=== PATIENT | female | born 1955 | race Caucasian/White ===

== ENCOUNTER → 2016-12-01 | Outpatient (CLI) | payer OTHER ==
[~2016-12-01] MED LIST: ACET325T30 PO; ALBINS NEB; AMIO0.1T PO; AMOX500C3 PO; AMOX875T PO; ASPI81TA28 PO; AZIT500T26 PO; CALC600T PO; CARV6.252 PO; CEFA500C2 PO; CHOL1CAP57 PO; CMD/3 PO; CMD4 PO; DIPH-437 PO; FERR325T5 PO; FERR325T51 PO; FURO40TA3 PO; FURO80TA63 PO; HYDR-5688 PO; HYDR5SYP11 PO; IPRASOL4 INH; LSX40 PO; MELA1CAP PO; MELA1TAB48 PO; NEBMAC; OMEP40CA PO; OMEP40CA41 PO; ONDA4TAB10 SL; OPTIRAY 320 IV PRN; POTA20TA13 PO; PRED10TA PO; PRED20TA PO; SERT100T PO; SIMV20TA2 PO; SPIR25TA89 PO; SYMIN/8045 INH; TRIA0.1C20 TOP; TRMCR130WC TOP; VNTHFA/IN; XLD/500 PO
--- NOTE | 2016-12-01 12:02 | DIAGNOSTIC IMAGING REPORT ---
CT SCAN OF THE CHEST WITH IV CONTRAST CLINICAL HISTORY: Breast cancer. COMPARISON STUDY: Chest CT dated 08/23/2016 and 06/27/2013. PET/CT dated 06/13/2016. TECHNIQUE: Following the IV administration of 119 cc of Optiray 320, CT scan of the thorax was performed from the thoracic inlet to the upper abdomen. Images are reviewed in the axial, sagittal, and coronal planes. IV contrast was administered without complication. The examination is degraded by streak artifact from a left ventricular assist device. FINDINGS: Thyroid: Imaged portions of the thyroid gland are normal in size and attenuation. Thoracic aorta: There is mild atherosclerotic calcification of the thoracic aorta, which is normal in caliber and demonstrates standard 3-vessel arch anatomy. No dissection is seen. Pulmonary vasculature: The pulmonary trunk is normal in caliber. There are no filling defects identified in the central pulmonary vessels to indicate pulmonary embolus. Note that this examination was not protocoled for evaluation of the pulmonary arteries. Heart: Midline sternotomy wires are noted. A cardiac AICD is present in the left chest wall. The heart is mildly enlarged and without pericardial effusion. A left ventricular assist device is noted. Thrombus is again seen within the proximal portion of the outflow cannula. This causes significant luminal narrowing but is unchanged from previous. Lungs and pleural spaces: A trace right pleural effusion is identified. No airspace consolidation is seen typical for pneumonia. There is fibrotic change at the right apex, as well as within the anterior aspect of the right middle lobe. This is unchanged and likely related to previous radiation treatment. A 7 mm pleural-based nodule in the right lower lobe seen on image #90 and a 7 mm nodule in the left upper lobe on image #111 have not significantly changed from the 08/23/2016 examination. No new pulmonary nodules are identified. The trachea and central airways are clear. Mediastinum: There are calcified mediastinal lymph nodes. Numerous subcentimeter mediastinal nodes are identified and similar to previous. Nivia: There are calcification containing hilar lymph nodes. Axillae: Surgical clips are present in the right axilla. There is no axillary lymphadenopathy. Upper abdomen: The spleen is enlarged, measuring 14.7 cm in length. A small hiatal hernia is noted. The partially imaged kidneys demonstrate cortical atrophy. There is moderate glandular atrophy of the visualized pancreas. Skeletal structures: The skeletal structures are osteopenic. No lytic or blastic bony lesions are seen. Soft tissues: Postoperative change is identified in the right breast. The right breast appears edematous with dermal thickening. There is an ill-defined soft tissue lesion seen on image #148 which measures 4.4 cm. This likely corresponds to residual tumor. IMPRESSION: 1. Postoperative findings and a dominant mass lesion in the right breast have not significantly changed from 08/23/2016. 2. There is no evidence of progressive metastatic disease. 3. 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 4. There is a trace right pleural effusion. No airspace consolidation is seen typical for pneumonia. 5. Pulmonary and pleural-based nodules measuring up to 7 mm are not significantly changed from 08/23/2016. 6. Cardiomegaly, AICD, and left ventricular cyst device as above. 7. Calcification containing mediastinal and hilar lymph nodes are similar to previous. The appearance suggests granulomatous disease or a pneumoconiosis. Clinical correlation will be essential. 8. Additional changes as detailed above. Electronically signed by: Dre Vaca M.D. 12/01/2016 12:01 PM Dictated Date/Time: 12/01/2016 11:52 AM
--- NOTE | 2016-12-01 12:57 | DIAGNOSTIC IMAGING REPORT ---
CT ABD WITH IV CONTRAST ONLY (CT) CT DOSE: CLINICAL HISTORY: Breast carcinoma TECHNIQUE: The patient was scanned in a dynamic helical fashion during intravenous administration of 119 cc Optiray 320 COMPARISON STUDY: 08/23/2016 FINDINGS: The visualized portions of the lower chest reveal a left ventricular assist device. Thrombus is again visualized within the inflow cannula. This results in significant luminal narrowing. There are subpleural fibrotic changes within the right middle lobe, consistent with post radiation change. There is a trace right pleural effusion. There is no evidence of abdominal aortic aneurysm. No adrenal masses are visualized. There is mild splenomegaly (12.5 cm). No pancreatic masses are visualized. No gallbladder abnormalities are visualized. No renal masses are visualized. The liver is slightly difficult to evaluate due to artifact and the patient's left ventricular assist device. There is subtle inhomogeneous enhancement with a suggestion of several tiny nodules. There is at least one focus of capsular contraction. The small nodules are less apparent than on the prior study. IMPRESSION: 1. Decreased conspicuity of the subcentimeter hepatic nodules 2. No new or enlarging hepatic masses 3. Trace right pleural effusion 4. Mild splenomegaly Electronically signed by: Victor M Troy M.D. 12/01/2016 12:56 PM Dictated Date/Time: 12/01/2016 12:42 PM
== END | disposition home or self-care (01) ==
LOC: C.CTS 11:04
PROVIDERS: ATTEND Internal Medicine Hematology & Oncology
DX: C50.411 Malignant neoplasm of upper-outer quadrant of right female breast (principal); K76.89 Other specified diseases of liver; J84.10 Pulmonary fibrosis, unspecified; R91.8 Other nonspecific abnormal finding of lung field; I51.7 Cardiomegaly; Z95.810 Presence of automatic (implantable) cardiac defibrillator; Z95.811 Presence of heart assist device; I89.8 Other specified noninfective disorders of lymphatic vessels and lymph nodes

== ENCOUNTER → 2016-12-15 | Outpatient (CLI) | payer OTHER ==
[2016-06-15 13:44] VITALS: TEMP 36.5
[~2016-12-15] MED LIST changes: -OPTIRAY 320 IV PRN
--- NOTE | 2016-12-15 16:00 | Radiation Oncology Follow-Up ---
Radiation Oncology Follow-Up Date of Visit Dec 15, 2016. (Tina Simpson PA-C) Reason For Visit 6 month follow-up (Tina Simpson PA-C) Radiation Completion Date 05/24/16 (Tina Simpson PA-C) Diagnosis (1) Breast cancer Onset Date: 09/25/2015 Permanent Comment: DIAGNOSIS: 1. Right breast, invasive ductal carcinoma, ER negative, NE positive, [id number], stage III status post lumpectomy/axillary lymph node dissection, adjuvant radiation therapy (5940 cGy, 07/24/96), advjuvant A/C chemotherapy 2. Right breast, invasive ductal carcinoma, grade 2, ER/NE/Her2 negative, [id number], stage IV (possible recurrence) Status post completion of radiation therapy 05/24/2016 received 6840 cGy Patient has been placed on systemic chemotherapy with Xeloda. Last Edited By: Tina Simpson on Jun 06, 2016 15:22 (Tina Simpson PA-C) History of Present Illness Ms. Robertson is a 60-year-old female who presents with previous history of stage III right breast cancer treated with surgery, radiation therapy and adjuvant chemotherapy in 1995. She she has been doing relatively well for a very long time. Of note, she does have both a defibrillator and LVAD for her CHF which was implanted in 2013. She has she did start to palpate something in her right breast in the upper outer quadrant which started in 2013. She did have a mammogram on 01/07/2014 which did not reveal any mammographic abnormality. She also had a PET /CT scan completed on 11/17/2014 which revealed no mass or uptake in the right breast and no evidence of recurrent breast cancer. The PET scan did note pulmonary nodularity and adenopathy which appeared stable and could be attributed to her sarcoidosis. She had a repeat mammogram on 02/17/2015 which revealed increasing linear microcalcifications within the right lumpectomy bed which required additional evaluation. She had a dedicated unilateral right diagnostic mammogram on 02/24/2015 which revealed faint clustered linear microcalcifications is a lumpectomy bed in the right breast. Her mammogram and ultrasound of the right breast were repeated on 08/11/2015 which revealed no discrete mass chest group linear calcifications consistent with what was previously noted in December 2013 and her mammogram in January 2015. Due to her LVAD device, she cannot undergo a stereotactic biopsy and had to proceed with an excisional biopsy which was completed on 09/25/2015. Her pathology revealed invasive ductal carcinoma that was moderately differentiated. Ductal carcinoma in situ was also noted. The superior margin was positive for invasive carcinoma in the anterior and lateral margins were less than 1 mm from invasive carcinoma. The tumor cells were negative for estrogen receptor, progesterone receptor and HER-2 receptor. She did undergo a PET/CT scan on 10/14/2015 which revealed an intense FDG avid liver lesion that is concerning for metastasis with no CT correlate, intensely avid right internal mammary lymph node which is stable from CT in comparison to 02/04/2014, increased FDG uptake in left spinal musculature which is likely physiologic, stigmata of sarcoidosis in the thorax and mediastinum and a postoperative hematoma in the right breast measuring 10 cm in the greatest dimension. Additionally, there was increased FDG uptake in the median sternotomy line which is likely inflammatory and related to nonunion. The patient's case was discussed at the tumor board at [facility]. They discussed treatment options and eventually concluded that radiation therapy would be the best option as this patient is high risk for postoperative complications from either a lumpectomy or mastectomy. They explained to the patient that a mastectomy would be standard to care in the setting of previous radiation therapy. The tumor board also discussed potentially biopsing the lesion in the liver. The patient was seen by Dr. Tidwell who agreed with the recommendation for consideration of radiation therapy given the fact that the patient cannot undergo surgical resection. We are now seeing the patient in consultation to discuss the role of radiation therapy. Currently, the patient is doing okay. She is being seen by the wound clinic as she is having wound healing issues from her previous excisional biopsy in the right breast. She explained to us that they may need to place a wound VAC. Otherwise, she has no significance complaints at this time. She does follow with Dr. Deshpande for cardiology and [place]. She completed conventional radiation therapy 05/24/2016. She received 6840 cGy. Treatment given to the right breast, supraclavicular area and axilla. (Tina Simpson PA-C) Interim History She states that there is an area of firmness in the lateral aspect of the right breast. There is mild tenderness. She lays on this side to sleep at night and can feel a very slight discomfort. She has noted no redness or increased warmth to the breast. She stated that medical oncology has been concerned about the area of firmness and there has been discussion of possible mastectomy. She has had follow-up mammography. This showed changes from her lumpectomy and radiation. There were no new obvious masses. She has skin changes that are likely related to surgery and radiation. A chest CT was performed on 12/01/2016. The postoperative findings and a dominant mass lesion the right breast have not significantly changed from 08/23/2016. There is no evidence of progressive metastatic disease. She stated that she has seen her surgeon and because of her comorbidities surgery was not an option. She also had a cough following completion of treatment. It was concerned that this may be radiation pneumonia. 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 Dr. Contreras treated her with steroid therapy on 2 occasions. This did help the cough. She does continue to have some intermittent coughing. (Tina Simpson PA-C) Allergies Coded Allergies: No Known Allergies (Unverified , 12/11/14) Home Medications Scheduled Amiodarone Hcl (Amiodarone Hcl), 100 MG PO DAILY Aspirin (Aspirin Ec), 162 MG PO DAILY Calcium Carbonate (Calcium 600), 600 MG PO DAILY Carvedilol (Coreg), 6.25 MG PO BID Cefadroxil (Duricef), 500 MG PO BID Cholecalciferol (Vitamin D3), 1,000 INTER.UNIT PO DAILY Ferrous Sulfate (Iron Supplement), 325 MG PO DAILY Furosemide (Lasix), 40 MG PO DAILY Melatonin (Melatonin), 20 MG PO HS Omeprazole (Prilosec), 40 MG PO DAILY Ondasetron Odt (Zofran Odt), 4-8 MG SL Q6H Potassium Chloride Microencaps (Potassium Chloride Er), 20 MEQ PO Q2D Sertraline Hcl (Zoloft), 100 MG PO QD@1200 Simvastatin (Zocor), 20 MG PO DAILY Spironolactone (Aldactone), 25 MG PO DAILY Triamcinolone Acet 0.1% (Aristocort 0.1%), 1 APPLN TOP UD prn Warfarin Sod (Warfarin Sodium), 1 TAB PO DAILY Scheduled PRN Acetaminophen (Acetaminophen), 650 MG PO UD PRN for Pain or Fever Acetaminophen/Diphenhydramine (Tylenol Pm), 1 TAB PO HS PRN for Sleep Amoxicillin (Amoxil), 500 MG PO UD PRN for Prior to Dental Appointments Review of Systems Gastrointestinal: Symptoms: WNL Oral: Symptoms: No Problems Respiratory: Symptoms: SOB With Exertion, Productive Cough Sputum Character: Clear sputum Other Respiratory: Reports her SOB is typical and related to her sarcoidosis Urinary: Symptoms: WNL Skin: Symptoms: No Problems Other Skin Symptoms: Slight wang discoloration to skin of treatment site on right breast. Breast: Right Upper Arm Measurement: 35.8 Right Mid Arm Measurement: 26.5 Right Wrist Measurement: 16.0 Left Upper Arm Measurement: 38.0 Left Mid Arm Measurement: 28.0 Left Wrist Measurement: 17.0 (Tina Simpson PA-C) Physical Exam Fatigue: None General Appearance: no apparent distress Eyes: normal inspection, EOMI ENT: normal ENT inspection, hearing grossly normal Neck: no adenopathy, thyroid normal Respiratory/Chest: lungs clear, no respiratory distress, no accessory muscle use Breast: Breast examination reveals fibrous tissue in the upper outer and lower outer portion of the right breast. There is skin retraction along the incision line. There is no dominant palpable mass. There is extensive edema in the upper inner and lower inner portion of the breast. There is no tenderness. Using the [place] score cosmesis she has a fair outcome. The left breast showed no masses or tenderness and no axillary adenopathy. Cardiovascular: + pertinent finding (hum of the LVAD) Extremities: no pedal edema Neurologic/Psychiatric: no motor/sensory deficits, alert, normal mood/affect Skin: warm/dry (Tina Simpson PA-C) Laboratory Studies Test 10/15/16 00:54 11/28/16 12:17 White Blood Count 8.44 K/uL (4.8-10.8) 5.91 K/uL (4.8-10.8) Red Blood Count 4.09 M/uL (4.2-5.4) 4.39 M/uL (4.2-5.4) Hemoglobin 12.1 g/dL (12.0-16.0) 12.3 g/dL (12.0-16.0) Hematocrit 36.1 % (37-47) 38.1 % (37-47) Mean Corpuscular Volume 88.3 fL (80-100) 86.8 fL (80-100) Mean Corpuscular Hemoglobin 29.6 pg (25-34) 28.0 pg (25-34) Mean Corpuscular Hemoglobin Concent 33.5 g/dl (32-36) 32.3 g/dl (32-36) Platelet Count 140 K/uL (130-400) 170 K/uL (130-400) Mean Platelet Volume 11.7 fL (7.4-10.4) 11.7 fL (7.4-10.4) Neutrophils (%) (Auto) 90.9 % 78.9 % Lymphocytes (%) (Auto) 2.6 % 8.6 % Monocytes (%) (Auto) 4.9 % 8.5 % Eosinophils (%) (Auto) 1.3 % 3.6 % Basophils (%) (Auto) 0.1 % 0.2 % Neutrophils # (Auto) 7.67 K/uL (1.4-6.5) 4.67 K/uL (1.4-6.5) Lymphocytes # (Auto) 0.22 K/uL (1.2-3.4) 0.51 K/uL (1.2-3.4) Monocytes # (Auto) 0.41 K/uL (0.11-0.59) 0.50 K/uL (0.11-0.59) Eosinophils # (Auto) 0.11 K/uL (0-0.5) 0.21 K/uL (0-0.5) Basophils # (Auto) 0.01 K/uL (0-0.2) 0.01 K/uL (0-0.2) RDW Standard Deviation 44.5 fL (36.4-46.3) 47.8 fL (36.4-46.3) RDW Coefficient of Variation 13.8 % (11.5-14.5) 15.0 % (11.5-14.5) Immature Granulocyte % (Auto) 0.2 % 0.2 % Immature Granulocyte # (Auto) 0.02 K/uL (0.00-0.02) 0.01 K/uL (0.00-0.02) Prothrombin Time 25.5 SECONDS (9.0-12.0) Prothrombin Time INR 2.3 (0.9-1.1) PTT 43.3 SECONDS (21.0-31.0) Partial Thromboplastin Ratio 1.7 Sodium Level 141 mmol/L (136-145) 142 mmol/L (136-145) Potassium Level 4.1 mmol/L (3.5-5.1) 3.9 mmol/L (3.5-5.1) Chloride Level 108 mmol/L (98-107) 105 mmol/L (98-107) Carbon Dioxide Level 23 mmol/L (21-32) 28 mmol/L (21-32) Anion Gap 10.0 mmol/L (3-11) 9.0 mmol/L (3-11) Blood Urea Nitrogen 34 mg/dl (7-18) 28 mg/dl (7-18) Creatinine 1.20 mg/dl (0.60-1.20) 1.30 mg/dl (0.60-1.20) Est Creatinine Clear Calc Drug Dose 51.3 ml/min 46.2 ml/min Estimated GFR () 55.7 50.6 Estimated GFR (Non- 48.1 43.6 BUN/Creatinine Ratio 28.1 (10-20) 21.3 (10-20) Random Glucose 108 mg/dl (70-99) 91 mg/dl (70-99) Calcium Level 8.5 mg/dl (8.5-10.1) 9.0 mg/dl (8.5-10.1) Total Bilirubin 0.5 mg/dl (0.2-1) 0.6 mg/dl (0.2-1) Direct Bilirubin 0.1 mg/dl (0-0.2) Aspartate Amino Transferase (AST) 36 U/L (15-37) 27 U/L (15-37) Alanine Aminotransferase (ALT) 32 U/L (12-78) 26 U/L (12-78) Alkaline Phosphatase 77 U/L (45-117) 86 U/L (45-117) Total Protein 7.0 gm/dl (6.4-8.2) 7.5 gm/dl (6.4-8.2) Albumin 4.0 gm/dl (3.4-5.0) 4.0 gm/dl (3.4-5.0) Lipase 183 U/L (73-393) Lactate Dehydrogenase 322 U/L (84-246) Globulin 3.5 gm/dl (2.5-4.0) Albumin/Globulin Ratio 1.1 (0.9-2) (Tina Simpson PA-C) Additional Studies CT SCAN OF THE CHEST WITH IV CONTRAST CLINICAL HISTORY: Breast cancer. COMPARISON STUDY: Chest CT dated 08/23/2016 and 06/27/2013. PET/CT dated 06/13/2016. TECHNIQUE: Following the IV administration of 119 cc of Optiray 320, CT scan of the thorax was performed from the thoracic inlet to the upper abdomen. Images are reviewed in the axial, sagittal, and coronal planes. IV contrast was administered without complication. The examination is degraded by streak artifact from a left ventricular assist device. FINDINGS: Thyroid: Imaged portions of the thyroid gland are normal in size and attenuation. Thoracic aorta: There is mild atherosclerotic calcification of the thoracic aorta, which is normal in caliber and demonstrates standard 3-vessel arch anatomy. No dissection is seen. Pulmonary vasculature: The pulmonary trunk is normal in caliber. There are no filling defects identified in the central pulmonary vessels to indicate pulmonary embolus. Note that this examination was not protocoled for evaluation of the pulmonary arteries. Heart: Midline sternotomy wires are noted. A cardiac AICD is present in the left chest wall. The heart is mildly enlarged and without pericardial effusion. A left ventricular assist device is noted. Thrombus is again seen within the proximal portion of the outflow cannula. This causes significant luminal narrowing but is unchanged from previous. Lungs and pleural spaces: A trace right pleural effusion is identified. No airspace consolidation is seen typical for pneumonia. There is fibrotic change at the right apex, as well as within the anterior aspect of the right middle lobe. This is unchanged and likely related to previous radiation treatment. A 7 mm pleural-based nodule in the right lower lobe seen on image #90 and a 7 mm nodule in the left upper lobe on image #111 have not significantly changed from the 08/23/2016 examination. No new pulmonary nodules are identified. The trachea and central airways are clear. Mediastinum: There are calcified mediastinal lymph nodes. Numerous subcentimeter mediastinal nodes are identified and similar to previous. Nivia: There are calcification containing hilar lymph nodes. Axillae: Surgical clips are present in the right axilla. There is no axillary lymphadenopathy. Upper abdomen: The spleen is enlarged, measuring 14.7 cm in length. A small hiatal hernia is noted. The partially imaged kidneys demonstrate cortical atrophy. There is moderate glandular atrophy of the visualized pancreas. Skeletal structures: The skeletal structures are osteopenic. No lytic or blastic bony lesions are seen. Soft tissues: Postoperative change is identified in the right breast. The right breast appears edematous with dermal thickening. There is an ill-defined soft tissue lesion seen on image #148 which measures 4.4 cm. This likely corresponds to residual tumor. IMPRESSION: 1. Postoperative findings and a dominant mass lesion in the right breast have not significantly changed from 08/23/2016. 2. There is no evidence of progressive metastatic disease. 3. 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 4. There is a trace right pleural effusion. No airspace consolidation is seen typical for pneumonia. 5. Pulmonary and pleural-based nodules measuring up to 7 mm are not significantly changed from 08/23/2016. 6. Cardiomegaly, AICD, and left ventricular cyst device as above. 7. Calcification containing mediastinal and hilar lymph nodes are similar to previous. The appearance suggests granulomatous disease or a pneumoconiosis. Clinical correlation will be essential. 8. Additional changes as detailed above. Electronically signed by: Dre Vaca M.D. 12/01/2016 12:01 PM Dictated Date/Time: 12/01/2016 11:52 AM BILATERAL DIGITAL DIAGNOSTIC MAMMOGRAM 3D/2D WITH CAD: 08/03/2016 CLINICAL HISTORY: 60-year-old woman presents after right lumpectomy and radiation. Patient has a history of remote right breast cancer diagnosed approximately 20 years ago. Left-sided pacemaker. Comparison is made to exams dated: 08/11/2015 ultrasound, 08/11/2015 mammogram , 02/24/2015 mammogram, and 02/17/2015 mammogram - [facility]. FINDINGS: Bilateral CC and MLO 2-D digital and tomosynthesis images were obtained. There are scattered areas of fibroglandular density in both breasts. Current study was also evaluated with a Computer Aided Detection (CAD) system. A pacemaker projects over the left pectoralis muscle and superior breast on the MLO view, and in the far posterior left breast on the CC view. There is asymmetry of the size of the breasts, left greater than right. There is diffuse skin irregularity, skin thickening and architectural distortion with associated asymmetry in the upper outer quadrant of the right breast, denoting the site of prior surgeries. Mammographically, it is difficult to assess for pathologic skin thickening versus that related to previous surgery and radiation therapy. However, there are no new linear microcalcifications or obvious mass. Scattered benign calcifications and vascular calcifications are seen within the right breast. There are stable benign-appearing microcalcifications within the left breast. Would recommend follow-up right mammograms including repeat spot magnification views in 6 months, given that this represents the new baseline after repeat lumpectomy and radiation treatment. IMPRESSION: ACR-BI-RADS CATEGORY 3: PROBABLY BENIGN 1. A short interval follow-up right mammogram including tomosynthesis images and spot magnification views is recommended in 6 months to ensure stability after second lumpectomy and radiation therapy for right breast cancer. 2. Stable mammographic appearance of the left breast, without mammographic evidence of malignancy. Advise follow-up in 1 year. These results and recommendations were discussed with the patient at the time of the exam. Approximately 10% of breast cancers are not detected with mammography. A negative mammographic report should not delay biopsy if a clinically suggestive mass is present. Jacquie Jansen M.D. ay/:08/03/2016 12:23:02 Safety Person: Pattie CLAYTON)([place]), [facility] letter sent: Follow Up Recommended 3 BI-RADS Code: ACR-BI-RADS Category 3: Probably Benign Dictated by: Jacquie Jansen MD Signed by: Jacquie Jansen MD (Tina Simpson PA-C) Assessment & Plan Plan: Patient was seen and examined by Dr. Pettit. Continue with scheduled mammography. For the cough prescription was given for Tessalon Perles she can take to 3 times a day as needed for cough. For the edema of the breast she'll be referred to the lymphedema clinic. This may help with the edema as well of scar tissue. Continue regular follow-up with medical oncology and Dr. Contreras. She also will be having a follow-up visit with her manager search. We asked her to return to our office in 1 year. She may call if she has any questions or concerns in the interim. (Tina Simpson PA-C) I agree with note created by Tina Simpson PA-C. I reviewed the patient's chart and information with her. I have examined and evaluated the patient. I reviewed relevant clinical information and answered the patient's and/or family' s questions. (Veeral. Pettit MD) Total Time In Follow-Up I spent 25 minutes speaking to the patient and performing examination. I spent 15 minutes reviewing information in completing this note. (Tina Simpson PA-C) I spent 15 minutes examining and counseling the patient. (Veeral. Pettit MD) Copy To Calixto Johnston MD; Pro,Jamshid Joya M.D.
== END | disposition home or self-care (01) ==
LOC: C.ONC 13:14
PROVIDERS: ATTEND Radiology Radiation Oncology
DX: Z08 Encounter for follow-up examination after completed treatment for malignant neoplasm (principal); Z92.3 Personal history of irradiation; Z85.3 Personal history of malignant neoplasm of breast

== ENCOUNTER → 2017-01-04 | Outpatient (CLI) | payer OTHER ==
[~2017-01-04] MED LIST changes: -XLD/500 PO
== END | disposition home or self-care (01) ==
LOC: C.PAPS 13:57
PROVIDERS: ATTEND Obstetrics & Gynecology
DX: Z12.4 Encounter for screening for malignant neoplasm of cervix (principal)

== ENCOUNTER → 2017-02-01 | Outpatient (CLI) | payer OTHER ==
--- NOTE | 2017-02-01 14:43 | MAMMOGRAPHY REPORT ---
UNILATERAL RIGHT DIGITAL DIAGNOSTIC MAMMOGRAM TOMOSYNTHESIS WITH CAD AND TARGETED RIGHT ULTRASOUND: 02/01/2017 CLINICAL HISTORY: 61-year-old woman with a personal history of right breast cancer (triple negative at pathology) and also of recurrence in the right breast status post 2 lumpectomies and radiation th erapy 2. She also has a history of left ventricular failure with an LVAD device and AICD/pacemaker . TECHNIQUE: Right CC and MLO 2-D digital and tomosynthesis images, spot magnification right CC and M L views were obtained. Current study was also evaluated with a Computer Aided Detection (CAD) syste m. COMPARISON: Comparison is made to exams dated: 08/03/2016 mammogram, 08/11/2015 ultrasound, 08/11/20 15 mammogram, 02/24/2015 mammogram, 02/17/2015 mammogram, and 01/07/2014 ultrasound - [facility]. BREAST COMPOSITION: The tissue of the right breast is heterogeneously dense, which may obscure smal l masses. FINDINGS: There is diffuse skin thickening and trabecular edema of the entire right breast. There are a few benign rim calcifications and coarse calcifications in the right breast. No new suspiciou s linear, grouped or clustered microcalcifications are seen. No obvious new mass or unexpected arch itectural distortion. Real-time high-resolution ultrasound was performed throughout the right breast to assess for any obv ious mass. There is diffuse skin thickening of the right breast, but it is most prominent in the in ferior and medial aspect of the breast. There is fluid surrounding the fat lobules in the lower inn er quadrant of the right breast, compatible with edema. No obvious suspicious solid or cystic mass is seen. IMPRESSION: ACR-BI-RADS CATEGORY 3: PROBABLY BENIGN, TARGETED ULTRASOUND ACR-BI-RADS CATEGORY 3: ID OBABLY BENIGN There are expected post-therapeutic changes in the right breast, without definite mammographic or ta rgeted sonographic evidence of malignancy. Recommend another close follow-up diagnostic evaluation of the right breast in 6 months. Annual left mammography will also be due at that time. These results and recommendations were discussed with the patient at the time of the exam. Approximately 10% of breast cancers are not detected with mammography. A negative mammographic repor t should not delay biopsy if a clinically suggestive mass is present. Jacquie Jansen M.D. ay/:02/01/2017 12:09:34 [employer] Wafer Inspector: Marva Haney, [facility] letter sent: Follow Up Recommended 3 BI-RADS Code: ACR-BI-RADS Category 3: Probably Benign Ultrasound BI-RADS: ACR-BI-RADS Category 3: P robably Benign
== END | disposition home or self-care (01) ==
LOC: C.MAMM 10:58
PROVIDERS: ATTEND Internal Medicine Hematology & Oncology
DX: R92.8 Other abnormal and inconclusive findings on diagnostic imaging of breast (principal); Z85.3 Personal history of malignant neoplasm of breast; Z95.0 Presence of cardiac pacemaker

== ENCOUNTER → 2017-02-20 | Outpatient (CLI) | payer OTHER ==
--- NOTE | 2017-02-20 11:21 | DIAGNOSTIC IMAGING REPORT ---
CHEST 2 VIEWS ROUTINE CLINICAL HISTORY: R06.02 Shortness of [id number] COMPARISON STUDY: 05/26/2016 FINDINGS: The heart is mildly enlarged. There is a left subclavian pacer/defibrillator present. There is a left ventricular assist device present. Surgical clips project over the right axillary region. There is mild central vascular prominence without evidence of overt failure. There is stable right lung interstitial thickening. There are no pleural effusions. There is no focal pulmonary consolidation.[ IMPRESSION: Postsurgical changes as described above. Mild right lung interstitial thickening. No evidence of pneumonia.. Electronically signed by: Victor M Troy M.D. 02/20/2017 11:19 AM Dictated Date/Time: 02/20/2017 11:17 AM
== END | disposition home or self-care (01) ==
LOC: C.RAD1850 11:05
PROVIDERS: ATTEND Physician Assistant
DX: R06.02 Shortness of breath (principal)

== ENCOUNTER 2017-02-22 15:06 | Emergency (ER) | payer OTHER ==
[~2017-02-22] VITALS: Ht 157.5 cm; Wt 94.2 kg
[~2017-02-22 15:06] MED LIST changes: -ALBINS NEB; -AMIO0.1T PO; -AMOX500C3 PO; -AMOX875T PO; -ASPI81TA28 PO; -AZIT500T26 PO; -CALC600T PO; -CARV6.252 PO; -CEFA500C2 PO; -CMD4 PO; -DIPH-437 PO; -FERR325T5 PO; -FURO80TA63 PO; -HYDR-5688 PO; -HYDR5SYP11 PO; -IPRASOL4 INH; -LSX40 PO; -MELA1CAP PO; -NEBMAC; -OMEP40CA41 PO; -POTA20TA13 PO; -PRED10TA PO; -PRED20TA PO; -SERT100T PO; -SIMV20TA2 PO; -SPIR25TA89 PO; -SYMIN/8045 INH; -TRMCR130WC TOP; -VNTHFA/IN
[2017-02-22 15:10] VITALS: TEMP 36.8; Ht 157.5 cm; Wt 94.2 kg
[2017-02-22] MEDS ORDERED: ALBUTEROL 0.083% NEBU SOLN 3 ML VIAL INH STA (15:23)
--- NOTE | 2017-02-22 15:48 | EMERGENCY ROOM VISIT NOTE ---
History Report prepared by Diana: Campbell Boykin Under the Supervision of: Dr. Shakeel Marcano D.O. First contact with patient: 15:12 Chief Complaint: SHORTNESS OF BREATH Stated Complaint: SOB Nursing Triage Summary: Pt states, "I got sick with a bad cough about 9 days ago. I went to the drs on Mon and was placed on zpak and prednisone. I have a LVAD." SOB. Cough of brown/yellow sputum. History of Present Illness The patient is a 61 year old female who presents to the Emergency Room with complaints of worsening shortness of breath beginning five days prior to arrival. She currently rates her discomfort as an 8/10 in severity. The patient associates a cough and congestion with today's symptoms. She states she saw her provider for her cough two days ago, and she was placed on azithromycin and steroids. The patient notes her doctor did a chest x-ray, and pneumonia was not noted. She notes her cough is productive with brown/yellow sputum. The patient states she has an LVAD that was placed in 2012. She notes she has a history of breast cancer in 1994. The patient states she she has intermittent wheezing, and she uses inhalers that helps alleviate her symptoms. She notes she last had radiation six months ago, and she has had issues with radiation pneumonia. The patient states she is on Coumadin and denies missing a dose. Pt denies headache , change in vision, fevers, chest pain, nausea, vomiting, diarrhea, pain with urination, and melena. Source of History: patient Onset: five days FIELD CHECKER Position: other (global) Symptom Intensity: 8/10 Quality: other (shortness of breath) Timing: worsening Associated Symptoms: + SOB, + cough (with yellow/brown sputum) Note: Associated symptoms: congestion. Review of Systems See HPI for pertinent positives & negatives. A total of 10 systems reviewed and were otherwise negative. Past Medical & Surgical Medical Problems: (1) Acute on chronic systolic heart failure (2) Anemia (3) Anemia (4) Anemia (5) Anxiety (6) Atrial fibrillation (7) Bleeding from Peter-Escoto drain (8) Breast cancer (9) Carcinoma of breast (10) Cardiac defibrillator in situ (11) Cardiomyopathy (12) Chest pain (13) CHF (congestive heart failure) (14) Congestive rheumatic heart failure (15) Depression (16) Elevated troponin (17) History of - tubal ligation (18) [id number] (19) Implantation of internal cardiac defibrillator (20) Lumpectomy of breast (21) LVAD (left ventricular assist device) present (22) Osteopenia (23) Sarcoidosis (24) Wrist pain, right Surgical Problems: (1) History of cholecystectomy Family History Patient reports no known family medical history. Social History Smoking Status: Former Smoker Alcohol Use: none Drug Use: none Marital Status: Housing Status: lives with family Occupation Status: disabled Current/Historical Medications Scheduled Amiodarone Hcl (Amiodarone Hcl), 100 MG PO DAILY Aspirin (Aspirin Ec), 162 MG PO HS Azithromycin (Zithromax), 500 MG PO DAILY Budesonide/Formoterol Fumarate (Symbicort 80/4.5 Inhaler), 2 PUFFS INH BID Calcium Carbonate (Calcium 600), 600 MG PO DAILY Carvedilol (Coreg), 6.25 MG PO BIDM Cefadroxil (Duricef), 500 MG PO BID Ferrous Sulfate (Ferrous Sulfate), 325 MG PO DAILY Furosemide (Lasix), 40 MG PO DAILY Melatonin (Melatonin), 2 MG PO HS Omeprazole (Prilosec), 40 MG PO QAM Potassium Chloride Microencaps (Potassium Chloride Er), 20 MEQ PO Q2D Prednisone (Prednisone), 10 MG PO DAILY Sertraline Hcl (Zoloft), 100 MG PO QD@1200 Simvastatin (Zocor), 20 MG PO DAILY Spironolactone (Aldactone), 25 MG PO DAILY Warfarin Sod (Coumadin), 4 MG PO DAILY Scheduled PRN Acetaminophen (Acetaminophen), 650 MG PO UD PRN for Pain or Fever Acetaminophen/Diphenhydramine (Tylenol Pm), 2 TABS PO HS PRN for Sleep Amoxicillin (Amoxil), 500 MG PO UD PRN for Prior to Dental Appointments Hydrocodone W/ Homatropine (Hycodan 5/1.5MG 5 Ml), 5 ML PO HS PRN for Cough Triamcinolone Acet (Aristocort 0.1%), 1 APPLN TOP DIRECTED PRN for Affected Skin Folds Allergies Coded Allergies: No Known Allergies (Unverified , 02/22/17) Physical Exam Vital Signs Date Time Temp Pulse Resp B/P Pulse Ox O2 Delivery O2 Flow Rate FiO2 02/22/17 18:25 80 22 93 Room Air 02/22/17 17:22 73 02/22/17 17:19 79 20 88/64 96 Nasal Cannula 2.0 02/22/17 15:57 81 26 95 Nasal Cannula 2.0 02/22/17 15:10 36.8 46 24 93 Room Air 02/22/17 15:08 93 Room Air Physical Exam GENERAL: sitting up in bed, nonproductive cough. EYE EXAM: normal conjunctiva OROPHARYNX: no exudate, no erythema, lips, buccal mucosa, and tongue normal and mucous membranes are moist NECK: supple, no nuchal rigidity, no adenopathy, non-tender LUNGS: Diffuse wheezing bilaterally. Normal chest wall mechanics HEART: Chronic hum CHEST: Old midline sternal incision. Old mastectomy on the right. ABDOMEN: Line going into right side of abdomen, no erythema or discharge. Abdomen soft, non-tender, normo-active bowel sounds, no masses, no rebound or guarding. BACK: Back is symmetrical on inspection and there is no deformity, no midline tenderness, no CVA tenderness. SKIN: no rashes and no bruising UPPER EXTREMITIES: upper extremities are grossly normal. LOWER EXTREMITIES: No pitting edema. NEURO EXAM: Normal sensorium, cranial nerves II-XII grossly intact, normal speech, no gross weakness of arms, no gross weakness of legs. Medical Decision & Procedures ER Provider Diagnostic Interpretation: Radiology results as stated below per my review and the radiologist's interpretation: CHEST ONE VIEW PORTABLE CLINICAL HISTORY: Chest pain. Shortness of breath. COMPARISON STUDY: Chest radiograph February 20, 2017. FINDINGS: A left subclavian pacer/AICD is in place. A ventricular assist device is noted. Cardiomegaly is unchanged. There are median sternotomy wires. Right lower lung consolidation has developed since prior exam. There is pulmonary vascular congestion with possible mild pulmonary edema. IMPRESSION: 1. Interval development of right mid and lower lung airspace opacity. The appearance favors pneumonia although asymmetric edema could appear similar. 2. Pulmonary vascular congestion. Electronically signed by: Gustavo Arias M.D. 02/22/2017 4:17 PM LATERAL CHEST RADIOGRAPH CLINICAL HISTORY: Cough and shortness of breath. COMPARISON STUDY: Chest radiograph February 20, 2017. FINDINGS: This study is viewed in conjunction with the AP exam which was performed at 3:48 PM. Pacer/AICD and ventricular system device are noted. Cardiomegaly is noted. There is no definite pleural effusion. Right lower lung airspace opacity is better depicted on the frontal chest radiograph. IMPRESSION: Lateral radiograph demonstrating cardiomegaly. No pleural effusion. Right lower lung opacity is better depicted on the frontal chest radiograph and favors pneumonia. Electronically signed by: Gustavo Arias M.D. 02/22/2017 4:41 PM Laboratory Results 02/22/17 15:40 Red Blood Count 3.90, Mean Corpuscular Volume 86.7, Mean Corpuscular Hemoglobin 28.2, Mean Corpuscular Hemoglobin Concent 32.5, Mean Platelet Volume 11.1, Neutrophils (%) (Auto) 89.6, Lymphocytes (%) (Auto) 7.4, Monocytes (%) (Auto) 2.8, Eosinophils (%) (Auto) 0.0, Basophils (%) (Auto) 0.0, Neutrophils # (Auto) 5.70, Lymphocytes # (Auto) 0.47, Monocytes # (Auto) 0.18, Eosinophils # (Auto) 0.00, Basophils # (Auto) 0.00 02/22/17 15:40 Test 02/22/17 15:40 White Blood Count 6.36 K/uL (4.8-10.8) Red Blood Count 3.90 M/uL (4.2-5.4) Hemoglobin 11.0 g/dL (12.0-16.0) Hematocrit 33.8 % (37-47) Mean Corpuscular Volume 86.7 fL (80-100) Mean Corpuscular Hemoglobin 28.2 pg (25-34) Mean Corpuscular Hemoglobin Concent 32.5 g/dl (32-36) Platelet Count 122 K/uL (130-400) Mean Platelet Volume 11.1 fL (7.4-10.4) Neutrophils (%) (Auto) 89.6 % Lymphocytes (%) (Auto) 7.4 % Monocytes (%) (Auto) 2.8 % Eosinophils (%) (Auto) 0.0 % Basophils (%) (Auto) 0.0 % Neutrophils # (Auto) 5.70 K/uL (1.4-6.5) Lymphocytes # (Auto) 0.47 K/uL (1.2-3.4) Monocytes # (Auto) 0.18 K/uL (0.11-0.59) Eosinophils # (Auto) 0.00 K/uL (0-0.5) Basophils # (Auto) 0.00 K/uL (0-0.2) RDW Standard Deviation 49.2 fL (36.4-46.3) RDW Coefficient of Variation 15.5 % (11.5-14.5) Immature Granulocyte % (Auto) 0.2 % Immature Granulocyte # (Auto) 0.01 K/uL (0.00-0.02) Prothrombin Time 22.5 SECONDS (9.0-12.0) Prothromb Time International Ratio 2.0 (0.9-1.1) Anion Gap 6.0 mmol/L (3-11) Est Creatinine Clear Calc Drug Dose 51.3 ml/min Estimated GFR () 55.7 Estimated GFR (Non- 48.1 BUN/Creatinine Ratio 26.5 (10-20) Calcium Level 8.7 mg/dl (8.5-10.1) Total Creatine Kinase 60 U/L (26-192) Creatine Kinase MB 1.0 ng/ml (0.5-3.6) Creatine Kinase MB Ratio 1.7 (0-3.0) Troponin I < 0.015 ng/ml (0-0.045) Laboratory results per my review. Medications Administered Medications (Trade) Dose Ordered Sig/Piedad Route Start Time Stop Time Status Last Admin Dose Admin Albuterol Sulfate (Ventolin 0.083% 2.5MG/3ML Neb) 5 mg NOW STAT INH 02/22/17 15:23 02/22/17 15:25 DC 02/22/17 15:44 5 MG Prednisone (PredniSONE TAB) 60 mg NOW STAT PO 02/22/17 15:25 02/22/17 15:26 DC 02/22/17 15:44 20 MG Levofloxacin (Levaquin / D5W) 750 mg NOW STAT IV 02/22/17 15:49 02/22/17 15:50 DC 02/22/17 16:02 750 MG Piperacillin Sod/ Tazobactam Sod 4.5 gm 4.5 gm NOW STAT IV 02/22/17 17:24 02/22/17 17:25 DC 02/22/17 18:13 4.5 GM Vancomycin HCl/ Sodium Chloride (Vancomycin Inj/ Nss 500ml) 536 ml @ 200 mls/hr NOW ONCE IV 02/22/17 17:45 02/22/17 19:05 DC 02/22/17 18:13 200 MLS/HR ECG Indication: SOB/dyspnea Rate (beats per minute): 79 Rhythm: sinus rhythm Findings: 1st degree AV block, Q waves (Inferior and Septal), left axis deviation, other (T-wave flattening in lateral and inferior) Comparison ECG Date: 12/20/14 Change: Old EKG was paced. ED Course ED COURSE: Vital signs were reviewed and showed afebrile and pulse on 93. The patients medical record was reviewed The above diagnostic studies were performed and reviewed. ED treatments and interventions as stated above. 1514: The patient was evaluated in room C4. A complete history and physical examination was performed. 1523: Ordered Albuterol Sulfate 5 mg INH. 1525: Ordered Prednisone 60 mg PO. 1549: Ordered Levofloxacin 750 mg. 1655: Reevaluated and updated the patient at this time. 1708: I spoke [place]. Silverio [facility] ([place]ospital[place]) about the patients case, and she recommended transferring the patient. 1710: I spoke to Dr. Beckwith, [facility] about the patients case, and he will accept the patient for transfer. 1724: Ordered Zosyn Iv 4.5 gm IV. 1745: Ordered Vancomycin HCl 1,800 mg/Sodium Chloride 536 ml @ 200 mls/hr IV. 1755: Upon reevaluation, the patient is doing well.I discussed my findings with the patient and she understands and agrees with the treatment plan. Based on the patients age, coexisting illnesses, exam and lab findings the decision to treat as a transfer patient was made. The patient remained stable while under my care. The patient will be evaluated for further management. Medical Decision Differential diagnoses includes but is not limited to pneumonia, bronchitis, COPD/Asthma exacerbation, pneumothorax, pulmonary embolism, congestive heart failure, acute coronary syndrome Patient is a 61-year-old female who currently has an LVAD performed at [facility] 4 years ago secondary to Adriamycin. She presents today for increasing worsening shortness of breath. She has had a productive cough which is was yellow. She's been on antibiotics and steroids with no improvement. She carries a questionable history of asthma/COPD. No documentation per my review. She does follow with Dr. Santoro from cardiology at [facility]. Rpm's are 9800, flow is 4.8, PI is 4.7 and power was 6.6. IV was established and blood work was obtained along with a chest x-ray. She was given 2 nebs of albuterol along with 20 mg of steroids as she has are taken 40 mg today. She is dyspneic with conversation. She notes she has not missed any doses of her Coumadin. Last INR was 2.7. Chest x-ray supports a pneumonia. CBC along with BMP and troponin were unremarkable. INR today was 2.0. Patient was given IV antibiotics. She was updated at bedside. Discussed with internal medicine who recommended transfer. Patient was accepted to [facility] with pneumonia and an LVAD. She was transferred via ALS. Consults Time Called: 1706 Consulting Physician: ROOPA Alonso (Hospitalist) Returned Call: 1708 I spoke to ROOPA Alonso (Hospitalist) about the patients case, and she recommended transferring the patient. Additional Consults: Time Called: 1647 Consulted Physician: Dr. Beckwith [facility] Returned Call: 1710 Additional Comments: I spoke to Dr. Beckwith [facility] about the patients case, and he will accept the patient for transfer. Impression Primary Impression: Pneumonia Additional Impression: LVAD (left ventricular assist device) present Scribe Attestation The scribe's documentation has been prepared under my direction and personally reviewed by me in its entirety. I confirm that the note above accurately reflects all work, treatment, procedures, and medical decision making performed by me. Departure Information Dispostion Transfer Acute Care Facility (Dr. Beckwith [facility]) Referrals No Doctor, Assigned (PCP) Problem Qualifiers Primary Impression: Pneumonia Pneumonia type: due to unspecified organism Laterality: unspecified laterality Lung location: unspecified part of lung Qualified Codes: J18.9 - Pneumonia, unspecified organism
[2017-02-22] MEDS ORDERED: LEVAQUIN 750MG / 150ML D5W IV STA (15:49)
[2017-02-22 15:54] LABS: COMPLETE YES; HEMATOCRIT 33.8 % (37-47); IG% 0.2 %; LYMPH % 7.4 %; LYMPH ABS # 0.47 K/uL (1.2-3.4); MEAN CELL VOLUME 86.7 fL (80-100); MEAN CORPUSCULAR HEMOGLOBIN 28.2 pg (25-34); MEAN CORPUSCULAR HGB CONC 32.5 g/dl (32-36); MEAN PLATELET VOLUME 11.1 fL (7.4-10.4); MONO % 2.8 %; NEUT % 89.6 %; PLATELET COUNT 122 K/uL (130-400); WHITE BLOOD COUNT 6.36 K/uL (4.8-10.8)
[2017-02-22 16:09] LABS: PROTHROMBIN TIME (PATIENT) 22.5 SECONDS (9.0-12.0)
[2017-02-22 16:10] LABS: BLOOD UREA NITROGEN 32 mg/dl (7-18); BUN/CREATININE RATIO 26.5 (10-20); CALCIUM 8.7 mg/dl (8.5-10.1); CARBON DIOXIDE 25 mmol/L (21-32); CHLORIDE 108 mmol/L (98-107); GLUCOSE 127 mg/dl (70-99); POTASSIUM 3.9 mmol/L (3.5-5.1); SODIUM 139 mmol/L (136-145)
[2017-02-22] MEDS ORDERED: PRED10TA PO (16:11)
[2017-02-22] MEDS ORDERED: AZIT500T26 PO (16:11)
[2017-02-22 16:15] LABS: CKMB/CK RATIO 1.7 (0-3.0)
--- NOTE | 2017-02-22 16:19 | DIAGNOSTIC IMAGING REPORT ---
CHEST ONE VIEW PORTABLE CLINICAL HISTORY: Chest pain. Shortness of breath. COMPARISON STUDY: Chest radiograph February 20, 2017. FINDINGS: A left subclavian pacer/AICD is in place. A ventricular assist device is noted. Cardiomegaly is unchanged. There are median sternotomy wires. Right lower lung consolidation has developed since prior exam. There is pulmonary vascular congestion with possible mild pulmonary edema. IMPRESSION: 1. Interval development of right mid and lower lung airspace opacity. The appearance favors pneumonia although asymmetric edema could appear similar. 2. Pulmonary vascular congestion. Electronically signed by: Gustavo Arias M.D. 02/22/2017 4:17 PM Dictated Date/Time: 02/22/2017 4:14 PM
--- NOTE | 2017-02-22 16:43 | DIAGNOSTIC IMAGING REPORT ---
LATERAL CHEST RADIOGRAPH CLINICAL HISTORY: Cough and shortness of breath. COMPARISON STUDY: Chest radiograph February 20, 2017. FINDINGS: This study is viewed in conjunction with the AP exam which was performed at 3:48 PM. Pacer/AICD and ventricular system device are noted. Cardiomegaly is noted. There is no definite pleural effusion. Right lower lung airspace opacity is better depicted on the frontal chest radiograph. IMPRESSION: Lateral radiograph demonstrating cardiomegaly. No pleural effusion. Right lower lung opacity is better depicted on the frontal chest radiograph and favors pneumonia. Electronically signed by: Gustavo Arias M.D. 02/22/2017 4:41 PM Dictated Date/Time: 02/22/2017 4:39 PM
[2017-02-22 17:19] VITALS: BP 88/64
[2017-02-22] MEDS ORDERED: VANCOMYCIN IV STA (17:24)
[2017-02-22] MEDS ORDERED: SODIUM CHLORIDE 0.9% IV STA (17:24)
[2017-02-22] MEDS ORDERED: PIPERACILLIN/TAZOBACTAM 4.5 GM/100ML D5W IV STA (17:24)
[2017-02-22] MEDS ORDERED: VANCOMYCIN INJ 1,800 MG in SODIUM CHLORIDE 0.9% 500ML 500 ML IV ONE (17:45)
[2017-02-22 18:25] VITALS: PULSE 80; O2SAT 93
[2017-02-28] MEDS ORDERED: CEFA500C2 PO (16:11)
[2017-03-01] MEDS ORDERED: NEBMAC (14:33)
[2017-03-01] MEDS ORDERED: IPRASOL4 INH (14:33)
[2017-03-03] MEDS ORDERED: AMOX875T PO (10:03)
[2017-03-03] MEDS ORDERED: PRED10TA PO (10:03)
[2017-03-03] MEDS ORDERED: ALBINS NEB (15:37)
[2017-03-16] MEDS ORDERED: SPIR25TA89 PO (11:10)
[2017-03-16] MEDS ORDERED: SIMV20TA2 PO (11:58)
[2017-03-16] MEDS ORDERED: CARV6.252 PO (12:08)
[2017-03-16] MEDS ORDERED: TRMCR130WC TOP (16:11)
[2017-03-16] MEDS ORDERED: FERR325T5 PO (16:11)
[2017-03-16] MEDS ORDERED: HYDR5SYP11 PO (16:11)
[2017-03-16] MEDS ORDERED: OMEP40CA41 PO (16:11)
[2017-03-16] MEDS ORDERED: POTA20TA13 PO (16:11)
[2017-03-16] MEDS ORDERED: ASPI81TA28 PO (16:11)
[2017-03-16] MEDS ORDERED: SYMIN/8045 INH (16:11)
[2017-03-16] MEDS ORDERED: CMD4 PO (16:11)
[2017-03-16] MEDS ORDERED: AMIO0.1T PO (16:11)
[2017-03-16] MEDS ORDERED: MELA1CAP PO (16:14)
[2017-03-16] MEDS ORDERED: DIPH-437 PO (16:16)
[2017-03-16] MEDS ORDERED: AMOX500C3 PO (16:16)
[2017-03-16] MEDS ORDERED: CALC600T PO (16:16)
[2017-03-16] MEDS ORDERED: VNTHFA/IN (17:58)
== END 2017-02-22 18:30 | disposition short-term general hospital (02) ==
LOC: C.EDB 15:07 → C.EDC 18:30
DX: J18.9 Pneumonia, unspecified organism (principal); Z95.811 Presence of heart assist device; I44.0 Atrioventricular block, first degree; I50.9 Heart failure, unspecified; D64.9 Anemia, unspecified; I48.91 Unspecified atrial fibrillation; F32.9 Major depressive disorder, single episode, unspecified; Z95.0 Presence of cardiac pacemaker; M85.80 Other specified disorders of bone density and structure, unspecified site; D86.9 Sarcoidosis, unspecified; Z79.01 Long term (current) use of anticoagulants; Z79.82 Long term (current) use of aspirin; Z85.3 Personal history of malignant neoplasm of breast; Z87.891 Personal history of nicotine dependence

== ENCOUNTER → 2017-02-24 | Outpatient (CLI) | payer OTHER ==
[~2017-02-24] MED LIST changes: +ALBINS NEB; +AMIO0.1T PO; +AMOX500C3 PO; +AMOX875T PO; +ASPI81TA28 PO; +AZIT500T26 PO; +CALC600T PO; +CARV6.252 PO; +CEFA500C2 PO; -CHOL1CAP57 PO; -CMD/3 PO; +CMD4 PO; +DIPH-437 PO; +FERR325T5 PO; -FERR325T51 PO; +FURO80TA63 PO; +HYDR-5688 PO; +HYDR5SYP11 PO; +IPRASOL4 INH; +LSX40 PO; +MELA1CAP PO; -MELA1TAB48 PO; +NEBMAC; -OMEP40CA PO; +OMEP40CA41 PO; -ONDA4TAB10 SL; +OPTIRAY 320 IV PRN; +POTA20TA13 PO; +PRED10TA PO; +PRED20TA PO; +SERT100T PO; +SIMV20TA2 PO; +SPIR25TA89 PO; +SYMIN/8045 INH; -TRIA0.1C20 TOP; +TRMCR130WC TOP; +VNTHFA/IN
--- NOTE | 2017-02-24 09:31 | DIAGNOSTIC IMAGING REPORT ---
ABDOMEN AND PELVIS CT WITH IV AND ORAL CONTRAST CT DOSE: HISTORY: Breast cancer. Follow-up. Evaluate for metastatic disease. TECHNIQUE: Multiaxial CT images of the abdomen and pelvis were performed following the use of intravenous and oral contrast. COMPARISON STUDY: Abdomen and pelvis CT 12/01/2016. FINDINGS: A small right pleural effusion has increased in size. Patchy groundglass and tree-in-bud nodularity seen within the lung bases. There is again noted a left ventricular assist device. Skin thickening and subcutaneous edema within the partially visualized right breast. Evaluation of the liver is suboptimal due to the metallic artifact from the left ventricular assist device. There is heterogeneous enhancement to the liver. Multiple subtle small hepatic lesions are again noted. These appear similar to the prior study. A few these demonstrate slight capsular retraction, unchanged. The gallbladder, pancreas, and adrenal glands are unremarkable. The kidneys enhance normally. No hydronephrosis. No lymphadenopathy. No bowel wall thickening or obstruction. The bladder is decompressed. The uterus and ovaries are unremarkable. No pelvic free fluid. No suspicious lytic or blastic osseous lesions. Mild splenomegaly, unchanged. IMPRESSION: 1. Small right pleural effusion which is increased in size. 2. Patchy groundglass densities and tree-in-bud nodular opacities within the lung bases. This may represent an atypical pneumonia or developing pulmonary edema. 3. Suboptimal evaluation of the liver due to metallic artifact from the left ventricular assist device. However, the subtle hepatic metastatic lesions are not significantly changed. 4. No additional sites of metastatic disease identified. 5. Mild splenomegaly, unchanged. Electronically signed by: Corby Camilo M.D. 02/24/2017 9:30 AM Dictated Date/Time: 02/24/2017 9:23 AM
--- NOTE | 2017-02-24 09:34 | DIAGNOSTIC IMAGING REPORT ---
CT OF THE CHEST WITH IV CONTRAST CLINICAL HISTORY: BREAST CANCER COMPARISON STUDY: 217 TECHNIQUE: Following the IV administration of 117 mL of Optiray-320, CT of the thorax was performed from the thoracic inlet to the lung bases. Images are reviewed in the axial, sagittal, and coronal planes. IV contrast was administered without complication. CT DOSE: 1255.34 mGycm FINDINGS: Thyroid: Imaged portions of the thyroid gland are normal in appearance. Thoracic aorta: The thoracic aorta is normal in course and caliber, noting standard 3-vessel arch anatomy. No aneurysm or dissection is seen. Pulmonary vasculature: The pulmonary trunk is normal in caliber. There are no central filling defects identified to suggest pulmonary embolus. Note that this examination was not protocoled for the evaluation of pulmonary emboli. HEART: The heart is enlarged. There is a left ventricular assist device. Thrombus is again visualized within the proximal portion of the outflow cannula. Lungs and pleural spaces: There is increasing small right pleural effusion. There are right upper lobe airspace opacities, likely secondary to radiation pneumonitis. There is a stable 7 mm nodule within superior segment of the right lower lobe. There is a stable 6 mm left upper lobe pulmonary nodule. A few additional wispy airspace opacities are present within the right lower lobe and right middle lobe. A superimposed inflammatory process most be considered. There are also some wispy airspace opacities within the superior segment left lower lobe, likely inflammatory. Mediastinum: There are stable calcified be spinal lymph nodes. Nivia: There is no evidence of pathologic hilar adenopathy. Axilla: There is no evidence of pathologic adenopathy. Postsurgical changes are present within the right axilla Upper abdomen: Partially visualized upper abdominal viscera is within normal limits. Skeletal structures: There is a 34 mm right breast mass. IMPRESSION: 1. 34 mm right breast mass 2. Increasing right pleural effusion 3. Right upper lobe airspace opacities consistent with ration fibrosis 4. New additional subtle airspace opacities within the right upper lobe, right middle lobe, right lower lobe, left lower lobe. A superimposed inflammatory process is suspected 5. Left ventricular assist device with thrombus identified within the outflow tract. 6. Stable 7 mm right lower lobe pulmonary nodule, and stable 6 mm left upper lobe pulmonary nodule Electronically signed by: Victor M Troy M.D. 02/24/2017 9:33 AM Dictated Date/Time: 02/24/2017 9:25 AM
== END | disposition home or self-care (01) ==
LOC: C.CTS 08:39
PROVIDERS: ATTEND Internal Medicine Hematology & Oncology
DX: C50.411 Malignant neoplasm of upper-outer quadrant of right female breast (principal); J90 Pleural effusion, not elsewhere classified; R91.8 Other nonspecific abnormal finding of lung field

== ENCOUNTER 2017-02-28 17:05 | Inpatient (IN) | payer OTHER ==
[~2017-02-28] VITALS: Ht 157.5 cm; Wt 90.4 kg
[~2017-02-28 17:05] MED LIST changes: -ALBINS NEB; -AMIO0.1T PO; -AMOX500C3 PO; -AMOX875T PO; -ASPI81TA28 PO; -CALC600T PO; -CARV6.252 PO; -CMD4 PO; -DIPH-437 PO; -FERR325T5 PO; -FURO80TA63 PO; -HYDR-5688 PO; -HYDR5SYP11 PO; -IPRASOL4 INH; -LSX40 PO; -MELA1CAP PO; -NEBMAC; -OMEP40CA41 PO; -OPTIRAY 320 IV PRN; -POTA20TA13 PO; -PRED20TA PO; -SERT100T PO; -SIMV20TA2 PO; -SPIR25TA89 PO; -SYMIN/8045 INH; -TRMCR130WC TOP; -VNTHFA/IN
[2017-02-28] MEDS ORDERED: ALBUT/IPRATROP 3MG/0.5MG NEB 3 ML VIAL INH STA (17:20)
[2017-02-28] MEDS ORDERED: FURO80TA63 PO (17:42)
[2017-02-28] MEDS ORDERED: PRED20TA PO (17:43)
--- NOTE | 2017-02-28 17:56 | EMERGENCY ROOM VISIT NOTE ---
History Report prepared by Diana: Talib Jones Under the Supervision of: Dr. Amy Martin M.D. First contact with patient: 17:15 Chief Complaint: SHORTNESS OF BREATH Stated Complaint: SOB, PT HAS LVAD History of Present Illness The patient is a 61 year old female who presents to the Emergency Room with complaints of worsening shortness of breath for the past week. The patient states that she went to [facility], and she was diagnosed with pneumonia, and she stayed overnight there, and was sent home on antibiotics. The patient states that she went to her PCP this morning, and she was told to come to the ED for evaluation. The patient denies any chest pain, though it is sore just from a cough. The patient states that she gets her INR checked weekly. The patient states that she has a history of breast cancer, congestive heart failure, and she was given an LVAD. The patient additionally states that she has been on steroids since last week, and she is supposed to stop them soon. She states that her shortness of breath is worsened while lying down. Source of History: patient Onset: last week Position: other (shortness of breath) Quality: other (cough) Timing: worsening Modifying Factors (Worsening): other (lying down) Associated Symptoms: + cough, No chest pain Review of Systems See HPI for pertinent positives & negatives. A total of 10 systems reviewed and were otherwise negative. Past Medical & Surgical Medical Problems: (1) Acute on chronic systolic heart failure (2) Anemia (3) Anemia (4) Anemia (5) Anxiety (6) Atrial fibrillation (7) Bleeding from Peter-Escoto drain (8) Breast cancer (9) Carcinoma of breast (10) Cardiac defibrillator in situ (11) Cardiomyopathy (12) Chest pain (13) CHF (congestive heart failure) (14) Congestive rheumatic heart failure (15) Depression (16) Elevated troponin (17) History of - tubal ligation (18) [id number] (19) Implantation of internal cardiac defibrillator (20) Lumpectomy of breast (21) LVAD (left ventricular assist device) present (22) Osteopenia (23) Sarcoidosis (24) Wrist pain, right Surgical Problems: (1) History of cholecystectomy Family History Patient reports no known family medical history. Social History Smoking Status: Never Smoker Alcohol Use: none Drug Use: none Marital Status: Housing Status: lives with family Occupation Status: disabled Current/Historical Medications Scheduled Amiodarone Hcl (Amiodarone Hcl), 100 MG PO DAILY Aspirin (Aspirin Ec), 162 MG PO HS Budesonide/Formoterol Fumarate (Symbicort 80/4.5 Inhaler), 2 PUFFS INH BID Calcium Carbonate (Calcium 600), 600 MG PO DAILY Carvedilol (Coreg), 6.25 MG PO BIDM Cefadroxil (Duricef), 500 MG PO BID Ferrous Sulfate (Ferrous Sulfate), 325 MG PO DAILY Furosemide (Lasix), 80 MG PO DAILY Ipratropium-Albuterol (Duoneb), 1 TREATMENT INH QID Melatonin (Melatonin), 2 MG PO HS Omeprazole (Prilosec), 40 MG PO QAM Potassium Chloride Microencaps (Potassium Chloride Er), 20 MEQ PO Q2D Prednisone (Prednisone), 20 MG PO DAILY Sertraline Hcl (Zoloft), 100 MG PO QD@1200 Simvastatin (Zocor), 20 MG PO DAILY Spironolactone (Aldactone), 25 MG PO DAILY Warfarin Sod (Coumadin), 4 MG PO DAILY Scheduled PRN Acetaminophen/Diphenhydramine (Tylenol Pm), 2 TABS PO HS PRN for Sleep Amoxicillin (Amoxil), 2,000 MG PO UD PRN for Prior to Dental Appointments Hydrocodone W/ Homatropine (Hycodan 5/1.5MG 5 Ml), 5 ML PO HS PRN for Cough Triamcinolone Acet (Aristocort 0.1%), 1 APPLN TOP DIRECTED PRN for Affected Skin Folds Miscellaneous Medications Albuterol Hfa (Ventolin Hfa) Durable Medical Equipment Nebulizer Machine (Home Use) (Nebulizer Machine (Home Use) ), 1 EA N/A UD Allergies Coded Allergies: No Known Allergies (Unverified , 02/28/17) Physical Exam Vital Signs Date Time Temp Pulse Resp B/P Pulse Ox O2 Delivery O2 Flow Rate FiO2 02/28/17 21:41 99 02/28/17 20:39 96 20 96 Nasal Cannula 2.0 02/28/17 17:50 104 24 100 02/28/17 17:43 103 02/28/17 17:35 93 2.0 02/28/17 17:32 88 Room Air 02/28/17 17:08 36.4 66 24 Room Air Physical Exam Vital signs reviewed. General: Well-appearing female, in no significant distress. HEENT: No scleral icterus, PERRLA, neck supple. Atraumatic. Cardiovascular: Slightly tachycardic rate and rhythm, no extra sounds. Pulmonary: Coarse breath sounds in bilateral lung santo. Coughing up mucous. Normal work of breathing. Abdomen: Obese, soft, nontender, nondistended, positive bowel sounds. Musculoskeletal: Non-pitting peripheral edema. Atraumatic Neurologic: Patient awake alert and oriented x 3, full strength in all 4 extremities. Cranial nerves 2 through 12 grossly intact. Skin: Warm, dry, no rash Medical Decision & Procedures ER Provider Diagnostic Interpretation: Radiology results as stated below per my review and radiologist interpretation: CHEST 2 VIEWS ROUTINE CLINICAL HISTORY: Cough. Pneumonia. COMPARISON STUDY: Chest CT February 16, 2017. FINDINGS: Median sternotomy wires, right axillary surgical clips, left subclavian AICD and left ventricular assist device are noted. Moderate cardiomegaly is unchanged. A small right pleural effusion is similar to prior exam. There is pulmonary vascular congestion. Right mid and lower lung airspace opacity has slightly improved since exam of February 22, 2017 and is likely similar to prior chest CT. IMPRESSION: 1. Persistent right lung airspace opacity which favors pneumonia. 2. Mild left lower lung opacity which likely reflects an infectious process as well. 3. Stable cardiomegaly with pulmonary vascular congestion. 4. Small right pleural effusion. Electronically signed by: Gustavo Arias M.D. 02/28/2017 6:30 PM Dictated Date/Time: 02/28/2017 6:27 PM Laboratory Results 02/28/17 17:50 Red Blood Count 4.21, Mean Corpuscular Volume 86.0, Mean Corpuscular Hemoglobin 27.3, Mean Corpuscular Hemoglobin Concent 31.8, Mean Platelet Volume 10.6, Neutrophils (%) (Auto) 87.7, Lymphocytes (%) (Auto) 7.9, Monocytes (%) (Auto) 3.3, Eosinophils (%) (Auto) 0.4, Basophils (%) (Auto) 0.1, Neutrophils # (Auto) 7.25, Lymphocytes # (Auto) 0.65, Monocytes # (Auto) 0.27, Eosinophils # (Auto) 0.03, Basophils # (Auto) 0.01 02/28/17 17:50 Test 02/28/17 17:50 02/28/17 17:53 02/28/17 17:55 White Blood Count 8.26 K/uL (4.8-10.8) Red Blood Count 4.21 M/uL (4.2-5.4) Hemoglobin 11.5 g/dL (12.0-16.0) Hematocrit 36.2 % (37-47) Mean Corpuscular Volume 86.0 fL (80-100) Mean Corpuscular Hemoglobin 27.3 pg (25-34) Mean Corpuscular Hemoglobin Concent 31.8 g/dl (32-36) Platelet Count 229 K/uL (130-400) Mean Platelet Volume 10.6 fL (7.4-10.4) Neutrophils (%) (Auto) 87.7 % Lymphocytes (%) (Auto) 7.9 % Monocytes (%) (Auto) 3.3 % Eosinophils (%) (Auto) 0.4 % Basophils (%) (Auto) 0.1 % Neutrophils # (Auto) 7.25 K/uL (1.4-6.5) Lymphocytes # (Auto) 0.65 K/uL (1.2-3.4) Monocytes # (Auto) 0.27 K/uL (0.11-0.59) Eosinophils # (Auto) 0.03 K/uL (0-0.5) Basophils # (Auto) 0.01 K/uL (0-0.2) RDW Standard Deviation 48.3 fL (36.4-46.3) RDW Coefficient of Variation 15.5 % (11.5-14.5) Immature Granulocyte % (Auto) 0.6 % Immature Granulocyte # (Auto) 0.05 K/uL (0.00-0.02) Prothrombin Time 34.2 SECONDS (9.0-12.0) Prothromb Time International Ratio 3.1 (0.9-1.1) Activated Partial Thromboplast Time 40.4 SECONDS (21.0-31.0) Partial Thromboplastin Ratio 1.6 Anion Gap 8.0 mmol/L (3-11) Est Creatinine Clear Calc Drug Dose 52.1 ml/min Estimated GFR () 55.7 Estimated GFR (Non- 48.1 BUN/Creatinine Ratio 27.9 (10-20) Calcium Level 8.7 mg/dl (8.5-10.1) Magnesium Level 2.3 mg/dl (1.8-2.4) Total Bilirubin 0.7 mg/dl (0.2-1) Direct Bilirubin 0.3 mg/dl (0-0.2) Aspartate Amino Transf (AST/SGOT) 58 U/L (15-37) Alanine Aminotransferase (ALT/SGPT) 123 U/L (12-78) Alkaline Phosphatase 84 U/L (45-117) Total Protein 7.2 gm/dl (6.4-8.2) Albumin 3.8 gm/dl (3.4-5.0) Bedside Troponin I 0.000 ng/ml (0-0.045) Bedside Lactic Acid Venous 0.74 mmol/L (0.90-1.70) Laboratory results per my review. Medications Administered Medications (Trade) Dose Ordered Sig/Piedad Route Start Time Stop Time Status Last Admin Dose Admin Albuterol/ Ipratropium (Duoneb) 3 ml NOW STAT INH 02/28/17 17:20 02/28/17 17:26 DC 02/28/17 17:31 3 ML Levofloxacin (Levaquin / D5W) 750 mg NOW STAT IV 02/28/17 19:49 02/28/17 19:51 DC 02/28/17 20:43 750 MG ECG Indication: SOB/dyspnea Rate (beats per minute): 98 Rhythm: sinus rhythm Findings: PAC (frequent), no acute ischemic change, left axis deviation, other (Poor quality baseline for interpretation) ED Course 1714: Past medical records reviewed. The patient was evaluated in room B2. A complete history and physical examination was performed. 1719: DuoNeb 3ml INH 1946: I reevaluated the patient, and she was resting. 1948: Levofloxacin 750mg IV 2035: Upon reevaluation, the patient is resting comfortably. I discussed laboratory and radiographic results with her. He verbalized agreement of the treatment plan. [facility] The patient will be evaluated for further management and care. Medical Decision Differential diagnosis: Etiologies such as infections, reactive airway disease, pneumonia, pneumothorax , COPD, CHF, cardiac ischemia, pulmonary embolism, musculoskeletal, gastrointestinal, as well as others were entertained. This pt was evaluated and appeared to be in no distress. IV access was obtained and lab work was drawn. Pt was placed on the personnel monitor. Pt has an LVAD, but this does not seem to be cardiac related at this time. Pt was recently hospitalized for PNA, CXR is improved, but infiltrates persist. Blood cultures were drawn. Pt was given IV levaquin and a duoneb treatment. Lab work reveals a normal WBC. Pt was informed of the findings. She was feeling improved after the neb treatment. She prefers not to be tx to [facility] tonight. I feel she is stable to stay at [facility], Dr Yap of the hospitalist service was c/s for further management. Pt and family are aware of the plan and agree. Consults Time Called: 2005 Consulting Physician: Dr. Morris Returned Call: [address] Morris of the [facility] Hospitalist Service. The patient will be evaluated for further management and care. Impression Primary Impression: Pneumonia Additional Impression: Reactive airway disease Scribe Attestation The scribe's documentation has been prepared under my direction and personally reviewed by me in its entirety. I confirm that the note above accurately reflects all work, treatment, procedures, and medical decision making performed by me. Departure Information Dispostion Being Evaluated By Hospitalist Prescriptions Ipratropium-Albuterol (DUONEB) 3 Ml Nebu 1 TREATMENT INH QID, #120 INHA Prov: Mina Abebe M.D. 03/01/17 Nebulizer Machine (Home Use) (NEBULIZER MACHINE (HOME USE) ) Mis 1 EA N/A UD, #1 pt has pneumonia Prov: Mina Abebe M.D. 03/01/17 Referrals No Doctor, Assigned (PCP) Patient Instructions My [facility] Problem Qualifiers
[2017-02-28 18:01] LABS: BASO % 0.1 %; BASO ABS # 0.01 K/uL (0-0.2); COMPLETE YES; EOS % 0.4 %; HEMATOCRIT 36.2 % (37-47); IG% 0.6 %; LYMPH % 7.9 %; LYMPH ABS # 0.65 K/uL (1.2-3.4); MEAN CORPUSCULAR HEMOGLOBIN 27.3 pg (25-34); MEAN CORPUSCULAR HGB CONC 31.8 g/dl (32-36); MEAN PLATELET VOLUME 10.6 fL (7.4-10.4); MONO % 3.3 %; NEUT % 87.7 %; PLATELET COUNT 229 K/uL (130-400); RED BLOOD COUNT 4.21 M/uL (4.2-5.4); WHITE BLOOD COUNT 8.26 K/uL (4.8-10.8)
[2017-02-28 18:17] LABS: INR 3.1 (0.9-1.1); PARTIAL THROMBOPLASTIN RATIO 1.6; PROTHROMBIN TIME (PATIENT) 34.2 SECONDS (9.0-12.0)
[2017-02-28 18:21] LABS: BUN/CREATININE RATIO 27.9 (10-20); CALCIUM 8.7 mg/dl (8.5-10.1); CREATININE 1.2 mg/dl (0.60-1.20); MAGNESIUM 2.3 mg/dl (1.8-2.4)
--- NOTE | 2017-02-28 18:31 | DIAGNOSTIC IMAGING REPORT ---
CHEST 2 VIEWS ROUTINE CLINICAL HISTORY: Cough. Pneumonia. COMPARISON STUDY: Chest CT February 16, 2017. FINDINGS: Median sternotomy wires, right axillary surgical clips, left subclavian AICD and left ventricular assist device are noted. Moderate cardiomegaly is unchanged. A small right pleural effusion is similar to prior exam. There is pulmonary vascular congestion. Right mid and lower lung airspace opacity has slightly improved since exam of February 22, 2017 and is likely similar to prior chest CT. IMPRESSION: 1. Persistent right lung airspace opacity which favors pneumonia. 2. Mild left lower lung opacity which likely reflects an infectious process as well. 3. Stable cardiomegaly with pulmonary vascular congestion. 4. Small right pleural effusion. Electronically signed by: Gustavo Arias M.D. 02/28/2017 6:30 PM Dictated Date/Time: 02/28/2017 6:27 PM
[2017-02-28] MEDS ORDERED: LEVAQUIN 750MG / 150ML D5W IV STA (19:49)
[2017-02-28] MEDS ORDERED: NITROGLYCERIN 0.4 MG SL PER TAB CHARGE SL PRN (21:15)
[2017-02-28] MEDS ORDERED: HYDROCODONE/HOMATROPINE SYRUP 5MG/1.5MG 5ML UDP PO PRN (21:15)
[2017-02-28] MEDS ORDERED: ACETAMINOPHEN 325 MG TAB PO PRN (21:15)
[2017-02-28] MEDS ORDERED: MELATONIN 3 MG PO PRN (21:15)
[2017-02-28] MEDS ORDERED: ZOLPIDEM TARTRATE 5 MG TAB PO PRN (21:15)
[2017-02-28] MEDS ORDERED: ONDANSETRON INJ 2 MG/ML 2 ML VIAL IV PRN (21:15)
[2017-02-28] MEDS ORDERED: TRIAMCINOLONE ACET 0.1% CR 15 GM TUBE EXT PRN (21:15)
[2017-02-28] MEDS ORDERED: IPRATROPIUM BROMIDE NEB SOLN 0.02% 2.5 ML VIAL INH PRN (22:15)
[2017-02-28] MEDS ORDERED: LEVALBUTEROL 1.25MG/0.5ML NEB INH PRN (22:15)
[2017-02-28] MEDS ORDERED: VANCOMYCIN INJ 1,900 MG in SODIUM CHLORIDE 0.9% 500ML 500 ML IV STA (22:15)
[2017-02-28 22:30] VITALS: PULSE 96; TEMP 36.7; O2SAT 90; Ht 157.5 cm; Wt 90.4 kg
[2017-02-28] MEDS ORDERED: VANCOMYCIN CONSULT ACTIVE PRN (22:30)
--- NOTE | 2017-02-28 22:47 | Pharmacy Progress Note ---
Pharmacy Antibiotic Consult Date of Service: February 28, 2017. Pharmacy Dosing Scope Pharmacy is consulted to initiate vancomycin IV dosing therapy, order appropriate labs and adjust drug dose/frequency. Subjective The patient is a 61 year old female admitted on 02/28 for pneumonia. Objective Height (Feet): 5 Height (Inches): 2.00 Weight (Kilograms): 96.900 Lab Results (24hrs): Laboratory Tests Test 02/28/17 17:50 BUN/Creatinine Ratio 27.9 Blood Urea Nitrogen 33 mg/dl Creatinine 1.20 mg/dl White Blood Count 8.26 K/uL Red Blood Count 4.21 M/uL Hemoglobin 11.5 g/dL Hematocrit 36.2 % Mean Corpuscular Volume 86.0 fL Mean Corpuscular Hemoglobin 27.3 pg Mean Corpuscular Hemoglobin Concent 31.8 g/dl Platelet Count 229 K/uL Mean Platelet Volume 10.6 fL Neutrophils (%) (Auto) 87.7 % Lymphocytes (%) (Auto) 7.9 % Monocytes (%) (Auto) 3.3 % Eosinophils (%) (Auto) 0.4 % Basophils (%) (Auto) 0.1 % Neutrophils # (Auto) 7.25 K/uL Lymphocytes # (Auto) 0.65 K/uL Monocytes # (Auto) 0.27 K/uL Eosinophils # (Auto) 0.03 K/uL Basophils # (Auto) 0.01 K/uL Recent Pertinent Medications Item Value Date Time Levofloxacin 750 mg 02/28/179 (Levaquin / D5W) NOW STAT/IV 02/28/172042 Assessment & Plan ASSESSMENT: * 61 y/o female admitted w/ pneumonia - H&P not available at this time but ER note indicates patient recently in [place] overnight and had pneumonia * Est PK parameters: Vd 0.7 L/kg, Dean 0.047, t1/2 14.7 hrs * BMI is elevated so she may accumulate vancomycin PLAN: * Loading dose: Vancomycin 1900 mg (20 mg/kg) IV X 1 dose then: * Vancomycin 1500 mg (15.5 mg/kg) IV every 18 hours - will start this slightly early since loading dose not quite 25 mg/kg * Goal trough level estimate: between 15 - 20 mcg/mL. * Trough level has been ordered for: prior to the 3rd dose. NOTE: this will not be at steady state but want to assess level as patient may accumulate vancomycin Pharmacy will continue to follow and will adjust dose/frequency as necessary. Thank you
[2017-02-28] MEDS: METHYLPREDNISOLONE IV 30 MG in SYRINGE 0 ML IV SCH (23:08)
--- NOTE | 2017-02-28 23:23 | History and Physical ---
History & Physical Date & Time of Service: February 28, 2017 at 23:23 Chief Complaint: Lvad, Pneumonia Primary Care Physician: Jamshid Contreras M.D. History of Present Illness Source: patient, family The patient is a 61-year-old female presents emergency department with worsening shortness of breath over the past week. She had gone to [facility] and was diagnosed with pneumonia, status overnight then discharged on oral antibiotics. When she went her PCP this morning with persistence of symptoms she was told to come to emergency department for assessment. The only chest discomfort that she had is sore ribs from coughing. She has history of congestive heart failure, was given LVAD, and is on warfarin and gets her INR checked weekly. She is presently on the tapering steroid course begun at [facility]. Past Medical/Surgical History Medical Problems: (1) Acute on chronic systolic heart failure Status: Resolved (2) Anemia Status: Chronic (3) Anemia Status: Resolved (4) Anemia Status: Resolved (5) Anxiety Status: Chronic (6) Atrial fibrillation Status: Resolved (7) Bleeding from Peter-Escoto drain Status: Resolved (8) Carcinoma of breast Status: Resolved (9) Cardiac defibrillator in situ Status: Chronic (10) Cardiomyopathy Permanent Comment: Adriamycin induced, last EF in 2013, 15%. Status: Chronic (11) Chest pain Status: Resolved (12) CHF (congestive heart failure) Status: Chronic (13) Congestive rheumatic heart failure Status: Chronic (14) Depression Status: Chronic (15) Elevated troponin Status: Resolved (16) History of - tubal ligation Status: Resolved (17) [id number] Status: Resolved (18) Implantation of internal cardiac defibrillator Status: Resolved (19) Lumpectomy of breast Status: Resolved (20) LVAD (left ventricular assist device) present Status: Chronic (21) Osteopenia Status: Chronic (22) Sarcoidosis Status: Chronic (23) Wrist pain, right Status: Resolved Family History Patient reports no known family medical history. Social History Smoking Status: Never Smoker Smokeless Tobacco Use: No Alcohol Use: none Drug Use: none Marital Status: Housing status: lives with family Occupational Status: disabled Immunizations History of Influenza Vaccine: Yes History of Tetanus Vaccine?: UNK History of Pneumococcal: No History of Hepatitis B Vaccine: No Multi-Drug Resistant Organisms History of MDRO: No Allergies Coded Allergies: No Known Allergies (Unverified , 02/28/17) Home Medications Scheduled Amiodarone Hcl (Amiodarone Hcl), 100 MG PO DAILY Aspirin (Aspirin Ec), 162 MG PO HS Budesonide/Formoterol Fumarate (Symbicort 80/4.5 Inhaler), 2 PUFFS INH BID Calcium Carbonate (Calcium 600), 600 MG PO DAILY Carvedilol (Coreg), 6.25 MG PO BIDM Cefadroxil (Duricef), 500 MG PO BID Ferrous Sulfate (Ferrous Sulfate), 325 MG PO DAILY Furosemide (Lasix), 80 MG PO DAILY Melatonin (Melatonin), 2 MG PO HS Omeprazole (Prilosec), 40 MG PO QAM Potassium Chloride Microencaps (Potassium Chloride Er), 20 MEQ PO Q2D Prednisone (Prednisone), 20 MG PO DAILY Sertraline Hcl (Zoloft), 100 MG PO QD@1200 Simvastatin (Zocor), 20 MG PO DAILY Spironolactone (Aldactone), 25 MG PO DAILY Warfarin Sod (Coumadin), 4 MG PO DAILY Scheduled PRN Acetaminophen/Diphenhydramine (Tylenol Pm), 2 TABS PO HS PRN for Sleep Amoxicillin (Amoxil), 2,000 MG PO UD PRN for Prior to Dental Appointments Hydrocodone W/ Homatropine (Hycodan 5/1.5MG 5 Ml), 5 ML PO HS PRN for Cough Triamcinolone Acet (Aristocort 0.1%), 1 APPLN TOP DIRECTED PRN for Affected Skin Folds Miscellaneous Medications Albuterol Hfa (Ventolin Hfa) Review of Systems Constitutional: + fatigue, + weakness, No chills, No fever, No sweats, No weight loss Eyes: No diplopia, No discharge, No eye pain, No problem reported, No redness, No worsening of vision ENT: No dental problems, No hearing loss, No nasal symptoms, No problem reported, No sore throat, No tinnitus, No trouble swallowing, No unusual epistaxis Respiratory: + cough, + dyspnea on exertion, + shortness of breath, + wheezing , No dyspnea at rest, No hemoptysis, No sputum Cardiovascular: + orthopnea, No PND, No chest pain, No claudication, No edema, No palpitations Abdomen: No GI bleeding, No constipation, No diarrhea, No nausea, No pain, No problem reported, No vomiting Musculoskeletal: No calf pain, No joint pain, No muscle pain, No problem reported, No swelling Genitourinary - Female: No dysmenorrhea, No dysuria, No hematuria, No menorrhagia, No metrorrhagia, No , No problem reported, No rash, No urinary frequency, No urinary incontinence, No urinary retention, No urinary urgency, No vaginal bleeding, No vaginal discharge, No vaginal itching, No vulvodynia Neurologic: No balance problems, No memory loss, No numbness/tingling, No paralysis, No problem reported, No vertigo, No weakness Psychiatric: + insomnia, No anhedonism, No anxiety, No depression symptoms, No substance abuse Endocrine: No excessive thirst, No excessive urination, No fatigue, No problem reported Hematologic / Lymphatic: No abnormal bleeding/bruising, No clotting problems, No night sweats, No problem reported, No swollen lymph nodes Integumentary: No bleeding, No color change, No itch, No new/changing skin lesions, No problem reported, No rash Allergic / Immunologic: No environmental allergies, No food allergies, No frequent infections, No hives, No pet sensitivities, No poor healing, No problem reported, No prolonged convalescence, No seasonal allergies Physical Exam Vital Signs Date Time Temp Pulse Resp B/P Pulse Ox O2 Delivery O2 Flow Rate FiO2 02/28/17 22:30 36.7 96 26 90 Nasal Cannula 2.0 02/28/17 22:04 85 20 96 Nasal Cannula 2.0 02/28/17 21:41 99 02/28/17 20:39 96 20 96 Nasal Cannula 2.0 02/28/17 17:50 104 24 100 02/28/17 17:43 103 02/28/17 17:35 93 2.0 02/28/17 17:32 88 Room Air 02/28/17 17:08 36.4 66 24 Room Air General Appearance: WD/WN, no apparent distress Head: normocephalic, atraumatic Eyes: normal inspection, PERRL, EOMI ENT: normal ENT inspection, hearing grossly normal, pharynx normal Neck: supple, no adenopathy, thyroid normal, no JVD, no carotid bruits, trachea midline Respiratory/Chest: chest non-tender, no respiratory distress, no accessory muscle use, + rhonchi, + wheezing, + pertinent finding (coarse breath sounds throughout.) Cardiovascular: regular rate, rhythm, no edema, no gallop, no JVD, normal peripheral pulses, + pertinent finding (LVAD mechanical noise) Abdomen/GI: normal bowel sounds, non tender, soft, no organomegaly, no pulsatile mass Back: normal inspection, no CVA tenderness, no muscle spasm, normal range of motion Extremities/Musculoskelatal: normal inspection, no calf tenderness, normal capillary refill, no pedal edema, normal range of motion, non-tender Neurologic/Psych: consumer credit counselor II-XII nml as tested, no motor/sensory deficits, alert, normal mood/affect, normal reflexes, oriented x 3 Skin: normal color, warm/dry, no rash Lymphatic: no adenopathy Diagnostics Laboratory Results Results Past 24 Hours Test 02/28/17 17:50 02/28/17 17:53 02/28/17 17:55 02/28/17 23:14 Range/Units White Blood Count 8.26 4.8-10.8 K/uL Red Blood Count 4.21 4.2-5.4 M/uL Hemoglobin 11.5 12.0-16.0 g/dL Hematocrit 36.2 37-47 % Mean Corpuscular Volume 86.0 80-100 fL Mean Corpuscular Hemoglobin 27.3 25-34 pg Mean Corpuscular Hemoglobin Concent 31.8 32-36 g/dl Platelet Count 229 130-400 K/uL Mean Platelet Volume 10.6 7.4-10.4 fL Neutrophils (%) (Auto) 87.7 % Lymphocytes (%) (Auto) 7.9 % Monocytes (%) (Auto) 3.3 % Eosinophils (%) (Auto) 0.4 % Basophils (%) (Auto) 0.1 % Neutrophils # (Auto) 7.25 1.4-6.5 K/uL Lymphocytes # (Auto) 0.65 1.2-3.4 K/uL Monocytes # (Auto) 0.27 0.11-0.59 K/uL Eosinophils # (Auto) 0.03 0-0.5 K/uL Basophils # (Auto) 0.01 0-0.2 K/uL RDW Standard Deviation 48.3 36.4-46.3 fL RDW Coefficient of Variation 15.5 11.5-14.5 % Immature Granulocyte % (Auto) 0.6 % Immature Granulocyte # (Auto) 0.05 0.00-0.02 K/uL Prothrombin Time 34.2 9.0-12.0 SECONDS Prothromb Time International Ratio 3.1 0.9-1.1 Activated Partial Thromboplast Time 40.4 21.0-31.0 SECONDS Partial Thromboplastin Ratio 1.6 Sodium Level 142 136-145 mmol/L Potassium Level 4.0 3.5-5.1 mmol/L Chloride Level 109 98-107 mmol/L Carbon Dioxide Level 25 21-32 mmol/L Anion Gap 8.0 3-11 mmol/L Blood Urea Nitrogen 33 7-18 mg/dl Creatinine 1.20 0.60-1.20 mg/dl Est Creatinine Clear Calc Drug Dose 52.1 ml/min Estimated GFR () 55.7 Estimated GFR (Non- 48.1 BUN/Creatinine Ratio 27.9 10-20 Random Glucose 115 70-99 mg/dl Calcium Level 8.7 8.5-10.1 mg/dl Magnesium Level 2.3 1.8-2.4 mg/dl Total Bilirubin 0.7 0.2-1 mg/dl Direct Bilirubin 0.3 0-0.2 mg/dl Aspartate Amino Transf (AST/SGOT) 58 15-37 U/L Alanine Aminotransferase (ALT/SGPT) 123 12-78 U/L Alkaline Phosphatase 84 45-117 U/L Total Protein 7.2 6.4-8.2 gm/dl Albumin 3.8 3.4-5.0 gm/dl Bedside Troponin I 0.000 0-0.045 ng/ml Bedside Lactic Acid Venous 0.74 0.90-1.70 mmol/L Microbiology Results 02/28/17 Blood Culture, Received Pending 02/28/17 Blood Culture, Received Pending 02/28/17 MRSA DNA Surveillance Screen, Received Pending Diagnostic Radiology Patient Name: ADAM ACKERMAN Unit Number: [id number] Dictated: 02/28/171826 Transcribed: 02/28/171826 JA Printed Date/Time: [~ rep prt dt]/[~ rep prt tm] [~ rep ct labl] - [~ rep ct ivnm] [facility] [place] [address] Dictated: 02/28/171826 Transcribed: 02/28/171826 JA Printed Date/Time: [~ rep prt dt]/[~ rep prt tm] [~ rep ct labl] - [~ rep ct ivnm] [~ rep ct add3]] CHEST 2 VIEWS ROUTINE CLINICAL HISTORY: Cough. Pneumonia. COMPARISON STUDY: Chest CT February 16, 2017. FINDINGS: Median sternotomy wires, right axillary surgical clips, left subclavian AICD and left ventricular assist device are noted. Moderate cardiomegaly is unchanged. A small right pleural effusion is similar to prior exam. There is pulmonary vascular congestion. Right mid and lower lung airspace opacity has slightly improved since exam of February 22, 2017 and is likely similar to prior chest CT. IMPRESSION: 1. Persistent right lung airspace opacity which favors pneumonia. 2. Mild left lower lung opacity which likely reflects an infectious process as well. 3. Stable cardiomegaly with pulmonary vascular congestion. 4. Small right pleural effusion. Electronically signed by: Gustavo Arias M.D. 02/28/2017 6:30 PM Dictated Date/Time: 02/28/2017 6:27 PM The status of this report is Signed. Draft = Not yet reviewed or approved by Radiologist. Signed = Reviewed and approved by Radiologist. <AttendingPhy></AttendingPhy> <FamilyPhy>Jamshid Contreras M.D.</FamilyPhy> < PrimaryPhy>Jamshid Contreras M.D.</PrimaryPhy> <UnitNumber>[id number]</UnitNumber > <VisitNumber>[id number]</VisitNumber> <PatientName>ADAM ACKERMAN</ PatientName> <DateOfBirth>1955</DateOfBirth> <Location>[facility]</Location> < ServiceDate>02/28/17</ServiceDate> <MNE>ESINDI</MNE> <OrderingPhy>Amy Martin M.D.</OrderingPhy> <OrderingPhyMNE>f rep ord dr barillas</OrderingPhyMNE> < DictatingPhyMNE>f rep dict dr barillas</DictatingPhyMNE> <CCListMNE>f rep ct mne</ CCListMNE> <AdmittingPhyMNE>f pt admit dr barillas</AdmittingPhyMNE> <AttendingPhyMNE >f pt attend dr barillas</AttendingPhyMNE> <ConsultingPhyMNE>f pt consult dr barillas</ConsultingPhyMNE> <FamilyPhyMNE>f pt fam dr barillas</FamilyPhyMNE> <OtherPhyMNE>f pt other dr barillas</OtherPhyMNE> < PrimaryPhyMNE>f pt prim care dr barillas</PrimaryPhyMNE> <ReferringPhyMNE>f pt referring dr barillas</ReferringPhyMNE> EKG EKG is atrial fibrillation at 98 bpm, left axis deviation, too much baseline noise secondary to LVAD for any other interpretation. Impression Assessment and Plan Bilateral pneumonia/hypoxia--patient be admitted to the telemetry unit. Will place on vancomycin IV, ceftriaxone IV, levofloxacin IV, Solu-Medrol, guaifenesin and Xopenex with Atrovent nebulizers. Continue nasal cannula 2 L of oxygen, titrated to keep pulse ox greater than or equal to 92%. We will hold Duricef, Symbicort and prednisone. LVAD/atrial fibrillation/cardiomyopathy/cardiac defibrillator in situ--the patient be admitted to the telemetry unit. Will continue amiodarone 100 mg by mouth daily, enteric-coated aspirin 162 mg by mouth daily, carvedilol 6.25 mg by mouth twice a day with meals, furosemide 80 mg by mouth daily, potassium chloride ER 20 mEq by mouth every 2 days, spironolactone 25 mg by mouth daily and warfarin 4 mg by mouth daily when INR is less than 3. Hypercholesterolemia--continue simvastatin 20 mg by mouth daily. Depression--continue sertraline 100 mg by mouth daily. GERD--change omeprazole 40 mg by mouth every morning to pantoprazole 40 mg by mouth every morning. Insomnia continue melatonin 3 mg by mouth at bedtime. Abnormal liver enzymes--repeat in a.m., if persistently elevated, we'll order abdominal ultrasound of RUQ at that time. Level of Care Telemetry Advanced Directives Existing Advance Directive: No Existing Living Will: Yes Existing Power of Shingles Roofer Helper: Yes Resuscitation Status FULL RESUSCITATION VTE Prophylaxis VTE Risk Assessment Done? Y/N: Yes Risk Level: Moderate Given or contraindicated: Warfarin (Coumadin)
[2017-03-01] VITALS (12 sets, daily range): PULSE 86–104; TEMP 36–36.8; O2SAT 94–100
[2017-03-01] MEDS: CARVEDILOL 6.25 MG TAB PO SCH ×2 (00:50→16:39)
[2017-03-01] MEDS: SPIRONOLACTONE 25 MG TAB PO SCH ×2 (00:50→09:06)
[2017-03-01] MEDS: GUAIFENESIN 600 MG TABCR PO SCH ×3 (00:52→20:54)
[2017-03-01] MEDS: AMIODARONE 200 MG TAB PO SCH ×2 (00:52→09:05)
[2017-03-01] MEDS: FUROSEMIDE 80 MG TAB PO SCH ×2 (00:52→09:37)
[2017-03-01] MEDS ORDERED: LEVALBUTEROL/IPRATROPIUM NEB INH SCH (03:00)
[2017-03-01] MEDS: IPRATROPIUM BROMIDE NEB SOLN 0.02% 2.5 ML VIAL INH SCH ×4 (03:05→21:06)
[2017-03-01] MEDS: LEVALBUTEROL 1.25MG/0.5ML NEB INH SCH ×4 (03:05→21:06)
[2017-03-01] MEDS ORDERED: CEFTRIAXONE SOD INJ 1 GM in DEXTROSE 5% ADD-VANTAGE 50ML 50 ML IV SCH ×3 (04:00)
[2017-03-01 05:59] LABS: BASO % 0.1 %; BASO ABS # 0.01 K/uL (0-0.2); COMPLETE YES; HEMATOCRIT 39.5 % (37-47); IG% 0.6 %; LYMPH ABS # 0.65 K/uL (1.2-3.4); MEAN CELL VOLUME 85.3 fL (80-100); MEAN CORPUSCULAR HEMOGLOBIN 26.8 pg (25-34); MEAN CORPUSCULAR HGB CONC 31.4 g/dl (32-36); MEAN PLATELET VOLUME 10.5 fL (7.4-10.4); MONO % 2.1 %; NEUT % 90.2 %; PLATELET COUNT 245 K/uL (130-400); RED BLOOD COUNT 4.63 M/uL (4.2-5.4); WHITE BLOOD COUNT 9.24 K/uL (4.8-10.8)
[2017-03-01 06:13] LABS: INR 2.6 (0.9-1.1); PARTIAL THROMBOPLASTIN RATIO 1.5; PROTHROMBIN TIME (PATIENT) 28.4 SECONDS (9.0-12.0)
[2017-03-01 06:41] LABS: BUN/CREATININE RATIO 21.3 (10-20); CALCIUM 8.7 mg/dl (8.5-10.1); CREATININE 1.3 mg/dl (0.60-1.20); MAGNESIUM 2.3 mg/dl (1.8-2.4); POTASSIUM 4.1 mmol/L (3.5-5.1)
--- NOTE | 2017-03-01 08:04 | Clinical Documentation Query ---
JULIAN Lindsey : CLINICAL DOCUMENTATION QUERIES QUERY 1 OF 2 Patient is a 61 year old female admitted for evaluation and treatment of pneumonia. Treatment includes vancomycin IV, ceftriaxone IV, levofloxacin IV, Solu-Medrol, guaifenesin and Xopenex with Atrovent nebulizers and supplemental oxygen. Please explicitly state the possible type(s) of pneumonia in which you are treating as this impacts DRG assignment, severity of illness, and associated measures for risk of mortality. In your clinical opinion is this patient being managed for: ( ) Pneumonia due to other possible Gram-negative and/or MRSA bacteria ( ) Other explanation of clinical findings (Please Explain) ( xxx ) Unable to determine (Please Define) ( ) Need to Discuss ( ) Not Agree The medical record reflects the following clinical findings, treatment, and risk factors. Clinical Indicators: As above Treatment:vancomycin IV, ceftriaxone IV, levofloxacin IV Risk Factors: Chronic illness, recent hospital encounter QUERY 2 OF 2 Admission BUN, creatinine, and estimated GFR were 33 mg/dl, 1.20 mg/dl, and 48 ml/min. Estimated GFR 30-60 ml/min dating back to at least 02/23/15. As appropriate, consider documentation as suggested below to capture the severity of illness associated with this clinical diagnosis. In your clinical opinion is this patient being managed for: ( xxx ) Chronic kidney disease, stage 3 ( ) Other explanation of clinical findings (Please Explain) ( ) Unable to determine (Please Define) ( ) Need to Discuss ( ) Not Agree The medical record reflects the following clinical findings, treatment, and risk factors. Clinical Indicators: As above Treatment: Serial chemistries Risk Factors: Age, chronic systolic heart failure, atrial fibrillation Please clarify and document your clinical opinion in the progress notes and discharge summary. Terms such as "probable", "suspected", "likely", "questionable", "possible", or "still to be ruled out" are acceptable. IF IN AGREEMENT, YOU MUST DOCUMENT ABOVE DIAGNOSTIC STATEMENT IN DAILY PROGRESS NOTES AND DISCHARGE SUMMARY. This document is not part of the patient's record. Thank You, Óscar Jensen, RN [phone]
[2017-03-01] MEDS: CALCIUM 600MG + VIT D 400 IU TAB PO SCH (09:04)
[2017-03-01] MEDS: METHYLPREDNISOLONE IV 30 MG in SYRINGE 0 ML IV SCH ×3 (09:04→23:50)
[2017-03-01] MEDS: PANTOprazole SOD 40 MG TAB PO SCH (09:05)
[2017-03-01] MEDS: FERROUS SULFATE 325 MG TAB PO SCH (09:05)
[2017-03-01] MEDS: SIMVASTATIN 20 MG TAB PO SCH (09:06)
[2017-03-01] MEDS: POTASSIUM CHLORIDE 20 MEQ TABCR PO SCH (09:06)
[2017-03-01] MEDS ORDERED: NURSING VERBAL MED ORDER ONE (10:00)
[2017-03-01] MEDS ORDERED: PIPERACILL/TAZOBAC IV 4.5 GM in DEXTROSE 5% 100ML IV ONE (13:00)
[2017-03-01] MEDS ORDERED: PIPERACILL/TAZOBAC CONSULT ACTIVE PRN (13:00)
[2017-03-01] MEDS: SERTRALINE HCL 100 MG TAB PO SCH (13:20)
[2017-03-01] MEDS ORDERED: VANCOMYCIN INJ 1,500 MG in SODIUM CHLORIDE 0.9% 500ML 500 ML IV SCH (14:00)
--- NOTE | 2017-03-01 14:04 | Progress Note ---
Subjective Date of Service: March 01, 2017. Subjective pt is feeling improved still coughing up yellow sputum, less short of breath but is wheezing Problem List Medical Problems: (1) Epigastric abdominal pain Status: Acute (2) Nausea, vomiting, and diarrhea Status: Acute (3) Pneumonia Status: Acute (4) Pneumonia Status: Acute (5) Precordial chest pain Status: Acute (6) Presence of left ventricular assist device (LVAD) Status: Acute (7) Reactive airway disease Status: Acute Review of Systems Constitutional: + fatigue, + weakness Respiratory: + cough, + sputum, + wheezing, No dyspnea at rest, No dyspnea on exertion, No shortness of breath Cardiac: No PND, No chest pain, No edema Abdomen: No diarrhea, No nausea, No pain, No vomiting Musculoskeletal: No joint pain, No muscle pain Female : No dysuria, No urinary frequency Psychiatric: No anhedonism, No depression symptoms Objective Vital Signs Date Time Temp Pulse Resp B/P Pulse Ox O2 Delivery O2 Flow Rate FiO2 03/01/17 07:04 99 20 94 Nasal Cannula 2.0 03/01/17 04:00 36.6 95 27 98 Nasal Cannula 2.0 03/01/17 04:00 Nasal Cannula 2.0 03/01/17 03:05 86 24 96 Nasal Cannula 2.0 03/01/17 00:15 89 24 100 Nasal Cannula 2.0 03/01/17 00:01 Nasal Cannula 2.0 03/01/17 00:00 36.8 87 33 98 Nasal Cannula 2.0 02/28/17 22:30 36.7 96 26 90 Nasal Cannula 2.0 02/28/17 22:30 02/28/17 22:04 85 20 96 Nasal Cannula 2.0 02/28/17 21:41 99 02/28/17 20:39 96 20 96 Nasal Cannula 2.0 02/28/17 17:50 104 24 100 02/28/17 17:43 103 02/28/17 17:35 93 2.0 02/28/17 17:32 88 Room Air 02/28/17 17:08 36.4 66 24 Room Air Physical Exam General Appearance: WD/WN, + mild distress Neck: supple, no JVD Respiratory/Chest: chest non-tender, normal breath sounds, + accessory muscle use, + wheezing Cardiovascular: + pertinent finding (has a humming soung no audible heart tones ) Abdomen: normal bowel sounds, non tender, soft Extremities: no pedal edema, no calf tenderness Neurologic/Psychiatric: alert, oriented x 3 Laboratory Results Last 24 Hours Test 02/28/17 17:50 02/28/17 17:53 02/28/17 17:55 03/01/17 05:50 White Blood Count 8.26 K/uL 9.24 K/uL Red Blood Count 4.21 M/uL 4.63 M/uL Hemoglobin 11.5 g/dL 12.4 g/dL Hematocrit 36.2 % 39.5 % Mean Corpuscular Volume 86.0 fL 85.3 fL Mean Corpuscular Hemoglobin 27.3 pg 26.8 pg Mean Corpuscular Hemoglobin Concent 31.8 g/dl 31.4 g/dl Platelet Count 229 K/uL 245 K/uL Mean Platelet Volume 10.6 fL 10.5 fL Neutrophils (%) (Auto) 87.7 % 90.2 % Lymphocytes (%) (Auto) 7.9 % 7.0 % Monocytes (%) (Auto) 3.3 % 2.1 % Eosinophils (%) (Auto) 0.4 % 0.0 % Basophils (%) (Auto) 0.1 % 0.1 % Neutrophils # (Auto) 7.25 K/uL 8.33 K/uL Lymphocytes # (Auto) 0.65 K/uL 0.65 K/uL Monocytes # (Auto) 0.27 K/uL 0.19 K/uL Eosinophils # (Auto) 0.03 K/uL 0.00 K/uL Basophils # (Auto) 0.01 K/uL 0.01 K/uL RDW Standard Deviation 48.3 fL 48.0 fL RDW Coefficient of Variation 15.5 % 15.4 % Immature Granulocyte % (Auto) 0.6 % 0.6 % Immature Granulocyte # (Auto) 0.05 K/uL 0.06 K/uL Prothrombin Time 34.2 SECONDS 28.4 SECONDS Prothromb Time International Ratio 3.1 2.6 Activated Partial Thromboplast Time 40.4 SECONDS 38.5 SECONDS Partial Thromboplastin Ratio 1.6 1.5 Sodium Level 142 mmol/L 140 mmol/L Potassium Level 4.0 mmol/L 4.1 mmol/L Chloride Level 109 mmol/L 105 mmol/L Carbon Dioxide Level 25 mmol/L 28 mmol/L Anion Gap 8.0 mmol/L 7.0 mmol/L Blood Urea Nitrogen 33 mg/dl 28 mg/dl Creatinine 1.20 mg/dl 1.30 mg/dl Est Creatinine Clear Calc Drug Dose 52.1 ml/min 47.0 ml/min Estimated GFR () 55.7 50.6 Estimated GFR (Non- 48.1 43.6 BUN/Creatinine Ratio 27.9 21.3 Random Glucose 115 mg/dl 126 mg/dl Calcium Level 8.7 mg/dl 8.7 mg/dl Magnesium Level 2.3 mg/dl 2.3 mg/dl Total Bilirubin 0.7 mg/dl 0.8 mg/dl Direct Bilirubin 0.3 mg/dl 0.3 mg/dl Aspartate Amino Transf (AST/SGOT) 58 U/L 40 U/L Alanine Aminotransferase (ALT/SGPT) 123 U/L 106 U/L Alkaline Phosphatase 84 U/L 85 U/L Total Protein 7.2 gm/dl 7.8 gm/dl Albumin 3.8 gm/dl 3.8 gm/dl Bedside Troponin I 0.000 ng/ml Bedside Lactic Acid Venous 0.74 mmol/L Hepatitis C Antibody Screen NEG Assessment and Plan 61 F with acute hypoxic respiratory failure from pneumonia poa Bilateral pneumonia/hypoxia- vancomycin IV, ceftriaxone IV, levofloxacin IV, given prolongued Qtc, will steamline to Zosyn, Solu-Medrol, guaifenesin and Xopenex with Atrovent nebulizers, adding formoterol LVAD/atrial fibrillation/cardiomyopathy/cardiac defibrillator in situ amiodarone 100 mg by mouth daily, enteric-coated aspirin 162 mg by mouth daily, carvedilol 6.25 mg by mouth twice a day with meals, furosemide 80 mg by mouth daily, potassium chloride ER 20 mEq by mouth every 2 days, spironolactone 25 mg by mouth daily and warfarin 4 mg by mouth daily Hypercholesterolemia-- simvastatin 20 mg by mouth daily. Depression--sertraline 100 mg by mouth daily Abnormal liver enzymes--follow for trends if not improved will eval liver
[2017-03-01] MEDS: FORMOTEROL FUMA NEBULIZER SOLN 20 MCG/2 ML VIAL INH SCH ×2 (14:31→21:06)
[2017-03-01] MEDS ORDERED: NEBMAC (14:33)
[2017-03-01] MEDS ORDERED: IPRASOL4 INH (14:33)
[2017-03-01] MEDS: WARFARIN SOD 4 MG TAB PO SCH (16:40)
[2017-03-01] MEDS: PIPERACILL/TAZOBAC IV 4.5 GM in DEXTROSE 5% 100ML IV SCH (18:01)
[2017-03-01] MEDS: ASPIRIN 81 MG ECTAB PO SCH (20:54)
[2017-03-01] MEDS ORDERED: LEVOFLOXACIN / D5W 500 MG in PREMIXED IN D5W 100 ML IV SCH (21:00)
[2017-03-02] VITALS (14 sets, daily range): PULSE 90–102; TEMP 36.5–36.8; O2SAT 92–100
[2017-03-02] MEDS: IPRATROPIUM BROMIDE NEB SOLN 0.02% 2.5 ML VIAL INH SCH ×4 (01:51→19:50)
[2017-03-02] MEDS: LEVALBUTEROL 1.25MG/0.5ML NEB INH SCH ×4 (01:52→19:50)
[2017-03-02] MEDS: PIPERACILL/TAZOBAC IV 4.5 GM in DEXTROSE 5% 100ML IV SCH ×3 (02:03→18:13)
[2017-03-02 05:27] LABS: COMPLETE YES; IG% 0.4 %; LYMPH % 7.1 %; LYMPH ABS # 0.68 K/uL (1.2-3.4); MEAN CELL VOLUME 85.4 fL (80-100); MEAN CORPUSCULAR HGB CONC 31.6 g/dl (32-36); MEAN PLATELET VOLUME 10.7 fL (7.4-10.4); MONO % 3.1 %; NEUT % 89.4 %; PLATELET COUNT 229 K/uL (130-400); RED BLOOD COUNT 4.45 M/uL (4.2-5.4); WHITE BLOOD COUNT 9.55 K/uL (4.8-10.8)
[2017-03-02 05:35] LABS: INR 2.9 (0.9-1.1); PARTIAL THROMBOPLASTIN RATIO 1.4; PROTHROMBIN TIME (PATIENT) 32.8 SECONDS (9.0-12.0)
[2017-03-02 06:16] LABS: BUN/CREATININE RATIO 23.5 (10-20); CALCIUM 8.8 mg/dl (8.5-10.1); CREATININE 1.4 mg/dl (0.60-1.20); MAGNESIUM 2.5 mg/dl (1.8-2.4); POTASSIUM 4.4 mmol/L (3.5-5.1)
[2017-03-02] MEDS: FORMOTEROL FUMA NEBULIZER SOLN 20 MCG/2 ML VIAL INH SCH ×2 (07:00→19:55)
[2017-03-02] MEDS ORDERED: VANCOMYCIN TROUGH ONE (07:30)
[2017-03-02] MEDS: SPIRONOLACTONE 25 MG TAB PO SCH (07:44)
[2017-03-02] MEDS: FUROSEMIDE 80 MG TAB PO SCH (07:44)
[2017-03-02] MEDS: CARVEDILOL 6.25 MG TAB PO SCH ×2 (07:44→16:35)
[2017-03-02] MEDS: GUAIFENESIN 600 MG TABCR PO SCH ×2 (07:46→20:45)
[2017-03-02] MEDS: PANTOprazole SOD 40 MG TAB PO SCH (07:46)
[2017-03-02] MEDS: SIMVASTATIN 20 MG TAB PO SCH (07:47)
[2017-03-02] MEDS: AMIODARONE 200 MG TAB PO SCH (07:47)
[2017-03-02] MEDS: FERROUS SULFATE 325 MG TAB PO SCH (07:47)
[2017-03-02] MEDS: CALCIUM 600MG + VIT D 400 IU TAB PO SCH (07:47)
[2017-03-02] MEDS: METHYLPREDNISOLONE IV 30 MG in SYRINGE 0 ML IV SCH ×3 (07:49→23:38)
--- NOTE | 2017-03-02 08:12 | Progress Note ---
Subjective Date of Service: March 02, 2017. Subjective pt states she feels she had a rough night with coughing and sputum issues, slight improvement Problem List Medical Problems: (1) Epigastric abdominal pain Status: Acute (2) Nausea, vomiting, and diarrhea Status: Acute (3) Pneumonia Status: Acute (4) Pneumonia Status: Acute (5) Precordial chest pain Status: Acute (6) Presence of left ventricular assist device (LVAD) Status: Acute (7) Reactive airway disease Status: Acute Review of Systems Constitutional: + fatigue, + weakness, No chills, No fever Respiratory: + cough, + dyspnea on exertion, + shortness of breath Cardiac: No chest pain, No edema Abdomen: No diarrhea, No nausea, No pain, No vomiting Female : No dysuria, No urinary frequency Objective Vital Signs Date Time Temp Pulse Resp B/P Pulse Ox O2 Delivery O2 Flow Rate FiO2 03/02/17 04:00 36.6 98 22 96 Nasal Cannula 2.0 03/02/17 04:00 96 Nasal Cannula 2.0 03/02/17 01:52 95 18 92 Room Air 03/01/17 23:59 36.5 95 16 96 Room Air 03/01/17 23:59 96 Room Air 03/01/17 20:00 95 Room Air 03/01/17 20:00 36.6 104 20 95 Room Air 03/01/17 19:05 89 20 94 Room Air 03/01/17 16:00 Room Air 03/01/17 16:00 36.5 94 16 Nasal Cannula 03/01/17 14:08 101 20 95 Nasal Cannula 2.0 03/01/17 12:00 36.0 102 14 96 Room Air 03/01/17 12:00 Room Air 03/01/17 08:00 Nasal Cannula 2.0 03/01/17 08:00 36.6 98 17 100 Nasal Cannula 2.0 Physical Exam General Appearance: WD/WN, + mild distress Neck: supple, no JVD Respiratory/Chest: chest non-tender, + accessory muscle use, + wheezing Cardiovascular: + pertinent finding (has a humming soung no audible heart tones ) Abdomen: normal bowel sounds, non tender, soft Extremities: no pedal edema, no calf tenderness 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, alert Laboratory Results Last 24 Hours Test 03/02/17 05:16 White Blood Count 9.55 K/uL Red Blood Count 4.45 M/uL Hemoglobin 12.0 g/dL Hematocrit 38.0 % Mean Corpuscular Volume 85.4 fL Mean Corpuscular Hemoglobin 27.0 pg Mean Corpuscular Hemoglobin Concent 31.6 g/dl Platelet Count 229 K/uL Mean Platelet Volume 10.7 fL Neutrophils (%) (Auto) 89.4 % Lymphocytes (%) (Auto) 7.1 % Monocytes (%) (Auto) 3.1 % Eosinophils (%) (Auto) 0.0 % Basophils (%) (Auto) 0.0 % Neutrophils # (Auto) 8.53 K/uL Lymphocytes # (Auto) 0.68 K/uL Monocytes # (Auto) 0.30 K/uL Eosinophils # (Auto) 0.00 K/uL Basophils # (Auto) 0.00 K/uL RDW Standard Deviation 48.1 fL RDW Coefficient of Variation 15.4 % Immature Granulocyte % (Auto) 0.4 % Immature Granulocyte # (Auto) 0.04 K/uL Prothrombin Time 32.8 SECONDS Prothromb Time International Ratio 2.9 Activated Partial Thromboplast Time 37.4 SECONDS Partial Thromboplastin Ratio 1.4 Sodium Level 138 mmol/L Potassium Level 4.4 mmol/L Chloride Level 104 mmol/L Carbon Dioxide Level 27 mmol/L Anion Gap 7.0 mmol/L Blood Urea Nitrogen 33 mg/dl Creatinine 1.40 mg/dl Est Creatinine Clear Calc Drug Dose 43.7 ml/min Estimated GFR () 46.2 Estimated GFR (Non- 39.9 BUN/Creatinine Ratio 23.5 Random Glucose 142 mg/dl Calcium Level 8.8 mg/dl Magnesium Level 2.5 mg/dl Total Bilirubin 0.7 mg/dl Direct Bilirubin 0.3 mg/dl Aspartate Amino Transf (AST/SGOT) 22 U/L Alanine Aminotransferase (ALT/SGPT) 81 U/L Alkaline Phosphatase 77 U/L Total Protein 7.0 gm/dl Albumin 3.6 gm/dl Assessment and Plan 61 F with acute hypoxic respiratory failure from pneumonia poa Bilateral pneumonia/hypoxia- vancomycin IV, ceftriaxone IV, levofloxacin IV, given prolongued Qtc, now on Zosyn, Solu-Medrol, guaifenesin and Xopenex with Atrovent nebulizers, added formoterol, repeat cxr interpreted by me to slight improvement no worsening, I spoke to Dr Louis and gave him update and request for consult LVAD/atrial fibrillation/cardiomyopathy/cardiac defibrillator in situ amiodarone 100 mg by mouth daily, enteric-coated aspirin 162 mg by mouth daily, carvedilol 6.25 mg by mouth twice a day with meals, furosemide 80 mg by mouth daily, potassium chloride ER 20 mEq by mouth every 2 days, spironolactone 25 mg by mouth daily and warfarin 4 mg by mouth daily ckd 3 conintues to be stable Hypercholesterolemia-- simvastatin 20 mg by mouth daily. Depression--sertraline 100 mg by mouth daily Abnormal liver enzymes--improving
--- NOTE | 2017-03-02 09:19 | DIAGNOSTIC IMAGING REPORT ---
CHEST ONE VIEW PORTABLE CLINICAL HISTORY: Cough. Pneumonia. COMPARISON STUDY: February 28, 2017 FINDINGS: A left ventricular assist device is visualized. The heart is mildly enlarged. There is splaying of the sandra suggesting left atrial enlargement. There is a left subclavian pacer/defibrillator present. Surgical clips are present within the right axillary region. There is stable right hilar enlargement. There are improving right mid and lower lung zone airspace opacities.[ IMPRESSION: Persistent but improving right mid and lower lung zone airspace opacities Electronically signed by: Victor M Tryo M.D. 03/02/2017 9:17 AM Dictated Date/Time: 03/02/2017 9:16 AM
[2017-03-02] MEDS: SERTRALINE HCL 100 MG TAB PO SCH (11:07)
[2017-03-02] MEDS: WARFARIN SOD 4 MG TAB PO SCH (16:35)
[2017-03-02] MEDS: ASPIRIN 81 MG ECTAB PO SCH (20:45)
[2017-03-03] MEDS: PIPERACILL/TAZOBAC IV 4.5 GM in DEXTROSE 5% 100ML IV SCH ×2 (02:01→10:44)
[2017-03-03 02:35] VITALS: PULSE 92; O2SAT 95
[2017-03-03] MEDS: IPRATROPIUM BROMIDE NEB SOLN 0.02% 2.5 ML VIAL INH SCH ×3 (02:35→12:58)
[2017-03-03] MEDS: LEVALBUTEROL 1.25MG/0.5ML NEB INH SCH ×3 (02:35→12:58)
[2017-03-03 04:00] VITALS: PULSE 94; TEMP 36.4; O2SAT 96
[2017-03-03 06:02] LABS: COMPLETE YES; HEMATOCRIT 38.4 % (37-47); IG% 0.3 %; LYMPH % 5.5 %; LYMPH ABS # 0.66 K/uL (1.2-3.4); MEAN CELL VOLUME 86.3 fL (80-100); MEAN CORPUSCULAR HEMOGLOBIN 27.9 pg (25-34); MEAN CORPUSCULAR HGB CONC 32.3 g/dl (32-36); MEAN PLATELET VOLUME 11.2 fL (7.4-10.4); MONO % 3.3 %; NEUT % 90.9 %; PLATELET COUNT 279 K/uL (130-400); RED BLOOD COUNT 4.45 M/uL (4.2-5.4); WHITE BLOOD COUNT 11.95 K/uL (4.8-10.8)
[2017-03-03 06:17] LABS: INR 3.9 (0.9-1.1); PARTIAL THROMBOPLASTIN RATIO 1.5; PROTHROMBIN TIME (PATIENT) 44.2 SECONDS (9.0-12.0)
[2017-03-03 06:36] LABS: BUN/CREATININE RATIO 30.2 (10-20); CALCIUM 8.6 mg/dl (8.5-10.1); CREATININE 1.3 mg/dl (0.60-1.20); MAGNESIUM 2.6 mg/dl (1.8-2.4); POTASSIUM 4.1 mmol/L (3.5-5.1)
[2017-03-03 07:35] VITALS: PULSE 98; O2SAT 93
[2017-03-03] MEDS: FORMOTEROL FUMA NEBULIZER SOLN 20 MCG/2 ML VIAL INH SCH (07:35)
[2017-03-03 08:00] VITALS: PULSE 94; TEMP 36.8; O2SAT 95; O2SAT 96
[2017-03-03] MEDS: GUAIFENESIN 600 MG TABCR PO SCH (08:16)
[2017-03-03] MEDS: CARVEDILOL 6.25 MG TAB PO SCH (08:17)
[2017-03-03] MEDS: FERROUS SULFATE 325 MG TAB PO SCH (08:17)
[2017-03-03] MEDS: FUROSEMIDE 80 MG TAB PO SCH (08:17)
[2017-03-03] MEDS: METHYLPREDNISOLONE IV 30 MG in SYRINGE 0 ML IV SCH (08:18)
[2017-03-03] MEDS: POTASSIUM CHLORIDE 20 MEQ TABCR PO SCH (08:18)
[2017-03-03] MEDS: CALCIUM 600MG + VIT D 400 IU TAB PO SCH (08:19)
[2017-03-03] MEDS: SPIRONOLACTONE 25 MG TAB PO SCH (08:19)
[2017-03-03] MEDS: AMIODARONE 200 MG TAB PO SCH (08:19)
[2017-03-03] MEDS: PANTOprazole SOD 40 MG TAB PO SCH (08:20)
[2017-03-03] MEDS: SIMVASTATIN 20 MG TAB PO SCH (08:20)
[2017-03-03] MEDS ORDERED: PRED10TA PO (10:03)
[2017-03-03] MEDS ORDERED: AMOX875T PO (10:03)
--- NOTE | 2017-03-03 10:03 | Discharge Instructions ---
Discharge Instructions Date of Service March 03, 2017. Admission Reason for Admission: Lvad, Pneumonia Discharge Discharge Diagnosis / Problem: pneumonia Discharge Goals Goal(s): Diagnostic testing, Therapeutic intervention Activity Recommendations Activity Limitations: resume your previous activity . Current Hospital Diet Patient's current hospital diet: AHA Diet (Heart Healthy) Discharge Diet Recommended Diet: Low Sodium Diet (2gm Na) Pending Studies Studies pending at discharge: no Medical Emergencies . Who to Call and When: Medical Emergencies: If at any time you feel your situation is an emergency, please call 911 immediately. . Non-Emergent Contact Non-Emergency issues call your: Primary Care Provider Call Non-Emergent contact if: temperature is above 101, your pain is unusual for you . . "Provider Documentation" section prepared by Mina Abebe. . VTE Core Measure Inpt VTE Proph given/why not?: Warfarin (Coumadin)
[2017-03-03] MEDS: SERTRALINE HCL 100 MG TAB PO SCH (10:44)
--- NOTE | 2017-03-03 11:17 | PULMONARY CONSULTATION ---
DATE OF CONSULTATION: 03/03/2017 HISTORY OF PRESENT ILLNESS: The patient is a very pleasant 61-year-old female who was admitted to the hospital on February 28 with shortness of breath over about a week's period of time. She developed those same symptoms and was seen by her primary care physician and then was sent to [facility] since she has a left ventricular assist device and gets most of her care there as coordinated by Dr. Victor M Deshpande. She was diagnosed with pneumonia, was discharged on oral antibiotics the name of which she cannot remember. She then saw Dr. Contreras with persisted symptoms and was admitted to the hospital through the Emergency Room. Dr. Abebe has asked me to evaluate the patient from a pulmonary standpoint since she still has some wheezing. According to the ER notes, she was seen by Dr. Martin with shortness of breath. The patient states she had some shortness breath mostly with exertion, associated with a nonproductive cough. 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 She denied fevers and night sweats and had a mild sore throat just related to the coughing. She denied any significant peripheral edema or hemoptysis, but did have some mild shortness of breath when lying down. Her oxygen saturation was 88% on room air in the Emergency Room with a respiratory rate of 24 and her pulse was 104 and regular. She had coarse breath sounds bilaterally. Chest x-ray suggested small right pleural effusion and infiltrative process in the right lower lobe and right mid lung field, improved since 02/22/[address] she had a CT scan of the chest done. She was admitted to the hospital and placed on Zosyn and has been placed on formoterol as well for the wheezing. She states she is feeling considerably improved and ready to go home today. She denies any other significant symptoms. She does have several dogs at home that have not been ill. Her travel history and environmental history is unremarkable with no recent industrial exposures and again no aspiration. Apparently, she has had some intermittent wheezing over the years, perhaps related to history of sarcoid from 20 years ago at which time she had a bronchoscopy, which was treated with prednisone. She uses Symbicort 80/4.5 two puffs b.i.d. just on a p.r.n. basis and rarely used albuterol. REVIEW OF SYSTEMS: Otherwise, unremarkable. PAST MEDICAL AND SURGICAL HISTORY: Positive for the usual childhood diseases, measles, mumps and chickenpox. She carries a history of carcinoma of the right breast. It was [place] [address] Mauricio. She received 59/40 cGy to the right breast area along with a year's worth of chemotherapy and then had recurrent breast cancer last year. She received an additional 68/40 cGy to the right breast ending on 05/14/2016 and develops a radiation-induced pneumonitis thereafter, which was treated with prednisone. It was characterized by a cough and mild shortness of breath. She carries a history of severe left ventricular dysfunction with a cardiomyopathy, probably related to Adriamycin with an LVEF in 2013 of 15% with left ventricular assist device placed. She carries a history of chronic systolic congestive heart failure, anemia, anxiety, atrial fibrillation, and depression. She has had a tubal ligation, implantation of the internal cardiac defibrillator, left ventricular assist device, and lumpectomy of the right breast. She also carries a history of sarcoid, but that has been quite over the last 20 years. SOCIAL HISTORY: She has never been a tobacco or alcohol user. 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 She is , has several children. No one in their family has any lung problems. FAMILY HISTORY: Otherwise is unremarkable. She does have several dogs at home with no pets otherwise. ALLERGIES: She has no allergies. MEDICATIONS: Noted. She is on amiodarone. She does have albuterol inhaler, but very rarely uses at home and she states she just recently was treated with Symbicort as an outpatient last year for occasional wheezing and rarely uses that as well. She was not aware that it needed to be used as a maintenance medication. PHYSICAL EXAMINATION: VITAL SIGNS: Her vital signs are stable and her blood pressures are unobtainable. Oxygen saturation is 96% on 2 liters. Her pulse is 94 and regular and again she is afebrile. Her weight is 90.4 kilograms down from 94.3 kilograms on the 2nd. HEENT: Unremarkable. No neck vein distention or HJR. No adenopathy is noted. Expansion of the thorax is good with deep inspiration. HEART: Sounds are not obtainable. There is just a hum from the LV assist device. LUNGS: Her lungs reveal very mild wheezing actually in the left lung field, left upper lobe and left lower lobe posterior. I thought the right lung was clear even anterior was clear. No fremitus is noted. There is no dullness to percussion. No fasciculations are noted. ABDOMEN: Soft, nontender. EXTREMITIES: She has no cyanosis, clubbing or edema. IMAGING DATA: Chest x-ray reveals improved right mid to lower lung zone opacities. LABORATORY DATA: White count was 8.26, hemoglobin 11.5, hematocrit 36%, and platelet count 229,000 with 88% neutrophils at the time of admission. BUN is 39, creatinine 1.3 with a slight elevation of the ALT at 81. Liver function studies otherwise looked good. Hepatitis C antibody was negative. INR is 3.9 today. Gram stain of the sputum from the revealed some epithelial cells, many inflammatory cells with mixed gram positive and gram negative bacilli and gram positive cocci with probably contaminated specimen. Blood cultures are negative. MRSA DNA surveillance screen by DNA probe is negative. She had a bronchoscopy done in 2012 that showed mild acute and chronic inflammation with no tumor noted. IMPRESSION: 1. Pneumonia, right middle lung field and right lower lobe. This is improved compared to the chest x-ray from several weeks ago. However, CT scan of the thorax on the 24 of February of this year was reviewed. It reveals a small right pleural effusion. Changes consistent with probable radiation-induced pneumonitis in the right lower lobe and right upper lobe area, left ventricular assist device 34 mm right breast mass, minimal infiltrative processes in the left lower lobe superior segment, a 7 mm nodule in the right lower lobe and 6 mm nodule in the left upper lobe. This may have been an area of acute pneumonitis associated with right upper lobe chronic radiation-induced pneumonitis. It may always be persistent on the CT scan now. 2. Pulmonary nodules, a 7 mm right upper lobe and a 6 mm left upper lobe. 3. Wheezing. The wheezing may be related to this acute infectious process. It is unlikely that wheezing would be caused by sarcoid unless the sarcoid is very extensive involving the microscopic airways which is uncommon. RECOMMENDATIONS: 1. At this point, I would restart the patient on Symbicort 160/4.5 two puffs b.i.d. and stop the formoterol. 2. She could use the albuterol 2 puffs 4 times a day. 3. Follow up with Dr. Franco who has been following her for a number of years in 2 weeks with full set of pulmonary function studies. 4. I would recheck a CT scan in about 2 months to assess the right pleural effusion and a 7 mm right lower lobe and 6 mm left upper lobe nodules. They probably should be followed for 2 years. Thanks for asking me to evaluate Mr. Robertson. I will be glad to see her again during the hospitalization if you desire.
[2017-03-03 12:45] VITALS: TEMP 36.8; O2SAT 95
[2017-03-03 12:58] VITALS: PULSE 76; O2SAT 94
--- NOTE | 2017-03-03 13:47 | Discharge Summary ---
Discharge Summary Date of Service March 03, 2017. Discharge Summary Admission Date: February 28, 2017 at 21:04 Discharge Date: March 03, 2017 Discharge Disposition: Home Principal Diagnosis: Pneumonia Immunizations: Have You Had Influenza Vaccine: Yes History of Tetanus Vaccine?: UNK History of Pneumococcal: No History of Hepatitis B Vaccine: No Consultations: Dr Demarco for pulmonary medicine Medication Reconciliation New Medications: Amoxicillin & Pot Clavulanate (Augmentin 875-125 mg) 1 Tab Tab 875 MG PO BID, #14 TAB Ipratropium-Albuterol (Duoneb) 3 Ml Nebu 1 TREATMENT INH QID, #120 INHA Nebulizer Machine (Home Use) (Nebulizer Machine (Home Use) ) Mis 1 EA N/A UD, #1 pt has pneumonia Prednisone Tab (Prednisone) 10 Mg Tab 10 MG PO UD, #20 TAB 4 a day for 2 days 3 a day for 2 days 2 a day for 2 days one a day Continued Medications: Acetaminophen/Diphenhydramine (Tylenol Pm) 500 Mg/25 Mg Tab 2 TABS PO HS PRN for Sleep, TAB Albuterol Hfa (Ventolin Hfa) 200 Puffs/89912 Mcg Aers for 30 Days Amiodarone Hcl (Amiodarone Hcl) 100 Mg Tab 100 MG PO DAILY Amoxicillin (Amoxil) 500 Mg Cap 2000 MG PO UD PRN for Prior to Dental Appointments, CAP Aspirin (Aspirin Ec) 81 Mg Tab 162 MG PO HS Budesonide/Formoterol Fumarate (Symbicort 80/4.5 Inhaler) Aero 2 PUFFS INH BID, INHALER Calcium Carbonate (Calcium 600) 600 Mg Tab 600 MG PO DAILY Carvedilol (Coreg) 6.25 Mg Tab 6.25 MG PO BIDM, TAB Ferrous Sulfate (Ferrous Sulfate) 325 Mg Tab 325 MG PO DAILY Furosemide (Lasix) 80 Mg Tab 80 MG PO DAILY, TAB Hydrocodone W/ Homatropine (Hycodan 5/1.5MG 5 Ml) 1 Syp Syp 5 ML PO HS PRN for Cough for 24 Days, #120 ML Melatonin (Melatonin) 1 Mg Cap 2 MG PO HS Omeprazole (Prilosec) 40 Mg Cap 40 MG PO QAM, CAP Potassium Chloride Microencaps (Potassium Chloride Er) 20 Meq Tab 20 MEQ PO Q2D, TAB Sertraline Hcl (Zoloft) 100 Mg Tab 100 MG PO QD@1200, TAB Simvastatin (Zocor) 20 Mg Tab 20 MG PO DAILY, TAB Spironolactone (Aldactone) 25 Mg Tab 25 MG PO DAILY, TAB Triamcinolone Acet (Aristocort 0.1%) 90 Appln/30 Gm Cr 1 APPLN TOP DIRECTED PRN for Affected Skin Folds Warfarin Sod (Coumadin) 4 Mg Tab 4 MG PO DAILY ACCORDING TO ANTICOAG CLINIC Discontinued Medications: Cefadroxil (Duricef) 500 Mg Cap 500 MG PO BID, CAP Prednisone (Prednisone) 20 Mg Tab 20 MG PO DAILY, TAB ON A TAPER, CURRENTLY TAKING 20 MG, TOMORROW IS HER LAST DOSE Discharge Exam Review of Systems: Constitutional: No chills, No fever, No sweats Respiratory: No cough, No sputum, No wheezing Cardiovascular: No PND, No chest pain, No orthopnea Abdomen: No nausea, No pain, No vomiting Musculoskeletal: No joint pain, No muscle pain Physical Exam: General Appearance: WD/WN, no apparent distress ENT: pharynx normal Neck: supple, no JVD Respiratory/Chest: chest non-tender, lungs clear, normal breath sounds Cardiovascular: no edema, no JVD Abdomen / GI: normal bowel sounds, non tender, soft Extremities: no pedal edema, normal range of motion Neurologic/Psychiatric: alert, oriented x 3 Hospital Course 61 F with acute hypoxic respiratory failure from pneumonia poa Bilateral pneumonia/hypoxia- vancomycin IV, ceftriaxone IV, levofloxacin IV, given prolongued Qtc, will go home on augmentin, guaifenesin and Xopenex with Atrovent nebulizers, added formoterol, repeat cxr interpreted by me to slight improvement Dr Demarco offers supportive advice, will have home on short steroid taper LVAD/atrial fibrillation/cardiomyopathy/cardiac defibrillator in situ no issues during hospital stay, did teach staff about LVAD amiodarone 100 mg by mouth daily, enteric-coated aspirin 162 mg by mouth daily, carvedilol 6.25 mg by mouth twice a day with meals, furosemide 80 mg by mouth daily, potassium chloride ER 20 mEq by mouth every 2 days, spironolactone 25 mg by mouth daily and warfarin 4 mg by mouth daily ckd 3 stable on discharge Hypercholesterolemia-- simvastatin 20 mg by mouth daily. Depression--sertraline 100 mg by mouth daily Abnormal liver enzymes--improving Total Time Spent: Greater than 30 minutes This includes examination of the patient, discharge planning, medication reconciliation, and communication with other providers. Discharge Instructions Please refer to the electronic Patient Visit Report (Discharge Instructions) for additional information.
[2017-03-03] MEDS ORDERED: ALBINS NEB (15:37)
[2017-03-16] MEDS ORDERED: SPIR25TA89 PO (11:10)
[2017-03-16] MEDS ORDERED: SIMV20TA2 PO (11:58)
[2017-03-16] MEDS ORDERED: CARV6.252 PO (12:08)
[2017-03-16] MEDS ORDERED: FERR325T5 PO (16:11)
[2017-03-16] MEDS ORDERED: TRMCR130WC TOP (16:11)
[2017-03-16] MEDS ORDERED: SYMIN/8045 INH (16:11)
[2017-03-16] MEDS ORDERED: AMIO0.1T PO (16:11)
[2017-03-16] MEDS ORDERED: HYDR5SYP11 PO (16:11)
[2017-03-16] MEDS ORDERED: OMEP40CA41 PO (16:11)
[2017-03-16] MEDS ORDERED: CMD4 PO (16:11)
[2017-03-16] MEDS ORDERED: ASPI81TA28 PO (16:11)
[2017-03-16] MEDS ORDERED: POTA20TA13 PO (16:11)
[2017-03-16] MEDS ORDERED: MELA1CAP PO (16:14)
[2017-03-16] MEDS ORDERED: CALC600T PO (16:16)
[2017-03-16] MEDS ORDERED: AMOX500C3 PO (16:16)
[2017-03-16] MEDS ORDERED: DIPH-437 PO (16:16)
[2017-03-16] MEDS ORDERED: VNTHFA/IN (17:58)
== END 2017-03-03 13:34 | disposition home or self-care (01) | DRG 193 ==
LOC: ENRESERVDT → ENRESERVTM → C.EDB 17:06 → UNDOADMIN 21:04 → C.MSICU 21:04
PROVIDERS: ADMIT Hospitalist; ATTEND Internal Medicine
DX: J18.9 Pneumonia, unspecified organism (principal); I50.23 Acute on chronic systolic (congestive) heart failure; J96.01 Acute respiratory failure with hypoxia; I42.9 Cardiomyopathy, unspecified; I48.91 Unspecified atrial fibrillation; F41.9 Anxiety disorder, unspecified; N18.3 Chronic kidney disease, stage 3 (moderate); K21.9 Gastro-esophageal reflux disease without esophagitis; D64.9 Anemia, unspecified; E78.00 Pure hypercholesterolemia, unspecified; G47.00 Insomnia, unspecified; F32.9 Major depressive disorder, single episode, unspecified; R91.1 Solitary pulmonary nodule; D86.9 Sarcoidosis, unspecified; Z79.82 Long term (current) use of aspirin; Z79.899 Other long term (current) drug therapy; Z79.01 Long term (current) use of anticoagulants; Z85.3 Personal history of malignant neoplasm of breast; Z95.810 Presence of automatic (implantable) cardiac defibrillator; Z98.51 Tubal ligation status

== ENCOUNTER → 2017-03-10 | Outpatient (CLI) | payer OTHER ==
[~2017-03-10] MED LIST changes: -ACET325T30 PO; +ALBINS NEB; +AMIO0.1T PO; +AMOX500C3 PO; +AMOX875T PO; +ASPI81TA28 PO; -AZIT500T26 PO; +CALC600T PO; +CARV6.252 PO; +CMD4 PO; +DIPH-437 PO; +FERR325T5 PO; -FURO40TA3 PO; +FURO80TA63 PO; +HYDR-5688 PO; +HYDR5SYP11 PO; +IPRASOL4 INH; +LSX40 PO; +MELA1CAP PO; +NEBMAC; +OMEP40CA41 PO; +POTA20TA13 PO; +SERT100T PO; +SIMV20TA2 PO; +SPIR25TA89 PO; +SYMIN/8045 INH; +TRMCR130WC TOP; +VNTHFA/IN
--- NOTE | 2017-03-10 13:53 | DIAGNOSTIC IMAGING REPORT ---
CHEST 2 VIEWS ROUTINE CLINICAL HISTORY: R06.02 SOB dyspnea COMPARISON STUDY: 03/02/2017 FINDINGS: Mild stable cardia megaly. Implantable cardiac pacemaker/defibrillator. Lungs are considered generally clear. There are postoperative changes overlying the right axilla. IMPRESSION: Mild cardiomegaly. No acute process. Electronically signed by: Regis Pedersen M.D. 03/10/2017 1:52 PM Dictated Date/Time: 03/10/2017 1:51 PM
== END | disposition home or self-care (01) ==
LOC: C.RAD1850 13:35
PROVIDERS: ATTEND Physician Assistant
DX: R06.02 Shortness of breath (principal); I51.7 Cardiomegaly

== ENCOUNTER 2017-03-16 20:22 | Emergency (ER) | payer OTHER ==
[~2017-03-16] VITALS: Ht 157.5 cm; Wt 88.0 kg
[~2017-03-16 20:22] MED LIST changes: -AMOX875T PO; -CEFA500C2 PO; -HYDR-5688 PO; -LSX40 PO; -NEBMAC; -SERT100T PO
[2017-03-16 20:30] VITALS: Ht 157.5 cm; Wt 88.0 kg
[2017-03-16] MEDS ORDERED: SERT100T PO (21:41)
--- NOTE | 2017-03-16 22:16 | DIAGNOSTIC IMAGING REPORT ---
LEFT FOOT MIN 3 VIEWS ROUTINE CLINICAL HISTORY: left foot pain, swelling pain. Edema. COMPARISON: None. DISCUSSION: Moderate degenerative change of the interphalangeal joints. Moderate hallux valgus configuration and bunion deformity of the great toe. No evidence for well-defined fracture or dislocation. There is no evidence for soft tissue swelling. IMPRESSION: Moderate generalized degenerative change. Bunion Deformity distal first metatarsal. Heel spur. No acute bony abnormality Electronically signed by: Regis Pedersen M.D. 03/16/2017 10:15 PM Dictated Date/Time: 03/16/2017 10:13 PM
[2017-03-16] MEDS ORDERED: CEFA500C2 PO (23:06)
[2017-03-16] MEDS ORDERED: LSX40 PO (23:06)
[2017-03-16 23:09] VITALS: PULSE 95; O2SAT 97
[2017-03-16 23:40] LABS: INR 2.2 (0.9-1.1); PARTIAL THROMBOPLASTIN RATIO 1.7; PROTHROMBIN TIME (PATIENT) 24.8 SECONDS (9.0-12.0)
[2017-03-16 23:41] LABS: BUN/CREATININE RATIO 19.3 (10-20); CALCIUM 8.1 mg/dl (8.5-10.1); CREATININE 1.6 mg/dl (0.60-1.20); POTASSIUM 3.7 mmol/L (3.5-5.1)
[2017-03-16 23:58] LABS: HEMATOCRIT 35.9 % (37-47); MEAN CELL VOLUME 85.1 fL (80-100); MEAN CORPUSCULAR HEMOGLOBIN 27.5 pg (25-34); MEAN CORPUSCULAR HGB CONC 32.3 g/dl (32-36); MEAN PLATELET VOLUME 11.8 fL (7.4-10.4); PLATELET COUNT 121 K/uL (130-400); RED BLOOD COUNT 4.22 M/uL (4.2-5.4); WHITE BLOOD COUNT 8.65 K/uL (4.8-10.8)
[2017-03-16 23:59] LABS: BASO % 0.1 %; BASO ABS # 0.01 K/uL (0-0.2); COMPLETE YES; EOS % 1.3 %; IG% 0.2 %; LYMPH % 9.1 %; LYMPH ABS # 0.79 K/uL (1.2-3.4); MONO % 6.7 %; NEUT % 82.6 %; OVALOCYTES 1+; PLT ESTIMATE DECREASED
[2017-03-17 00:20] VITALS: TEMP 37.3
[2017-03-17] MEDS ORDERED: HYDROCODONE/ACETAMOPHEN 5/325MG TAB PO STA (00:41)
--- NOTE | 2017-03-17 00:43 | EMERGENCY ROOM VISIT NOTE ---
ED Visit Note First contact with patient: 21:40 Patient seen with the physician it assistant. I agree with her assessment. Patient has some swelling to the lateral malleolus of the left ankle. I suspect this may be bursitis all labs AND X-RAY WERE REVIEWED BY ME TREATMENT PLAN WILL BE TO [facility] WRAP IN PLACE ON PAIN MEDICINE Problem List Medical Problems: (1) Acute on chronic systolic heart failure Status: Resolved (2) Anemia Status: Chronic (3) Anemia Status: Resolved (4) Anemia Status: Resolved (5) Anxiety Status: Chronic (6) Atrial fibrillation Status: Resolved (7) Bleeding from Peter-Escoto drain Status: Resolved (8) Carcinoma of breast Status: Resolved (9) Cardiac defibrillator in situ Status: Chronic (10) Cardiomyopathy Permanent Comment: Adriamycin induced, last EF in 2012, 15%. Status: Chronic (11) Chest pain Status: Resolved (12) CHF (congestive heart failure) Status: Chronic (13) Congestive rheumatic heart failure Status: Chronic (14) Depression Status: Chronic (15) Elevated troponin Status: Resolved (16) History of - tubal ligation Status: Resolved (17) [id number] Status: Resolved (18) Implantation of internal cardiac defibrillator Status: Resolved (19) Lumpectomy of breast Status: Resolved (20) LVAD (left ventricular assist device) present Status: Chronic (21) Osteopenia Status: Chronic (22) Sarcoidosis Status: Chronic (23) Wrist pain, right Status: Resolved Current/Historical Medications Scheduled Albuterol Sulf (Albuterol Sulfate), 3 ML NEB QID Amiodarone Hcl (Amiodarone Hcl), 100 MG PO DAILY Aspirin (Aspirin Ec), 162 MG PO HS Budesonide/Formoterol Fumarate (Symbicort 80/4.5 Inhaler), 2 PUFFS INH BID Calcium Carbonate (Calcium 600), 600 MG PO DAILY Carvedilol (Coreg), 6.25 MG PO BIDM Cefadroxil (Duricef), 500 MG PO BID Ferrous Sulfate (Ferrous Sulfate), 325 MG PO DAILY Furosemide (Furosemide), 40 MG PO DAILY Ipratropium-Albuterol (Duoneb), 1 TREATMENT INH QID Melatonin (Melatonin), 2 MG PO HS Omeprazole (Prilosec), 40 MG PO QAM Potassium Chloride Microencaps (Potassium Chloride Er), 20 MEQ PO Q2D Prednisone Tab (Prednisone), 10 MG PO UD Sertraline Hcl (Zoloft), 100 MG PO QD@1200 Simvastatin (Zocor), 20 MG PO DAILY Spironolactone (Aldactone), 25 MG PO DAILY Warfarin Sod (Coumadin), 4 MG PO DAILY Scheduled PRN Acetaminophen/Diphenhydramine (Tylenol Pm), 2 TABS PO HS PRN for Sleep Amoxicillin (Amoxil), 2,000 MG PO UD PRN for Prior to Dental Appointments Hydrocodone W/ Homatropine (Hycodan 5/1.5MG 5 Ml), 5 ML PO HS PRN for Cough Triamcinolone Acet (Aristocort 0.1%), 1 APPLN TOP DIRECTED PRN for Affected Skin Folds Miscellaneous Medications Albuterol Hfa (Ventolin Hfa) Allergies Coded Allergies: No Known Allergies (Unverified , 02/28/17) Vital Signs Date Time Temp Pulse Resp B/P Pulse Ox O2 Delivery O2 Flow Rate FiO2 03/17/17 00:20 37.3 03/16/17 23:09 95 19 97 Room Air 03/16/17 20:30 38.3 18 Laboratory Results 03/16/17 23:02 Red Blood Count 4.22, Mean Corpuscular Volume 85.1, Mean Corpuscular Hemoglobin 27.5, Mean Corpuscular Hemoglobin Concent 32.3, Mean Platelet Volume 11.8, Neutrophils (%) (Auto) 82.6, Lymphocytes (%) (Auto) 9.1, Monocytes (%) (Auto) 6.7, Eosinophils (%) (Auto) 1.3, Basophils (%) (Auto) 0.1, Neutrophils # (Auto) 7.14, Lymphocytes # (Auto) 0.79, Monocytes # (Auto) 0.58, Eosinophils # (Auto) 0.11, Basophils # (Auto) 0.01 03/16/17 23:02 Test 03/16/17 23:02 03/16/17 23:05 White Blood Count 8.65 K/uL (4.8-10.8) Red Blood Count 4.22 M/uL (4.2-5.4) Hemoglobin 11.6 g/dL (12.0-16.0) Hematocrit 35.9 % (37-47) Mean Corpuscular Volume 85.1 fL (80-100) Mean Corpuscular Hemoglobin 27.5 pg (25-34) Mean Corpuscular Hemoglobin Concent 32.3 g/dl (32-36) Platelet Count 121 K/uL (130-400) Mean Platelet Volume 11.8 fL (7.4-10.4) Neutrophils (%) (Auto) 82.6 % Lymphocytes (%) (Auto) 9.1 % Monocytes (%) (Auto) 6.7 % Eosinophils (%) (Auto) 1.3 % Basophils (%) (Auto) 0.1 % Neutrophils # (Auto) 7.14 K/uL (1.4-6.5) Lymphocytes # (Auto) 0.79 K/uL (1.2-3.4) Monocytes # (Auto) 0.58 K/uL (0.11-0.59) Eosinophils # (Auto) 0.11 K/uL (0-0.5) Basophils # (Auto) 0.01 K/uL (0-0.2) RDW Standard Deviation 48.7 fL (36.4-46.3) RDW Coefficient of Variation 15.7 % (11.5-14.5) Immature Granulocyte % (Auto) 0.2 % Immature Granulocyte # (Auto) 0.02 K/uL (0.00-0.02) Platelet Estimate DECREASED Ovalocytes 1+ Prothrombin Time 24.8 SECONDS (9.0-12.0) Prothromb Time International Ratio 2.2 (0.9-1.1) Activated Partial Thromboplast Time 43.7 SECONDS (21.0-31.0) Partial Thromboplastin Ratio 1.7 Anion Gap 8.0 mmol/L (3-11) Est Creatinine Clear Calc Drug Dose 37.1 ml/min Estimated GFR () 39.3 Estimated GFR (Non- 33.9 BUN/Creatinine Ratio 19.3 (10-20) Lactic Acid Level 1.3 mmol/L (0.4-2.0) Calcium Level 8.1 mg/dl (8.5-10.1) Total Bilirubin 0.6 mg/dl (0.2-1) Aspartate Amino Transf (AST/SGOT) 27 U/L (15-37) Alanine Aminotransferase (ALT/SGPT) 28 U/L (12-78) Alkaline Phosphatase 81 U/L (45-117) Total Protein 6.9 gm/dl (6.4-8.2) Albumin 3.5 gm/dl (3.4-5.0) Globulin 3.4 gm/dl (2.5-4.0) Albumin/Globulin Ratio 1.0 (0.9-2) Bedside Lactic Acid Venous 0.99 mmol/L (0.90-1.70) Departure Information Referrals Pro,Jamshid Joya M.D. (PCP) Patient Instructions [facility]
[2017-03-17] MEDS ORDERED: NORCO 5/325MG HOME PACK PO ONE (00:45)
--- NOTE | 2017-03-17 00:56 | EMERGENCY ROOM VISIT NOTE ---
History First contact with patient: 21:40 Chief Complaint: SWELLING TO EXTREMITY Stated Complaint: CANT WALK ON FOOT-SWELLED, LEFT History of Present Illness The patient is a 61 year old female who presents to the Emergency Room with complaints of pain and swelling of the left foot. The patient states that her left foot has been hurting since she woke up this morning. She states that it has progressively worsened throughout the day and she is having difficulty walking due to the pain. She rates her current discomfort a 10/10. She denies any redness, swelling or bruising. She denies any injuries to the leg. The patient was recently hospitalized for pneumonia and finished her antibiotics 2 weeks ago. She has a history of breast cancer in 1994 which has been recurrent recently. She received radiation 6 months ago. She has an LVAD which was placed in 2012 due to cardiomyopathy secondary to radiation treatment. She denies any chest pain or shortness of breath at this time. Review of Systems A complete 10 point review of systems was reviewed with the patient with pertinent positives and negatives as per history of present illness. All else were negative. Past Medical/Surgical History Medical Problems: (1) Acute on chronic systolic heart failure (2) Anemia (3) Anemia (4) Anemia (5) Anxiety (6) Atrial fibrillation (7) Bleeding from Peter-Escoto drain (8) Breast cancer (9) Carcinoma of breast (10) Cardiac defibrillator in situ (11) Cardiomyopathy (12) Chest pain (13) CHF (congestive heart failure) (14) Congestive rheumatic heart failure (15) Depression (16) Elevated troponin (17) History of - tubal ligation (18) [id number] (19) Implantation of internal cardiac defibrillator (20) Lumpectomy of breast (21) LVAD (left ventricular assist device) present (22) Osteopenia (23) Sarcoidosis (24) Wrist pain, right Surgical Problems: (1) History of cholecystectomy Family History Patient reports no known family medical history. Social History Smoking Status: Never Smoker Alcohol Use: none Drug Use: none Marital Status: Housing Status: lives with family Occupation Status: disabled Current/Historical Medications Scheduled Albuterol Sulf (Albuterol Sulfate), 3 ML NEB QID Amiodarone Hcl (Amiodarone Hcl), 100 MG PO DAILY Aspirin (Aspirin Ec), 162 MG PO HS Budesonide/Formoterol Fumarate (Symbicort 80/4.5 Inhaler), 2 PUFFS INH BID Calcium Carbonate (Calcium 600), 600 MG PO DAILY Carvedilol (Coreg), 6.25 MG PO BIDM Cefadroxil (Duricef), 500 MG PO BID Ferrous Sulfate (Ferrous Sulfate), 325 MG PO DAILY Furosemide (Furosemide), 40 MG PO DAILY Ipratropium-Albuterol (Duoneb), 1 TREATMENT INH QID Melatonin (Melatonin), 2 MG PO HS Omeprazole (Prilosec), 40 MG PO QAM Potassium Chloride Microencaps (Potassium Chloride Er), 20 MEQ PO Q2D Prednisone Tab (Prednisone), 10 MG PO UD Sertraline Hcl (Zoloft), 100 MG PO QD@1200 Simvastatin (Zocor), 20 MG PO DAILY Spironolactone (Aldactone), 25 MG PO DAILY Warfarin Sod (Coumadin), 4 MG PO DAILY Scheduled PRN Acetaminophen/Diphenhydramine (Tylenol Pm), 2 TABS PO HS PRN for Sleep Amoxicillin (Amoxil), 2,000 MG PO UD PRN for Prior to Dental Appointments Hydrocodone W/ Homatropine (Hycodan 5/1.5MG 5 Ml), 5 ML PO HS PRN for Cough Hydrocodone/Acetaminophen 5MG/325MG (Clemons 5MG/325MG), 1-2 TABLET PO Q4H PRN for Pain Triamcinolone Acet (Aristocort 0.1%), 1 APPLN TOP DIRECTED PRN for Affected Skin Folds Miscellaneous Medications Albuterol Hfa (Ventolin Hfa) Allergies Coded Allergies: No Known Allergies (Unverified , 02/28/17) Physical Exam Vital Signs Date Time Temp Pulse Resp B/P Pulse Ox O2 Delivery O2 Flow Rate FiO2 03/17/17 00:20 37.3 03/16/17 23:09 95 19 97 Room Air 03/16/17 20:30 38.3 18 Physical Exam VITALS: Vitals are noted on the nurse's note and reviewed by myself. Vital signs stable. GENERAL: This is a 61-year-old female, in no acute distress, nondiaphoretic, well-developed well-nourished. SKIN: Capillary reflex less than 2 seconds. HEART: Continuous hum (LVAD) LUNGS: Clear to auscultation bilaterally without wheezes, rales or rhonchi. MUSCULOSKELETAL: Mild edema over the lateral malleolus and dorsal aspect of the foot. Tender to palpation and mildly increased temperature. No erythema or bruising. NEURO: Patient was alert and oriented to person place and time. Medical Decision & Procedures ER Provider Diagnostic Interpretation: LEFT FOOT MIN 3 VIEWS ROUTINE IMPRESSION: Moderate generalized degenerative change. Bunion Deformity distal first metatarsal. Heel spur. No acute bony abnormality US VENOUS LEFT LOWER EXTREMITY: No DVT Radiologist: Brayden Cameron MD Laboratory Results 03/16/17 23:02 Red Blood Count 4.22, Mean Corpuscular Volume 85.1, Mean Corpuscular Hemoglobin 27.5, Mean Corpuscular Hemoglobin Concent 32.3, Mean Platelet Volume 11.8, Neutrophils (%) (Auto) 82.6, Lymphocytes (%) (Auto) 9.1, Monocytes (%) (Auto) 6.7, Eosinophils (%) (Auto) 1.3, Basophils (%) (Auto) 0.1, Neutrophils # (Auto) 7.14, Lymphocytes # (Auto) 0.79, Monocytes # (Auto) 0.58, Eosinophils # (Auto) 0.11, Basophils # (Auto) 0.01 03/16/17 23:02 Test 03/16/17 23:02 03/16/17 23:05 White Blood Count 8.65 K/uL (4.8-10.8) Red Blood Count 4.22 M/uL (4.2-5.4) Hemoglobin 11.6 g/dL (12.0-16.0) Hematocrit 35.9 % (37-47) Mean Corpuscular Volume 85.1 fL (80-100) Mean Corpuscular Hemoglobin 27.5 pg (25-34) Mean Corpuscular Hemoglobin Concent 32.3 g/dl (32-36) Platelet Count 121 K/uL (130-400) Mean Platelet Volume 11.8 fL (7.4-10.4) Neutrophils (%) (Auto) 82.6 % Lymphocytes (%) (Auto) 9.1 % Monocytes (%) (Auto) 6.7 % Eosinophils (%) (Auto) 1.3 % Basophils (%) (Auto) 0.1 % Neutrophils # (Auto) 7.14 K/uL (1.4-6.5) Lymphocytes # (Auto) 0.79 K/uL (1.2-3.4) Monocytes # (Auto) 0.58 K/uL (0.11-0.59) Eosinophils # (Auto) 0.11 K/uL (0-0.5) Basophils # (Auto) 0.01 K/uL (0-0.2) RDW Standard Deviation 48.7 fL (36.4-46.3) RDW Coefficient of Variation 15.7 % (11.5-14.5) Immature Granulocyte % (Auto) 0.2 % Immature Granulocyte # (Auto) 0.02 K/uL (0.00-0.02) Platelet Estimate DECREASED Ovalocytes 1+ Prothrombin Time 24.8 SECONDS (9.0-12.0) Prothromb Time International Ratio 2.2 (0.9-1.1) Activated Partial Thromboplast Time 43.7 SECONDS (21.0-31.0) Partial Thromboplastin Ratio 1.7 Anion Gap 8.0 mmol/L (3-11) Est Creatinine Clear Calc Drug Dose 37.1 ml/min Estimated GFR () 39.3 Estimated GFR (Non- 33.9 BUN/Creatinine Ratio 19.3 (10-20) Lactic Acid Level 1.3 mmol/L (0.4-2.0) Calcium Level 8.1 mg/dl (8.5-10.1) Total Bilirubin 0.6 mg/dl (0.2-1) Aspartate Amino Transf (AST/SGOT) 27 U/L (15-37) Alanine Aminotransferase (ALT/SGPT) 28 U/L (12-78) Alkaline Phosphatase 81 U/L (45-117) Total Protein 6.9 gm/dl (6.4-8.2) Albumin 3.5 gm/dl (3.4-5.0) Globulin 3.4 gm/dl (2.5-4.0) Albumin/Globulin Ratio 1.0 (0.9-2) Bedside Lactic Acid Venous 0.99 mmol/L (0.90-1.70) Medications Administered Medications (Trade) Dose Ordered Sig/Piedad Route Start Time Stop Time Status Last Admin Dose Admin Acetaminophen/ Hydrocodone Bitart (Clemons 5/325mg Home Pack) 1 homepack UD ONCE PO 03/17/17 00:45 03/17/17 00:46 DC 03/17/17 00:58 1 HOMEPACK Acetaminophen/ Hydrocodone Bitart (Clemons 5/325 Tab) 1 tab NOW STAT PO 03/17/17 00:41 03/17/17 00:42 DC 03/17/17 00:57 1 TAB Medical Decision Differential diagnosis includes cellulitis, DVT, superficial thrombosis, among others. The patient is a 61-year-old female who presents today complaining of left foot pain. Labs revealed no leukocytosis. Creatinine is mildly elevated at 1.60. Lactic acid was not elevated. X-ray was unremarkable. Ultrasound showed no DVT. The patient's initial vital signs showed a fever. However, I rechecked the temperature in the room and the nurse also rechecked and she was afebrile. Dr. Leyva also examined the patient and we felt she likely is suffering from a bursitis. She will be given an Romulo wrap and pain control. She was instructed to follow-up with her primary care provider and return here for worsening symptoms. The patient was independently evaluated by Dr. Leyva, ED attending physician, who agreed with my assessment and treatment plan. Based on the patient's presentation and work up, I feel the patient is stable for outpatient treatment. The patient was educated to return to the emergency department for any worsening of their current condition or new/concerning symptoms. She will follow up with her primary care provider. Impression Primary Impression: Left leg pain Departure Information Dispostion Home / Self-Care Condition GOOD Prescriptions Hydrocodone/Acetaminophen 5MG/325MG (Clemons 5MG/325MG) Tab 1-2 TABLET PO Q4H Y for Pain, #15 TAB For Initial Treatment Prov: Muriel Valiente PA-C 03/17/17 Referrals Pro,Jamshid Joya M.D. (PCP) Patient Instructions My [facility] Additional Instructions You have been prescribed Clemons to be used for pain control. Take 1-2 tablets every 4-6 hours as needed for pain. This is a narcotic medication. You cannot drive or consume alcohol while on this medicine. This medicine should only be used for pain that cannot be controlled with [id number] pain medicines. Wear the Romulo wrap when up and walking for the next several days. Follow-up with your primary care provider today or Monday. Return to the emergency department with worsening redness, worsening swelling, fevers or any other new/concerning symptoms.
[2017-03-17] MEDS ORDERED: HYDR-5688 PO (00:57)
--- NOTE | 2017-03-17 06:38 | DIAGNOSTIC IMAGING REPORT ---
ULTRASOUND LEFT VENOUS DOPP LOWER EXT UNILAT CLINICAL HISTORY: Left foot pain and swelling COMPARISON STUDY: No previous studies for comparison. FINDINGS: Real-time and color flow Doppler imaging were performed. Flow was seen within the femoral, popliteal and calf veins with no intraluminal thrombus demonstrated. The saphenous vein is patent. IMPRESSION: No evidence of left lower extremity DVT. Electronically signed by: Victor M Troy M.D. 03/17/2017 6:36 AM Dictated Date/Time: 03/17/2017 6:36 AM
== END 2017-03-17 01:20 | disposition home or self-care (01) ==
LOC: C.EDB 20:24 → C.EDC 03-17 01:20
DX: M79.672 Pain in left foot (principal); Z87.01 Personal history of pneumonia (recurrent); Z85.3 Personal history of malignant neoplasm of breast; I50.23 Acute on chronic systolic (congestive) heart failure; D64.9 Anemia, unspecified; F41.9 Anxiety disorder, unspecified; I48.91 Unspecified atrial fibrillation; F32.9 Major depressive disorder, single episode, unspecified; Z79.899 Other long term (current) drug therapy; Z95.810 Presence of automatic (implantable) cardiac defibrillator; Z98.51 Tubal ligation status; Z90.49 Acquired absence of other specified parts of digestive tract; Z79.82 Long term (current) use of aspirin; Z79.01 Long term (current) use of anticoagulants

== ENCOUNTER 2017-04-02 12:08 | Emergency (ER) | payer OTHER ==
[~2017-04-02] VITALS: Ht 157.5 cm; Wt 90.0 kg
[~2017-04-02 12:08] MED LIST changes: +CEFA500C2 PO; -FURO80TA63 PO; +HYDR-5688 PO; +LSX40 PO; +SERT100T PO
[2017-04-02 12:13] VITALS: TEMP 36.2; Ht 157.5 cm; Wt 90.0 kg
[2017-04-02] MEDS ORDERED: SODIUM CHLORIDE 0.9% 1000ML 1,000 ML IV ONE (12:45)
[2017-04-02 13:02] LABS: HEMATOCRIT 34.2 % (37-47); MEAN CELL VOLUME 84.7 fL (80-100); MEAN CORPUSCULAR HEMOGLOBIN 26.7 pg (25-34); MEAN CORPUSCULAR HGB CONC 31.6 g/dl (32-36); MEAN PLATELET VOLUME 11.5 fL (7.4-10.4); PLATELET COUNT 279 K/uL (130-400); RED BLOOD COUNT 4.04 M/uL (4.2-5.4); WHITE BLOOD COUNT 11.06 K/uL (4.8-10.8)
[2017-04-02 13:12] LABS: PARTIAL THROMBOPLASTIN RATIO 1.5; PROTHROMBIN TIME (PATIENT) 33.4 SECONDS (9.0-12.0)
[2017-04-02 13:19] LABS: BUN/CREATININE RATIO 24.3 (10-20); CALCIUM 8.3 mg/dl (8.5-10.1); CREATININE 1.4 mg/dl (0.60-1.20); POTASSIUM 3.7 mmol/L (3.5-5.1)
--- NOTE | 2017-04-02 13:49 | EMERGENCY ROOM VISIT NOTE ---
History Report prepared by Diana: Eliz Ordonez Under the Supervision of: Dr. Finn Ribera M.D. First contact with patient: 12:27 Chief Complaint: SHORTNESS OF BREATH Stated Complaint: DIZZINESS, SOB, LVAD Nursing Triage Summary: pt to [facility] ED with c/o SOb and "low flow" on her LVAD History of Present Illness The patient is a 61 year old female who presents to the Emergency Room with complaints of persistent LVAD problems starting this morning. She has had the LVAD for 4 years after her heart was damaged by the radiation she received for breast cancer. The patient was at [facility] when her LVAD alarm started ringing. She checked the controller and saw that it said "low flow". She rushed home to change the controller. She changed the controller, but it still says low flow. She notes feeling SOB and lightheaded. She denies any fever, chills, nausea, or vomiting. She has been drinking water normally. She denies any changes in activity. She notes that she fell yesterday when she was trying to stand up on her bed to hang a picture. She had pneumonia 3 weeks ago and was on antibiotics. She is currently on prednisone for gout in her leg. She is on Coumadin. Source of History: patient Onset: this morning Position: other (LVAD) Quality: other (low flow) Timing: other (persistent) Associated Symptoms: + SOB, No fevers, No chills, No nausea, No vomiting Note: Pt feels lightheaded. Review of Systems All systems have been listed, reviewed, and are negative other than those previously mentioned. Please see Additional Medical History Sheet. Past Medical & Surgical Medical Problems: (1) Acute on chronic systolic heart failure (2) Anemia (3) Anemia (4) Anemia (5) Anxiety (6) Atrial fibrillation (7) Bleeding from Peter-Escoto drain (8) Breast cancer (9) Carcinoma of breast (10) Cardiac defibrillator in situ (11) Cardiomyopathy (12) Chest pain (13) CHF (congestive heart failure) (14) Congestive rheumatic heart failure (15) Depression (16) Elevated troponin (17) History of - tubal ligation (18) [id number] (19) Implantation of internal cardiac defibrillator (20) Lumpectomy of breast (21) LVAD (left ventricular assist device) present (22) Osteopenia (23) Sarcoidosis (24) Wrist pain, right Surgical Problems: (1) History of cholecystectomy Family History Cancer Hypertension Lung disease Social History Smoking Status: Former Smoker Alcohol Use: none Drug Use: none Marital Status: Housing Status: lives with family Occupation Status: disabled Current/Historical Medications Scheduled Albuterol Sulf (Albuterol Sulfate), 3 ML NEB QID Amiodarone Hcl (Amiodarone Hcl), 100 MG PO DAILY Aspirin (Aspirin Ec), 162 MG PO HS Budesonide/Formoterol Fumarate (Symbicort 80/4.5 Inhaler), 2 PUFFS INH BID Calcium Carbonate (Calcium 600), 600 MG PO DAILY Carvedilol (Coreg), 6.25 MG PO BIDM Cefadroxil (Duricef), 500 MG PO BID Ferrous Sulfate (Ferrous Sulfate), 325 MG PO DAILY Furosemide (Furosemide), 40 MG PO DAILY Ipratropium-Albuterol (Duoneb), 1 TREATMENT INH QID Melatonin (Melatonin), 2 MG PO HS Omeprazole (Prilosec), 40 MG PO QAM Potassium Chloride Microencaps (Potassium Chloride Er), 20 MEQ PO Q2D Prednisone Tab (Prednisone), 10 MG PO UD Sertraline Hcl (Zoloft), 100 MG PO QD@1200 Simvastatin (Zocor), 20 MG PO DAILY Spironolactone (Aldactone), 25 MG PO DAILY Warfarin Sod (Coumadin), 4 MG PO DAILY Scheduled PRN Acetaminophen/Diphenhydramine (Tylenol Pm), 2 TABS PO HS PRN for Sleep Amoxicillin (Amoxil), 2,000 MG PO UD PRN for Prior to Dental Appointments Hydrocodone W/ Homatropine (Hycodan 5/1.5MG 5 Ml), 5 ML PO HS PRN for Cough Hydrocodone/Acetaminophen 5MG/325MG (Brewster 5MG/325MG), 1-2 TABLET PO Q4H PRN for Pain Triamcinolone Acet (Aristocort 0.1%), 1 APPLN TOP DIRECTED PRN for Affected Skin Folds Miscellaneous Medications Albuterol Hfa (Ventolin Hfa) Allergies Coded Allergies: No Known Allergies (Unverified , 04/02/17) Physical Exam Vital Signs Date Time Temp Pulse Resp B/P (MAP) Pulse Ox O2 Delivery O2 Flow Rate FiO2 04/02/17 16:41 81 20 94 Room Air 108/ 04/02/17 15:50 78 20 114/85 95 Room Air 04/02/17 14:16 90 16 114/85 04/02/17 13:10 82 16 126/68 96 Room Air 04/02/17 12:41 84 04/02/17 12:13 36.2 91 22 100 Room Air Physical Exam GENERAL: Patient awake, alert, appropriate, oriented x 3. Patient follows commands. Patient does not appear toxic. Patient is adequately hydrated and well-nourished. SKIN: No erythema, pallor, cyanosis or rash HEENT: Normal head, pupils equal, reactive to light and accommodation. Increased wax left ear. Oral cavity and posterior pharynx appear normal. Neck : Without adenopathy, no neck vein distention. LUNGS: Clear to auscultation. No wheezes, no rales, no rhonchi. HEART: Constant humming sound. ABDOMEN: Input site from LVAD in RLQ. No masses, no rebound, no hepatomegaly or splenomegaly. EXTREMITIES: No signs of trauma. No pedal or pretibial edema. No calf or thigh tenderness. NEUROLOGIC: Cranial nerves II-XII within normal limits. No gross motor sensory function deficits. Medical Decision & Procedures ER Provider Diagnostic Interpretation: X ray results are stated below per my interpretation and the radiologist's interpretation. TWO VIEW CHEST CLINICAL HISTORY: Dyspnea. FINDINGS: PA and lateral chest radiographs are compared to study dated 03/10/2017 and correlated with chest CT dated 02/24/2017. The patient is status post midline sternotomy. A cardiac AICD is unchanged in position and partially obscures the left lower chest. A left ventricular assist device (LVAD) is unchanged in position. The heart is enlarged and there is atherosclerotic calcification of the thoracic aorta. The pulmonary vasculature is noncongested. There is chronic elevation of the right hemidiaphragm and mild bibasilar atelectasis. Patchy airspace opacities are seen in the right lower lobe. No pleural effusion or pneumothorax is seen. The skeletal structures are osteopenic. The bony thorax appears intact. Surgical clips are noted in the right axilla. IMPRESSION: 1. Cardiomegaly, LVAD, and AICD as above. There is no radiographic evidence of congestive failure. 2. There are developing airspace opacities in the right lower lobe. Cortical clinically for evidence of an infectious/inflammatory pneumonitis. Radiographic follow-up to resolution is recommended. Electronically signed by: Dre Vaca M.D. 04/02/2017 2:35 PM Dictated Date/Time: 04/02/2017 2:32 PM Laboratory Results 04/02/17 12:50 04/02/17 12:50 Test 04/02/17 12:50 Red Blood Count 4.04 M/uL (4.2-5.4) Mean Corpuscular Volume 84.7 fL (80-100) Mean Corpuscular Hemoglobin 26.7 pg (25-34) Mean Corpuscular Hemoglobin Concent 31.6 g/dl (32-36) RDW Standard Deviation 48.7 fL (36.4-46.3) RDW Coefficient of Variation 15.6 % (11.5-14.5) Mean Platelet Volume 11.5 fL (7.4-10.4) Prothrombin Time 33.4 SECONDS (9.0-12.0) Prothromb Time International Ratio 3.0 (0.9-1.1) Activated Partial Thromboplast Time 38.5 SECONDS (21.0-31.0) Partial Thromboplastin Ratio 1.5 Anion Gap 10.0 mmol/L (3-11) Est Creatinine Clear Calc Drug Dose 42.9 ml/min Estimated GFR () 46.2 Estimated GFR (Non- 39.9 BUN/Creatinine Ratio 24.3 (10-20) Calcium Level 8.3 mg/dl (8.5-10.1) Total Bilirubin 0.7 mg/dl (0.2-1) Aspartate Amino Transf (AST/SGOT) 31 U/L (15-37) Alanine Aminotransferase (ALT/SGPT) 29 U/L (12-78) Alkaline Phosphatase 78 U/L (45-117) Troponin I 0.021 ng/ml (0-0.045) Total Protein 6.8 gm/dl (6.4-8.2) Albumin 3.4 gm/dl (3.4-5.0) Globulin 3.4 gm/dl (2.5-4.0) Albumin/Globulin Ratio 1.0 (0.9-2) Laboratory results as stated above per my review. Medications Administered Medications (Trade) Dose Ordered Sig/Piedad Route Start Time Stop Time Status Last Admin Dose Admin Sodium Chloride 1,000 ml @ 1,000 mls/hr Q1H ONCE IV 04/02/17 12:45 04/02/17 13:44 DC 04/02/17 12:50 1,000 MLS/HR Sodium Chloride 1,000 ml @ 500 mls/hr Q2H STAT IV 04/02/17 15:19 04/02/17 17:18 DC 04/02/17 15:40 500 MLS/HR ECG Indication: SOB/dyspnea Rate (beats per minute): 78 Rhythm: sinus with SA Findings: 1st degree AV block, nonspecific-ST abn Comparison ECG Date: 02-Mar-2017 Change: no significant change ED Course 1229: Past medical records reviewed. The patient was evaluated in room B2. A complete history and physical examination was performed. 1245: NSS 1000 ml @ 1000 mls/hr IV. 1504: I reevaluated the patient. She feels about the same as before. She has already received 1 L of fluid. 1513: I discussed the patient's case with Itzel, [facility] - LVAD coordinator. We have agreed to give the patient some more fluids. She will call back with more information. 1519: NSS 1000 ml @ 500 mls/hr IV. 1548: Itzel has called back and recommends the patient be transferred to their facilities. The patient will be transferred to [facility] for further evaluation and management. 1553: I reevaluated the patient. I discussed the results and treatment plan with her. She verbalized understanding and agreement. She will be transferred to [facility]. Medical Decision Nurses notes reviewed. Medical history sheet reviewed. Differential diagnosis includes but is not limited to: metabolic disorder, dehydration, LVAD malfunction. Medication Reconciliation: I attest that I have personally reviewed the patient' s current medication list. Blood pressure Screening: Patient was found to have normal blood pressure on screening and does not require follow up. The patient is here with her LVAD malfunction. The machine continues "low alarm ".. The patient was given IV fluids here as per suggestion of [facility]'s LVAD team. Multiple labs were obtained. Please see above. The patient also had a chest x-ray with questionable right lower lobe opacity but this is most likely breast tissue. The patient had a left mastectomy and a large right reconstructed right breast. After [id number] discussions Nicole has requested the patient be transported to their facility today. Consults Time Called: [phone] Consulting Physician: Itzel [facility] - LVAD coordinator Returned Call: [phone] I discussed the patient's case with her. We have agreed to give the patient some more fluids. She will call back with more information. Impression Primary Impression: LVAD malfunction Scribe Attestation The scribe's documentation has been prepared under my direction and personally reviewed by me in its entirety. I confirm that the note above accurately reflects all work, treatment, procedures, and medical decision making performed by me. Departure Information Dispostion Transfer Acute Care Facility Referrals Pro,Jamshid Joya M.D. (PCP) Patient Instructions My [facility]
--- NOTE | 2017-04-02 14:36 | DIAGNOSTIC IMAGING REPORT ---
TWO VIEW CHEST CLINICAL HISTORY: Dyspnea. FINDINGS: PA and lateral chest radiographs are compared to study dated 03/10/2017 and correlated with chest CT dated 02/24/2017. The patient is status post midline sternotomy. A cardiac AICD is unchanged in position and partially obscures the left lower chest. A left ventricular assist device (LVAD) is unchanged in position. The heart is enlarged and there is atherosclerotic calcification of the thoracic aorta. The pulmonary vasculature is noncongested. There is chronic elevation of the right hemidiaphragm and mild bibasilar atelectasis. Patchy airspace opacities are seen in the right lower lobe. No pleural effusion or pneumothorax is seen. The skeletal structures are osteopenic. The bony thorax appears intact. Surgical clips are noted in the right axilla. IMPRESSION: 1. Cardiomegaly, LVAD, and AICD as above. There is no radiographic evidence of congestive failure. 2. There are developing airspace opacities in the right lower lobe. Cortical clinically for evidence of an infectious/inflammatory pneumonitis. Radiographic follow-up to resolution is recommended. Electronically signed by: Dre Vaca M.D. 04/02/2017 2:35 PM Dictated Date/Time: 04/02/2017 2:32 PM
[2017-04-02] MEDS ORDERED: SODIUM CHLORIDE 0.9% 1000ML 1,000 ML IV STA (15:19)
[2017-04-02 15:50] VITALS: BP_DIAS 85
[2017-04-02 19:05] VITALS: BP_SYST 108; PULSE 92; O2SAT 94
== END 2017-04-02 19:04 | disposition short-term general hospital (02) ==
LOC: C.EDB 12:09
DX: T85.698A Other mechanical complication of other specified internal prosthetic devices, implants and grafts, initial encounter (principal); X58.XXXA Exposure to other specified factors, initial encounter; R91.8 Other nonspecific abnormal finding of lung field; R06.02 Shortness of breath; R42 Dizziness and giddiness; M10.9 Gout, unspecified; D64.9 Anemia, unspecified; F41.9 Anxiety disorder, unspecified; I48.91 Unspecified atrial fibrillation; I42.9 Cardiomyopathy, unspecified; I09.81 Rheumatic heart failure; F32.9 Major depressive disorder, single episode, unspecified; M85.80 Other specified disorders of bone density and structure, unspecified site; D86.9 Sarcoidosis, unspecified; Z79.01 Long term (current) use of anticoagulants; Z95.810 Presence of automatic (implantable) cardiac defibrillator; Z85.3 Personal history of malignant neoplasm of breast; Z87.891 Personal history of nicotine dependence; Z90.12 Acquired absence of left breast and nipple; Z79.82 Long term (current) use of aspirin; Z82.49 Family history of ischemic heart disease and other diseases of the circulatory system

== ENCOUNTER → 2017-05-22 | Outpatient (CLI) | payer OTHER ==
--- NOTE | 2017-05-22 09:55 | DIAGNOSTIC IMAGING REPORT ---
CHEST 2 VIEWS ROUTINE CLINICAL HISTORY: ERUCTATION dyspepsia COMPARISON STUDY: 04/02/2017 FINDINGS: Permanent unipolar cardiac pacemaker/defibrillator. Prior median sternotomy. Infiltrative changes right base slightly improved in the prior exam. Implanted cardiac assist devices are again noted. Left lung is considered clear. IMPRESSION: Unchanging to slightly improved parenchymal infiltrate right base. Postoperative changes as noted. The above report was generated using voice recognition software. It may contain grammatical, syntax or spelling errors. Electronically signed by: Regis Pedersen M.D. 05/22/2017 9:54 AM Dictated Date/Time: 05/22/2017 9:53 AM
--- NOTE | 2017-05-22 10:25 | DIAGNOSTIC IMAGING REPORT ---
GI SERIES W/AIR ROUTINE CLINICAL HISTORY: ERUCTATIONdyspepsia COMPARISON STUDY: None FLUOROSCOPY TIME: 2.3 minutes. FINDINGS: Study is somewhat compromised by the presence of radiopaque devices within the upper abdomen. Esophagus is normal in course and caliber. There are findings of mild gastroesophageal reflux. Configuration of the stomach is unremarkable. The duodenal bulb fills well. Duodenal sweep is unremarkable. Proximal small bowel is unremarkable. IMPRESSION: 1. Mild gastroesophageal reflux. Otherwise negative study The above report was generated using voice recognition software. It may contain grammatical, syntax or spelling errors. Electronically signed by: Regis Pedersen M.D. 05/22/2017 10:24 AM Dictated Date/Time: 05/22/2017 10:23 AM
== END | disposition home or self-care (01) ==
LOC: C.RAD 09:12
PROVIDERS: ATTEND Internal Medicine Gastroenterology
DX: R14.2 Eructation (principal)

== ENCOUNTER → 2017-08-07 | Outpatient (CLI) | payer OTHER ==
--- NOTE | 2017-08-07 14:16 | MAMMOGRAPHY REPORT ---
THIS REPORT HAS BEEN AMENDED. BILATERAL DIGITAL DIAGNOSTIC MAMMOGRAM TOMOSYNTHESIS WITH CAD AND TARGETED BILATERAL ULTRASOUND: 08/07 CLINICAL HISTORY: 61-year-old woman presents at time of annual bilateral screening examination. Pers onal history of right breast cancer status post breast conservation treatment and also status post mackenzie rgery for recurrence. Also close follow-up in the right breast status post surgery. TECHNIQUE: Bilateral breast tomosynthesis in addition to standard 2D mammography was performed. Spot magnification right CC and ML views were also obtained. Current study was also evaluated with a Exploredge Aided Detection (CAD) system. COMPARISON: Comparison is made to exams dated: 02/01/2017 ultrasound, 02/01/2017 mammogram, 08/03/2016 ma mmogram, 08/11/2015 mammogram, 02/24/2015 mammogram, and 02/17/2015 mammogram - [facility] Verified Person C enter. BREAST COMPOSITION: There are scattered areas of fibroglandular density in both breasts. FINDINGS: There is diffuse right breast skin thickening, trabecular edema and skin irregularity, rela aubrey to prior surgeries. There is diffuse skin thickening of the right breast, which is increasingly prominent compared to prior exams and may be related to prior treatment, although further evaluation with ultrasound was performed. No unexpected area of architectural distortion, obvious to mass or ne w suspicious calcifications are identified. There is a newly visualized ovoid 10 x 7 mm focal asymmetry in the 11:30 to 12:00 left breast. A ski n bruise/ecchymosis was noted in the superior left breast during diagnostic mammography and an additi onal left CC view was performed with a triangle marker placed over the area of bruising. This triang le marker aligns with the new focal asymmetry in question. On the tomosynthesis images, there is a l ucent halo, suggesting hematoma and/or fat necrosis. Further evaluation with ultrasound was performe d. No other focal area of architectural distortion, new mass, asymmetry or suspicious calcifications are identified in the left breast. Targeted ultrasound was performed over the area of bruising in the 11:00 left breast, 10 cm from the nipple, and also throughout the right breast given the diffuse increased skin thickening. In the lef t 11:00 breast, 10 cm from the nipple, there is a lobulated hypoechoic cystic-appearing mass with ech ogenic halo likely representing evolving hematoma or fat necrosis. It measures 8.7 x 5.5 x 7.3 mm an d corresponds to the visual ecchymosis and mammographic finding. A follow-up is recommended in 3-4 m onths to ensure resolution and exclude the possibility of an underlying mass that bled. Ultrasound performed throughout the right breast demonstrates mild diffuse skin thickening, measuring up to 5 mm. The ultrasound is suboptimal given scarring and skin puckering throughout the lateral r ight breast and in the retroareolar region causing shadowing. No focal or discrete mass is identifie d. IMPRESSION: ACR-BI-RADS CATEGORY 3: PROBABLY BENIGN, TARGETED ULTRASOUND ACR-BI-RADS CATEGORY 3: PRO BABLY BENIGN 1. There is a new 10 mm focal asymmetry in the 11:00 left breast that likely represents a hematoma a nd/or fat necrosis, given that it is located deep to and ecchymosis visible on the skin, and the jaya ent is on anticoagulation therapy. However, a short follow-up in 3-4 months is recommended to ensure resolution. 2. There is decreased size and increased skin thickening of the right breast, which could simply be related to prior surgeries and radiation therapy. No obvious new mass or calcifications are identifi ed. However, a short interval follow-up right mammogram and repeat targeted ultrasound would also be useful to ensure stability in 3-4 months at the time of follow-up in the left breast. These results and recommendations were discussed with the patient at the time of the exam. She tenta tively scheduled a follow-up appointment prior to leaving our department. Approximately 10% of breast cancers are not detected with mammography. A negative mammographic report should not delay biopsy if a clinically suggestive mass is present. Jacquie Jansen M.D. ay/:08/07/2017 12:21:38 [place] Compliance Coordinator: Kevyn HOWELL(R)(M), [facility] letter sent: Follow Up Recommended 3 BI-RADS Code: ACR-BI-RADS Category 3: Probably Benign Ultrasound BI-RADS: ACR-BI-RADS Category 3: Pr obably Benign AMENDMENT: 08/08/2017 Jacquie Jansen M.D. Further review of prior non-mammographic studies in PACS prompted reassessment of the decreased size and increased skin thickening of the right breast. Given the known biopsy-proven carcinoma with posi tive margin in the right breast in September 2015, and the irregular mass measured in the right breast on prior chest CTs including the 12/01/2016 and 02/24/2017, I am concerned the shrinking size of the breast reveals disease progression. Also given the firm irregular shape of the breast it is difficu lt to adequately position for mammographic views and the irregular mass may simply be located posteri or and lateral and not within the [id number]. Given the ultrasound was also technically limited d ue to irregularity of the tissue and shadowing, I am also concerned there could be more disease than revealed on imaging. Therefore, would recommend repeat evaluation with a chest CT to more optimally compare size measurements of the mass, which can more optimally guide options of mastectomy versus ad ditional chemotherapy. Per the patient's physician, Dr. Contreras, this is scheduled for August 2017. A ll of the above was discussed with Dr. Contreras at 12:30 PM on 08/08/2017. Amended BI-RADS: ACR BI-RADS Category 6: Known Biopsy Proven Malignancy letter sent: Tegan Palmer
== END | disposition home or self-care (01) ==
LOC: C.MAMM 11:20
PROVIDERS: ATTEND Internal Medicine
DX: Z09 Encounter for follow-up examination after completed treatment for conditions other than malignant neoplasm (principal); Z85.3 Personal history of malignant neoplasm of breast; N64.89 Other specified disorders of breast

== ENCOUNTER → 2017-08-22 | Outpatient (CLI) | payer OTHER ==
[~2017-08-22] MED LIST changes: +OPTIRAY 320 IV PRN
--- NOTE | 2017-08-22 12:14 | DIAGNOSTIC IMAGING REPORT ---
CT ABD/PELVIS IV AND ORAL CONT CLINICAL HISTORY: BREAST CANCER COMPARISON STUDY: 02/24/2017 TECHNIQUE: Following the IV administration of 95 mL of Optiray-320, CT scan of the abdomen and pelvis was performed from the lung bases to the proximal femurs. Images are reviewed in the axial, sagittal, and coronal planes. IV contrast was administered without complication. A dose lowering technique was utilized adhering to the principles of ALARA. CT DOSE: 1317.42 mGy.cm FINDINGS: Lower chest: A left ventricular assist device is again visualized. There are calcified mediastinal and hilar lymph nodes. There is interstitial thickening. There are performed airspace opacities with bronchiectasis within the anterior aspect the right lower lobe. There is a trace right pleural effusion Liver: The liver has a slightly cirrhotic appearance. There are multiple subcentimeter hepatic nodules, similar in appearance to prior studies dating back to June 2016. Gallbladder: Unremarkable. Spleen: Mildly enlarged. No focal masses identified Pancreas: Unremarkable. Adrenal glands: Unremarkable. Kidneys: There is an 8 mm right renal hypodensity likely representing a cyst. There is no hydronephrosis Bowel: There are no transition zones indicate bowel obstruction. The appendix appears normal. There is no acute diverticulitis. Peritoneum: There is no intraperitoneal free air or abdominal ascites. Vasculature: The abdominal aorta is normal in course and caliber. There is a 4 cm cystic structure within the right inguinal region abutting the right femoral artery and vein. This likely represents a seroma or hematoma. Adenopathy: None. Pelvic viscera: The bladder, and pelvic viscera are unremarkable. Skeletal structures: No destructive osseous lesions are seen. IMPRESSION: 1. Cirrhotic morphology of the liver. Multiple subcentimeter hepatic lesions remain stable 2. Mild splenomegaly 3. No evidence of bowel obstruction. No evidence of free air 4. Normal appendix. No evidence of acute diverticulitis 5. 4 cm cystic structure within the right inguinal region likely representing a seroma or old hematoma Electronically signed by: Victor M Troy M.D. 08/22/2017 12:13 PM Dictated Date/Time: 08/22/2017 12:03 PM
--- NOTE | 2017-08-22 12:23 | DIAGNOSTIC IMAGING REPORT ---
(CHEST) THORAX WITH CT DOSE: HISTORY: Pressures no BREAST CANCER TECHNIQUE: Multiaxial CT images of the chest were performed following the intravenous administration of contrast. A dose lowering technique was utilized adhering to the principles of ALARA. COMPARISON: 02/24/2017 FINDINGS: Stable appearance to the patient's ventricular assist device. Masslike changes anterior right chest wall as well as masslike changes within the lateral aspect right breast appear stable. Left breast is unchanged in appearance. The ventricular system device is unchanged in position. Partial thrombus within the outflow tract is present minimally progressive. Right pleural effusion produces described appears resolved. Scattered nodularity previously described is stable. Fibrotic changes right upper lung are improved. Left base remains clear. Pulmonary nodularity previously described is nonprogressive and stable. IMPRESSION: 1. Moderately improved exam compared to the prior study. 2. Right pleural effusion as well as fibrotic changes of the right upper lung are diminished in prominence. 3. Stable pulmonary nodularity. 4. Stable right breast masslike change. 5. No significant new or interval process. The above report was generated using voice recognition software. It may contain grammatical, syntax or spelling errors. Electronically signed by: Regis Pedersen M.D. 08/22/2017 12:22 PM Dictated Date/Time: 08/22/2017 12:05 PM
== END | disposition home or self-care (01) ==
LOC: C.CTS 11:20
PROVIDERS: ATTEND Internal Medicine Hematology & Oncology
DX: C50.411 Malignant neoplasm of upper-outer quadrant of right female breast (principal); K76.9 Liver disease, unspecified; R16.1 Splenomegaly, not elsewhere classified; R93.5 Abnormal findings on diagnostic imaging of other abdominal regions, including retroperitoneum; J90 Pleural effusion, not elsewhere classified; R91.1 Solitary pulmonary nodule; R92.8 Other abnormal and inconclusive findings on diagnostic imaging of breast

== ENCOUNTER 2017-11-10 09:53 | Emergency (ER) | payer OTHER ==
[~2017-11-10] VITALS: Ht 157.5 cm; Wt 83.0 kg
[~2017-11-10 09:53] MED LIST changes: -HYDR-5688 PO; -IPRASOL4 INH; -OPTIRAY 320 IV PRN; -PRED10TA PO
[2017-11-10 09:56] VITALS: TEMP 36.6; Ht 157.5 cm; Wt 83.0 kg
[2017-11-10] MEDS ORDERED: HYDROmorphone INJ 1 MG/ML SYR IV STA (10:05)
[2017-11-10] MEDS ORDERED: ONDANSETRON INJ 2 MG/ML 2 ML VIAL IV STA (10:05)
[2017-11-10] MEDS ORDERED: LIDODERM (LIDOCAINE) PATCH 5% TD STA (10:05)
--- NOTE | 2017-11-10 10:09 | EMERGENCY ROOM VISIT NOTE ---
History Report prepared by Diana: Ezra Cross Under the Supervision of: Dr. Richard Lang M.D. First contact with patient: 10:00 Chief Complaint: BACK PAIN Stated Complaint: SEVERE BACK PAIN-REFERRED History of Present Illness The patient is a 62 year old female who presents to the Emergency Room with complaints of severe and worsening upper back pain that began roughly a week ago. The patient notes that her pain has worsened significantly over the past two days. She states that the pain is now taking her breath away. The patient has a LVAD and was sent here today after visiting with her PCP. The patient has a history of myocardial infarction. Source of History: patient Onset: Week ago (worsening two days) Position: back (upper) Symptom Intensity: severe Timing: worsening Associated Symptoms: + SOB Review of Systems See HPI for pertinent positives & negatives. A total of 10 systems reviewed and were otherwise negative. Past Medical & Surgical Medical Problems: (1) Acute on chronic systolic heart failure (2) Anemia (3) Anemia (4) Anemia (5) Anxiety (6) Atrial fibrillation (7) Bleeding from Peter-Escoto drain (8) Breast cancer (9) Carcinoma of breast (10) Cardiac defibrillator in situ (11) Cardiomyopathy (12) Chest pain (13) CHF (congestive heart failure) (14) Congestive rheumatic heart failure (15) Depression (16) Elevated troponin (17) History of - tubal ligation (18) [id number] (19) Implantation of internal cardiac defibrillator (20) Lumpectomy of breast (21) LVAD (left ventricular assist device) present (22) Osteopenia (23) Sarcoidosis (24) Wrist pain, right Surgical Problems: (1) History of cholecystectomy Family History Cancer Hypertension Lung disease Social History Smoking Status: Former Smoker Alcohol Use: none Drug Use: none Marital Status: Housing Status: lives with family Occupation Status: disabled Current/Historical Medications Scheduled Amiodarone Hcl (Amiodarone Hcl), 100 MG PO DAILY Aspirin (Aspirin Ec), 81 MG PO QD Budesonide/Formoterol Fumarate (Symbicort 80/4.5 Inhaler), 2 PUFFS INH BID Bumetanide (Bumex), 2 MG PO BID Calcium Carbonate (Calcium 600), 600 MG PO DAILY Carvedilol (Coreg), 6.25 MG PO BIDM Cefadroxil (Duricef), 500 MG PO BID Cholecalciferol (Vitamin D), 1,000 UNITS PO DAILY Docusate Sodium (Colace), 1 CAP PO BID Ferrous Sulfate (Ferrous Sulfate), 325 MG PO DAILY Melatonin (Melatonin), 30 MG PO HS Potassium Chloride Microencaps (Potassium Chloride Er), 20 MEQ PO Q2D Sennosides (Senokot), 8.6 MG PO HS Sertraline Hcl (Zoloft), 50 MG PO QD Simvastatin (Zocor), 20 MG PO DAILY Spironolactone (Aldactone), 25 MG PO DAILY Warfarin Sod (Jantoven), 4 MG PO 4XWK Warfarin Sod (Jantoven), 4.5 MG PO MWF Scheduled PRN Acetaminophen/Diphenhydramine (Tylenol Pm), 2 TABS PO HS PRN for Sleep Albuterol Sulfate (Proair Respiclick), 2 PUFFS INH QID PRN for Wheezing Amoxicillin (Amoxil), 2,000 MG PO UD PRN for Prior to Dental Appointments Ipratropium-Albuterol (Duoneb), 1 TREATMENT INH QID PRN for SOB/Wheezing Oxycodone HCl (Oxycodone HCl), 5 MG PO QD PRN for Pain Oxycodone/Acetaminophen 5MG/325MG (Percocet 5MG/325MG), 1-2 TAB PO Q4H PRN for Pain Promethazine (Phenergan ), 12.5 MG PO Q6H PRN for Nausea or Vomiting Triamcinolone Acet (Aristocort 0.1%), 1 APPLN TOP DIRECTED PRN for Affected Skin Folds Allergies Coded Allergies: No Known Allergies (Unverified , 11/10/17) Physical Exam Vital Signs Date Time Temp Pulse Resp B/P (MAP) Pulse Ox O2 Delivery O2 Flow Rate FiO2 11/10/17 12:35 87 20 93 11/10/17 11:45 82 20 95 Room Air 11/10/17 11:07 95 Room Air 11/10/17 11:07 95 Room Air 11/10/17 10:34 86 11/10/17 09:56 36.6 22 Physical Exam GENERAL: Patient is a healthy-appearing well-nourished female HEAD: Normocephalic atraumatic EYES: Ocular movements intact pupils equal and react to light OROPHARYNX mucous membranes are moist no exudates present no erythema or edema present NECK: Supple no nuchal rigidity CHEST: Good equal expansion LUNGS: Clear and equal to auscultation CARDIAC: Normal S1 and S2 ABDOMEN: Soft nontender no guarding BACK: No CVA tenderness. Patient is tender to the upper T4/T5 area. EXTREMITIES: No pain upon palpation normal muscle strength in all groups no clubbing cyanosis or edema NEURO: Patient is following commands and answering questions appropriately. Alert and oriented x3 Cranial Nerves 2-12 grossly intact Medical Decision & Procedures ER Provider Diagnostic Interpretation: Radiology results as stated below per my review and radiologist interpretation: CHEST ONE VIEW PORTABLE CLINICAL HISTORY: Chest pain. Back pain. COMPARISON STUDY: Chest CT August 22, 2017. FINDINGS: Note is made of median sternotomy wires, a left subclavian pacer/the SUV and left ventricular assist device. The right accessory surgical clips. Mild elevation of the right hemidiaphragm is unchanged. Asymmetric right lung interstitial thickening is unchanged and likely chronic. Note is made of moderate cardiomegaly without evidence of pulmonary edema. There is no lobar consolidation. IMPRESSION: 1. Stable cardiomegaly without evidence of pulmonary edema. 2. No change in mild asymmetric right lung interstitial thickening which is likely chronic. Unchanged appearance of the chest. Electronically signed by: Gustavo Arias M.D. 11/10/2017 10:30 AM Dictated Date/Time: 11/10/2017 10:[address] SCAN OF THE THORACIC SPINE WITHOUT IV CONTRAST CLINICAL HISTORY: Thoracic back pain. Reported history of breast cancer. COMPARISON STUDY: Chest CT dated 08/22/2017. TECHNIQUE: CT scan of the thoracic spine is performed from the lower cervical spine to the upper lumbar spine. Images are reviewed in the axial, sagittal, and coronal planes. IV contrast was not administered for this examination. A dose lowering technique was utilized adhering to the principles of ALARA. CT DOSE: 1134.13 mGy.cm FINDINGS: The skeletal structures are osteopenic. Findings of multifocal osteolytic metastatic disease has significantly progressed from the 08/22/2017 examination. There is a moderate compression fracture of T7, new from previous. No retropulsed fragments are identified. Vertebral body height is otherwise maintained throughout the thoracic spine. Alignment is preserved. Hyperkyphosis is identified. Anterior osteophytes are seen throughout. There is also fractures involving the spinous processes of T5 and T6, best seen on sagittal images #41 and #42. These are also new from 08/22/2017 and likely acute to subacute. The transverse processes appear intact. Mild multilevel degenerative disc space narrowing is noted. A posterior disc bulge at T8-T9 likely contributes to central canal stenosis. There is no evidence of soft tissue lesion encroaching on the central canal. There is a healed left posterior rib fracture. The heart is enlarged. Pacemaker leads are identified. Facet atelectasis versus scarring are present in both lungs. Right apical fibrotic change is similar to previous. A presumed metastatic lesion the superior segment of the right lower lobe on image #123 is unchanged in size from previous measuring 7 mm. Indeterminant pleural-based nodule in the right lower lobe on image 177 is again seen and measures 5 mm. There are numerous calcified mediastinal and hilar lymph nodes. Atherosclerotic calcification is observed in the thoracic and. The paraspinous soft tissues are normal as visualized. IMPRESSION: 1. Overall significant progression of multifocal osteolytic metastatic disease as compared to the 08/22/2017 examination. 2. There are spinous process fractures of T5 and T6 as well as a moderate compression fracture of T7 (with no retropulsed fragments). These are likely acute to subacute, and new from 08/22/2017. 3. No additional fracture is identified. 4. There is no evidence of metastatic disease encroaching upon the central spinal canal. 5. A presumed right lower lobe pulmonary metastasis is unchanged from 08/22/2017. 6. Additional findings as above. Electronically signed by: Dre Vaca M.D. 11/10/2017 11:44 AM Dictated Date/Time: 11/10/2017 11:32 AM Laboratory Results 11/10/17 10:40 Red Blood Count 4.08, Mean Corpuscular Volume 82.1, Mean Corpuscular Hemoglobin 26.5, Mean Corpuscular Hemoglobin Concent 32.2, Mean Platelet Volume 10.8, Neutrophils (%) (Auto) 78.4, Lymphocytes (%) (Auto) 10.2, Monocytes (%) (Auto) 8.2, Eosinophils (%) (Auto) 2.4, Basophils (%) (Auto) 0.3, Neutrophils # (Auto) 4.99, Lymphocytes # (Auto) 0.65, Monocytes # (Auto) 0.52, Eosinophils # (Auto) 0.15, Basophils # (Auto) 0.02 11/10/17 10:40 Test 11/10/17 10:40 11/10/17 10:51 White Blood Count 6.36 K/uL (4.8-10.8) Red Blood Count 4.08 M/uL (4.2-5.4) Hemoglobin 10.8 g/dL (12.0-16.0) Hematocrit 33.5 % (37-47) Mean Corpuscular Volume 82.1 fL (80-100) Mean Corpuscular Hemoglobin 26.5 pg (25-34) Mean Corpuscular Hemoglobin Concent 32.2 g/dl (32-36) Platelet Count 237 K/uL (130-400) Mean Platelet Volume 10.8 fL (7.4-10.4) Neutrophils (%) (Auto) 78.4 % Lymphocytes (%) (Auto) 10.2 % Monocytes (%) (Auto) 8.2 % Eosinophils (%) (Auto) 2.4 % Basophils (%) (Auto) 0.3 % Neutrophils # (Auto) 4.99 K/uL (1.4-6.5) Lymphocytes # (Auto) 0.65 K/uL (1.2-3.4) Monocytes # (Auto) 0.52 K/uL (0.11-0.59) Eosinophils # (Auto) 0.15 K/uL (0-0.5) Basophils # (Auto) 0.02 K/uL (0-0.2) RDW Standard Deviation 49.1 fL (36.4-46.3) RDW Coefficient of Variation 16.2 % (11.5-14.5) Immature Granulocyte % (Auto) 0.5 % Immature Granulocyte # (Auto) 0.03 K/uL (0.00-0.02) Est Creatinine Clear Calc Drug Dose 37.6 ml/min Estimated GFR () 41.9 Estimated GFR (Non- 36.1 BUN/Creatinine Ratio 19.9 (10-20) Calcium Level 9.9 mg/dl (8.5-10.1) Total Bilirubin 0.5 mg/dl (0.2-1) Direct Bilirubin 0.1 mg/dl (0-0.2) Aspartate Amino Transf (AST/SGOT) 34 U/L (15-37) Alanine Aminotransferase (ALT/SGPT) 25 U/L (12-78) Alkaline Phosphatase 148 U/L (45-117) Total Creatine Kinase 36 U/L (26-192) Creatine Kinase MB < 0.5 ng/ml (0.5-3.6) Creatine Kinase MB Ratio (0-3.0) Troponin I < 0.015 ng/ml (0-0.045) Total Protein 7.9 gm/dl (6.4-8.2) Albumin 3.7 gm/dl (3.4-5.0) Lipase 130 U/L (73-393) Bedside Hemoglobin 10.9 g/dl (12.0-16.0) Bedside Hematocrit 32 % (37-47) Bedside Sodium 139 mEq/L (135-144) Bedside Potassium 4.3 mEq/L (3.3-5.0) Bedside Chloride 99 mEq/L (101-112) Bedside Total CO2 29 mEq/l (24-31) Anion Gap 16.0 mmol/L (16-25) Bedside Blood Urea Nitrogen 36 mg/dl (7-18) Bedside Creatinine 1.6 mg/dl (0.6-1.3) Bedside Glucose (other) 87 mg/dl (70-99) Bedside Ionized Calcium (Andres) 1.16 mmol/l (1.12-1.32) Labs reviewed by ED physician. Medications Administered Medications (Trade) Dose Ordered Sig/Piedad Route Start Time Stop Time Status Last Admin Dose Admin Hydromorphone HCl (Dilaudid Inj) 1 mg NOW STAT IV 11/10/17 10:05 11/10/17 10:08 DC 11/10/17 11:01 1 MG Ondansetron HCl (Zofran Inj) 4 mg NOW STAT IV 11/10/17 10:05 11/10/17 10:08 DC 11/10/17 11:00 4 MG Lidocaine (Lidoderm Patch 5%) 1 patch NOW STAT TD 11/10/17 10:05 11/10/17 10:08 DC 11/10/17 11:01 1 PATCH ED Course 1002: Past medical records reviewed. The patient was evaluated in room B11. A complete history and physical examination was performed. 1005: Ordered Lidocaine 1 patch TD, Zofran 4 mg IV, Dilaudid 1 mg IV. 1142: I discussed the findings of the radiology studies with the patient at this time. She verbalized understanding. 1156: I discussed the case with Dr. Johntson - [facility]. He will follow up with the patient in the clinic this week. The patient can be discharged home. Medical Decision Differential diagnosis: Etiologies such as musculoskeletal, disc herniation, fracture, aortic disease, metastatic disease, cord compression, discitis, infection, renal colic, gastrointestinal, acute exacerbation of chronic back pain, sciatica, cauda equina, as well as others were entertained. This is a 62-year-old female who presents emergency department complaining of high back pain that has been ongoing for the past week. The patient has a history of breast cancer however was felt to be in remission. She was sent for CT of the thoracic spine which was concerning for fractures at T5-T6 and T7 along with possible metastatic disease. The patient was given Dilaudid in the emergency department. I did discuss the case with the patient's oncologist Dr. Johnston who asked to see the patient in clinic. I did offer admission for this patient as well as rehabilitation however the patient at this point wishes to go home with pain medication. I feel that this is reasonable. Patient will return if she develops sudden onset of weakness or her pain is out of control. Patient and were in agreement with treatment plan. Consults Time Called: 1150 Consulting Physician: Dr. Johnston - [facility] Returned Call: 1156 I discussed the case with Dr. Johnston - [facility]. He will follow up with the patient in the clinic this week. Impression Primary Impression: Wedge compression fracture of T7 vertebra Additional Impressions: T6 vertebral fracture T5 vertebral fracture Scribe Attestation The scribe's documentation has been prepared under my direction and personally reviewed by me in its entirety. I confirm that the note above accurately reflects all work, treatment, procedures, and medical decision making performed by me. Departure Information Dispostion Home / Self-Care Prescriptions Oxycodone/Acetaminophen 5MG/325MG (PERCOCET 5MG/325MG) Tab 1-2 TAB PO Q4H Y for Pain, #30 TAB Prov: Richard Lang MD 11/10/17 Docusate Sodium (COLACE) 100 Mg Cap 1 CAP PO BID for 30 Days, #60 CAP Prov: Richard Lang MD 11/10/17 Sennosides (SENOKOT) 8.6 Mg Tab 8.6 MG PO HS for 30 Days, #30 TAB Prov: Richard Lang MD 11/10/17 Referrals Pro,Jamshid Joya M.D. (PCP) Forms HOME CARE DOCUMENTATION FORM, IMPORTANT VISIT INFORMATION Patient Instructions [facility] Problem Qualifiers Primary Impression: Wedge compression fracture of T7 vertebra Encounter type: initial encounter Fracture type: closed Qualified Codes: S22.060A - Wedge compression fracture of T7-t8 vertebra, initial encounter for closed fracture Additional Impressions: T6 vertebral fracture Encounter type: initial encounter Fracture type: closed Fracture morphology : other fracture Qualified Codes: S22.058A - Other fracture of t5-T6 vertebra , initial encounter for closed fracture T5 vertebral fracture Encounter type: initial encounter Fracture type: closed Fracture morphology : unspecified fracture morphology Qualified Codes: S22.059A - Unspecified fracture of t5-T6 vertebra, initial encounter for closed fracture
--- NOTE | 2017-11-10 10:32 | DIAGNOSTIC IMAGING REPORT ---
CHEST ONE VIEW PORTABLE CLINICAL HISTORY: Chest pain. Back pain. COMPARISON STUDY: Chest CT August 22, 2017. FINDINGS: Note is made of median sternotomy wires, a left subclavian pacer/the SUV and left ventricular assist device. The right accessory surgical clips. Mild elevation of the right hemidiaphragm is unchanged. Asymmetric right lung interstitial thickening is unchanged and likely chronic. Note is made of moderate cardiomegaly without evidence of pulmonary edema. There is no lobar consolidation. IMPRESSION: 1. Stable cardiomegaly without evidence of pulmonary edema. 2. No change in mild asymmetric right lung interstitial thickening which is likely chronic. Unchanged appearance of the chest. Electronically signed by: Gustavo Arias M.D. 11/10/2017 10:30 AM Dictated Date/Time: 11/10/2017 10:28 AM
[2017-11-10 10:53] LABS: BASO % 0.3 %; BASO ABS # 0.02 K/uL (0-0.2); EOS % 2.4 %; EOS ABS # 0.15 K/uL (0-0.5); HEMATOCRIT 33.5 % (37-47); HEMOGLOBIN 10.8 g/dL (12.0-16.0); IG# 0.03 K/uL (0.00-0.02); LYMPH % 10.2 %; LYMPH ABS # 0.65 K/uL (1.2-3.4); MEAN CELL VOLUME 82.1 fL (80-100); MEAN CORPUSCULAR HEMOGLOBIN 26.5 pg (25-34); MEAN CORPUSCULAR HGB CONC 32.2 g/dl (32-36); MEAN PLATELET VOLUME 10.8 fL (7.4-10.4); MONO % 8.2 %; MONO ABS # 0.52 K/uL (0.11-0.59); NEUT % 78.4 %; NEUT ABS # 4.99 K/uL (1.4-6.5); PLATELET COUNT 237 K/uL (130-400); RED CELL DISTRIBUTION WIDTH CV 16.2 % (11.5-14.5); RED CELL DISTRIBUTION WIDTH SD 49.1 fL (36.4-46.3); WHITE BLOOD COUNT 6.36 K/uL (4.8-10.8)
[2017-11-10 11:03] LABS: ISTAT CREATININE 1.6 mg/dl (0.6-1.3); ISTAT IONIZED CALCIUM 1.16 mmol/l (1.12-1.32); ISTAT POTASSIUM 4.3 mEq/L (3.3-5.0)
[2017-11-10 11:07] VITALS: O2SAT 95
[2017-11-10] MEDS ORDERED: BUME1TAB45 PO (11:15)
[2017-11-10] MEDS ORDERED: IPRASOL4 INH (11:15)
[2017-11-10] MEDS ORDERED: WARF4TAB8 PO (11:15)
[2017-11-10] MEDS ORDERED: PROM12.57 PO (11:15)
[2017-11-10] MEDS ORDERED: WARF1TAB6 PO (11:15)
[2017-11-10] MEDS ORDERED: CHOL100010 PO (11:15)
[2017-11-10] MEDS ORDERED: RXC/5 PO (11:15)
[2017-11-10] MEDS ORDERED: ALBU18002 INH (11:15)
[2017-11-10] MEDS ORDERED: MELA1TAB48 PO (11:15)
[2017-11-10 11:16] LABS: BLOOD UREA NITROGEN 30 mg/dl (7-18); CREATININE 1.51 mg/dl (0.60-1.20); GLUCOSE 81 mg/dl (70-99)
[2017-11-10 11:17] LABS: ALBUMIN 3.7 gm/dl (3.4-5.0); ALT/SGPT 25 U/L (12-78); CALCIUM 9.9 mg/dl (8.5-10.1); CARBON DIOXIDE 27 mmol/L (21-32); LIPASE 130 U/L (73-393); POTASSIUM 3.8 mmol/L (3.5-5.1); SODIUM 137 mmol/L (136-145)
[2017-11-10 11:22] LABS: ALKALINE PHOSPHATASE 148 U/L (45-117); AST/SGOT 34 U/L (15-37); CKMB < 0.5 ng/ml (0.5-3.6); TOTAL PROTEIN 7.9 gm/dl (6.4-8.2)
--- NOTE | 2017-11-10 11:46 | DIAGNOSTIC IMAGING REPORT ---
CT SCAN OF THE THORACIC SPINE WITHOUT IV CONTRAST CLINICAL HISTORY: Thoracic back pain. Reported history of breast cancer. COMPARISON STUDY: Chest CT dated 08/22/2017. TECHNIQUE: CT scan of the thoracic spine is performed from the lower cervical spine to the upper lumbar spine. Images are reviewed in the axial, sagittal, and coronal planes. IV contrast was not administered for this examination. A dose lowering technique was utilized adhering to the principles of ALARA. CT DOSE: 1134.13 mGy.cm FINDINGS: The skeletal structures are osteopenic. Findings of multifocal osteolytic metastatic disease has significantly progressed from the 08/22/2017 examination. There is a moderate compression fracture of T7, new from previous. No retropulsed fragments are identified. Vertebral body height is otherwise maintained throughout the thoracic spine. Alignment is preserved. Hyperkyphosis is identified. Anterior osteophytes are seen throughout. There is also fractures involving the spinous processes of T5 and T6, best seen on sagittal images #41 and #42. These are also new from 08/22/2017 and likely acute to subacute. The transverse processes appear intact. Mild multilevel degenerative disc space narrowing is noted. A posterior disc bulge at T8-T9 likely contributes to central canal stenosis. There is no evidence of soft tissue lesion encroaching on the central canal. There is a healed left posterior rib fracture. The heart is enlarged. Pacemaker leads are identified. Facet atelectasis versus scarring are present in both lungs. Right apical fibrotic change is similar to previous. A presumed metastatic lesion the superior segment of the right lower lobe on image #123 is unchanged in size from previous measuring 7 mm. Indeterminant pleural-based nodule in the right lower lobe on image 177 is again seen and measures 5 mm. There are numerous calcified mediastinal and hilar lymph nodes. Atherosclerotic calcification is observed in the thoracic and. The paraspinous soft tissues are normal as visualized. IMPRESSION: 1. Overall significant progression of multifocal osteolytic metastatic disease as compared to the 08/22/2017 examination. 2. There are spinous process fractures of T5 and T6 as well as a moderate compression fracture of T7 (with no retropulsed fragments). These are likely acute to subacute, and new from 08/22/2017. 3. No additional fracture is identified. 4. There is no evidence of metastatic disease encroaching upon the central spinal canal. 5. A presumed right lower lobe pulmonary metastasis is unchanged from 08/22/2017. 6. Additional findings as above. Electronically signed by: Dre Vaca M.D. 11/10/2017 11:44 AM Dictated Date/Time: 11/10/2017 11:32 AM
[2017-11-10] MEDS ORDERED: OXYC-57 PO ×2 (12:03→12:08)
[2017-11-10] MEDS ORDERED: DOCU-94 PO (12:07)
[2017-11-10] MEDS ORDERED: SENN1TAB77 PO (12:07)
[2017-11-10 12:35] VITALS: PULSE 87; O2SAT 93
== END 2017-11-10 12:36 | disposition home or self-care (01) ==
LOC: C.EDB 09:54
DX: S22.060A Wedge compression fracture of T7-T8 vertebra, initial encounter for closed fracture (principal); S22.058A Other fracture of T5-T6 vertebra, initial encounter for closed fracture; S22.059A Unspecified fracture of T5-T6 vertebra, initial encounter for closed fracture; X58.XXXA Exposure to other specified factors, initial encounter; D64.9 Anemia, unspecified; F41.9 Anxiety disorder, unspecified; I48.91 Unspecified atrial fibrillation; I50.9 Heart failure, unspecified; F32.9 Major depressive disorder, single episode, unspecified; M81.0 Age-related osteoporosis without current pathological fracture; Z87.891 Personal history of nicotine dependence; Z79.82 Long term (current) use of aspirin; Z79.01 Long term (current) use of anticoagulants; Z51.81 Encounter for therapeutic drug level monitoring

== ENCOUNTER → 2017-11-20 | Outpatient (CLI) | payer OTHER ==
[~2017-11-20] MED LIST changes: -ALBINS NEB; +ALBU18002 INH; +BUME1TAB45 PO; +CHOL100010 PO; -CMD4 PO; +DOCU-94 PO; -HYDR5SYP11 PO; +IPRASOL4 INH; -LSX40 PO; -MELA1CAP PO; +MELA1TAB48 PO; -OMEP40CA41 PO; +OXYC-57 PO; +PROM12.57 PO; +RXC/5 PO; +SENN1TAB77 PO; -VNTHFA/IN; +WARF1TAB6 PO; +WARF4TAB8 PO
--- NOTE | 2017-11-20 10:19 | DIAGNOSTIC IMAGING REPORT ---
PET/CT CLINICAL HISTORY: Breast cancer. COMPARISON STUDY: PET/CT dated 06/13/2016. CT scan of the thoracic spine dated 11/10/2017. CT scan of the chest, abdomen, and pelvis dated 11/22/2016. TECHNIQUE: One hour following the IV administration of 13.55 mCi of F-18 FDG, PET/CT examination was performed from the orbital meatal line through the bony pelvis. Noncontrast CT is performed for the purposes of anatomic correlation and attenuation correction. Note that this does not reflect a diagnostic CT examination. Images were reviewed on a separate [employer] independent workstation. Fused images were obtained. Standard uptake values reported are maximum values within the region of interest expressed in gm/mL. FINDINGS: PET FINDINGS: Head and neck: There is questionable loss of cross-white matter differentiation in the right cerebellar hemisphere. There is expected physiologic activity within the visualized brain parenchyma at the skull base and the salivary glands. Low level pharyngeal activity is likely within physiologic limits. Thorax: Evaluation of the thorax demonstrates expected physiologic myocardial activity. Nonspecific activity seen within the right hilum on image #77. This demonstrates a maximum SUV of 3.9. There is a 7 mm pleural-based nodule in the right lower lobe seen on image #70. This appears to demonstrate faint FDG activity. A left upper lobe nodule on image #77 measures 5 mm and was not demonstrably FDG avid, likely too small for PET characterization. There are numerous mildly enlarged mediastinal and hilar lymph nodes, many of which contain coarse calcifications. These are overall similar in appearance to multiple prior studies and measure up to 10 mm short axis. Several of these nodes demonstrate low level FDG activity. A reference node seen in the prevascular region on image #70 shows a maximum SUV of 3.1. There is a 3.4 cm mass lesion in the right breast seen on image #87. This is demonstrates only minimal FDG activity with a maximum SUV of 1.6. Activity is associated with the ventricular assist device. Abdomen and pelvis: There is expected heterogeneous activity within the liver, spleen, kidneys, renal collecting system, and bladder. Low-level bowel activity is likely within physical limits. There are numerous tiny foci of activity seen throughout the liver. These demonstrate a maximum SUV of 4.1. Although no definitive hepatic lesions are seen, this likely represents hepatic metastatic disease when correlated with the 08/22/2017 CT scan. There are FDG avid upper abdominal lymph nodes. A portacaval node on image #124 measures 2.0 cm in short axis and demonstrates a maximum SUV of 5.2. Skeletal structures: There is evidence of diffuse/multifocal osteolytic metastatic disease. Numerous calvarial lesions our identified. The largest is seen in the occipital bone on image #7 and measures 2.7 cm. This is FDG avid with a maximum SUV of 4.2. Numerous small osteolytic lesions are seen throughout the axillary and appendicular skeleton including the proximal humeri and femora. A large lesion is present within the left clavicular head and demonstrates a maximum SUV of 7.7. A large lesion in the anterior left iliac wing demonstrates a maximum SUV of 5.9. Nonspecific activity is again seen throughout the sternotomy site with a maximum SUV of 10.0. Unenhanced CT images: Imaged brain parenchyma the skull base is normal in appearance. The bony orbits are intact and the orbital contents are normal as visualized. The visualized paranasal sinuses and mastoid air cells are clear. The salivary and thyroid glands are within normal limits noting a diminutive right thyroid lobe. There is no cervical lymphadenopathy. A 2-lead cardiac pacemaker is present in the left chest wall. The patient is status post midline sternotomy. The heart is enlarged and without pericardial effusion. A left ventricular assist device is noted. The coronary arteries are calcified. There are numerous calcified mediastinal and hilar lymph nodes. These are mildly enlarged, and the largest mediastinal node measures up to 10 mm in short axis. There is mild atherosclerotic calcification of the thoracic aorta which is normal in caliber. The pulmonary trunk is dilated suggesting pulmonary artery hypertension. There is a trace right pleural effusion. Fibrotic change is again seen at the right apex and in the anterior right lung. See above under PET findings for detailed pulmonary analysis. No pleural effusion is seen, likely related previous radiation treatment. The trachea appears clear. There are surgical clips in the right axilla. No axillary lymphadenopathy is seen. There is a small hiatal hernia. The spleen is mildly enlarged. There is nodularity of the hepatic surface contour. The unenhanced gallbladder and adrenal glands are grossly unremarkable. The kidneys demonstrate cortical atrophy and are without hydronephrosis. The pancreas is atrophic. The abdominal aorta is normal in course and caliber noting mild atherosclerotic calcification. No bowel obstruction is seen. There is mild colonic diverticulosis without CT evidence of acute diverticulitis. A normal appendix is identified. No intraperitoneal free air or abdominal ascites is seen. There is a fat-containing umbilical hernia. The bladder is decompressed and grossly unremarkable. The uterus and adnexa are normal as visualized. Surgical clips are present in the adnexa. A 3 cm simple appearing fluid collection is identified in the right groin, similar to previous. This may represent a seroma. There is no retroperitoneal, pelvic, or inguinal lymphadenopathy. The skeletal structures are osteopenic. IMPRESSION: 1. There is evidence of diffuse osteolytic metastatic disease as above. This has significantly progressed from prior studies. 2. FDG avid foci in the liver as well as FDG avid portacaval adenopathy are consistent with metastatic disease. 3. There are 2 pulmonary nodules identified measuring up to 7 mm. These are indeterminant and metastatic disease is not excluded. 4. There are numerous mildly enlarged mediastinal and hilar lymph nodes. The majority of these contain calcifications, and several these demonstrate low level FDG activity. The appearance is nonspecific, but remains atypical for breast cancer. This likely represents a chronic infectious/inflammatory/granulomatous process. Continued attention at follow-up is recommended. 5. A right breast lesion has decreased in size from previous and demonstrates diminished FDG activity. This likely represents treated disease. 6. Cardiomegaly and left ventricular assist device. 7. Mild colonic diverticulosis without CT evidence of acute diverticulitis. 8. Mild splenomegaly. 9. Intense nonspecific FDG activity is again noted in the midline sternotomy. No definite destructive bony lesion is seen. 10. Additional findings as above. Electronically signed by: Dre Vaca M.D. 11/20/2017 10:18 AM Dictated Date/Time: 11/20/2017 9:58 AM
== END | disposition home or self-care (01) ==
LOC: C.PET 07:40
PROVIDERS: ATTEND Internal Medicine Hematology & Oncology
DX: C50.411 Malignant neoplasm of upper-outer quadrant of right female breast (principal); R91.8 Other nonspecific abnormal finding of lung field; R59.0 Localized enlarged lymph nodes; I51.7 Cardiomegaly; K57.90 Diverticulosis of intestine, part unspecified, without perforation or abscess without bleeding; R16.1 Splenomegaly, not elsewhere classified

== ENCOUNTER → 2017-11-28 | Outpatient (CLI) | payer OTHER ==
--- NOTE | 2017-11-28 14:39 | MAMMOGRAPHY REPORT ---
BILATERAL DIGITAL DIAGNOSTIC MAMMOGRAM TOMOSYNTHESIS WITH CAD: 11/28/2017 CLINICAL HISTORY: Short interval follow-up of left breast asymmetry which was felt to represent fat n ecrosis. The patient also presents for follow-up in the right breast for decreased breast size and i ncreased skin thickening. 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 TECHNIQUE: Breast tomosynthesis in addition to standard 2D mammography was performed. Current study was also evaluated with a Computer Aided Detection (CAD) system. Bilateral CC and MLO 2-D and tomosy nthesis images were obtained. COMPARISON: Comparison is made to exams dated: 08/07/2017 ultrasound, 08/07/2017 mammogram, 02/01/2017 u ltrasound, 02/01/2017 mammogram, and 08/03/2016 mammogram - [facility]. BREAST COMPOSITION: There are scattered areas of fibroglandular density in both breasts. FINDINGS: The previously described asymmetry within the left breast has resolved, and is therefore b enign and compatible with fat necrosis. The remainder of the left breast is stable compared to prior exams, without suspicious masses, calcifications, or areas of architectural distortion noted. A par tially visualized metallic cardiac device overlies the left 12:00 posterior breast. The right breast is difficult to evaluate mammographically. There are is stable diffuse skin thicken ing of the right breast. The mass seen within the right posterior breast on the PET/CT is not includ ed mammographically due to the posterior location. The right breast is better evaluated on CT. IMPRESSION: ACR BI-RADS CATEGORY 6: KNOWN BIOPSY PROVEN MALIGNANCY 1. The left breast asymmetry has resolved and is benign and compatible with fat necrosis. No mammog raphic evidence of malignancy in the left breast. 2. Very limited exam of the right breast. The known mass within the right posterior breast seen on CT is not included mammographically, however, there is stable diffuse right breast skin thickening. Note that the right breast is better evaluated with CT or PET/CT. 3. Given the known metastatic disease to the spine, I told the patient to discuss with her oncologis t if she should continue with mammograms, which could be performed in one year. The patient has been verbally notified of the results. Approximately 10% of breast cancers are not detected with mammography. A negative mammographic report should not delay biopsy if a clinically suggestive mass is present. Laura August M.D. ah/:11/28/2017 11:52:09 Heat Reader: Marva HOWELL(R)(M), [facility] letter sent: Birad 6 BI-RADS Code: ACR BI-RADS Category 6: Known Biopsy Proven Malignancy
== END | disposition home or self-care (01) ==
LOC: C.MAMM 10:33
PROVIDERS: ATTEND Internal Medicine
DX: R92.2 Inconclusive mammogram (principal); C50.411 Malignant neoplasm of upper-outer quadrant of right female breast; C79.51 Secondary malignant neoplasm of bone

== ENCOUNTER → 2017-12-07 | Outpatient (CLI) | payer OTHER ==
[~2017-12-07] MED LIST changes: +DRGTP50 TD; +ENOX1INJ11 INJ; +FNTTP25 TOP; +ONDA4TAB46 PO; +OXYC-609 PO; +POLY335019 PO; +SYMIN8045 INH; +WARF-285 PO
[2017-12-07 08:10] VITALS: PULSE 73; TEMP 36.7; O2SAT 97
--- NOTE | 2017-12-07 09:38 | Radiation Oncology Follow-Up ---
Radiation Oncology Follow-Up Date of Visit Dec 07, 2017. 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 Right breast, invasive ductal carcinoma, ER negative, IN positive, [id number], stage III status post lumpectomy/axillary lymph node dissection, adjuvant radiation therapy (5940 cGy, 07/24/96), advjuvant A/C chemotherapy 2. Right breast, invasive ductal carcinoma, grade 2, ER/IN/Her2 negative, [id number], stage IV (possible recurrence) Status post completion of radiation therapy 05/24/2016 received 6840 cGy Status post systemic chemotherapy with Xeloda. 3. Development of back pain finding of metastatic disease to the thoracic spine Last Edited By: Tina Simpson on Dec 07, 2017 09:37 History of Present Illness Ms. Ackerman has a previous history of stage III right breast cancer treated with surgery, radiation therapy and adjuvant chemotherapy in 1995. She she has been doing relatively well for a very long time. Of note, she does have both a defibrillator and LVAD for her CHF which was implanted in 2013. She has she did start to palpate something in her right breast in the upper outer quadrant which started in 2013. She did have a mammogram on 01/07/2014 which did not reveal any mammographic abnormality. She also had a PET /CT scan completed on 11/17/2014 which revealed no mass or uptake in the right breast and no evidence of recurrent breast cancer. The PET scan did note pulmonary nodularity and adenopathy which appeared stable and could be attributed to her sarcoidosis. She had a repeat mammogram on 02/17/2015 which revealed increasing linear microcalcifications within the right lumpectomy bed which required additional evaluation. She had a dedicated unilateral right diagnostic mammogram on 02/24/2015 which revealed faint clustered linear microcalcifications is a lumpectomy bed in the right breast. Her mammogram and ultrasound of the right breast were repeated on 08/11/2015 which revealed no discrete mass chest group linear calcifications consistent with what was previously noted in December 2013 and her mammogram in January 2015. Due to her LVAD device, she cannot undergo a stereotactic biopsy and had to proceed with an excisional biopsy which was completed on 09/25/2015. Her pathology revealed invasive ductal carcinoma that was moderately differentiated. Ductal carcinoma in situ was also noted. The superior margin was positive for invasive carcinoma in the anterior and lateral margins were less than 1 mm from invasive carcinoma. The tumor cells were negative for estrogen receptor, progesterone receptor and HER-2 receptor. She did undergo a PET/CT scan on 10/14/2015 which revealed an intense FDG avid liver lesion that is concerning for metastasis with no CT correlate, intensely avid right internal mammary lymph node which is stable from CT in comparison to 02/04/2014, increased FDG uptake in left spinal musculature which is likely physiologic, stigmata of sarcoidosis in the thorax and mediastinum and a postoperative hematoma in the right breast measuring 10 cm in the greatest dimension. Additionally, there was increased FDG uptake in the median sternotomy line which is likely inflammatory and related to nonunion. The patient's case was discussed at the tumor board at [facility]. They discussed treatment options and eventually concluded that radiation therapy would be the best option as this patient is high risk for postoperative complications from either a lumpectomy or mastectomy. They explained to the patient that a mastectomy would be standard to care in the setting of previous radiation therapy. The tumor board also discussed potentially biopsing the lesion in the liver. The patient was seen by Dr. Tidwell who agreed with the recommendation for consideration of radiation therapy given the fact that the patient cannot undergo surgical resection. We are now seeing the patient in consultation to discuss the role of radiation therapy. Currently, the patient is doing okay. She is being seen by the wound clinic as she is having wound healing issues from her previous excisional biopsy in the right breast. She explained to us that they may need to place a wound VAC. Otherwise, she has no significance complaints at this time. She does follow with Dr. Deshpande for cardiology and [place]. She completed conventional radiation therapy 05/24/2016. She received 6840 cGy. Treatment given to the right breast, supraclavicular area and axilla. Interim History She developed mid back pain approximately one month ago. Pain level is given at 6. At times it seems to radiate towards the hips. She reviewed this with her primary care physician who obtained a CT of the thoracic spine 11/10/2017. This showed overall significant progression of multiple osteolytic metastatic disease compared to 08/22/2017. There are spinous process fractures of T5 and T6 as well as a moderate compression fracture of T7 (with no retropulsed fragments). These are likely acute to subacute, and new from 08/22/2017. There is no evidence of metastatic disease encroaching upon the central spinal canal. A presumed right lower lobe pulmonary metastasis is unchanged from 08/22. She was then seen in medical oncology and a PET scan was obtained. This showed evidence of diffuse osteolytic metastatic disease. FDG avid foci in the liver as well as FDG avid thiago caval adenopathy consistent with metastatic disease. There are 2 pulmonary nodules identified measuring up to 7 mm. She is numerous mildly enlarged mediastinal and hilar lymph nodes. There is low level FDG avidity. A right breast lesion has decreased in size from previous and demonstrates diffuse FDG avidity. There is FDG avidity in the midline sternotomy area. She has been given pain medications. She is taking oxycodone 5 mg approximately twice daily. She was referred from medical oncology to neurosurgery. She was seen and there was discussion of vertebral opacity. There is concerns for this procedure because of the difficulty with her lying in the prone position. She is going to have a port placed. She is also going to be scheduled for a liver biopsy. Medical oncology has recommended chemotherapy once her port is in place and the biopsy is performed. Allergies Coded Allergies: No Known Allergies (Unverified , 11/10/17) Home Medications Scheduled Amiodarone Hcl (Amiodarone Hcl), 100 MG PO DAILY Aspirin (Aspirin Ec), 81 MG PO QD Budesonide/Formoterol Fumarate (Symbicort 80/4.5 Inhaler), 2 PUFFS INH BID Bumetanide (Bumex), 2 MG PO BID Calcium Carbonate (Calcium 600), 600 MG PO DAILY Carvedilol (Coreg), 6.25 MG PO BIDM Cefadroxil (Duricef), 500 MG PO BID Cholecalciferol (Vitamin D), 1,000 UNITS PO DAILY Docusate Sodium (Colace), 1 CAP PO BID Ferrous Sulfate (Ferrous Sulfate), 325 MG PO DAILY Melatonin (Melatonin), 30 MG PO HS Polyethylene Glycol 3350 (Miralax), 17 GM PO DAILY Potassium Chloride Microencaps (Potassium Chloride Er), 20 MEQ PO Q2D Sertraline Hcl (Zoloft), 50 MG PO QD Simvastatin (Zocor), 20 MG PO DAILY Spironolactone (Aldactone), 25 MG PO DAILY Warfarin Sod (Jantoven), 4 MG PO 4XWK Scheduled PRN Acetaminophen/Diphenhydramine (Tylenol Pm), 2 TABS PO HS PRN for Sleep Albuterol Sulfate (Proair Respiclick), 2 PUFFS INH QID PRN for Wheezing Amoxicillin (Amoxil), 2,000 MG PO UD PRN for Prior to Dental Appointments Ipratropium-Albuterol (Duoneb), 1 TREATMENT INH QID PRN for SOB/Wheezing Oxycodone HCl (Oxycodone HCl), 5 MG PO QD PRN for Pain Oxycodone/Acetaminophen 5MG/325MG (Percocet 5MG/325MG), 1-2 TAB PO Q4H PRN for Pain Promethazine (Phenergan ), 12.5 MG PO Q6H PRN for Nausea or Vomiting Triamcinolone Acet (Aristocort 0.1%), 1 APPLN TOP DIRECTED PRN for Affected Skin Folds Review of Systems Gastrointestinal: Symptoms: Constipation GI Comments: with pain pills using miralx Oral: Symptoms: No Problems Respiratory: Symptoms: WNL Urinary: Symptoms: WNL Skin: Symptoms: No Problems Breast: Right Upper Arm Measurement: 33.0 Right Mid Arm Measurement: 25.0 Right Wrist Measurement: 16.0 Left Upper Arm Measurement: 35.5 Left Mid Arm Measurement: 25.0 Left Wrist Measurement: 17.0 Arm Dominence: Right Physical Exam Vital Signs Date Time Temp Pulse Resp B/P (MAP) Pulse Ox O2 Delivery O2 Flow Rate FiO2 12/07/17 08:10 36.7 73 20 97 Fatigue: None General Appearance: no apparent distress Eyes: normal inspection, EOMI ENT: normal ENT inspection, hearing grossly normal Respiratory/Chest: lungs clear, no respiratory distress, no accessory muscle use Cardiovascular: + pertinent finding (LVAD with mechanical sounds noted.) Extremities: no pedal edema Neurologic/Psychiatric: no motor/sensory deficits, alert, normal mood/affect Skin: warm/dry Pain Management Patient Reports Pain: Yes Side: Mid Pain Location: Back Patient Preferred Pain Scale: 0 - 10 Initial Pain Intensity: 6.0 Pain Management Plan She has oxycodone 5 mg available. She is going to start taking this on a regular basis every 4-6 hours. Laboratory Laboratory Results: not applicable Pathology Pathology Results: not applicable Imaging Imaging Studies: were reviewed, and pertinent findings noted below Imaging Comments Patient: ADAM ACKERMAN Address1: [address] [place] [address] Rec: [id number] Address2: [facility] [address] Acct ID: [id number] [facility] Zip: [place] [address] Date: 1955 Sex: F Room/Bed: Ref Phy: Jamshid Contreras M.D. SC: GEEB Att Phy: Report #: [id number] [place] Phy: Jamshid Contreras M.D. Test: TSWO Admit Phy: Studio Artist: KAILEE Interpreting Phy: Dre Vaca M.D. Diagnosis: SEVERE BACK PAIN-REFERRED Ordering Phy: Richard Lang MD Service Date: 11/10/17 Admit Date: 11/10/17 MNE: [id number] CONF: DICTATED BY: Dre Vaca M.D.]] CC: Richard Lang MD Pro, Jeffrey W., M.D. Endcc: [~ rep ct add3]] CT SCAN OF THE THORACIC SPINE WITHOUT IV CONTRAST CLINICAL HISTORY: Thoracic back pain. Reported history of breast cancer. COMPARISON STUDY: Chest CT dated 08/22/2017. TECHNIQUE: CT scan of the thoracic spine is performed from the lower cervical spine to the upper lumbar spine. Images are reviewed in the axial, sagittal, and coronal planes. IV contrast was not administered for this examination. A dose lowering technique was utilized adhering to the principles of ALARA. CT DOSE: 1134.13 mGy.cm FINDINGS: The skeletal structures are osteopenic. Findings of multifocal osteolytic metastatic disease has significantly progressed from the 08/22/2017 examination. There is a moderate compression fracture of T7, new from previous. No retropulsed fragments are identified. Vertebral body height is otherwise maintained throughout the thoracic spine. Alignment is preserved. Hyperkyphosis is identified. Anterior osteophytes are seen throughout. There is also fractures involving the spinous processes of T5 and T6, best seen on sagittal images #41 and #42. These are also new from 08/22/2017 and likely acute to subacute. The transverse processes appear intact. Mild multilevel degenerative disc space narrowing is noted. A posterior disc bulge at T8-T9 likely contributes to central canal stenosis. There is no evidence of soft tissue lesion encroaching on the central canal. There is a healed left posterior rib fracture. The heart is enlarged. Pacemaker leads are identified. Facet atelectasis versus scarring are present in both lungs. Right apical fibrotic change is similar to previous. A presumed metastatic lesion the superior segment of the right lower lobe on image #123 is unchanged in size from previous measuring 7 mm. Indeterminant pleural-based nodule in the right lower lobe on image 177 is again seen and measures 5 mm. There are numerous calcified mediastinal and hilar lymph nodes. Atherosclerotic calcification is observed in the thoracic and. The paraspinous soft tissues are normal as visualized. IMPRESSION: 1. Overall significant progression of multifocal osteolytic metastatic disease as compared to the 08/22/2017 examination. 2. There are spinous process fractures of T5 and T6 as well as a moderate compression fracture of T7 (with no retropulsed fragments). These are likely acute to subacute, and new from 08/22/2017. 3. No additional fracture is identified. 4. There is no evidence of metastatic disease encroaching upon the central spinal canal. 5. A presumed right lower lobe pulmonary metastasis is unchanged from 08/22/2017. 6. Additional findings as above. Electronically signed by: Dre Vaca M.D. 11/10/2017 11:44 AM Dictated Date/Time: 11/10/2017 11:32 AM Patient Name: ADAM ACKERMAN Unit Number: [id number] Dictated: 11/20/17957 Transcribed: 11/20/17957 EV Printed Date/Time: [~ rep prt dt]/[~ rep prt tm] [~ rep ct labl] - [~ rep ct ivnm] [facility] [place] [address] Dictated: 11/20/17957 Transcribed: 11/20/17957 EV Printed Date/Time: [~ rep prt dt]/[~ rep prt tm] [~ rep ct labl] - [~ rep ct ivnm] Patient: ADAM ACKERMAN Address1: [address] [place] [address] Rec: [id number] Address2: [place] [address] Acct ID: [id number] [facility] Zip: [place] [address] Date: 1955 Sex: F Room/Bed: Ref Phy: Jamshid Contreras M.D. SC: C.PET Att Phy: Calixto Johnston MD Report #: [id number] [place] Phy: Jamshid Contreras M.D. Test: PETCTST Admit Phy: Studio Artist: NEMESIO Interpreting Phy: Dre Vaca M.D. Diagnosis: BREAST CA Ordering Phy: Calixto Johnston MD Service Date: 11/20/17 Admit Date: 11/20/17 MNE: [id number] CONF: DICTATED BY: Dre Vaca M.D.]] CC: Calixto Johnston MD Pro, Jeffrey W., M.D. Endcc: [~ rep ct add3]] PET/CT CLINICAL HISTORY: Breast cancer. COMPARISON STUDY: PET/CT dated 06/13/2016. CT scan of the thoracic spine dated 11/10/2017. CT scan of the chest, abdomen, and pelvis dated 11/22/2016. TECHNIQUE: One hour following the IV administration of 13.55 mCi of F-18 FDG, PET/CT examination was performed from the orbital meatal line through the bony pelvis. Noncontrast CT is performed for the purposes of anatomic correlation and attenuation correction. Note that this does not reflect a diagnostic CT examination. Images were reviewed on a separate [employer] independent workstation. Fused images were obtained. Standard uptake values reported are maximum values within the region of interest expressed in gm/mL. FINDINGS: PET FINDINGS: Head and neck: There is questionable loss of cross-white matter differentiation in the right cerebellar hemisphere. There is expected physiologic activity within the visualized brain parenchyma at the skull base and the salivary glands. Low level pharyngeal activity is likely within physiologic limits. Thorax: Evaluation of the thorax demonstrates expected physiologic myocardial activity. Nonspecific activity seen within the right hilum on image #77. This demonstrates a maximum SUV of 3.9. There is a 7 mm pleural-based nodule in the right lower lobe seen on image #70. This appears to demonstrate faint FDG activity. A left upper lobe nodule on image #77 measures 5 mm and was not demonstrably FDG avid, likely too small for PET characterization. There are numerous mildly enlarged mediastinal and hilar lymph nodes, many of which contain coarse calcifications. These are overall similar in appearance to multiple prior studies and measure up to 10 mm short axis. Several of these nodes demonstrate low level FDG activity. A reference node seen in the prevascular region on image #70 shows a maximum SUV of 3.1. There is a 3.4 cm mass lesion in the right breast seen on image #87. This is demonstrates only minimal FDG activity with a maximum SUV of 1.6. Activity is associated with the ventricular assist device. Abdomen and pelvis: There is expected heterogeneous activity within the liver, spleen, kidneys, renal collecting system, and bladder. Low-level bowel activity is likely within physical limits. There are numerous tiny foci of activity seen throughout the liver. These demonstrate a maximum SUV of 4.1. Although no definitive hepatic lesions are seen, this likely represents hepatic metastatic disease when correlated with the 08/22/2017 CT scan. There are FDG avid upper abdominal lymph nodes. A portacaval node on image #124 measures 2.0 cm in short axis and demonstrates a maximum SUV of 5.2. Skeletal structures: There is evidence of diffuse/multifocal osteolytic metastatic disease. Numerous calvarial lesions our identified. The largest is seen in the occipital bone on image #7 and measures 2.7 cm. This is FDG avid with a maximum SUV of 4.2. Numerous small osteolytic lesions are seen throughout the axillary and appendicular skeleton including the proximal humeri and femora. A large lesion is present within the left clavicular head and demonstrates a maximum SUV of 7.7. A large lesion in the anterior left iliac wing demonstrates a maximum SUV of 5.9. Nonspecific activity is again seen throughout the sternotomy site with a maximum SUV of 10.0. Unenhanced CT images: Imaged brain parenchyma the skull base is normal in appearance. The bony orbits are intact and the orbital contents are normal as visualized. The visualized paranasal sinuses and mastoid air cells are clear. The salivary and thyroid glands are within normal limits noting a diminutive right thyroid lobe. There is no cervical lymphadenopathy. A 2-lead cardiac pacemaker is present in the left chest wall. The patient is status post midline sternotomy. The heart is enlarged and without pericardial effusion. A left ventricular assist device is noted. The coronary arteries are calcified. There are numerous calcified mediastinal and hilar lymph nodes. These are mildly enlarged, and the largest mediastinal node measures up to 10 mm in short axis. There is mild atherosclerotic calcification of the thoracic aorta which is normal in caliber. The pulmonary trunk is dilated suggesting pulmonary artery hypertension. There is a trace right pleural effusion. Fibrotic change is again seen at the right apex and in the anterior right lung. See above under PET findings for detailed pulmonary analysis. No pleural effusion is seen, likely related previous radiation treatment. The trachea appears clear. There are surgical clips in the right axilla. No axillary lymphadenopathy is seen. There is a small hiatal hernia. The spleen is mildly enlarged. There is nodularity of the hepatic surface contour. The unenhanced gallbladder and adrenal glands are grossly unremarkable. The kidneys demonstrate cortical atrophy and are without hydronephrosis. The pancreas is atrophic. The abdominal aorta is normal in course and caliber noting mild atherosclerotic calcification. No bowel obstruction is seen. There is mild colonic diverticulosis without CT evidence of acute diverticulitis. A normal appendix is identified. No intraperitoneal free air or abdominal ascites is seen. There is a fat-containing umbilical hernia. The bladder is decompressed and grossly unremarkable. The uterus and adnexa are normal as visualized. Surgical clips are present in the adnexa. A 3 cm simple appearing fluid collection is identified in the right groin, similar to previous. This may represent a seroma. There is no retroperitoneal, pelvic, or inguinal lymphadenopathy. The skeletal structures are osteopenic. IMPRESSION: 1. There is evidence of diffuse osteolytic metastatic disease as above. This has significantly progressed from prior studies. 2. FDG avid foci in the liver as well as FDG avid portacaval adenopathy are consistent with metastatic disease. 3. There are 2 pulmonary nodules identified measuring up to 7 mm. These are indeterminant and metastatic disease is not excluded. 4. There are numerous mildly enlarged mediastinal and hilar lymph nodes. The majority of these contain calcifications, and several these demonstrate low level FDG activity. The appearance is nonspecific, but remains atypical for breast cancer. This likely represents a chronic infectious/inflammatory/granulomatous process. Continued attention at follow-up is recommended. 5. A right breast lesion has decreased in size from previous and demonstrates diminished FDG activity. This likely represents treated disease. 6. Cardiomegaly and left ventricular assist device. 7. Mild colonic diverticulosis without CT evidence of acute diverticulitis. 8. Mild splenomegaly. 9. Intense nonspecific FDG activity is again noted in the midline sternotomy. No definite destructive bony lesion is seen. 10. Additional findings as above. Electronically signed by: Dre Vaca M.D. 11/20/2017 10:18 AM Dictated Date/Time: 11/20/2017 9:58 AM The status of this report is Signed. Draft = Not yet reviewed or approved by Radiologist. Signed = Reviewed and approved by Radiologist. <AttendingPhy>Calixto Johnston MD</AttendingPhy> <FamilyPhy>Jamshid Contreras M.D.</FamilyPhy> <PrimaryPhy>Jamshid Contreras M.D.</PrimaryPhy> <UnitNumber> [id number]</UnitNumber> <VisitNumber>[id number]</VisitNumber> <PatientName> ADAM ACKERMAN</PatientName> <DateOfBirth>1955</DateOfBirth> <Location> C.PET</Location> <ServiceDate>11/20/17</ServiceDate> <MNE>ESINDI</MNE> < OrderingPhy>Calixto Johnston MD</OrderingPhy> <OrderingPhyMNE>f rep ord dr barillas< /OrderingPhyMNE> <DictatingPhyMNE>f rep dict dr barillas</DictatingPhyMNE> <CCListMNE >f rep ct nargis</CCListMNE> <AdmittingPhyMNE>f pt admit dr barillas</AdmittingPhyMNE> < AttendingPhyMNE>f pt attend dr barillas</AttendingPhyMNE> <ConsultingPhyMNE>f pt consult dr barillas</ConsultingPhyMNE> <FamilyPhyMNE>f pt fam dr barillas</FamilyPhyMNE> <OtherPhyMNE>f pt other dr barillas</OtherPhyMNE> < PrimaryPhyMNE>f pt prim care dr barillas</PrimaryPhyMNE> <ReferringPhyMNE>f pt referring dr barillas</ReferringPhyMNE> Assessment & Plan I plan to treat with a 3-D conformal treatment technique to include the thoracic vertebral bodies as identified with metastatic disease from the recent CT scan and PET scan. We will treat at 300 cGy per fraction for a total of 10 fractions and a total dose of 30 Gy. Assessment & Plan (Attending) Ms. Ackerman is well-known to us. She was diagnosed with a right breast cancer many years ago with a clinical stage pTII N2 stage III and underwent a lumpectomy and axillary node dissection. This was followed by adjuvant radiation receiving a dose of 5940 cGy and adjuvant Adriamycin and Cytoxan chemotherapy in 1995. Patient did well for the long time until she was noted to have evidence of a right breast recurrence/second primary biopsy confirming invasive ductal carcinoma grade 2 that was triple negative with clinical stage TIc NX M1. We went on to retreat the right rest with a dose of 6840 cGy completing on 05/24/2016. Since that time the patient has been on Xeloda. She is also required both a defibrillator an LVAD for her CHF implanted in 2013. Chest CT scan on 12/01/2016 showed postoperative and posttreatment changes with stable metastatic disease. The patient subsequently developed progressive back pain. A CT of the chest on 08/22/[address] of the abdomen and pelvis revealed cirrhotic morphology of the liver with multiple subcentimeter hepatic lesions, mild splenomegaly but no definite evidence of metastatic disease. A repeat CT scan taken on November 10 because of increasing back pain was taken of the thoracic spine. This showed multifocal osteolytic metastatic disease which had significantly progressed from the prior study of . There was a moderate compression fracture of T7 which was new. There was fractures involving the spinous processes of T5 and T6 also new and likely acute to subacute. There was mild multilevel degenerative disc space narrowing with a posterior disc bulges at T8-T9 likely contributing to central canal stenosis. There was no evidence of soft tissue lesion encroaching on the central canal. There was a healed left posterior rib fracture. The heart was enlarged. A presumed metastatic lesion was noted in the superior segment of the right lower lobe unchanged and an indeterminant pleural-based nodule in the right lower lobe unchanged. There were numerous calcified mediastinal and hilar lymph nodes of uncertain significance. Patient went on to have a staging PET/CT scan on 11/20/2017. This again demonstrated the pleural-based nodule in the right lower lobe measuring 7 mm in the left upper lobe nodule measuring 5 mm likely too small for PET characterization. There were numerous mildly enlarged mediastinal and hilar lymph nodes stable in size. Several of these demonstrated low level FDG activity. There were heterogeneous activity within the liver and spleen kidneys renal collecting systems and bladder. There were numerous tiny foci of activity seen throughout the liver that likely represents hepatic metastatic disease. There FDG avid upper abdominal lymph nodes. There were numerous diffuse multifocal osteolytic metastatic disease with numerous calvarial lesions identified numerous small osteolytic lesions are seen throughout the axillary and appendicular skeleton including the proximal humeri and the more. A large lesion is present within the left clavicular head with an SUV max of 7.7 and a large lesion in the anterior left iliac wing and an SUV max of 5.9. Patient was seen at Home with a discussed the possibility of vertebral plasty for pain control. However because of the LVAD was decided to forego this procedure. The recommendation for consideration of palliative radiation was made and it is for this reason that we saw the patient today. She has been started on pain medication by Dr. Johnston but continues to have moderate to at times severe episodes of pain in the back. This is exacerbated by standing or sitting especially getting into or out of bed or car. Sitting is comfortable with minimal discomfort or pain. The pain is generally at a level of 6 though slightly improved with medication that we can spike up to 19 with motion. I discussed with the patient the use of palliative radiation. We had treated her previously to the right breast and chest wall in 1995 and again in 2016. I will review the T-spine CT scan and the PET CT scan to help determine the precise areas of metastatic disease. I discussed with the patient the use of palliative radiation to the T-spine. I reviewed with her the potential risks and side effects of a course of palliative radiation. These include the possibility of esophageal irritation or damage as well as the potential changes from the previous radiation. We will make an attempt to minimize the treatment of previously radiated volumes and will utilize a 3-D conformal plan for this purpose. The consent form was presented to the patient. The risks were reviewed and initialed by the patient and the consent form was reviewed and signed and witnessed. With the patient's consent we will proceed with a CT simulation. We will fuse the previous CT of the thoracic spine and PET scan to help in treatment planning. Once planning has been completed reviewed and approved we will contact the patient and start her course of palliative radiation. The plan at this point is to proceed with 10 fractions of 300 cGy per fraction for a total palliative dose of 30 Gy. Thank you for allowing us to participate in the care of this patient. This chart was completed in part utilizing [employer] Speech Voice Recognition software. Attempts were made to minimize the grammatical errors, random word insertions, pronoun errors and incomplete sentences. Any formal questions or concerns about the content, text or information contained within the body of this dictation should be directly addressed to the provider for clarification. Ap Lange MD Department of Radiation Oncology [facility] and [facility] Total Time In Follow-Up I spent 20 minutes speaking to the patient performing examination. I spent 20 minutes reviewing information in completing this note. AK Total Time (Attending) In Follow-Up I spent 15 minutes in discussion of the CT and MRI findings and reviewing the use of palliative radiation with the patient and her , 10 minutes reviewing scans with radiology and 10 minutes reviewing her chart and in preparation of this document. АНДРЕЙ Copy To Lizandro Eagle M.D.; Calixto Johnston MD; Pro,Jamshid Joya M.D.
== END | disposition home or self-care (01) ==
LOC: C.ONC 07:50 → EDSTATUS 08:00
PROVIDERS: ATTEND Physician Assistant Medical
DX: C79.51 Secondary malignant neoplasm of bone (principal); G89.3 Neoplasm related pain (acute) (chronic); Z85.3 Personal history of malignant neoplasm of breast

== ENCOUNTER → 2017-12-12 | Outpatient (CLI) | payer OTHER ==
[~2017-12-12] MED LIST changes: -ONDA4TAB46 PO; -SENN1TAB77 PO; -SYMIN8045 INH; -WARF-285 PO; -WARF1TAB6 PO
--- NOTE | 2017-12-12 17:28 | DIAGNOSTIC IMAGING REPORT ---
HEAD WITHOUT CONTRAST (CT) CLINICAL HISTORY: 62 years-old Female with C50.919 Ductal carcinoma of [id number] Metastatic breast canc. Diffuse osteolytic metastatic disease TECHNIQUE: Multiple axial CT images of the head were obtained without contrast. A dose lowering technique was utilized adhering to the principles of ALARA. CT DOSE: 537.48 mGy.cm COMPARISON: CT of the head 06/22/2016, PET CT 11/20/2017. FINDINGS: No acute intracranial hemorrhage, midline shift, intracranial mass, hydrocephalus, territorial ischemia or abnormal extra-axial collection. Innumerable lytic metastatic lesions are noted throughout the skull, largest of which is a 2.1 cm left frontal lesion with mild expansion the diastolic space and marked thinning of the inner table of the skull, nicely seen on image 15 series 3. Lytic lesions are seen about the left mastoid region with moderate to large left mastoid effusion. Trace right mastoid effusion. Soft tissues are unremarkable. IMPRESSION: 1. No acute intracranial abnormality identified. 2. Innumerable destructive lytic metastatic lesions throughout the skull including lesion of the left mastoid with associated moderate to large left mastoid effusion. The above report was generated using voice recognition software. It may contain grammatical, syntax or spelling errors. Electronically signed by: Adi Machado M.D. 12/12/2017 5:26 PM Dictated Date/Time: 12/12/2017 5:21 PM
== END | disposition home or self-care (01) ==
LOC: C.CTS 17:12
PROVIDERS: ATTEND Internal Medicine
DX: C50.919 Malignant neoplasm of unspecified site of unspecified female breast (principal); R20.0 Anesthesia of skin

== ENCOUNTER 2017-12-14 01:06 | Emergency (ER) | payer OTHER ==
[~2017-12-14] VITALS: Ht 160 cm; Wt 82.7 kg
[2017-12-14 01:06] VITALS: BP_SYST 128; TEMP 36.5; Ht 160 cm; Wt 82.7 kg
[~2017-12-14 01:06] MED LIST changes: -DRGTP50 TD; -FNTTP25 TOP; -OXYC-609 PO
[2017-12-14] MEDS ORDERED: HYDROmorphone INJ 1 MG/ML SYR IV STA ×2 (01:18→04:59)
[2017-12-14] MEDS ORDERED: SODIUM CHLORIDE 0.9% 1000ML 1,000 ML IV STA (01:18)
[2017-12-14 01:29] LABS: BASO % 0.2 %; BASO ABS # 0.02 K/uL (0-0.2); EOS % 1.7 %; EOS ABS # 0.14 K/uL (0-0.5); HEMATOCRIT 33.3 % (37-47); HEMOGLOBIN 10.8 g/dL (12.0-16.0); IG# 0.06 K/uL (0.00-0.02); LYMPH ABS # 0.91 K/uL (1.2-3.4); MEAN CELL VOLUME 80.8 fL (80-100); MEAN CORPUSCULAR HEMOGLOBIN 26.2 pg (25-34); MEAN CORPUSCULAR HGB CONC 32.4 g/dl (32-36); MEAN PLATELET VOLUME 11.1 fL (7.4-10.4); MONO % 6.6 %; MONO ABS # 0.55 K/uL (0.11-0.59); NEUT % 79.8 %; NEUT ABS # 6.61 K/uL (1.4-6.5); PLATELET COUNT 247 K/uL (130-400); RED CELL DISTRIBUTION WIDTH CV 16.2 % (11.5-14.5); RED CELL DISTRIBUTION WIDTH SD 48.1 fL (36.4-46.3); WHITE BLOOD COUNT 8.29 K/uL (4.8-10.8)
[2017-12-14] MEDS ORDERED: HYDROmorphone INJ 1 MG/ML SYR IV PRN (01:30)
--- NOTE | 2017-12-14 01:34 | EMERGENCY ROOM VISIT NOTE ---
History Report prepared by Diana: Mildred Maya Under the Supervision of: Dr. Amy Martin M.D. First contact with patient: 01:12 Chief Complaint: BACK PAIN Stated Complaint: BACK PAIN History of Present Illness The patient is a 62 year old female who presents to the Emergency Room with complaints of persistent severe centralized lower back pain that began earlier tonight. The patient has a history of breast cancer, lesions in her brain and spine. The patient has a LVAD. She received a Fentanyl patch 25 mcg yesterday for persistent pain in her right eye. The patient stopped taking her OxyIR after placing the patch earlier yesterday afternoon. The patient reports that her current back pain radiates down her right arm. She reports that she is due to be admitted to [facility] later today for INR management and port placement. She intends to receive additional chemotherapy. The patient received Morphine and Zofran prior to arrival per EMS staff, noting the Morphine did help relieve her pain, but it has returned. She reports that she took an Oxycodone and baby Aspirin earlier today. Source of History: patient Onset: earlier tonight Position: back (lower) Symptom Intensity: severe Quality: other (back pain) Timing: other (persistent) Associated Symptoms: + nausea (relieved by nausea) Review of Systems See HPI for pertinent positives & negatives. A total of 10 systems reviewed and were otherwise negative. Past Medical & Surgical Medical Problems: (1) Acute on chronic systolic heart failure (2) Anemia (3) Anemia (4) Anemia (5) Anxiety (6) Atrial fibrillation (7) Bleeding from Peter-Escoto drain (8) Breast cancer (9) Carcinoma of breast (10) Cardiac defibrillator in situ (11) Cardiomyopathy (12) Chest pain (13) CHF (congestive heart failure) (14) Congestive rheumatic heart failure (15) Depression (16) Elevated troponin (17) History of - tubal ligation (18) [id number] (19) Implantation of internal cardiac defibrillator (20) Lumpectomy of breast (21) LVAD (left ventricular assist device) present (22) Osteopenia (23) Sarcoidosis (24) Wrist pain, right Surgical Problems: (1) History of cholecystectomy Family History Cancer Hypertension Lung disease Social History Smoking Status: Never Smoker Alcohol Use: none Drug Use: none Marital Status: Housing Status: lives with family Occupation Status: disabled Current/Historical Medications Scheduled Amiodarone Hcl (Amiodarone Hcl), 100 MG PO DAILY Aspirin (Aspirin Ec), 81 MG PO QD Budesonide/Formoterol Fumarate (Symbicort 80/4.5 Inhaler), 2 PUFFS INH BID Bumetanide (Bumex), 2 MG PO BID Calcium Carbonate (Calcium 600), 600 MG PO DAILY Carvedilol (Coreg), 6.25 MG PO BIDM Cefadroxil (Duricef), 500 MG PO BID Cholecalciferol (Vitamin D), 1,000 UNITS PO DAILY Docusate Sodium (Colace), 1 CAP PO BID Enoxaparin Sodium (Lovenox), 80 MG INJ DAILY Fentanyl (Fentanyl), 25 MCG TOP [id number] Ferrous Sulfate (Ferrous Sulfate), 325 MG PO DAILY Melatonin (Melatonin), 30 MG PO HS Polyethylene Glycol 3350 (Miralax), 17 GM PO DAILY Potassium Chloride Microencaps (Potassium Chloride Er), 20 MEQ PO Q2D Sertraline Hcl (Zoloft), 50 MG PO QD Simvastatin (Zocor), 20 MG PO DAILY Spironolactone (Aldactone), 25 MG PO DAILY Warfarin Sod (Jantoven), 4 MG PO [id number] Scheduled PRN Acetaminophen/Diphenhydramine (Tylenol Pm), 2 TABS PO HS PRN for Sleep Albuterol Sulfate (Proair Respiclick), 2 PUFFS INH QID PRN for Wheezing Amoxicillin (Amoxil), 2,000 MG PO UD PRN for Prior to Dental Appointments Fentanyl (Fentanyl), 1 PATCH TD q3 days PRN for Pain Ipratropium-Albuterol (Duoneb), 1 TREATMENT INH QID PRN for SOB/Wheezing Oxycodone HCl (Oxycodone HCl), 5 MG PO QD PRN for Pain Oxycodone HCl (Oxycodone HCl), 5 MG PO Q6 PRN for Pain Oxycodone/Acetaminophen 5MG/325MG (Percocet 5MG/325MG), 1-2 TAB PO Q4H PRN for Pain Promethazine (Phenergan ), 12.5 MG PO Q6H PRN for Nausea or Vomiting Triamcinolone Acet (Aristocort 0.1%), 1 APPLN TOP DIRECTED PRN for Affected Skin Folds Allergies Coded Allergies: No Known Allergies (Unverified , 12/14/17) Physical Exam Vital Signs Date Time Temp Pulse Resp B/P (MAP) Pulse Ox O2 Delivery O2 Flow Rate FiO2 12/14/17 05:33 83 99 12/14/17 05:16 75 12/14/17 04:45 78 99 12/14/17 02:45 85 22 100 Nasal Cannula 2.0 12/14/17 01:30 82 12/14/17 01:06 36.5 89 23 128/ 100 Room Air Physical Exam Vital signs reviewed. General: Obese, chronically- ill appearing female, in significant discomfort. HEENT: No scleral icterus, PERRLA, neck supple. Atraumatic. Cardiovascular: LVAD. Consistent hum. Pulmonary: Clear to auscultation bilaterally, normal work of breathing. Abdomen: Soft, nontender, nondistended, positive bowel sounds. Musculoskeletal: Unable to move without severe pain in mid upper back. There is tenderness to the low cervical spine and mid thoracic spine to palpation. There is no step-off or deformity appreciated. Neurologic: Patient awake alert and oriented x 3, full strength in all 4 extremities. Cranial nerves 2 through 12 grossly intact. Skin: Warm, diaphoretic. Medical Decision & Procedures ER Provider Diagnostic Interpretation: Radiology results as stated below per my review and radiologist interpretation: CT C SPINE: No acute fracture. Multilevel lucent lesions suggesting metastatic disease within the visualized osseous structures. Scarring right lung apex. Radiologist: Shakeel Morelos MD CT T SPINE: Comparison: 11/10/2017 No acute fracture. Remote compression deformity of T7. Question remote spinous process fractures at T5 and T6. Extensive lucent lesions seen throughout the osseous structures consistent with known metastatic disease. Increasing opacities seen throughout both lungs which may represent pulmonary vascular congesion versus an inflammatory or infectious process. Mass in the right hilum and anterior right middle love which may present neoplasm. Calcified mediastinal and hilar lymph nodes are again noted. Radiologist: Shakeel Palmer MD. Laboratory Results 12/14/17 00:55 Red Blood Count 4.12, Mean Corpuscular Volume 80.8, Mean Corpuscular Hemoglobin 26.2, Mean Corpuscular Hemoglobin Concent 32.4, Mean Platelet Volume 11.1, Neutrophils (%) (Auto) 79.8, Lymphocytes (%) (Auto) 11.0, Monocytes (%) (Auto) 6.6, Eosinophils (%) (Auto) 1.7, Basophils (%) (Auto) 0.2, Neutrophils # (Auto) 6.61, Lymphocytes # (Auto) 0.91, Monocytes # (Auto) 0.55, Eosinophils # (Auto) 0.14, Basophils # (Auto) 0.02 12/14/17 00:55 Test 12/14/17 00:55 12/14/17 01:28 White Blood Count 8.29 K/uL (4.8-10.8) Red Blood Count 4.12 M/uL (4.2-5.4) Hemoglobin 10.8 g/dL (12.0-16.0) Hematocrit 33.3 % (37-47) Mean Corpuscular Volume 80.8 fL (80-100) Mean Corpuscular Hemoglobin 26.2 pg (25-34) Mean Corpuscular Hemoglobin Concent 32.4 g/dl (32-36) Platelet Count 247 K/uL (130-400) Mean Platelet Volume 11.1 fL (7.4-10.4) Neutrophils (%) (Auto) 79.8 % Lymphocytes (%) (Auto) 11.0 % Monocytes (%) (Auto) 6.6 % Eosinophils (%) (Auto) 1.7 % Basophils (%) (Auto) 0.2 % Neutrophils # (Auto) 6.61 K/uL (1.4-6.5) Lymphocytes # (Auto) 0.91 K/uL (1.2-3.4) Monocytes # (Auto) 0.55 K/uL (0.11-0.59) Eosinophils # (Auto) 0.14 K/uL (0-0.5) Basophils # (Auto) 0.02 K/uL (0-0.2) RDW Standard Deviation 48.1 fL (36.4-46.3) RDW Coefficient of Variation 16.2 % (11.5-14.5) Immature Granulocyte % (Auto) 0.7 % Immature Granulocyte # (Auto) 0.06 K/uL (0.00-0.02) Prothrombin Time 22.6 SECONDS (9.0-12.0) Prothromb Time International Ratio 2.2 (0.9-1.1) Activated Partial Thromboplast Time 51.8 SECONDS (21.0-31.0) Partial Thromboplastin Ratio 2.0 Anion Gap 11.0 mmol/L (3-11) Est Creatinine Clear Calc Drug Dose 24.9 ml/min Estimated GFR () 24.9 Estimated GFR (Non- 21.5 BUN/Creatinine Ratio 15.4 (10-20) Calcium Level 11.5 mg/dl (8.5-10.1) Total Bilirubin 0.8 mg/dl (0.2-1) Direct Bilirubin 0.2 mg/dl (0-0.2) Aspartate Amino Transf (AST/SGOT) 40 U/L (15-37) Alanine Aminotransferase (ALT/SGPT) 18 U/L (12-78) Alkaline Phosphatase 189 U/L (45-117) Total Protein 8.4 gm/dl (6.4-8.2) Albumin 4.0 gm/dl (3.4-5.0) Bedside Troponin I < 0.030 ng/ml (0-0.045) Laboratory results per my review. Medications Administered Medications (Trade) Dose Ordered Sig/Piedad Route Start Time Stop Time Status Last Admin Dose Admin Hydromorphone HCl (Dilaudid Inj) 1 mg NOW STAT IV 12/14/17 01:18 12/14/17 01:19 DC 12/14/17 01:22 1 MG Hydromorphone HCl (Dilaudid Inj) 1 mg Q1HWA PRN IV 12/14/17 01:30 12/14/17 05:45 DC 12/14/17 03:04 0.5 MG Sodium Chloride 1,000 ml @ 125 mls/hr Q8H STAT IV 12/14/17 01:18 12/14/17 05:45 DC 12/14/17 01:53 125 MLS/HR Lorazepam (Ativan Inj) 2 mg STK-MED ONCE .ROUTE 12/14/17 01:46 12/14/17 01:47 DC 12/14/17 01:48 0.5 MG Fentanyl (Duragesic Patch) 50 mcg NOW STAT TD 12/14/17 04:57 12/14/17 04:59 DC 12/14/17 05:12 50 MCG Oxycodone HCl (Roxicodone Immediate Rel Tab) 5 mg NOW STAT PO 2/15/18 04:57 12/14/17 04:59 DC 12/14/17 05:13 5 MG Hydromorphone HCl (Dilaudid Inj) 1 mg NOW STAT IV 12/14/17 04:59 12/14/17 05:00 DC 12/14/17 05:14 1 MG Lorazepam (Ativan Inj) 0.5 mg NOW STAT IV 12/14/17 04:59 12/14/17 05:00 DC 12/14/17 05:13 0.5 MG ECG Per My Interpretation Indication: back/shoulder pain Rate (beats per minute): 81 Rhythm: atrial fibrillation Findings: nonspecific-ST abn (diffusely ), left axis deviation, other ( incomplete left bundle branch) Change: The patients electrocardiogram was interpreted by me. ED Course 0017: Past medical records reviewed. The patient was evaluated in room C9. A complete history and physical examination was performed. 0118: Ordered Sodium Chloride 1000ml @ 125mls/hr IV and Dilaudid Inj 1mg IV. 0130: Ordered Dilaudid Inj 1mg IV. 0146: Ordered Ativan Inj 2mg. 0148: Ordered Ativan Inj 0.5 mg IV. 0254: I reevaluated the patient, who was still in significant pain. 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 0457: Ordered Oxycodone HCL 5mg PO and Fentanyl 50mcg. 0459: Ordered Ativan Inj 0.5mg IV and Dilaudid Inj 1mg IV. 0512: Upon reevaluation, the patient appeared to have improvement of her symptoms. I discussed findings with her and her . They verbalized agreement of the treatment plan. The patient was discharged home. Medical Decision The patient is a 62 year old female who presents to the ED with complaints of persistent back pain . Differentials include compression fracture, metastatic cancer, muscular spasm, radiculopathy, pneumothorax, PE, aortic dissection, and ACS. This patient was evaluated and appeared to be in significant discomfort. IV access was obtained and laboratory work was drawn. The patient was placed on the campus monitor and medicated with IV Dilaudid times several doses. Patient also received IV Ativan for muscle relaxation and anxiety. She was hydrated with normal saline solution. Laboratory work was performed and reveals a normal white blood cell count. She is mildly anemic. Creatinine is 2.32 which is slightly worse than her baseline. After a CT scan of the cervical and thoracic spine was performed without acute findings, we did discuss the multiple metastatic lesions appreciated. The patient's admits that she stopped taking her OxyIR after placing the fentanyl patch. I suspect the 25 g patch is not enough to control her pain. A 50 g patch was applied in the emergency department. The patient was given a dose of Dilaudid. She was observed in the emergency department. She did require Ativan 0.5 mg IV. She wished to be discharged to the care of her for "some sleep" prior to driving to [place] later today. We did discuss signs and symptoms of narcotic overdose. They will use the oxycodone only as needed for breakthrough pain when the patient is awake. If she is sleeping or groggy, the oxycodone will not be administered. The patient has had no signs and symptoms of to much narcotic in the emergency department tonight. I feel she will tolerate this patch well. They will return to the ER immediately for worsening of symptoms or any medical concerns. Medication Reconcilliation Current Medication List: was personally reviewed by me Blood Pressure Screening Blood pressure disposition: Did not require urgent referral (LVAD, BP is 1278 over doppler) Impression Primary Impression: Metastatic cancer to spine Additional Impression: Intractable pain Scribe Attestation The scribe's documentation has been prepared under my direction and personally reviewed by me in its entirety. I confirm that the note above accurately reflects all work, treatment, procedures, and medical decision making performed by me. Departure Information Dispostion Home / Self-Care Prescriptions Fentanyl (Fentanyl) 50 Mcg Tdsy 1 PATCH TD q3 days Y for Pain, #3 PATCH Prov: Amy Martin M.D. 12/14/17 Referrals Jamshid Contreras M.D. (PCP) Forms HOME CARE DOCUMENTATION FORM, IMPORTANT VISIT INFORMATION Patient Instructions My [facility] Additional Instructions Diagnosis: Metastatic disease to the spine, intractable pain Your fentanyl patch has been increased to 50 g. Use your OxyIR 5 mg every 6 hours as needed for severe pain. This should become less frequent as you are on the fentanyl patch. Do not take this medication if you are sleepy or sedate. Colace 100 mg twice daily for stool softening. Follow-up with [facility] later today for treatments as previously scheduled. Return to the emergency department for worsening of symptoms or any medical concerns. Problem Qualifiers
[2017-12-14 01:44] LABS: INR 2.2 (0.9-1.1)
[2017-12-14 01:46] LABS: CALCIUM 11.5 mg/dl (8.5-10.1); CREATININE 2.32 mg/dl (0.60-1.20); POTASSIUM 3.5 mmol/L (3.5-5.1); PTT PATIENT 51.8 SECONDS (21.0-31.0)
[2017-12-14] MEDS ORDERED: LORAZEPAM 2 MG/ML 1 ML VIAL ONE (01:46)
[2017-12-14] MEDS ORDERED: LORAZEPAM 2 MG/ML 1 ML VIAL IV STA ×2 (01:48→04:59)
[2017-12-14 01:49] LABS: TOTAL PROTEIN 8.4 gm/dl (6.4-8.2)
[2017-12-14] MEDS ORDERED: OXYC-609 PO (03:06)
[2017-12-14] MEDS ORDERED: FNTTP25 TOP (03:06)
[2017-12-14] MEDS ORDERED: FENTANYL 50 MCG/HR TDSY TD STA (04:57)
[2017-12-14] MEDS ORDERED: OXYCODONE HCL IR 5 MG TAB (IMMEDIATE RELEASE) PO STA (04:57)
[2017-12-14] MEDS ORDERED: DRGTP50 TD (05:11)
[2017-12-14 05:33] VITALS: PULSE 83; O2SAT 99
--- NOTE | 2017-12-14 06:45 | DIAGNOSTIC IMAGING REPORT ---
THORACIC SPINE CT WITHOUT CONTRAST CLINICAL HISTORY: Metastatic breast cancer. Lower cervical and mid thoracic pain. COMPARISON STUDY: Thoracic spine CT November 10, 2017 and PET/CT November 20, 2017. FINDINGS: There has been mild increase in size and number of numerous mixed lytic and sclerotic metastases within the thoracic spine since CT of November 10, 2017. A pathologic T7 compression fracture is similar to exam of November 10, 2017. Pathologic fracture involving the spinous process of T5 as well as the posterior elements of T6 is again noted. These fractures demonstrate partial interval healing since prior exam. No acute pathologic thoracic spine fracture is identified. Slight loss of height of the anterior aspect of T1 is again noted. There is no retropulsion at T7 level. Central canal is suboptimally assessed by CT but there is no evidence for significant epidural extension of tumor. Multiple rib lesions are again noted. A 7 mm right lower lobe pulmonary nodule is unchanged since prior PET/CT. This remains indeterminate. Partially calcified mediastinal and bilateral hilar lymph nodes remain moderately enlarged. Mild upper abdominal lymphadenopathy is unchanged and prior PET/CT. Post radiation change within the right upper lobe is noted. Diffuse ground glass opacity within the lungs is noted. IMPRESSION: 1. Mild progression of extensive thoracic spine metastatic disease since CT of November 10, 2017. Redemonstration of multiple pathologic fractures, including a T7 fracture without retropulsion. No evidence for significant epidural spread of tumor. 2. No significant change in partially calcified mediastinal and bilateral hilar lymph nodes as well as mild upper abdominal lymphadenopathy which remains indeterminate. 3. Stable but indeterminate 7 mm right lower lobe pulmonary nodule. Electronically signed by: Gustavo Arias M.D. 12/14/2017 6:44 AM Dictated Date/Time: 12/14/2017 6:32 AM
--- NOTE | 2017-12-14 07:23 | DIAGNOSTIC IMAGING REPORT ---
CERVICAL SPINE W/O CLINICAL HISTORY: 62 years-old Female presenting with breast CA with mets to spine, low cervical and mid thoracic pain. TECHNIQUE: Multidetector CT of the cervical spine was performed without the use of intravenous contrast. IV contrast: None. A dose lowering technique was used consistent with the principles of ALARA (as low as reasonably achievable). COMPARISON: PET/CT from 11/20/2017. CT DOSE (mGy.cm): The estimated cumulative dose is 1435.96 inclusive of the thoracic spine. FINDINGS: [employer] Was[employer] topogram: Left subclavian implanted cardiac defibrillator, median sternotomy wires, left ventricular assist device. Normal cervical lordosis. Vertebral bodies maintain normal height and alignment. Multiple lytic lesions noted in every vertebral body to varying degrees. No convincing evidence of a pathologic compression fracture. No subluxation. Posterior elements are also involved. Intervertebral disc height loss at C5-6. No osseous neural foraminal or spinal canal narrowing. The skull base is also involved with lucent lesions. Trace fluid noted in the left mastoid air cells. Paraspinal soft tissues within normal limits. Lung apices demonstrate scarring at the right apex possibly from prior radiation. IMPRESSION: 1. Diffuse lytic lesions throughout the cervical spine consistent with metastatic disease. No CT evidence of a pathologic fracture. No osseous spinal canal or neural foraminal narrowing. Electronically signed by: Lizandro Boyd M.D. 12/14/2017 7:21 AM Dictated Date/Time: 12/14/2017 6:45 AM
--- NOTE | 2017-12-15 14:04 | Pharmacy Progress Note ---
ED Pharmacist Progress Note Date of Service: Dec 15, 2017. Received call from pharmacy clarifying strength of fentanyl patch as 50mcg, for which I confirmed. Received another call from pharmacy today stating that they did not want to dispense just three patches as the boxes come in packs of five. I stated that since the prescribing provider, Dr. Martin was not here, I could not authorize a higher quantity. The pharmacist said that was okay, she would contact the patient's PCP instead.
== END 2017-12-14 05:34 | disposition home or self-care (01) ==
LOC: EDBD 01:06 → C.EDC 01:07 → C.EDA 05:34
DX: C79.51 Secondary malignant neoplasm of bone (principal); M54.5 Low back pain; R11.0 Nausea; I48.91 Unspecified atrial fibrillation; E66.9 Obesity, unspecified; F32.9 Major depressive disorder, single episode, unspecified; C50.919 Malignant neoplasm of unspecified site of unspecified female breast; M85.80 Other specified disorders of bone density and structure, unspecified site; Z79.01 Long term (current) use of anticoagulants; Z79.82 Long term (current) use of aspirin; Z79.899 Other long term (current) drug therapy; Z86.79 Personal history of other diseases of the circulatory system; Z82.49 Family history of ischemic heart disease and other diseases of the circulatory system; Z83.6 Family history of other diseases of the respiratory system

== ENCOUNTER 2017-12-29 12:08 | Emergency (ER) | payer OTHER ==
[~2017-12-29] VITALS: Ht 157.5 cm; Wt 77.0 kg
[~2017-12-29 12:08] MED LIST changes: -ALBU18002 INH; -OPTIRAY 320 IV PRN; -PROM12.57 PO; -SYMIN8045 INH; -WARF-285 PO
[2017-12-29 12:10] VITALS: TEMP 36.7; Ht 157.5 cm; Wt 77.0 kg
[2017-12-29 12:26] VITALS: O2SAT 93
[2017-12-29] MEDS ORDERED: ONDANSETRON 4MG OD TAB PO STA (12:48)
--- NOTE | 2017-12-29 12:53 | EMERGENCY ROOM VISIT NOTE ---
History Report prepared by Diana: Talib Jones Under the Supervision of: Dr. Keyshawn Loja M.D. First contact with patient: 12:23 Chief Complaint: OTHER COMPLAINT Stated Complaint: SUB HEMATURIA History of Present Illness The patient is a 62 year old female who presents to the Emergency Room with complaints of a constant headache for the past couple of days that is behind her right eye. She reports that this morning she had a CT done of her head to look for cancer, and she was found to have a small subdural hematoma. The patient has a history of breast cancer for the past two years, and it metastasized to her back two months ago. Last week she had a kyphoplasty, and the tumor ruptured. She recalls "pounding" with the procedure but otherwise has not fallen recently. The patient reports that she also has an LVAD for the past four years, and she is currently taking 4mg of Coumadin. She denies any fever, chills, nausea, vomiting, and congestion. The patient notes that she has also been feeling a little weak. The patient started Coumadin a week and a half ago, and she states that she was taken off of her Coumadin for two days prior to the surgery but not sure if she was put on something else like heparin. Source of History: patient Onset: past couple of days Position: head Quality: ache Timing: constant Associated Symptoms: + weakness, No fevers, No chills, No nausea, No vomiting Review of Systems See HPI for pertinent positives and negatives. A total of ten systems were reviewed and were otherwise negative. Past Medical & Surgical Medical Problems: (1) Acute on chronic systolic heart failure (2) Anemia (3) Anemia (4) Anemia (5) Anxiety (6) Atrial fibrillation (7) Bleeding from Peter-Escoto drain (8) Breast cancer (9) Carcinoma of breast (10) Cardiac defibrillator in situ (11) Cardiomyopathy (12) Chest pain (13) CHF (congestive heart failure) (14) Congestive rheumatic heart failure (15) Depression (16) Elevated troponin (17) History of - tubal ligation (18) [id number] (19) Implantation of internal cardiac defibrillator (20) Lumpectomy of breast (21) LVAD (left ventricular assist device) present (22) Osteopenia (23) Sarcoidosis (24) Wrist pain, right Surgical Problems: (1) History of cholecystectomy Family History Cancer Hypertension Lung disease Social History Smoking Status: Never Smoker Alcohol Use: none Drug Use: none Marital Status: Housing Status: lives with family Occupation Status: disabled Current/Historical Medications Scheduled Amiodarone Hcl (Amiodarone Hcl), 100 MG PO DAILY Aspirin (Aspirin Ec), 81 MG PO QD Budesonide/Formoterol Fumarate (Symbicort 80-4.5 Mcg/Act), 2 PUFFS INH BID Bumetanide (Bumex), 2 MG PO BID Calcium Carbonate (Calcium 600), 600 MG PO DAILY Carvedilol (Coreg), 6.25 MG PO BIDM Cefadroxil (Duricef), 500 MG PO BID Cholecalciferol (Vitamin D), 1,000 UNITS PO DAILY Fentanyl (Fentanyl), 25 MCG TOP [id number] Ferrous Sulfate (Ferrous Sulfate), 325 MG PO DAILY Melatonin (Melatonin), 30 MG PO HS Potassium Chloride Microencaps (Potassium Chloride Er), 20 MEQ PO BID Sertraline Hcl (Zoloft), 50 MG PO QD Simvastatin (Zocor), 20 MG PO DAILY Spironolactone (Aldactone), 25 MG PO HS Warfarin Sodium (Warfarin Sodium), 3 MG PO UD Scheduled PRN Albuterol Sulfate (Proair Respiclick), 2 PUFFS INH QID PRN for Wheezing Amoxicillin (Amoxil), 2,000 MG PO UD PRN for Prior to Dental Appointments Ondansetron Hcl (Zofran), 4 MG PO Q8 PRN for Nausea Oxycodone HCl (Oxycodone HCl), 5 MG PO Q6 PRN for Pain Promethazine (Phenergan ), 12.5 MG PO Q6H PRN for Nausea Triamcinolone Acet (Aristocort 0.1%), 1 APPLN TOP DIRECTED PRN for Affected Skin Folds Allergies Coded Allergies: No Known Allergies (Unverified , 12/29/17) Physical Exam Vital Signs Date Time Temp Pulse Resp B/P (MAP) Pulse Ox O2 Delivery O2 Flow Rate FiO2 12/29/17 16:50 80 107/82 96 12/29/17 15:52 94 20 107/81 95 Room Air 12/29/17 14:55 98 22 110/84 98 12/29/17 12:27 76 20 133/87 93 Room Air 12/29/17 12:26 93 Room Air 12/29/17 12:10 36.7 101 18 119/89 97 Room Air Physical Exam GENERAL: Awake, alert, well-appearing, in no distress HENT: Normocephalic, atraumatic. Oropharynx unremarkable. Dry mucous membranes. EYES: Normal conjunctiva. Sclera non-icteric. NECK: Supple. No nuchal rigidity. FROM. No JVD. RESPIRATORY: Clear to auscultation. CHEST: Right port-a-cath with small amount of ecchymosis. No erythema or warmth. CARDIAC: Regular rate, normal rhythm. Extremities warm and well perfused. Pulses equal. ABDOMEN: Soft, non-distended. No tenderness to palpation. No rebound or guarding. No masses. RECTAL: Deferred. MUSCULOSKELETAL: Upper T spine has a post-op dressing that is clean dry and intact. No surrounding erythema or warmth. Chest examination reveals no tenderness. The back is symmetrical on inspection without obvious abnormality. There is no CVA tenderness to palpation. No joint edema. LOWER EXTREMITIES: Calves are equal size bilaterally and non-tender. No edema. No discoloration. NEURO: Normal sensorium. No sensory or motor deficits noted. Normal cerebellar function with htpsmr-[id number]-ghni, alternating palms. SKIN: No rash or jaundice noted. Medical Decision & Procedures ER Provider Diagnostic Interpretation: Radiology results as stated below per my review and radiologist interpretation: CHEST ONE VIEW PORTABLE CLINICAL HISTORY: Chest pain. Metastatic breast cancer. COMPARISON STUDY: Chest radiograph November 10, 2017. FINDINGS: A left subclavian pacer/AICD, left ventricular assist device and right subclavian Hwlfdv-w-Agoi is in place as well as median sternotomy wires. Asymmetric right lung opacities unchanged and likely related to postradiation change. There is no pneumothorax or pleural effusion. There is right hemithorax volume loss. Moderate cardiomegaly is unchanged without evidence for pulmonary edema. A lytic proximal right humeral lesion is noted. IMPRESSION: 1. No acute cardiopulmonary findings. No change in appearance of the chest. 2. Multiple skeletal lesions consistent with metastatic disease. Electronically signed by: Gustavo Arias M.D. 12/29/2017 1:20 PM Dictated Date/Time: 12/29/2017 1:05 PM Laboratory Results 12/29/17 13:30 Red Blood Count 3.29, Mean Corpuscular Volume 83.9, Mean Corpuscular Hemoglobin 26.4, Mean Corpuscular Hemoglobin Concent 31.5, Mean Platelet Volume 11.1, Neutrophils (%) (Auto) 91.5, Lymphocytes (%) (Auto) 4.0, Monocytes (%) (Auto) 1.4, Eosinophils (%) (Auto) 2.4, Basophils (%) (Auto) 0.1, Neutrophils # (Auto) 7.13, Lymphocytes # (Auto) 0.31, Monocytes # (Auto) 0.11, Eosinophils # (Auto) 0.19, Basophils # (Auto) 0.01 12/29/17 13:30 Test 12/29/17 13:30 White Blood Count 7.80 K/uL (4.8-10.8) Red Blood Count 3.29 M/uL (4.2-5.4) Hemoglobin 8.7 g/dL (12.0-16.0) Hematocrit 27.6 % (37-47) Mean Corpuscular Volume 83.9 fL (80-100) Mean Corpuscular Hemoglobin 26.4 pg (25-34) Mean Corpuscular Hemoglobin Concent 31.5 g/dl (32-36) Platelet Count 229 K/uL (130-400) Mean Platelet Volume 11.1 fL (7.4-10.4) Neutrophils (%) (Auto) 91.5 % Lymphocytes (%) (Auto) 4.0 % Monocytes (%) (Auto) 1.4 % Eosinophils (%) (Auto) 2.4 % Basophils (%) (Auto) 0.1 % Neutrophils # (Auto) 7.13 K/uL (1.4-6.5) Lymphocytes # (Auto) 0.31 K/uL (1.2-3.4) Monocytes # (Auto) 0.11 K/uL (0.11-0.59) Eosinophils # (Auto) 0.19 K/uL (0-0.5) Basophils # (Auto) 0.01 K/uL (0-0.2) RDW Standard Deviation 55.6 fL (36.4-46.3) RDW Coefficient of Variation 18.1 % (11.5-14.5) Immature Granulocyte % (Auto) 0.6 % Immature Granulocyte # (Auto) 0.05 K/uL (0.00-0.02) Poikilocytosis PRESENT Anisocytosis PRESENT Prothrombin Time 38.1 SECONDS (9.0-12.0) Prothromb Time International Ratio 3.7 (0.9-1.1) Anion Gap 5.0 mmol/L (3-11) Est Creatinine Clear Calc Drug Dose 52.0 ml/min Estimated GFR () 65.0 Estimated GFR (Non- 56.1 BUN/Creatinine Ratio 23.6 (10-20) Calcium Level 8.8 mg/dl (8.5-10.1) Magnesium Level 1.9 mg/dl (1.8-2.4) Total Bilirubin 1.0 mg/dl (0.2-1) Direct Bilirubin 0.3 mg/dl (0-0.2) Aspartate Amino Transf (AST/SGOT) 62 U/L (15-37) Alanine Aminotransferase (ALT/SGPT) 45 U/L (12-78) Alkaline Phosphatase 184 U/L (45-117) Troponin I < 0.015 ng/ml (0-0.045) Total Protein 6.6 gm/dl (6.4-8.2) Albumin 3.2 gm/dl (3.4-5.0) Lipase 307 U/L (73-393) Laboratory results reviewed by me Medications Administered Medications (Trade) Dose Ordered Sig/Piedad Route Start Time Stop Time Status Last Admin Dose Admin Ondansetron HCl (Zofran Odt) 4 mg NOW STAT PO 12/29/17 12:48 12/29/17 12:50 DC 12/29/17 13:05 4 MG Oxycodone HCl (Roxicodone Immediate Rel Tab) 5 mg NOW STAT PO 12/29/17 16:31 12/29/17 16:33 DC 12/29/17 16:36 5 MG ECG Per My Interpretation Indication: other (headache) Rate (beats per minute): 98 Rhythm: sinus rhythm Findings: 1st degree AV block, LBBB (incomplete), PAC, no acute ischemic change ED Course 1223: The patient was evaluated in room A2. A complete history and physical exam was performed. 1251: I discussed the patient's case with Dr. Elder - Cardiology, and he agrees with the plan. If the patient looks good then we can let her INR drift down, and skip the next dose. He recommends transferring out to neurosurgery and just watch her for now. 1314: I discussed the patient's case with Dr. Candy Rivera Cardiology, and he agrees with the plan to left her drift down. Her goal range is 2-3 so keep her closer to 2, and if she falls below that, then she will need to be put on Heparin. He agrees to transfer her, and he will make her a priority transfer. 1324: I discussed the patient's case with Dr. Meghan Rivera Neurosurgery, and he agrees with the plan. Medical Decision I reviewed the patient's past medical history, medications, and the nursing notes as described above. The patient's presentation and history were concerning for Subdural hematoma, trauma, worsening metastasis, serotherapeutic INR. The patient is a 62-year-old woman with a past medical history of CHF status post LVAD 4 years ago on chronic Coumadin, metastatic breast cancer status post vertebral plasty 2 weeks ago presents emergency department with incidental finding of a small subdural hematoma in the left tentorium after having outpatient CT scan to evaluate for metastases. On arrival the patient well- appearing is in no acute distress, afebrile with stable vital signs. She is neurologically intact including normal cerebellar function with rveoha-hw-bnwd, alternating palms, bdzj-rp-dmox. Given the patient is well-appearing with only a small subdural without any evidence of midline shift will defer any reversal at this time given her need for anticoagulation with her LVAD. Edinu-vz-gmuf INR was 4.4 although subsequent serum INR of 3.6. Case was discussed with Dr. Elder who agrees that given the patient is well-appearing with only small subdural to allow her INR to drift down. Agrees that we should transfer to [facility]/tertiary care center where neurosurgery is available and her LVAD team is as well. This was additionally discussed with Dr. Gupta, heart failure rehab director occupational therapist who is familiar with the patient and agrees with plan. Additionally I discussed with Dr. Stephen, neurosurgery, who additionally agrees there is no role for intervention at this time and agrees with plan to allow for INR to drift down. Patient continues to appear well in the emergency department. Given stable clinical appearance will transfer via ALS ground. Medication Reconcilliation Current Medication List: was personally reviewed by me Blood Pressure Screening Patient's blood pressure: Normal blood pressure Consults Time Called: 1250 Consulting Physician: Dr. Jael Boateng Cardiology Returned Call: 1251 I discussed the patient's case with Dr. Jael Boateng Cardiology, and he agrees with the plan. If the patient looks good then we can let her INR drift down, and skip the next dose. He recommends tranferring out to neurosurgery and just watch her for now. Additional Consults: Time Called: 1257 Consulted Physician: Dr. Candy Gifford Cardiology Returned Call: 1314 Additional Comments: I discussed the patient's case with Dr. Candy Rivera Cardiology, and he agrees with the plan to left her drift down. Her goal range is 2-3 so keep her closer to 2, and if she falls below that, then she will need to be put on Heparin. He agrees to transfer her, and he will make her a priority transfer. Time Called: 1257 Consulted Physician: Dr Meghan Boateng Neurosurgery Returned Call: 1324 Additional Comments: I discussed the patient's case with Dr. Meghan Rivera Neurosurgery, and he agrees with the plan. Impression Primary Impression: Subdural hematoma Scribe Attestation The scribe's documentation has been prepared under my direction and personally reviewed by me in its entirety. I confirm that the note above accurately reflects all work, treatment, procedures, and medical decision making performed by me. Departure Information Dispostion Transfer Acute Care Facility Referrals Jamshid Contreras M.D. (PCP) Patient Instructions My [facility]
--- NOTE | 2017-12-29 13:21 | DIAGNOSTIC IMAGING REPORT ---
CHEST ONE VIEW PORTABLE CLINICAL HISTORY: Chest pain. Metastatic breast cancer. COMPARISON STUDY: Chest radiograph November 10, 2017. FINDINGS: A left subclavian pacer/AICD, left ventricular assist device and right subclavian Gcdcxx-p-Gnng is in place as well as median sternotomy wires. Asymmetric right lung opacities unchanged and likely related to postradiation change. There is no pneumothorax or pleural effusion. There is right hemithorax volume loss. Moderate cardiomegaly is unchanged without evidence for pulmonary edema. A lytic proximal right humeral lesion is noted. IMPRESSION: 1. No acute cardiopulmonary findings. No change in appearance of the chest. 2. Multiple skeletal lesions consistent with metastatic disease. Electronically signed by: Gustavo Arias M.D. 12/29/2017 1:20 PM Dictated Date/Time: 12/29/2017 1:05 PM
[2017-12-29] MEDS ORDERED: SYMIN8045 INH (13:47)
[2017-12-29] MEDS ORDERED: ALBU18002 INH (13:47)
[2017-12-29] MEDS ORDERED: PROM12.57 PO (13:47)
[2017-12-29] MEDS ORDERED: WARF-285 PO (13:47)
[2017-12-29 13:59] LABS: BASO % 0.1 %; BASO ABS # 0.01 K/uL (0-0.2); EOS % 2.4 %; EOS ABS # 0.19 K/uL (0-0.5); HEMATOCRIT 27.6 % (37-47); HEMOGLOBIN 8.7 g/dL (12.0-16.0); IG# 0.05 K/uL (0.00-0.02); LYMPH ABS # 0.31 K/uL (1.2-3.4); MEAN CELL VOLUME 83.9 fL (80-100); MEAN CORPUSCULAR HEMOGLOBIN 26.4 pg (25-34); MEAN CORPUSCULAR HGB CONC 31.5 g/dl (32-36); MEAN PLATELET VOLUME 11.1 fL (7.4-10.4); MONO % 1.4 %; MONO ABS # 0.11 K/uL (0.11-0.59); NEUT % 91.5 %; NEUT ABS # 7.13 K/uL (1.4-6.5); PLATELET COUNT 229 K/uL (130-400); RED CELL DISTRIBUTION WIDTH CV 18.1 % (11.5-14.5); RED CELL DISTRIBUTION WIDTH SD 55.6 fL (36.4-46.3)
[2017-12-29 14:15] LABS: INR 3.7 (0.9-1.1)
[2017-12-29 14:18] LABS: ALBUMIN 3.2 gm/dl (3.4-5.0); ALT/SGPT 45 U/L (12-78); AST/SGOT 62 U/L (15-37); BLOOD UREA NITROGEN 25 mg/dl (7-18); CALCIUM 8.8 mg/dl (8.5-10.1); CARBON DIOXIDE 26 mmol/L (21-32); CREATININE 1.05 mg/dl (0.60-1.20); GLUCOSE 96 mg/dl (70-99); LIPASE 307 U/L (73-393); POTASSIUM 4.2 mmol/L (3.5-5.1); SODIUM 134 mmol/L (136-145)
[2017-12-29 14:23] LABS: ALKALINE PHOSPHATASE 184 U/L (45-117); TOTAL PROTEIN 6.6 gm/dl (6.4-8.2)
[2017-12-29] MEDS ORDERED: OXYCODONE HCL IR 5 MG TAB (IMMEDIATE RELEASE) PO STA (16:31)
[2017-12-29 16:50] VITALS: BP 107/82; PULSE 80; O2SAT 96
== END 2017-12-29 16:50 | disposition short-term general hospital (02) ==
LOC: C.EDB 12:09 → C.EDA 16:50
DX: I62.00 Nontraumatic subdural hemorrhage, unspecified (principal); Z85.3 Personal history of malignant neoplasm of breast; I48.91 Unspecified atrial fibrillation; Z95.811 Presence of heart assist device; I50.23 Acute on chronic systolic (congestive) heart failure; D64.9 Anemia, unspecified; F41.9 Anxiety disorder, unspecified; I42.9 Cardiomyopathy, unspecified; M85.80 Other specified disorders of bone density and structure, unspecified site; D86.9 Sarcoidosis, unspecified; Z80.9 Family history of malignant neoplasm, unspecified; Z82.49 Family history of ischemic heart disease and other diseases of the circulatory system; Z83.6 Family history of other diseases of the respiratory system; Z79.82 Long term (current) use of aspirin; Z79.01 Long term (current) use of anticoagulants; Z79.899 Other long term (current) drug therapy

== ENCOUNTER → 2017-12-29 | Outpatient (CLI) | payer OTHER ==
[~2017-12-29] MED LIST changes: -ENOX1INJ11 INJ; +FNTTP25 TOP; -IPRASOL4 INH; +ONDA4TAB46 PO; +OPTIRAY 320 IV PRN; -OXYC-57 PO; +OXYC-609 PO; -RXC/5 PO; -SYMIN/8045 INH; +SYMIN8045 INH; +WARF-285 PO
--- NOTE | 2017-12-29 11:55 | DIAGNOSTIC IMAGING REPORT ---
CT HEAD COMBO CT DOSE: 1139.46 mGy.cm TECHNIQUE: Noncontrast images were obtained through the brain in the axial plane. The sequence was repeated following administration of 93 Optiray 320. A dose lowering technique was utilized adhering to the principles of ALARA. HISTORY: METASTATIC BREAST CA COMPARISON: December 12, 2017 FINDINGS: No intra or extra-axial mass lesions are visualized. There is no CT evidence of acute cortical infarction. There is a small acute subdural hematoma layering on the undersurface of the left tentorium. There are patchy white matter hypodensities likely on a small vessel basis. There is no evidence of pathologic ventricular dilatation. There is no evidence of acute sinusitis Postcontrast images reveal no pathologically enhancing masses. There are diffuse calvarial metastasis. IMPRESSION: 1. Small acute subdural hematoma layering on the undersurface of the left tentorium. This was not present in December 12, 2017 2. Diffuse calvarial metastases 3. No CT evidence of intraparenchymal metastasis. Electronically signed by: Victor M Troy M.D. 12/29/2017 11:54 AM Dictated Date/Time: 12/29/2017 11:45 AM
== END | disposition home or self-care (01) ==
LOC: C.CTS 11:03
PROVIDERS: ATTEND Physician Assistant Medical
DX: C79.51 Secondary malignant neoplasm of bone (principal); C50.411 Malignant neoplasm of upper-outer quadrant of right female breast

== ENCOUNTER → 2018-02-02 | Outpatient (CLI) | payer OTHER ==
[~2018-02-02] MED LIST changes: +ALBU18002 INH; -DIPH-437 PO; -DOCU-94 PO; +DRGTP12 TOP; +DXM/4 PO; -POLY335019 PO; +PROM12.57 PO; +SYMIN8045 INH; +WARF-285 PO; -WARF4TAB8 PO
--- NOTE | 2018-02-02 09:52 | DIAGNOSTIC IMAGING REPORT ---
CT SCAN OF THE BRAIN WITHOUT IV CONTRAST CLINICAL HISTORY: Follow-up subdural hemorrhage. COMPARISON STUDY: CT of the brain dated 12/29/2017. TECHNIQUE: Unenhanced axial CT scan of the brain is performed from the vertex to the skull base. A dose lowering technique was utilized adhering to the principles of ALARA. CT DOSE: 690.05 mGycm FINDINGS: Brain parenchyma: The brain parenchyma is normal in appearance. There is no hemorrhage, mass effect, or evidence of acute territorial ischemia by CT criteria. Jenkins-white matter is preserved. No extra-axial fluid collection is seen. Ventricles, sulci, cisterns: Normal in configuration. Intracranial vasculature: The visualized intracranial vasculature at the skull base is normal in appearance. Calvarium: The skeletal structures are osteopenic. Multifocal osteolytic metastatic disease is identified. Sinuses and mastoids: The visualized paranasal sinuses are clear. There is a left mastoid effusion. The right mastoid air cells are well pneumatized. Orbits: The bony orbits are grossly intact. IMPRESSION: 1. There is no hemorrhage, mass effect, or evidence of acute territorial ischemia by CT criteria. 2. Trace subdural hematoma along the left tentorium has resolved as compared to 12/29/2017. 3. Multifocal osteolytic metastatic disease is similar to previous. Electronically signed by: Dre Vaca M.D. 02/02/2018 9:51 AM Dictated Date/Time: 02/02/2018 9:48 AM
== END | disposition home or self-care (01) ==
LOC: C.CTS 09:04
PROVIDERS: ATTEND Internal Medicine Hematology & Oncology
DX: C79.51 Secondary malignant neoplasm of bone (principal); C50.411 Malignant neoplasm of upper-outer quadrant of right female breast

== ENCOUNTER → 2018-02-13 | Outpatient (CLI) | payer OTHER ==
[~2018-02-13] MED LIST changes: -ALBU18002 INH; +DIPH-437 PO; -FNTTP25 TOP; -PROM12.57 PO; -SYMIN8045 INH
[2018-02-13 13:45] VITALS: BP 134/102; PULSE 53; TEMP 37; O2SAT 88
--- NOTE | 2018-02-13 15:41 | Radiation Oncology Follow-Up ---
Radiation Oncology Follow-Up Date of Visit Feb 13, 2018. Reason For Visit One-month follow-up Radiation Completion Date finished 05-24-2016 and 01-14-2018 Diagnosis (1) Breast cancer Status: Chronic Onset Date: 09/25/2015 Location: Base of skull metastasis Stage: IV Permanent Comment: DIAGNOSIS: 1. Right breast, invasive ductal carcinoma, ER negative, NE positive, [id number], stage III status post lumpectomy/axillary lymph node dissection, adjuvant radiation therapy (5940 cGy, 07/24/96), advjuvant A/C chemotherapy 2. Right breast, invasive ductal carcinoma, grade 2, ER/NE/Her2 negative, [id number], stage IV (possible recurrence) Status post completion of radiation therapy 05/24/2016 received 6840 cGy Status post systemic chemotherapy with Xeloda. 3. Development of back pain finding of metastatic disease to the thoracic spine 4. Status post kyphoplasty 12/19/2017 5. Headaches with base of skull metastasis 6. Status post completion of radiation therapy to the base of the skull January 14, 2018. She received 3000 cGy. Last Edited By: Tina Simpson on Jan 23, 2018 10:56 History of Present Illness Ms. Robertson has a previous history of stage III right breast cancer treated with surgery, radiation therapy and adjuvant chemotherapy in 1995. She she has been doing relatively well for a very long time. Of note, she does have both a defibrillator and LVAD for her CHF which was implanted in 2013. She has she did start to palpate something in her right breast in the upper outer quadrant which started in 2013. She did have a mammogram on 01/07/2014 which did not reveal any mammographic abnormality. She also had a PET /CT scan completed on 11/17/2014 which revealed no mass or uptake in the right breast and no evidence of recurrent breast cancer. The PET scan did note pulmonary nodularity and adenopathy which appeared stable and could be attributed to her sarcoidosis. She had a repeat mammogram on 02/17/2015 which revealed increasing linear microcalcifications within the right lumpectomy bed which required additional evaluation. She had a dedicated unilateral right diagnostic mammogram on 02/24/2015 which revealed faint clustered linear microcalcifications is a lumpectomy bed in the right breast. Her mammogram and ultrasound of the right breast were repeated on 08/11/2015 which revealed no discrete mass chest group linear calcifications consistent with what was previously noted in December 2013 and her mammogram in January 2015. Due to her LVAD device, she cannot undergo a stereotactic biopsy and had to proceed with an excisional biopsy which was completed on 09/25/2015. Her pathology revealed invasive ductal carcinoma that was moderately differentiated. Ductal carcinoma in situ was also noted. The superior margin was positive for invasive carcinoma in the anterior and lateral margins were less than 1 mm from invasive carcinoma. The tumor cells were negative for estrogen receptor, progesterone receptor and HER-2 receptor. She did undergo a PET/CT scan on 10/14/2015 which revealed an intense FDG avid liver lesion that is concerning for metastasis with no CT correlate, intensely avid right internal mammary lymph node which is stable from CT in comparison to 02/04/2014, increased FDG uptake in left spinal musculature which is likely physiologic, stigmata of sarcoidosis in the thorax and mediastinum and a postoperative hematoma in the right breast measuring 10 cm in the greatest dimension. Additionally, there was increased FDG uptake in the median sternotomy line which is likely inflammatory and related to nonunion. The patient's case was discussed at the tumor board at [facility]. They discussed treatment options and eventually concluded that radiation therapy would be the best option as this patient is high risk for postoperative complications from either a lumpectomy or mastectomy. They explained to the patient that a mastectomy would be standard to care in the setting of previous radiation therapy. The tumor board also discussed potentially biopsing the lesion in the liver. The patient was seen by Dr. Tidwell who agreed with the recommendation for consideration of radiation therapy given the fact that the patient cannot undergo surgical resection. We are now seeing the patient in consultation to discuss the role of radiation therapy. Currently, the patient is doing okay. She is being seen by the wound clinic as she is having wound healing issues from her previous excisional biopsy in the right breast. She explained to us that they may need to place a wound VAC. Otherwise, she has no significance complaints at this time. She does follow with Dr. Deshpande for cardiology and [place]. She completed conventional radiation therapy 05/24/2016. She received 6840 cGy. Treatment given to the right breast, supraclavicular area and axilla. She developed mid back pain approximately one month ago. Pain level is given at 6. At times it seems to radiate towards the hips. She reviewed this with her primary care physician who obtained a CT of the thoracic spine 11/10/2017. This showed overall significant progression of multiple osteolytic metastatic disease compared to 08/22/2017. There are spinous process fractures of T5 and T6 as well as a moderate compression fracture of T7 (with no retropulsed fragments). These are likely acute to subacute, and new from 08/22/2017. There is no evidence of metastatic disease encroaching upon the central spinal canal. A presumed right lower lobe pulmonary metastasis is unchanged from 08/22. She was then seen in medical oncology and a PET scan was obtained. This showed evidence of diffuse osteolytic metastatic disease. FDG avid foci in the liver as well as FDG avid thiago caval adenopathy consistent with metastatic disease. There are 2 pulmonary nodules identified measuring up to 7 mm. She is numerous mildly enlarged mediastinal and hilar lymph nodes. There is low level FDG avidity. A right breast lesion has decreased in size from previous and demonstrates diffuse FDG avidity. There is FDG avidity in the midline sternotomy area. She has been given pain medications. She is taking oxycodone 5 mg approximately twice daily. She was referred from medical oncology to neurosurgery. She was seen and there was discussion of vertebral opacity. There is concerns for this procedure because of the difficulty with her lying in the prone position. She is going to have a port placed. She is also going to be scheduled for a liver biopsy. Medical oncology has recommended chemotherapy once her port is in place and the biopsy is performed. She was admitted to [facility] for placement of the port. While hospitalized she continued to have severe thoracic spine pain. She underwent vertebroplasty. With this procedure she has had improvement of the pain in her back. For the most part it is minimal. Today she is having increased pain. She stated that she was active yesterday with getting the chemotherapy. So today she did have increased pain up to level 7. For her pain she uses Tylenol and occasional oxycodone. She feels that the kyphoplasty was very beneficial in relieving the pain of her back. She unfortunately has developed a numbness around her right periorbital area. She also has ongoing and frequent headaches. Prior to her hospitalization she had had a CT of the head December 12, 2017. There were no acute intracranial abnormalities identified. There were innumerable destructive lytic metastatic lesions throughout the skull including lesion of the left mastoid with associated moderate to large left mastoid effusion. This was a CT without contrast. She is unable to have MRIs due to her left ventricular assist device. She underwent radiation therapy to the skull base to help relieve headaches and facial pain. Radiation was completed January 16, 2018. She received 3000 cGy. Interim History Over this past month she has had improvements in the headaches that she was experiencing. These were previously much more severe. Headaches now occur only in the morning. These are usually level 6. She takes Tylenol and the pain is relieved for the rest of the day. She has no associated nausea. She has had no change in vision. She has an area of numbness below her eye. This is unchanged from previous. She does note that she will have a small amount of nasal bleeding. This is scant in amount. She continues regular follow-up in medical oncology. She is due for treatment tomorrow. She was anemic and required 2 units of packed red blood cells February 08, 2018. She did have a recheck CT of the brain follow-up on the subdural hematoma. That was performed on February 02, 2018 that showed that the subdural hematoma had resolved. Allergies Coded Allergies: No Known Allergies (Unverified , 02/08/18) Home Medications Scheduled Acetaminophen/Diphenhydramine (Tylenol Pm), 2 TAB PO HS Amiodarone Hcl (Amiodarone Hcl), 100 MG PO DAILY Aspirin (Aspirin Ec), 81 MG PO QD Bumetanide (Bumex), 2 MG PO BID Calcium Carbonate (Calcium 600), 600 MG PO DAILY Carvedilol (Coreg), 6.25 MG PO BIDM Cefadroxil (Duricef), 500 MG PO BID Cholecalciferol (Vitamin D), 1,000 UNITS PO DAILY Dexamethasone (Decadron), 4 MG PO BID Fentanyl (Fentanyl), 12 MCG TOP Q72H Ferrous Sulfate (Ferrous Sulfate), 325 MG PO DAILY Potassium Chloride Microencaps (Potassium Chloride Er), 20 MEQ PO BID Sertraline Hcl (Zoloft), 50 MG PO QD Simvastatin (Zocor), 20 MG PO DAILY Spironolactone (Aldactone), 25 MG PO HS Warfarin Sodium (Warfarin Sodium), 4 MG PO UD Scheduled PRN Amoxicillin (Amoxil), 2,000 MG PO UD PRN for Prior to Dental Appointments Ondansetron Hcl (Zofran), 4 MG PO Q8 PRN for Nausea Oxycodone HCl (Oxycodone HCl), 5 MG PO Q6 PRN for Pain Triamcinolone Acet (Aristocort 0.1%), 1 APPLN TOP DIRECTED PRN for Affected Skin Folds Review of Systems Gastrointestinal: GI Comments: takes zofran , stomach hurts at times , denies N/ V Oral: Other Oral Symptoms: "has trouble swallowing larger pills " Respiratory: Symptoms: WNL Urinary: Symptoms: WNL Skin: Symptoms: No Problems Physical Exam Vital Signs Date Time Temp Pulse Resp B/P (MAP) Pulse Ox O2 Delivery O2 Flow Rate FiO2 02/13/18 13:45 37.0 53 16 134/102 88 ECOG Performance Status: 2 Fatigue: Mild General Appearance: no apparent distress Eyes: normal inspection, PERRL, EOMI Neck: no adenopathy, thyroid normal Respiratory/Chest: lungs clear, no respiratory distress, no accessory muscle use Cardiovascular: + pertinent finding (Transthoracic come from the left ventricular assist device.) Neurologic/Psychiatric: no motor/sensory deficits Pain Management Patient Reports Pain: Yes Side: Bilateral Pain Location: Head Patient Preferred Pain Scale: 0 - 10 Initial Pain Intensity: 6.0 Pain Management Plan She has a headache in the morning that is relieved with taking Tylenol. This then stays away for the rest of the day. Laboratory Laboratory Results: were reviewed Laboratory Comments: Recent CBC D and CMP reviewed with the patient. Pathology Pathology Results: were reviewed, and pertinent findings noted in HPI Imaging Imaging Studies: were reviewed, and pertinent findings noted below Imaging Comments CT SCAN OF THE BRAIN WITHOUT IV CONTRAST CLINICAL HISTORY: Follow-up subdural hemorrhage. COMPARISON STUDY: CT of the brain dated 12/29/2017. TECHNIQUE: Unenhanced axial CT scan of the brain is performed from the vertex to the skull base. A dose lowering technique was utilized adhering to the principles of ALARA. CT DOSE: 690.05 mGycm FINDINGS: Brain parenchyma: The brain parenchyma is normal in appearance. There is no hemorrhage, mass effect, or evidence of acute territorial ischemia by CT criteria. Jenkins-white matter is preserved. No extra-axial fluid collection is seen. Ventricles, sulci, cisterns: Normal in configuration. Intracranial vasculature: The visualized intracranial vasculature at the skull base is normal in appearance. Calvarium: The skeletal structures are osteopenic. Multifocal osteolytic metastatic disease is identified. Sinuses and mastoids: The visualized paranasal sinuses are clear. There is a left mastoid effusion. The right mastoid air cells are well pneumatized. Orbits: The bony orbits are grossly intact. IMPRESSION: 1. There is no hemorrhage, mass effect, or evidence of acute territorial ischemia by CT criteria. 2. Trace subdural hematoma along the left tentorium has resolved as compared to 12/29/2017. 3. Multifocal osteolytic metastatic disease is similar to previous. Electronically signed by: Dre Vaca M.D. 02/02/2018 9:51 AM Dictated Date/Time: 02/02/2018 9:48 AM Assessment & Plan Plan: Continue follow-up with medical oncology and her primary care physician. The recheck CT of the scan showed that the subdural hematoma had resolved. She was aware of these results. Her headaches have improved denoting a response to treatment. A follow-up appointment was not given. She may call if she has any questions or concerns or if directed by medical oncology. Total Time In Follow-Up I spent 15 minutes speaking to the patient in performing examination. I spent 15 minutes reviewing information and completing this note. Copy To Calixto Johnston MD; Pro,Jamshid Joya M.D.
== END | disposition home or self-care (01) ==
LOC: C.ONC 13:37
PROVIDERS: ATTEND Physician Assistant Medical
DX: Z08 Encounter for follow-up examination after completed treatment for malignant neoplasm (principal); Z92.3 Personal history of irradiation; Z85.3 Personal history of malignant neoplasm of breast

== ENCOUNTER → 2018-03-13 | Outpatient (CLI) | payer OTHER ==
[~2018-03-13] MED LIST changes: -MELA1TAB48 PO
[2018-03-13 13:09] LABS: BASO % 0.5 %; BASO ABS # 0.03 K/uL (0-0.2); EOS ABS # 0.06 K/uL (0-0.5); HEMATOCRIT 34.2 % (37-47); HEMOGLOBIN 11.3 g/dL (12.0-16.0); IG# 0.07 K/uL (0.00-0.02); LYMPH % 15.3 %; LYMPH ABS # 0.92 K/uL (1.2-3.4); MEAN CELL VOLUME 90.7 fL (80-100); MEAN PLATELET VOLUME 11.3 fL (7.4-10.4); MONO % 9.2 %; MONO ABS # 0.55 K/uL (0.11-0.59); NEUT % 72.8 %; NEUT ABS # 4.37 K/uL (1.4-6.5); PLATELET COUNT 244 K/uL (130-400); RED CELL DISTRIBUTION WIDTH CV 19.4 % (11.5-14.5); RED CELL DISTRIBUTION WIDTH SD 63.7 fL (36.4-46.3)
[2018-03-13 13:28] LABS: ALBUMIN 3.7 gm/dl (3.4-5.0); ALT/SGPT 21 U/L (12-78); AST/SGOT 32 U/L (15-37); BLOOD UREA NITROGEN 12 mg/dl (7-18); CALCIUM 8.7 mg/dl (8.5-10.1); CARBON DIOXIDE 22 mmol/L (21-32); CREATININE 1.16 mg/dl (0.60-1.20); GLUCOSE 92 mg/dl (70-99); POTASSIUM 4.5 mmol/L (3.5-5.1); SODIUM 138 mmol/L (136-145)
[2018-03-13 13:35] LABS: ALKALINE PHOSPHATASE 444 U/L (45-117); TOTAL PROTEIN 6.8 gm/dl (6.4-8.2)
== END | disposition home or self-care (01) ==
LOC: C.LABCCP 12:03
PROVIDERS: ATTEND Internal Medicine Hematology & Oncology
DX: C50.411 Malignant neoplasm of upper-outer quadrant of right female breast (principal)

== ENCOUNTER 2018-03-20 12:10 | Emergency (ER) | payer OTHER ==
[~2018-03-20] VITALS: Ht 157.5 cm; Wt 68.5 kg
[2018-03-20] MEDS ORDERED: ONDANSETRON INJ 2 MG/ML 2 ML VIAL IV STA (12:36)
[2018-03-20] MEDS ORDERED: SODIUM CHLORIDE 0.9% 1000ML 1,000 ML IV STA (12:36)
--- NOTE | 2018-03-20 12:43 | EMERGENCY ROOM VISIT NOTE ---
History Report prepared by Diana: Talib Jones Under the Supervision of: Dr. Jamshid Alcazar D.O. First contact with patient: 12:27 Chief Complaint: ILLNESS Stated Complaint: ILL - CANCER PT History of Present Illness The patient is a 62 year old female who presents to the Emergency Room with complaints of persistent weakness and illness for the past week. The patient states that she has a history of breast cancer that metastasized to her back and skull, and she states that she has an LVAD. The patient states that she had to stop doing chemotherapy a few weeks ago since she was unable to handle it. The patient reports that she has been unable to eat or drink recently other then an Ensure per day. She states that she has been nauseous and dry heaving, and she has been having some abdominal pain. The patient denies any diarrhea, fever, leg swelling, chest pain, shortness of breath, and headache. She reports that she was recently put on a new type of sleeping pill, and she states that she took two last night, and she only was able to get three hours of sleep. She notes that she has been taking Zofran for her nausea which has helped, and she last took it around 0930 this morning. She has a history of a tubal ligation though no other abdominal surgeries. Source of History: patient Onset: the past week Position: other (generalized) Quality: other (weakness) Timing: other (persistent) Associated Symptoms: + nausea, + abdominal pain, No fevers, No headache, No chest pain, No SOB, No diarrhea Note: Associated symptoms: dry heaving Review of Systems See HPI for pertinent positives & negatives. A total of 10 systems reviewed and were otherwise negative. Past Medical & Surgical Medical Problems: (1) Acute on chronic systolic heart failure (2) Anemia (3) Anxiety (4) Atrial fibrillation (5) Breast cancer (6) Cardiac defibrillator in situ (7) Cardiomyopathy (8) CHF (congestive heart failure) (9) Congestive rheumatic heart failure (10) Depression (11) Elevated troponin (12) History of - tubal ligation (13) [id number] (14) Implantation of internal cardiac defibrillator (15) Lumpectomy of breast (16) LVAD (left ventricular assist device) present (17) Osteopenia (18) Sarcoidosis Surgical Problems: (1) History of cholecystectomy Family History Cancer Hypertension Lung disease Social History Smoking Status: Never Smoker Alcohol Use: none Drug Use: none Marital Status: Housing Status: lives with family Occupation Status: disabled Current/Historical Medications Scheduled Amiodarone Hcl (Amiodarone Hcl), 100 MG PO DAILY Aspirin (Aspirin Ec), 81 MG PO QD Calcium Carbonate (Calcium 600), 600 MG PO DAILY Carvedilol (Coreg), 6.25 MG PO BIDM Cefadroxil (Duricef), 500 MG PO BID Cholecalciferol (Vitamin D), 1,000 UNITS PO DAILY Fentanyl (Fentanyl), 12 MCG TOP Q72H Ferrous Sulfate (Ferrous Sulfate), 325 MG PO DAILY Magnesium Oxide (Mag-Ox), 400 MG PO DAILY Melatonin-Pyridoxine (Melatonin), 3 TAB PO HS Polyethylene Glycol 3350 (Miralax), 17 GM PO DAILY Potassium Chloride Microencaps (Potassium Chloride Er), 20 MEQ PO BID Prochlorperazine Maleate (Compazine), 1 TAB PO Q6 Quetiapine Fumarate (Seroquel), 1 TAB PO HS Sertraline Hcl (Zoloft), 50 MG PO DAILY Simvastatin (Zocor), 20 MG PO DAILY Spironolactone (Aldactone), 25 MG PO HS Temazepam (Temazepam), 15 MG PO HS Warfarin Sod (Jantoven), 4 MG PO Q2D Warfarin Sodium (Warfarin Sodium), 3 MG PO Q2D Scheduled PRN Amoxicillin (Amoxil), 2,000 MG PO UD PRN for Prior to Dental Appointments Ondansetron Hcl (Zofran), 4 MG PO Q8 PRN for Nausea Oxycodone HCl (Oxycodone HCl), 5 MG PO Q6 PRN for Pain Prochlorperazine Maleate (Prochlorperazine Maleate), 1 TAB PO for Nausea Promethazine (Phenergan ), 12.5 MG PO Q6H PRN for Nausea or Vomiting Triamcinolone Acet (Aristocort 0.1%), 1 APPLN TOP DIRECTED PRN for Affected Skin Folds Allergies Coded Allergies: No Known Allergies (Unverified , 03/20/18) Physical Exam Vital Signs Date Time Temp Pulse Resp B/P (MAP) Pulse Ox O2 Delivery O2 Flow Rate FiO2 03/20/18 17:33 36.6 85 20 124/99 94 03/20/18 17:20 85 20 124/99 03/20/18 16:30 Room Air 03/20/18 15:50 90 17 94 03/20/18 15:45 90 15 97 03/20/18 15:40 90 17 99 03/20/18 15:35 90 23 99 03/20/18 15:30 91 18 97 03/20/18 15:25 89 20 99 03/20/18 15:20 88 17 98 03/20/18 15:15 89 16 96 03/20/18 15:10 89 17 99 03/20/18 15:05 88 13 98 03/20/18 15:00 89 20 98 03/20/18 14:55 90 20 97 03/20/18 14:50 81 24 92 03/20/18 14:45 90 23 03/20/18 14:40 90 24 03/20/18 14:35 91 18 03/20/18 14:00 93 17 91 03/20/18 13:55 91 98 03/20/18 13:50 91 21 99 03/20/18 13:45 89 12 99 03/20/18 13:40 89 16 98 03/20/18 13:35 90 7 97 03/20/18 13:30 89 15 99 03/20/18 13:25 88 7 97 03/20/18 13:20 84 7 95 03/20/18 13:15 85 7 98 03/20/18 13:10 83 39 98 03/20/18 13:06 72 03/20/18 13:05 76 21 97 03/20/18 13:00 75 13 03/20/18 12:58 98 Room Air 03/20/18 12:55 81 17 03/20/18 12:53 76 03/20/18 12:20 36.6 96 20 100/77 98 Room Air Physical Exam GENERAL: Patient is awake, alert, and in no acute distress. Patient is resting comfortably and showing no signs of anxiety EYES: The conjunctivae are clear. The pupils are round and reactive. EARS, NOSE, MOUTH AND THROAT: The nose is without any evidence of any deformity. Mucous membranes are dry tongue is midline NECK: The neck is nontender and supple. RESPIRATORY: Normal respiratory effort is noted there is no evidence of wheezing rhonchi or rales CARDIOVASCULAR: LVAD hum noted. There were no heart tones detectable. GASTROINTESTINAL: The abdomen is mildly distended but soft. No guarding or rigidity. MUSCULOSKELETAL/EXTREMITIES: There is no evidence of gross deformity full range of motion is noted in the hips and shoulders SKIN: There is no obvious evidence of any rash. There are no petechiae, pallor or cyanosis noted. NEUROLOGIC: Patient is awake alert and oriented x3 Medical Decision & Procedures ER Provider Diagnostic Interpretation: Radiology results as stated below per my review and radiologist interpretation: HEAD CT NONCONTRAST CT DOSE: HISTORY: EVALUATE ALTERED MENTAL STATUS/WEAKNESS TECHNIQUE: Multiaxial CT images of the head were performed without the use of intravenous contrast. Automated exposure control was utilized for this study. A dose lowering technique was utilized adhering to the principles of ALARA. Comparison: Head CT 02/02/2018. Findings: The paranasal sinuses and right mastoid air cells are clear. There are few partially opacified left inferior mastoid air cells. Multiple calvarial metastatic lesions are again noted. These demonstrate progressive sclerosis suggestive of partially treated metastases. There is no mass, hematoma, midline shift, acute infarct. The ventricles and sulci are within normal limits. Old punctate lacunar infarcts seen within the left caudate head. This remains unchanged. Impression: No acute intracranial abnormality. Multiple metastatic calvarial lesions are again noted. Electronically signed by: Corby Camilo M.D. 03/20/2018 2:31 PM Dictated Date/Time: 03/20/2018 2:27 PM SINGLE VIEW CHEST CLINICAL HISTORY: Change in mental status. Weakness. FINDINGS: An AP, portable, upright chest radiograph is compared to study dated 12/29/2017 and correlated with chest CT dated 08/22/2017. The examination is degraded by portable technique and patient rotation. A single lead cardiac AICD is unchanged in position, as is a right subclavian central venous infusion port. The patient is status post midline sternotomy. The heart is enlarged. There is mild pulmonary vascular congestion. There is chronic elevation of right hemidiaphragm. Trace pleural effusions are suspected. Airspace opacities in the right lower lobe. No pneumothorax is seen. The skeletal structures are osteopenic. The bony thorax is grossly intact. Components of the ventricular assist device are again seen in the upper abdomen. The majority of the device appears to have been removed. IMPRESSION: 1. Cardiomegaly and AICD. There is evidence of congestive failure. 2. Trace pleural effusions are suspected. 3. Airspace opacities are noted, greatest in the right lower lung. This likely represents a component of interstitial edema. Correlate clinically for evidence of a superimposed infectious/inflammatory pneumonitis. Electronically signed by: Dre Vaca M.D. 03/20/2018 2:07 PM Dictated Date/Time: 03/20/2018 2:04 PM A[address]OMEN AND PELVIS CT WITHOUT CONTRAST CT DOSE: 1447.76 mGy.cm HISTORY: Acute nausea and weakness with generalized abdominal pain nausea and pain. History of metastatic breast cancer with diffuse osteolytic bony metastasis. Metastatic disease of the liver with lymphatic metastasis also noted. TECHNIQUE: Multiaxial CT images of the abdomen and pelvis were performed without contrast. A dose lowering technique was utilized adhering to the principles of ALARA. COMPARISON STUDY: Chest radiograph 03/20/2018, PET CT 11/20/2017. FINDINGS: Left ventricular assist device is noted along with prior median sternotomy. Heart is enlarged with coronary arterial calcifications. Pacer/AICD leads are partially imaged. Linear subsegmental bibasilar opacities suggest atelectasis/scarring. There is a trace amount of right-sided pleural fluid noted containing scattered foci of air within the pleural space with level the lung base, image 16 series 5. There is no pneumatosis or pneumoperitoneum identified. Evaluation of the solid abdominal organs is limited without the use of IV contrast. Mildly contracted gallbladder. The previously noted metastatic lesions about the liver are better seen on comparison PET CT. No intrahepatic or ductal dilation. Spleen, pancreas and adrenal glands are within normal limits. Kidneys and ureters are unremarkable. Mild wall thickening of the bladder with perivesicular stranding. Metallic devices about the bilateral adnexa. Uterus appears unremarkable. No aortic aneurysm. No bulky adenopathy of the abdomen or pelvis identified. Unchanged cystic structure of the right inguinal distribution, 3.2 x 3.1 cm abutting the femoral vasculature. There is no bowel obstruction or focal bowel wall thickening identified. Moderate stool volume of the distal sigmoid and rectum. The appendix is not seen. No large volume ascites or mesenteric inflammatory stranding. 2.5 cm fatty attenuating structure of the left anterior abdominal wall suggest lipoma. 3.3 x 2.9 cm mass of the lateral right breast noted along with asymmetric skin thickening of the right breast. Diffuse mixed osteolytic and osteoblastic skeletal metastasis redemonstrated throughout all the visualized skeletal structures. No evidence of acute pathologic fracture. IMPRESSION: 1. Right-sided breast mass redemonstrated with asymmetric right breast skin thickening suggesting spread of disease and/or posttreatment related changes. 2. Diffuse skeletal metastasis redemonstrated. The previously noted hepatic metastatic lesions are better seen on comparison PET/CT. 3. Suggested constipation without bowel obstruction or focal bowel wall thickening. 4. Trace pleural effusion with scattered foci of air within the pleural space as detailed above be secondary to recent intervention with infectious etiology also within the differential. 5. Additional findings as above. Electronically signed by: Adi Machado M.D. 03/20/2018 2:44 PM Dictated Date/Time: 03/20/2018 2:32 PM Laboratory Results 03/20/18 13:52 Red Blood Count 3.64, Mean Corpuscular Volume 89.8, Mean Corpuscular Hemoglobin 29.4, Mean Corpuscular Hemoglobin Concent 32.7, Mean Platelet Volume 10.7, Neutrophils (%) (Auto) 76.6, Lymphocytes (%) (Auto) 12.9, Monocytes (%) (Auto) 8.5, Eosinophils (%) (Auto) 0.9, Basophils (%) (Auto) 0.4, Neutrophils # (Auto) 3.50, Lymphocytes # (Auto) 0.59, Monocytes # (Auto) 0.39, Eosinophils # (Auto) 0.04, Basophils # (Auto) 0.02 03/20/18 13:52 Test 03/20/18 13:52 White Blood Count 4.57 K/uL (4.8-10.8) Red Blood Count 3.64 M/uL (4.2-5.4) Hemoglobin 10.7 g/dL (12.0-16.0) Hematocrit 32.7 % (37-47) Mean Corpuscular Volume 89.8 fL (80-100) Mean Corpuscular Hemoglobin 29.4 pg (25-34) Mean Corpuscular Hemoglobin Concent 32.7 g/dl (32-36) Platelet Count 149 K/uL (130-400) Mean Platelet Volume 10.7 fL (7.4-10.4) Neutrophils (%) (Auto) 76.6 % Lymphocytes (%) (Auto) 12.9 % Monocytes (%) (Auto) 8.5 % Eosinophils (%) (Auto) 0.9 % Basophils (%) (Auto) 0.4 % Neutrophils # (Auto) 3.50 K/uL (1.4-6.5) Lymphocytes # (Auto) 0.59 K/uL (1.2-3.4) Monocytes # (Auto) 0.39 K/uL (0.11-0.59) Eosinophils # (Auto) 0.04 K/uL (0-0.5) Basophils # (Auto) 0.02 K/uL (0-0.2) RDW Standard Deviation 60.7 fL (36.4-46.3) RDW Coefficient of Variation 18.2 % (11.5-14.5) Immature Granulocyte % (Auto) 0.7 % Immature Granulocyte # (Auto) 0.03 K/uL (0.00-0.02) Prothrombin Time 31.4 SECONDS (9.0-12.0) Prothromb Time International Ratio 3.1 (0.9-1.1) Activated Partial Thromboplast Time 66.4 SECONDS (21.0-31.0) Partial Thromboplastin Ratio 2.6 Anion Gap 6.0 mmol/L (3-11) Est Creatinine Clear Calc Drug Dose 48.2 ml/min Estimated GFR () 63.5 Estimated GFR (Non- 54.8 BUN/Creatinine Ratio 13.1 (10-20) Calcium Level 8.5 mg/dl (8.5-10.1) Phosphorus Level 3.4 mg/dl (2.5-4.9) Magnesium Level 2.1 mg/dl (1.8-2.4) Total Bilirubin 0.9 mg/dl (0.2-1) Direct Bilirubin 0.3 mg/dl (0-0.2) Aspartate Amino Transf (AST/SGOT) 28 U/L (15-37) Alanine Aminotransferase (ALT/SGPT) 21 U/L (12-78) Alkaline Phosphatase 343 U/L (45-117) Troponin I < 0.015 ng/ml (0-0.045) Total Protein 6.1 gm/dl (6.4-8.2) Albumin 3.6 gm/dl (3.4-5.0) Lipase 289 U/L (73-393) Thyroid Stimulating Hormone (TSH) 1.310 uIu/ml (0.300-4.500) Laboratory results per my review. Medications Administered Medications (Trade) Dose Ordered Sig/Piedad Route Start Time Stop Time Status Last Admin Dose Admin Ondansetron HCl (Zofran Inj) 4 mg NOW STAT IV 03/20/18 12:36 03/20/18 12:38 DC 03/20/18 14:29 4 MG Sodium Chloride 1,000 ml @ 999 mls/hr Q1H1M STAT IV 03/20/18 12:36 03/20/18 13:36 DC 03/20/18 14:29 999 MLS/HR Prochlorperazine Maleate (Compazine Tab) 10 mg ONE STAT PO 03/20/18 16:53 03/20/18 16:54 DC 03/20/18 17:23 10 MG Quetiapine Fumarate (seroQUEL TAB) 25 mg 1653 STAT PO 03/20/18 16:53 03/20/18 17:03 DC 03/20/18 17:24 25 MG ECG Per My Interpretation Indication: weakness Rate (beats per minute): 76 Rhythm: normal sinus Findings: ST depression (Lateral), T-wave inversion, no ectopy Comparison ECG Date: 12/29/17 Change: no significant change ED Course 1227: The patient was evaluated in room B6. A complete history and physical examination were performed. 1236: NSS 1,000 ml @ 999 mls/hr IV, Zofran 4mg IV 1457: I reevaluated the patient, and she does not want to go since she has not been able to eat in weeks. 1507: I discussed the patient's case with Dr. Johnston - Hematology/Oncology, and he says that if the patient is feeling that bad then she could be evaluated by the hospitalist. 1524: I reevaluated the patient, and she was doing okay. 1550: I discussed the patient with Dr. Camden Boateng [facility] [place] Hospitalist. She will evaluate the patient for further treatment. 1653: Compazine 10mg PO, Seroquel tab 25mg PO Medical Decision Differential diagnosis: Etiologies such as gastroenteritis, food borne illness, infections, appendicitis , diverticulitis, inflammatory bowel disease, obstruction, GI bleed, biliary pathology, as well as others were entertained. Nursing notes reviewed. The patient is a 62-year-old female who presented to the emergency department for an evaluation of generalized weakness and inability to eat. The patient also has been noticing nausea. She has metastatic breast cancer. The patient was evaluated in the emergency department and treated with IV fluids. She was also given IV anti-medics. The patient's condition was pretty significant and she had very severe nausea at times. I discussed her case with her primary oncologist. Because of her ongoing symptoms I also discussed this case with the on-call cindy Lancaster hospitalist. They have agreed to evaluate the patient in the emergency department for further management and disposition. Medication Reconcilliation Current Medication List: was personally reviewed by me Blood Pressure Screening Patient's blood pressure: Normal blood pressure Consults Time Called: 1457 Consulting Physician: Dr. Johnston - Hematology/Oncology Returned Call: 1507 I discussed the patient's case with Dr. Johnston - Hematology/Oncology, and he says that if the patient is feeling that bad then she could be evaluated by the hospitalist. Additional Consults: Time Called: 1524 Consulted Physician: Dr. Camden BLAS Hospitalist Returned Call: 1550 Additional Comments: I discussed the patient with Dr. Camden BLAS Hospitalist. She will evaluate the patient for further treatment. Impression Primary Impression: Weakness Additional Impressions: Constipation Nausea Metastatic breast cancer Scribe Attestation The scribe's documentation has been prepared under my direction and personally reviewed by me in its entirety. I confirm that the note above accurately reflects all work, treatment, procedures, and medical decision making performed by me. Departure Information Dispostion Being Evaluated By Hospitalist Prescriptions Quetiapine Fumarate (SEROQUEL) 25 Mg Tab 1 TAB PO HS for 30 Days, #30 TAB 0 Refills Prov: Ofe Walsh PA-C 03/20/18 Prochlorperazine Maleate (COMPAZINE) 10 Mg Tab 1 TAB PO Q6 for 30 Days, #3012 TAB 0 Refills Prov: Ofe Walsh PA-C 03/20/18 Polyethylene Glycol 3350 (MIRALAX) 1 Pow Pow 17 GM PO DAILY for 30 Days, #510 GM Prov: Ofe Walsh PA-C 03/20/18 Referrals Pro,Jamshid W., M.D. (PCP) Patient Instructions My [facility] Problem Qualifiers Additional Impressions: Constipation Constipation type: unspecified constipation type Qualified Codes: K59.00 - Constipation, unspecified
[2018-03-20 12:58] VITALS: O2SAT 98
[2018-03-20 13:58] LABS: BASO % 0.4 %; BASO ABS # 0.02 K/uL (0-0.2); EOS % 0.9 %; EOS ABS # 0.04 K/uL (0-0.5); HEMATOCRIT 32.7 % (37-47); HEMOGLOBIN 10.7 g/dL (12.0-16.0); IG# 0.03 K/uL (0.00-0.02); LYMPH % 12.9 %; LYMPH ABS # 0.59 K/uL (1.2-3.4); MEAN CELL VOLUME 89.8 fL (80-100); MEAN CORPUSCULAR HEMOGLOBIN 29.4 pg (25-34); MEAN CORPUSCULAR HGB CONC 32.7 g/dl (32-36); MEAN PLATELET VOLUME 10.7 fL (7.4-10.4); MONO % 8.5 %; MONO ABS # 0.39 K/uL (0.11-0.59); NEUT % 76.6 %; PLATELET COUNT 149 K/uL (130-400); RED CELL DISTRIBUTION WIDTH CV 18.2 % (11.5-14.5); RED CELL DISTRIBUTION WIDTH SD 60.7 fL (36.4-46.3); WHITE BLOOD COUNT 4.57 K/uL (4.8-10.8)
--- NOTE | 2018-03-20 14:08 | DIAGNOSTIC IMAGING REPORT ---
SINGLE VIEW CHEST CLINICAL HISTORY: Change in mental status. Weakness. FINDINGS: An AP, portable, upright chest radiograph is compared to study dated 12/29/2017 and correlated with chest CT dated 08/22/2017. The examination is degraded by portable technique and patient rotation. A single lead cardiac AICD is unchanged in position, as is a right subclavian central venous infusion port. The patient is status post midline sternotomy. The heart is enlarged. There is mild pulmonary vascular congestion. There is chronic elevation of right hemidiaphragm. Trace pleural effusions are suspected. Airspace opacities in the right lower lobe. No pneumothorax is seen. The skeletal structures are osteopenic. The bony thorax is grossly intact. Components of the ventricular assist device are again seen in the upper abdomen. The majority of the device appears to have been removed. IMPRESSION: 1. Cardiomegaly and AICD. There is evidence of congestive failure. 2. Trace pleural effusions are suspected. 3. Airspace opacities are noted, greatest in the right lower lung. This likely represents a component of interstitial edema. Correlate clinically for evidence of a superimposed infectious/inflammatory pneumonitis. Electronically signed by: Dre Vaca M.D. 03/20/2018 2:07 PM Dictated Date/Time: 03/20/2018 2:04 PM
[2018-03-20 14:23] LABS: INR 3.1 (0.9-1.1)
[2018-03-20 14:26] LABS: ALBUMIN 3.6 gm/dl (3.4-5.0); ALKALINE PHOSPHATASE 343 U/L (45-117); ALT/SGPT 21 U/L (12-78); AST/SGOT 28 U/L (15-37); BLOOD UREA NITROGEN 14 mg/dl (7-18); CALCIUM 8.5 mg/dl (8.5-10.1); CARBON DIOXIDE 24 mmol/L (21-32); CREATININE 1.07 mg/dl (0.60-1.20); GLUCOSE 91 mg/dl (70-99); LIPASE 289 U/L (73-393); PHOSPHORUS 3.4 mg/dl (2.5-4.9); POTASSIUM 4.4 mmol/L (3.5-5.1); SODIUM 137 mmol/L (136-145); TOTAL PROTEIN 6.1 gm/dl (6.4-8.2)
[2018-03-20 14:30] LABS: PTT PATIENT 66.4 SECONDS (21.0-31.0)
--- NOTE | 2018-03-20 14:33 | DIAGNOSTIC IMAGING REPORT ---
HEAD CT NONCONTRAST CT DOSE: HISTORY: EVALUATE ALTERED MENTAL STATUS/WEAKNESS TECHNIQUE: Multiaxial CT images of the head were performed without the use of intravenous contrast. Automated exposure control was utilized for this study. A dose lowering technique was utilized adhering to the principles of ALARA. Comparison: Head CT 02/02/2018. Findings: The paranasal sinuses and right mastoid air cells are clear. There are few partially opacified left inferior mastoid air cells. Multiple calvarial metastatic lesions are again noted. These demonstrate progressive sclerosis suggestive of partially treated metastases. There is no mass, hematoma, midline shift, acute infarct. The ventricles and sulci are within normal limits. Old punctate lacunar infarcts seen within the left caudate head. This remains unchanged. Impression: No acute intracranial abnormality. Multiple metastatic calvarial lesions are again noted. Electronically signed by: Corby Camilo M.D. 03/20/2018 2:31 PM Dictated Date/Time: 03/20/2018 2:27 PM
--- NOTE | 2018-03-20 14:46 | DIAGNOSTIC IMAGING REPORT ---
ABDOMEN AND PELVIS CT WITHOUT CONTRAST CT DOSE: 1447.76 mGy.cm HISTORY: Acute nausea and weakness with generalized abdominal pain nausea and pain. History of metastatic breast cancer with diffuse osteolytic bony metastasis. Metastatic disease of the liver with lymphatic metastasis also noted. TECHNIQUE: Multiaxial CT images of the abdomen and pelvis were performed without contrast. A dose lowering technique was utilized adhering to the principles of ALARA. COMPARISON STUDY: Chest radiograph 03/20/2018, PET CT 11/20/2017. FINDINGS: Left ventricular assist device is noted along with prior median sternotomy. Heart is enlarged with coronary arterial calcifications. Pacer/AICD leads are partially imaged. Linear subsegmental bibasilar opacities suggest atelectasis/scarring. There is a trace amount of right-sided pleural fluid noted containing scattered foci of air within the pleural space with level the lung base, image 16 series 5. There is no pneumatosis or pneumoperitoneum identified. Evaluation of the solid abdominal organs is limited without the use of IV contrast. Mildly contracted gallbladder. The previously noted metastatic lesions about the liver are better seen on comparison PET CT. No intrahepatic or ductal dilation. Spleen, pancreas and adrenal glands are within normal limits. Kidneys and ureters are unremarkable. Mild wall thickening of the bladder with perivesicular stranding. Metallic devices about the bilateral adnexa. Uterus appears unremarkable. No aortic aneurysm. No bulky adenopathy of the abdomen or pelvis identified. Unchanged cystic structure of the right inguinal distribution, 3.2 x 3.1 cm abutting the femoral vasculature. There is no bowel obstruction or focal bowel wall thickening identified. Moderate stool volume of the distal sigmoid and rectum. The appendix is not seen. No large volume ascites or mesenteric inflammatory stranding. 2.5 cm fatty attenuating structure of the left anterior abdominal wall suggest lipoma. 3.3 x 2.9 cm mass of the lateral right breast noted along with asymmetric skin thickening of the right breast. Diffuse mixed osteolytic and osteoblastic skeletal metastasis redemonstrated throughout all the visualized skeletal structures. No evidence of acute pathologic fracture. IMPRESSION: 1. Right-sided breast mass redemonstrated with asymmetric right breast skin thickening suggesting spread of disease and/or posttreatment related changes. 2. Diffuse skeletal metastasis redemonstrated. The previously noted hepatic metastatic lesions are better seen on comparison PET/CT. 3. Suggested constipation without bowel obstruction or focal bowel wall thickening. 4. Trace pleural effusion with scattered foci of air within the pleural space as detailed above be secondary to recent intervention with infectious etiology also within the differential. 5. Additional findings as above. Electronically signed by: Adi Machado M.D. 03/20/2018 2:44 PM Dictated Date/Time: 03/20/2018 2:32 PM
[2018-03-20] MEDS ORDERED: TEMA7.5C13 PO (14:50)
[2018-03-20] MEDS ORDERED: WARF4TAB8 PO (14:50)
[2018-03-20] MEDS ORDERED: PROC10TA5 PO (14:50)
[2018-03-20] MEDS ORDERED: MELA3TAB7 PO (14:50)
[2018-03-20] MEDS ORDERED: MAGN400T6 PO (14:50)
[2018-03-20] MEDS ORDERED: PROM12.57 PO (14:50)
[2018-03-20 16:30] VITALS: Ht 157.5 cm; Wt 68.5 kg
[2018-03-20] MEDS ORDERED: QUETIAPINE FUMARATE 200 MG TAB PO STA (16:53)
[2018-03-20] MEDS ORDERED: PROCHLORPERAZINE MALEATE 10 MG TAB PO STA (16:53)
[2018-03-20] MEDS ORDERED: QUETIAPINE FUMARATE 25 MG TAB PO STA (16:53)
[2018-03-20] MEDS ORDERED: PROC10TA PO (17:18)
[2018-03-20] MEDS ORDERED: QUET1TAB91 PO (17:18)
[2018-03-20] MEDS ORDERED: POLY335019 PO (17:18)
--- NOTE | 2018-03-20 17:20 | Medical Consult ---
Consultation Date of Consultation: March 20, 2018. Attending Physician: History of Present Illness This is a 62 yo F with PMHx of LVAD most recently replaced March 2018, breast cancer with metastasis to liver, multiple areas of skeletal involvement who recently stopped chemotherapy as she was unable to tolerate, anemia, chronically elevated alk phos who presented to the ER with decreased appetite x 1 week, and ongoing nausea with dry heaves. Zofran has been controlling this but not optimally. She has not tried any other agent for nausea. She has been tolerating 1 can of Ensure daily but other than this minimal intake. She has previously trailed marinol however this caused significant nightmares and stopped taking it after a trial of 3 days. She has been using temazepam for sleep and took a total of 15 mg last evening which seemed to only help slightly. She has also tried melatonin in the past. Pts main complaint is the inability to get a full nights sleep and feels exhausted. Her is present at bedside and confirms this. Discussion was held regarding initiating seroquel 25 mg for sleep and also for appetite stimulation. She may continue to take temazepam 7.5 mg HS as well, and if wakes up in the middle of the night can take another 7.5 mg tablet. She is agreeable to this as a trial. The patient has also started to follow with Dr. Schulz, palliative medicine and saw her 3 days ago to establish as a new patient. We discussed seeing her within the next week for medication adjustments. As for nausea, we discussed adding compazine 10 mg PO tabs to her regimen. The patient may alternate between taking this with zofran. Past Medical/Surgical History Medical Problems: (1) Acute on chronic systolic heart failure (2) Anemia (3) Anxiety (4) Atrial fibrillation (5) Breast cancer (6) Cardiac defibrillator in situ (7) Cardiomyopathy (8) CHF (congestive heart failure) (9) Congestive rheumatic heart failure (10) Depression (11) Elevated troponin (12) History of - tubal ligation (13) [id number] (14) Implantation of internal cardiac defibrillator (15) Lumpectomy of breast (16) LVAD (left ventricular assist device) present (17) Osteopenia (18) Sarcoidosis Surgical Problems: (1) History of cholecystectomy Family History Cancer Hypertension Lung disease Social History Smoking Status: Never Smoker Drug Use: none Marital Status: Housing Status: lives with family Occupation Status: disabled Allergies Coded Allergies: No Known Allergies (Unverified , 03/20/18) Review of Systems Constitutional: No fever, sweats or chills Eyes: No diplopia, no worsening or blurred vision ENT: normal hearing, no trouble swallowing Respiratory: No cough, sputum, dyspnea at rest or on exertion Cardiovascular: No chest pain, tightness or palpitations Abdomen: See HPI. last bm was several days ago. Musculoskeletal: No joint pain, calf pain, swelling Physical Exam Date Time Temp Pulse Resp B/P (MAP) Pulse Ox O2 Delivery O2 Flow Rate FiO2 03/20/18 16:30 Room Air 03/20/18 15:50 90 17 94 03/20/18 15:45 90 15 97 03/20/18 15:40 90 17 99 03/20/18 15:35 90 23 99 03/20/18 15:30 91 18 97 03/20/18 15:25 89 20 99 03/20/18 15:20 88 17 98 03/20/18 15:15 89 16 96 03/20/18 15:10 89 17 99 03/20/18 15:05 88 13 98 03/20/18 15:00 89 20 98 03/20/18 14:55 90 20 97 03/20/18 14:50 81 24 92 03/20/18 14:45 90 23 03/20/18 14:40 90 24 03/20/18 14:35 91 18 03/20/18 14:00 93 17 91 03/20/18 13:55 91 98 03/20/18 13:50 91 21 99 03/20/18 13:45 89 12 99 03/20/18 13:40 89 16 98 03/20/18 13:35 90 7 97 03/20/18 13:30 89 15 99 03/20/18 13:25 88 7 97 03/20/18 13:20 84 7 95 03/20/18 13:15 85 7 98 03/20/18 13:10 83 39 98 03/20/18 13:06 72 03/20/18 13:05 76 21 97 03/20/18 13:00 75 13 03/20/18 12:58 98 Room Air 03/20/18 12:55 81 17 03/20/18 12:53 76 03/20/18 12:20 36.6 96 20 100/77 98 Room Air General: awake, alert, no acute distress Head: Normocephalic, atraumatic, + alopecia ENT: PERRL, EOMI, no pharyngeal exudate, no oral candidiasis, no mucositis, mucous membranes moist, + lesion over upper left lip Chest: Clear to auscultation, on room air, no adventitious breath sounds Cardiac: LVAD in place, continuous mechanical hum, no peripheral pulses Abdominal: NABS x 4 quadrants, + drive wire inserted in the RLQ, surrounding area free from erythema, soft, nontender to palpation, no rebound, guarding or tenderness Extremities: Normal inspection, no peripheral edema or erythema, calfs nontender to palpation Psych: Normal mood and affect, slightly anxious Neuro: AAO x 3, speech is clear Laboratory Results Last 24 Hours Test 03/20/18 13:52 White Blood Count 4.57 K/uL Red Blood Count 3.64 M/uL Hemoglobin 10.7 g/dL Hematocrit 32.7 % Mean Corpuscular Volume 89.8 fL Mean Corpuscular Hemoglobin 29.4 pg Mean Corpuscular Hemoglobin Concent 32.7 g/dl Platelet Count 149 K/uL Mean Platelet Volume 10.7 fL Neutrophils (%) (Auto) 76.6 % Lymphocytes (%) (Auto) 12.9 % Monocytes (%) (Auto) 8.5 % Eosinophils (%) (Auto) 0.9 % Basophils (%) (Auto) 0.4 % Neutrophils # (Auto) 3.50 K/uL Lymphocytes # (Auto) 0.59 K/uL Monocytes # (Auto) 0.39 K/uL Eosinophils # (Auto) 0.04 K/uL Basophils # (Auto) 0.02 K/uL RDW Standard Deviation 60.7 fL RDW Coefficient of Variation 18.2 % Immature Granulocyte % (Auto) 0.7 % Immature Granulocyte # (Auto) 0.03 K/uL Prothrombin Time 31.4 SECONDS Prothromb Time International Ratio 3.1 Activated Partial Thromboplast Time 66.4 SECONDS Partial Thromboplastin Ratio 2.6 Sodium Level 137 mmol/L Potassium Level 4.4 mmol/L Chloride Level 106 mmol/L Carbon Dioxide Level 24 mmol/L Anion Gap 6.0 mmol/L Blood Urea Nitrogen 14 mg/dl Creatinine 1.07 mg/dl Est Creatinine Clear Calc Drug Dose 48.2 ml/min Estimated GFR () 63.5 Estimated GFR (Non- 54.8 BUN/Creatinine Ratio 13.1 Random Glucose 91 mg/dl Calcium Level 8.5 mg/dl Phosphorus Level 3.4 mg/dl Magnesium Level 2.1 mg/dl Total Bilirubin 0.9 mg/dl Direct Bilirubin 0.3 mg/dl Aspartate Amino Transf (AST/SGOT) 28 U/L Alanine Aminotransferase (ALT/SGPT) 21 U/L Alkaline Phosphatase 343 U/L Troponin I < 0.015 ng/ml Total Protein 6.1 gm/dl Albumin 3.6 gm/dl Lipase 289 U/L Thyroid Stimulating Hormone (TSH) 1.310 uIu/ml Assessment & Plan This is a 62 yo F with PMHx of LVAD most recently replaced March 2018, breast cancer with metastasis to liver, multiple areas of skeletal involvement who recently stopped chemotherapy as she was unable to tolerate, anemia, chronically elevated alk phos who presented to the ER with decreased appetite x 1 week, and ongoing nausea with dry heaves. Zofran has been controlling this but not optimally. She has not tried any other agent for nausea. She has been tolerating 1 can of Ensure daily but other than this minimal intake. She has previously trailed marinol however this caused significant nightmares and stopped taking it after a trial of 3 days. She has been using temazepam for sleep and took a total of 15 mg last evening which seemed to only help slightly. She has also tried melatonin in the past. Pts main complaint is the inability to get a full nights sleep and feels exhausted. Her is present at bedside and confirms this. Thank you for administering fluids and antiemetics while in the ER. Would recommend the following: Start seroquel 25 mg HS and titrate up as tolerated for sleep. Should also serve as appetite stimulator. Continue temazepam 7.5 mg HS and may take another tablet in middle of the night initially if still waking up. Follow up with Dr. Newton within 3 days preferably - continue outpatient discussion regarding hospice Start compazine 10 mg Q6H for nausea, can alternate between taking zofran 8 mg Q6H for better nausea control Start miralax 17 gm daily for constipation. Continue using stool softener daily. You may also use dulcolax suppository once daily if no BM in the next 48 hours. Drink 1-2 bottles of Ensure daily until your appetite improves. Thank you for involving us in the consultation of Mrs. Robertson, please do not hesitate to call with questions or concerns. History Patient seen and examined, chart reviewed, case discussed with MIKE Walsh and I agree with her assessment and plan as documented above. Briefly, patient is a 62yo female with history of metastatic breast cancer, s/p LVAD presenting with decrease appetite, nausea and dry heaves. She is also complaining of poor sleep. On physical exam patient is afebrile, HD stable. She is chronically ill appearing. HEENT unremarkable. LVAD in place, CV with mechanical hum, Lungs CTA, Abdomen with drive shaft present, no bleeding/erythema or edema, Ext warm. Labs and images reviewed. Patient with no electrolyte abnormality. No evidence of ADRYAN. Chronic AP elevation. Assessment and Plan: 62yo female with metastatic breast cancer presenting with nausea, dry heaves, poor sleep and constipation. Patient does not require hospitalization at this time. We will start Seroquel 25mg po qHS for sleep and appetite stimulation. If this helps her symptoms it may be increased. Compazine in addition Zofran for nausea. Miralax for constipation.
[2018-03-20 17:33] VITALS: BP 124/99; PULSE 85; TEMP 36.6; O2SAT 94
== END 2018-03-20 17:34 | disposition home or self-care (01) ==
LOC: C.EDB 12:11
DX: R53.1 Weakness (principal); R11.0 Nausea; C50.411 Malignant neoplasm of upper-outer quadrant of right female breast; C79.51 Secondary malignant neoplasm of bone; K59.00 Constipation, unspecified; Z79.01 Long term (current) use of anticoagulants; Z79.82 Long term (current) use of aspirin; Z79.899 Other long term (current) drug therapy; I42.9 Cardiomyopathy, unspecified; M85.80 Other specified disorders of bone density and structure, unspecified site; F32.9 Major depressive disorder, single episode, unspecified

== ENCOUNTER 2018-05-28 13:36 | Emergency (ER) | payer OTHER ==
[~2018-05-28] VITALS: Ht 157.5 cm; Wt 69.0 kg
[~2018-05-28 13:36] MED LIST changes: -BUME1TAB45 PO; +DIAZ10TA PO; -DIPH-437 PO; -DRGTP12 TOP; -DXM/4 PO; -FERR325T5 PO; +METH5TAB4 PO; -ONDA4TAB46 PO; +PROM12.57 PO; +SPIR25TA5 PO; -SPIR25TA89 PO; +WARF4TAB8 PO; +ZOLP10TA PO
[2018-05-28 13:37] VITALS: TEMP 36.4; Ht 157.5 cm; Wt 69.0 kg
[2018-05-28] MEDS ORDERED: MoRPHine SULFATE 4 MG/ML 1 ML CARP\\VIAL IV STA ×2 (13:50→17:30)
[2018-05-28] MEDS ORDERED: SODIUM CHLORIDE 0.9% 500ML 500 ML IV STA (13:50)
[2018-05-28] MEDS ORDERED: ACETAMINOPHEN 325 MG TAB PO STA (13:50)
[2018-05-28] MEDS ORDERED: OPTIRAY 320 IV PRN (14:00)
--- NOTE | 2018-05-28 14:01 | EMERGENCY ROOM VISIT NOTE ---
History Report prepared by Diana: Tammy Davis Under the Supervision of: Dr. Tomi Blevins M.D. First contact with patient: 13:42 Chief Complaint: FALL Stated Complaint: FALL,BACK PAIN History of Present Illness The patient is a 62 year old white female with a past medical history of LVAD and breast cancer who presents to the ED with a cc of persistent lower back pain beginning 3 weeks ago. She notes she passed out and fell, landing on her back, and is now experiencing severe pain. She denies pain aside from her back and notes she is not having any issues with her LVAD. Her reports she had an episode of syncope and fall 4 weeks ago, 1 week before the second fall that led to her current symptoms. The patient notes her pain is slightly relieved by resting, and oxycodone has not relived her symptoms. She denies any urinary symptoms. The patient notes she takes Coumadin daily and sees Dr. Contreras as her PCP. She states she sees Dr. Ramos, [facility] apartment locator, and Dr. Deshpande, [facility] apartment locator. Source of History: patient, spouse/significant other () Onset: 3 weeks ago Position: back (lower) Symptom Intensity: severe Timing: other (persistent) Modifying Factors (Relieving): rest, other (not relieved by oxycodone) Associated Symptoms: No urinary symptoms Note: Denies: issues with LVAD Review of Systems See HPI for pertinent positives and negatives. A total of ten systems were reviewed and were otherwise negative. Past Medical & Surgical Medical Problems: (1) Acute on chronic systolic heart failure (2) Anemia (3) Anxiety (4) Atrial fibrillation (5) Breast cancer (6) Cardiac defibrillator in situ (7) Cardiomyopathy (8) CHF (congestive heart failure) (9) Congestive rheumatic heart failure (10) Depression (11) Elevated troponin (12) History of - tubal ligation (13) [id number] (14) Implantation of internal cardiac defibrillator (15) Lumpectomy of breast (16) LVAD (left ventricular assist device) present (17) Osteopenia (18) Sarcoidosis Surgical Problems: (1) History of cholecystectomy Family History Cancer Hypertension Lung disease Social History Smoking Status: Never Smoker Alcohol Use: none Drug Use: none Marital Status: Housing Status: lives with family Occupation Status: disabled Current/Historical Medications Scheduled Amiodarone Hcl (Amiodarone Hcl), 100 MG PO DAILY Aspirin (Aspirin Ec), 81 MG PO QD Calcium Carbonate (Calcium 600), 600 MG PO DAILY Cefadroxil (Duricef), 500 MG PO BID Cholecalciferol (Vitamin D), 1,000 UNITS PO DAILY Potassium Chloride Microencaps (Potassium Chloride Er), 20 MEQ PO BID Sertraline Hcl (Zoloft), 50 MG PO DAILY Simvastatin (Zocor), 20 MG PO DAILY Tramadol Hcl (Ultram), 50 MG PO Q6H Warfarin Sod (Jantoven), 4 MG PO Q2D Warfarin Sodium (Warfarin Sodium), 3 MG PO Q2D Zolpidem Tartrate (Ambien), 5 MG PO HS Scheduled PRN Amoxicillin (Amoxil), 2,000 MG PO UD PRN for Prior to Dental Appointments Lorazepam (Ativan), 0.5 MG PO Q6H PRN for Anxiety Oxycodone HCl (Oxycodone HCl), 5 MG PO DAILY PRN for Pain Triamcinolone Acet (Aristocort 0.1%), 1 APPLN TOP DIRECTED PRN for Affected Skin Folds Allergies Coded Allergies: No Known Allergies (Unverified , 05/28/18) Physical Exam Vital Signs Date Time Temp Pulse Resp B/P (MAP) Pulse Ox O2 Delivery O2 Flow Rate FiO2 05/28/18 18:11 90 12 98 05/28/18 16:56 89 16 94 Room Air 05/28/18 15:21 88 12 98 Room Air 05/28/18 15:07 92 05/28/18 14:57 90 18 96 Room Air 05/28/18 14:52 96 Room Air 05/28/18 13:37 36.4 108 18 98 Room Air Physical Exam GENERAL: Awake, alert, well-appearing, NAD HENT: Normocephalic, atraumatic. EYES: Normal conjunctiva. Sclera non-icteric. PERRL. No anisocoria. NECK: Supple. No nuchal rigidity. FROM. RESPIRATORY: CTAB, no rhonchi, wheezing, crackles CARDIAC: Constant whirring noted over all portions of the chest. Port in R chest. Device in L chest, midline sternotomy scar noted, well healed ABDOMEN: Soft, NTND, BS+. Driveline in R lower abdomen, dressed and appears CDI. MSK: No chest wall TTP, no LE edema. Midline and paraspinal lower back pain, no overlying skin changes. Lidoderm patch in lower thoracic region NEURO: GCS 15, CN 2-12 intact, moves all 4s on command SKIN: No rash or jaundice noted. Medical Decision & Procedures ER Provider Diagnostic Interpretation: Radiology results as stated below per my review and radiologist interpretation: CT SCAN OF THE CHEST, ABDOMEN, AND PELVIS WITH IV CONTRAST CLINICAL HISTORY: Fall. Back pain. COMPARISON STUDY: PET/CT dated 03/28/2018. Chest CT dated 08/22/2017. Abdominal CT dated 03/20/2018. TECHNIQUE: Following the IV administration of 117 of Optiray 320, CT scan of the chest, abdomen, and pelvis was performed from the thoracic inlet to the proximal femora. Images are reviewed in the axial, sagittal, and coronal planes. IV contrast was administered without complication. Automated dose control exposure was utilized. A dose lowering technique was utilized adhering to the principles of ALARA. CT DOSE: 701.24 mGy.cm FINDINGS: CHEST: Thyroid: The left lobe of the thyroid gland is enlarged and heterogeneous. Thoracic aorta: There is mild atherosclerotic calcification of the thoracic aorta, which is normal in caliber and demonstrates bovine variant arch anatomy. No dissection is seen. A right subclavian central venous infusion port is in place. Pulmonary vasculature: The pulmonary trunk is mildly dilated suggesting pulmonary artery hypertension. There are no filling defects identified in the central pulmonary vessels to indicate pulmonary embolus. Note that this examination was not protocoled for evaluation of the pulmonary arteries. Heart: A cardiac pacemaker is present in the left chest wall. The patient is status post midline sternotomy. The heart is markedly enlarged and without pericardial effusion. A left ventricular assist device is noted. Lungs and pleural spaces: The examination is significantly degraded by streak artifact from a left ventricular assist device. There are small pleural effusions. There is significant scarring at the right apex and in the anterior right middle lobe with associated bronchiectasis. Additional foci of atelectasis/scarring are present in both lungs. There is a 7 mm pleural-based nodule in the right lower lobe seen on image #80. An 8 mm nodule in the left upper lobe as seen on image #113. A 7 mm right upper lobe nodule axial image #61. No pneumothorax is seen. Mediastinum: There are numerous calcified mediastinal lymph nodes. No adenopathy is seen. Nivia: There are numerous calcified hilar lymph nodes. No adenopathy is seen. Axillae: Surgical clips are noted in the right axilla. There is no axillary lymphadenopathy. Bony thorax: The skeletal structures are osteopenic. 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 There is a moderate compression deformity of T7 with evidence of previous vertebroplasty. There are numerous healed left-sided rib fractures. There are acute appearing bilateral transverse process fractures of T10 and on the right at T11. No additional acute fracture is clearly identified involving the bony thorax. There are mild and age indeterminant superior compression deformities of T1, T3, T5, and T10. Soft tissues: Postoperative change is seen in the right breast. ABDOMEN AND PELVIS: Liver: The contrast-enhanced liver is normal and heterogeneous in attenuation. There is mild lobulation of the surface contour. Ill-defined low-attenuation lesions are suggested in the right lobe (images #92, #158, #176). There is no intrahepatic or ductal dilatation. The hepatic veins and portal veins are patent. Gallbladder: Unremarkable. Spleen: The spleen is enlarged, measuring 14 cm in length. Pancreas: Moderately atrophic and grossly unremarkable. Adrenal glands: Unremarkable. Kidneys: The contrast enhanced kidneys are atrophic and without hydronephrosis. The kidneys enhance symmetrically. Abdominal vasculature: The abdominal aorta is normal in course and caliber noting mild atherosclerotic calcification. Bowel: There is mild colonic fecal retention. No bowel obstruction is seen. The appendix is not visualized. Peritoneum: There is no intraperitoneal free air or abdominal ascites. Lymphadenopathy: Prominent nodes in the thiago hepatis are again seen. The largest is seen on image #147 and measures 2.6 x 1.8 cm. Pelvic viscera: The bladder, uterus, and adnexa are normal as visualized. Surgical clips are noted in the pelvis. A 3.3 cm ovoid water attenuation structure is again seen in the right groin adjacent to surgical clips. This likely represents a seroma. Skeletal structures: The skeletal structures are osteopenic. Extensive osseous metastatic disease is noted. There is a minimal superior endplate compression deformity of L5. IMPRESSION: 1. There are changes of diffuse osseous metastatic disease. This appears to have progressed from the 03/28/2018 PET examination. 2. There are acute bilateral transverse process fractures of T10 and a right transverse process fracture of T11. These are new from 03/28/2018. 3. No additional acute fracture is clearly identified. Numerous mild compression deformities are age indeterminant. 4. Marked cardiac enlargement, left ventricular assist device, and cardiac pacemaker. These are similar to previous. 5. Small pleural effusions. 6. There are scattered pulmonary lesions as above. These appear modestly increased in size from 03/28/2018 and likely represent progressive metastatic disease. 7. Postoperative change is noted in the right breast and there are chronic changes in the right lung which are likely related to previous radiation therapy. 8. Splenomegaly. 9. The liver is heterogeneous. Low-attenuation hepatic lesions are again suggested and concerning for metastatic disease. 10. Mildly enlarged lymph nodes in the thiago hepatis are again noted. 11. Additional findings as above. Electronically signed by: Dre Vaca M.D. 05/28/2018 5:07 PM Dictated Date/Time: 05/28/2018 4:43 PM Laboratory Results 05/28/18 14:36 Red Blood Count 3.28, Mean Corpuscular Volume 92.7, Mean Corpuscular Hemoglobin 29.0, Mean Corpuscular Hemoglobin Concent 31.3, Mean Platelet Volume 10.8, Neutrophils (%) (Auto) 71.6, Lymphocytes (%) (Auto) 14.6, Monocytes (%) (Auto) 9.7, Eosinophils (%) (Auto) 1.0, Basophils (%) (Auto) 0.2, Neutrophils # (Auto) 2.95, Lymphocytes # (Auto) 0.60, Monocytes # (Auto) 0.40, Eosinophils # (Auto) 0.04, Basophils # (Auto) 0.01 05/28/18 14:36 Test 05/28/18 14:30 05/28/18 14:36 Urine Color DK YELLOW Urine Appearance CLOUDY (CLEAR) Urine pH 5.0 (4.5-7.5) Urine Specific [place] 1.033 (1.000-1.030) Urine Protein TRACE (NEG) Urine Glucose (UA) NEG (NEG) Urine Ketones NEG (NEG) Urine Occult Blood NEG (NEG) Urine Nitrite NEG (NEG) Urine Bilirubin NEG (NEG) Urine Urobilinogen NEG (NEG) Urine Leukocyte Esterase SMALL (NEG) Urine WBC (Auto) 1-5 /hpf (0-5) Urine RBC (Auto) 0-4 /hpf (0-4) Urine Hyaline Casts (Auto) /lpf (0-5) Urine Epithelial Cells (Auto) 20-30 /lpf (0-5) Urine Bacteria (Auto) NEG (NEG) Urine Crystals CALCIUM OXALATE (NONE Urine Pathogenic Casts /lpf (0) White Blood Count 4.12 K/uL (4.8-10.8) Red Blood Count 3.28 M/uL (4.2-5.4) Hemoglobin 9.5 g/dL (12.0-16.0) Hematocrit 30.4 % (37-47) Mean Corpuscular Volume 92.7 fL (80-100) Mean Corpuscular Hemoglobin 29.0 pg (25-34) Mean Corpuscular Hemoglobin Concent 31.3 g/dl (32-36) Platelet Count 132 K/uL (130-400) Mean Platelet Volume 10.8 fL (7.4-10.4) Neutrophils (%) (Auto) 71.6 % Lymphocytes (%) (Auto) 14.6 % Monocytes (%) (Auto) 9.7 % Eosinophils (%) (Auto) 1.0 % Basophils (%) (Auto) 0.2 % Neutrophils # (Auto) 2.95 K/uL (1.4-6.5) Lymphocytes # (Auto) 0.60 K/uL (1.2-3.4) Monocytes # (Auto) 0.40 K/uL (0.11-0.59) Eosinophils # (Auto) 0.04 K/uL (0-0.5) Basophils # (Auto) 0.01 K/uL (0-0.2) RDW Standard Deviation 58.1 fL (36.4-46.3) RDW Coefficient of Variation 17.5 % (11.5-14.5) Immature Granulocyte % (Auto) 2.9 % Immature Granulocyte # (Auto) 0.12 K/uL (0.00-0.02) Prothrombin Time 37.7 SECONDS (9.0-12.0) Prothromb Time International Ratio 3.7 (0.9-1.1) Activated Partial Thromboplast Time 66.4 SECONDS (21.0-31.0) Partial Thromboplastin Ratio 2.6 Anion Gap 9.0 mmol/L (3-11) Est Creatinine Clear Calc Drug Dose 50.2 ml/min Estimated GFR () 66.5 Estimated GFR (Non- 57.4 BUN/Creatinine Ratio 22.0 (10-20) Calcium Level 9.4 mg/dl (8.5-10.1) Total Bilirubin 0.7 mg/dl (0.2-1) Direct Bilirubin 0.3 mg/dl (0-0.2) Aspartate Amino Transf (AST/SGOT) 52 U/L (15-37) Alanine Aminotransferase (ALT/SGPT) 14 U/L (12-78) Alkaline Phosphatase 318 U/L (45-117) Troponin I < 0.015 ng/ml (0-0.045) Total Protein 6.2 gm/dl (6.4-8.2) Albumin 3.5 gm/dl (3.4-5.0) Laboratory results reviewed by me Medications Administered Medications (Trade) Dose Ordered Sig/Piedad Route Start Time Stop Time Status Last Admin Dose Admin Sodium Chloride 500 ml @ 999 mls/hr Q31M STAT IV 05/28/18 13:50 05/28/18 14:20 DC 05/28/18 14:41 999 MLS/HR Morphine Sulfate (MoRPHine SULFATE INJ) 4 mg NOW STAT IV 05/28/18 13:50 05/28/18 13:52 DC 05/28/18 14:41 4 MG Acetaminophen (Tylenol Tab) 650 mg NOW STAT PO 05/28/18 13:50 05/28/18 13:52 DC 05/28/18 14:22 650 MG Ondansetron HCl (Zofran Inj) 4 mg NOW STAT IV 05/28/18 15:51 05/28/18 15:52 DC 05/28/18 16:00 4 MG Fentanyl Citrate (Fentanyl Inj) 50 mcg NOW ONCE IV 05/28/18 16:00 05/28/18 16:01 DC 05/28/18 16:01 50 MCG Morphine Sulfate (MoRPHine SULFATE INJ) 4 mg NOW STAT IV 05/28/18 17:30 05/28/18 17:31 DC 05/28/18 17:42 4 MG Heparin Sodium (Porcine) (Heparin 100 Unit/ml 5ml Flush) 5 ml STK-MED ONCE .ROUTE 05/28/18 18:02 05/28/18 18:03 DC 05/28/18 18:02 5 ML ECG Per My Interpretation Indication: back/shoulder pain Rate (beats per minute): 90 Rhythm: normal sinus Findings: 1st degree AV block, LBBB, Q waves (Anterior. Inferior), other (wide QRS) ED Course 1344: The patient was evaluated in room A9. A complete history and physical exam was performed. 1425: Upon reevaluation, the patient is still in pain. 1636: I reevaluated the patient and she is having some improvement of her symptoms. 1716: I discussed the case with Dr. Salgado, orthopedic surgeon. He recommends nonsurgical management and will see the patient in the office. 1722: I reevaluated the patient. Discussed results and discharge instructions: she verbalized understanding and agreement. The patient is ready for discharge. 1730: I updated Dr. Johnston, oncologist, on the patient's case. Medical Decision Nursing notes reviewed. Ancillary studies and prior records reviewed. The patient is a 62 year old white female with a past medical history of LVAD and breast cancer who presents to the ED with a cc of persistent lower back pain beginning 3 weeks ago. Etiologies such as fracture, dislocation, intra-abdominal, pneumothorax, intrathoracic , intracranial, neurologic, as well as other traumatic pathologies were entertained. Patient was seen and evaluated the bedside. Patient does have a known history of LVAD and malignancy. Patient is not receiving malignancy treatment. The patient did have a fall and then had a subsequent fall after a syncopal episode this is approximately 3 weeks ago. The patient does take Coumadin. Patient has had persistent back pain. Patient denies any saddle anesthesia or bowel or bladder incontinence or retention. Patient does have lower back pain but no evidence of any ecchymosis. Patient denies any LVAD issues and recently saw her apartment locator Dr. Deshpande last week. No concern for LVAD alarms or malfunctions and denies CP, SOB, LE swelling. Patient did have blood work along with CTs ordered. Patient was also given medications for symptom control. Patient does have chronic anemia. Patient does have some mild elevations in LFTs with improved from prior. Patient does have a known history of breast CA with liver metastases. The patient was feeling improved after 2 rounds of pain medication. INR 3.7. Patient CTs do show worsening bony metastases. Patient was also noted to have a T10 bilateral TP and T11 right-sided TP fractures. I did discuss this with Dr. Salgado the orthopedic spine surgeon who stated that he she can be seen in clinic but no operative management this time. I did inform the patient of the results. I did speak with the case management specialist in order to talk to her primary care physician to discuss pain management options. Patient was given a prescription for tramadol. Patient denies any history of brain metastases or history of seizures. Patient was counseled on precautions of taking this medication and should not be taken at the very same time as her oxycodones. I did relay this information to her primary oncologist Dr. Ca Capellan. Patient was given strict follow-up, discharge, and return precautions. All questions were answered. Patient was deemed suitable for outpatient follow-up at this time. Patient agreed with the plan of care and was safely discharged home. Medication Reconcilliation Current Medication List: was personally reviewed by me Consults Time Called: 170 Consulting Physician: Dr. Salgado, orthopedic surgeon. Returned Call: [phone]: I discussed the case with Dr. Salgado, orthopedic surgeon. He recommends nonsurgical management and will see the patient in the office. Additional Consults: Time Called: 172 Consulted Physician: Dr. Johnston, oncologist Returned Call: [phone] Additional Comments: 173: I updated Dr. Johnston, oncologist, on the patient's case. Impression Primary Impression: Multiple transverse process fractures Additional Impressions: Fall Anemia LVAD (left ventricular assist device) present Scribe Attestation The scribe's documentation has been prepared under my direction and personally reviewed by me in its entirety. I confirm that the note above accurately reflects all work, treatment, procedures, and medical decision making performed by me. Departure Information Dispostion Home / Self-Care Prescriptions Tramadol Hcl (ULTRAM) 50 Mg Tab 50 MG PO Q6H, #15 TAB PRN PAIN Prov: Tomi Blevins M.D. 05/28/18 Referrals Whitney Schulz M.D. (PCP) Forms HOME CARE DOCUMENTATION FORM, IMPORTANT VISIT INFORMATION Patient Instructions Anemia, Back Pain - [facility], [facility] Additional Instructions Please return to the emergency department if you have worsening or recurrent symptoms not amenable to at-home treatment. Please call for a follow-up appointment with her primary care physician. Please take your medications as prescribed. If you have other concerns and/or complaints please feel free to also call your primary care physician's office or return the ED for further evaluation, management, and treatment. You received narcotic or benzodiazepene medication while in the emergency room today. This is an addictive medication that may cause drowziness as well as constipation. Do not drive, operate heavy machinery, or drink alcohol under the influence of this medication. You do have transverse process fractures of T10 and T11. He may call the spinal surgeons office for follow-up. Dr. Aakash Salgado Orthopaedic surgery [address], [place] [address] [phone] You may take tylenol 650 mg every 6 hours as needed for pain/fever unless told by your physician to not take it or have liver problems. Take your medications as prescribed. If you still have discomfort you may take the tramadol medication. Please be advised that these medications are habit forming, can make you sleepy, and can cause breathing issues. Do not use if you require your full attention. Take only as prescribed. You have been examined and treated today on an emergency basis only. This is not a substitute for, or an effort to provide, complete comprehensive medical care. It is impossible to recognize and treat all injuries or illnesses in a single emergency department visit. It is therefore important that you follow up closely with [facility], your PCP, and/or your specialist(s). Call as soon as possible for an appointment. Thank you for your time and consideration. I look forward to speaking with you again soon. Please don't hesitate to call us if you have any questions. Problem Qualifiers Additional Impressions: Fall Encounter type: initial encounter Qualified Codes: W19.XXXA - Unspecified fall, initial encounter Anemia Anemia type: unspecified type Qualified Codes: D64.9 - Anemia, unspecified
[2018-05-28 14:52] VITALS: O2SAT 96
[2018-05-28 15:03] LABS: BASO % 0.2 %; BASO ABS # 0.01 K/uL (0-0.2); EOS ABS # 0.04 K/uL (0-0.5); HEMATOCRIT 30.4 % (37-47); HEMOGLOBIN 9.5 g/dL (12.0-16.0); IG# 0.12 K/uL (0.00-0.02); LYMPH % 14.6 %; MEAN CELL VOLUME 92.7 fL (80-100); MEAN CORPUSCULAR HGB CONC 31.3 g/dl (32-36); MEAN PLATELET VOLUME 10.8 fL (7.4-10.4); MONO % 9.7 %; NEUT % 71.6 %; NEUT ABS # 2.95 K/uL (1.4-6.5); PLATELET COUNT 132 K/uL (130-400); RED CELL DISTRIBUTION WIDTH CV 17.5 % (11.5-14.5); RED CELL DISTRIBUTION WIDTH SD 58.1 fL (36.4-46.3); WHITE BLOOD COUNT 4.12 K/uL (4.8-10.8)
[2018-05-28 15:33] LABS: ALBUMIN 3.5 gm/dl (3.4-5.0); ALKALINE PHOSPHATASE 318 U/L (45-117); ALT/SGPT 14 U/L (12-78); AST/SGOT 52 U/L (15-37); BLOOD UREA NITROGEN 23 mg/dl (7-18); CALCIUM 9.4 mg/dl (8.5-10.1); CARBON DIOXIDE 24 mmol/L (21-32); CREATININE 1.03 mg/dl (0.60-1.20); GLUCOSE 85 mg/dl (70-99); POTASSIUM 3.8 mmol/L (3.5-5.1); SODIUM 137 mmol/L (136-145); TOTAL PROTEIN 6.2 gm/dl (6.4-8.2)
[2018-05-28 15:39] LABS: INR 3.7 (0.9-1.1)
[2018-05-28] MEDS ORDERED: ONDANSETRON INJ 2 MG/ML 2 ML VIAL IV STA (15:51)
[2018-05-28] MEDS ORDERED: LORA-741 PO (15:56)
[2018-05-28] MEDS ORDERED: FENTANYL CITRATE INJ 50 MCG/1 ML 2 ML VIAL IV ONE (16:00)
[2018-05-28 16:06] LABS: PTT PATIENT 66.4 SECONDS (21.0-31.0)
--- NOTE | 2018-05-28 17:08 | DIAGNOSTIC IMAGING REPORT ---
CT SCAN OF THE CHEST, ABDOMEN, AND PELVIS WITH IV CONTRAST CLINICAL HISTORY: Fall. Back pain. COMPARISON STUDY: PET/CT dated 03/28/2018. Chest CT dated 08/22/2017. Abdominal CT dated 03/20/2018. TECHNIQUE: Following the IV administration of 117 of Optiray 320, CT scan of the chest, abdomen, and pelvis was performed from the thoracic inlet to the proximal femora. Images are reviewed in the axial, sagittal, and coronal planes. IV contrast was administered without complication. Automated dose control exposure was utilized. A dose lowering technique was utilized adhering to the principles of ALARA. CT DOSE: 701.24 mGy.cm FINDINGS: CHEST: Thyroid: The left lobe of the thyroid gland is enlarged and heterogeneous. Thoracic aorta: There is mild atherosclerotic calcification of the thoracic aorta, which is normal in caliber and demonstrates bovine variant arch anatomy. No dissection is seen. A right subclavian central venous infusion port is in place. Pulmonary vasculature: The pulmonary trunk is mildly dilated suggesting pulmonary artery hypertension. There are no filling defects identified in the central pulmonary vessels to indicate pulmonary embolus. Note that this examination was not protocoled for evaluation of the pulmonary arteries. Heart: A cardiac pacemaker is present in the left chest wall. The patient is status post midline sternotomy. The heart is markedly enlarged and without pericardial effusion. A left ventricular assist device is noted. Lungs and pleural spaces: The examination is significantly degraded by streak artifact from a left ventricular assist device. There are small pleural effusions. There is significant scarring at the right apex and in the anterior right middle lobe with associated bronchiectasis. Additional foci of atelectasis/scarring are present in both lungs. There is a 7 mm pleural-based nodule in the right lower lobe seen on image #80. An 8 mm nodule in the left upper lobe as seen on image #113. A 7 mm right upper lobe nodule axial image #61. No pneumothorax is seen. Mediastinum: There are numerous calcified mediastinal lymph nodes. No adenopathy is seen. Nivia: There are numerous calcified hilar lymph nodes. No adenopathy is seen. Axillae: Surgical clips are noted in the right axilla. There is no axillary lymphadenopathy. Bony thorax: The skeletal structures are osteopenic. 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 There is a moderate compression deformity of T7 with evidence of previous vertebroplasty. There are numerous healed left-sided rib fractures. There are acute appearing bilateral transverse process fractures of T10 and on the right at T11. No additional acute fracture is clearly identified involving the bony thorax. There are mild and age indeterminant superior compression deformities of T1, T3, T5, and T10. Soft tissues: Postoperative change is seen in the right breast. ABDOMEN AND PELVIS: Liver: The contrast-enhanced liver is normal and heterogeneous in attenuation. There is mild lobulation of the surface contour. Ill-defined low-attenuation lesions are suggested in the right lobe (images #92, #158, #176). There is no intrahepatic or ductal dilatation. The hepatic veins and portal veins are patent. Gallbladder: Unremarkable. Spleen: The spleen is enlarged, measuring 14 cm in length. Pancreas: Moderately atrophic and grossly unremarkable. Adrenal glands: Unremarkable. Kidneys: The contrast enhanced kidneys are atrophic and without hydronephrosis. The kidneys enhance symmetrically. Abdominal vasculature: The abdominal aorta is normal in course and caliber noting mild atherosclerotic calcification. Bowel: There is mild colonic fecal retention. No bowel obstruction is seen. The appendix is not visualized. Peritoneum: There is no intraperitoneal free air or abdominal ascites. Lymphadenopathy: Prominent nodes in the thiago hepatis are again seen. The largest is seen on image #147 and measures 2.6 x 1.8 cm. Pelvic viscera: The bladder, uterus, and adnexa are normal as visualized. Surgical clips are noted in the pelvis. A 3.3 cm ovoid water attenuation structure is again seen in the right groin adjacent to surgical clips. This likely represents a seroma. Skeletal structures: The skeletal structures are osteopenic. Extensive osseous metastatic disease is noted. There is a minimal superior endplate compression deformity of L5. IMPRESSION: 1. There are changes of diffuse osseous metastatic disease. This appears to have progressed from the 03/28/2018 PET examination. 2. There are acute bilateral transverse process fractures of T10 and a right transverse process fracture of T11. These are new from 03/28/2018. 3. No additional acute fracture is clearly identified. Numerous mild compression deformities are age indeterminant. 4. Marked cardiac enlargement, left ventricular assist device, and cardiac pacemaker. These are similar to previous. 5. Small pleural effusions. 6. There are scattered pulmonary lesions as above. These appear modestly increased in size from 03/28/2018 and likely represent progressive metastatic disease. 7. Postoperative change is noted in the right breast and there are chronic changes in the right lung which are likely related to previous radiation therapy. 8. Splenomegaly. 9. The liver is heterogeneous. Low-attenuation hepatic lesions are again suggested and concerning for metastatic disease. 10. Mildly enlarged lymph nodes in the thiago hepatis are again noted. 11. Additional findings as above. Electronically signed by: Dre Vaca M.D. 05/28/2018 5:07 PM Dictated Date/Time: 05/28/2018 4:43 PM
[2018-05-28] MEDS ORDERED: TRAM-453 PO (17:47)
[2018-05-28 18:11] VITALS: PULSE 90; O2SAT 98
== END 2018-05-28 18:12 | disposition home or self-care (01) ==
LOC: C.EDB 13:37 → C.EDA 18:12
DX: S22.079A Unspecified fracture of T9-T10 vertebra, initial encounter for closed fracture (principal); S22.088A Other fracture of T11-T12 vertebra, initial encounter for closed fracture; R16.1 Splenomegaly, not elsewhere classified; Z95.810 Presence of automatic (implantable) cardiac defibrillator; R42 Dizziness and giddiness; Z85.3 Personal history of malignant neoplasm of breast; Z79.899 Other long term (current) drug therapy; F41.9 Anxiety disorder, unspecified; F32.9 Major depressive disorder, single episode, unspecified; Z79.01 Long term (current) use of anticoagulants; Z79.82 Long term (current) use of aspirin

== ENCOUNTER 2018-06-02 15:33 | Emergency (ER) | payer OTHER ==
[~2018-06-02] VITALS: Ht 157.5 cm; Wt 76.0 kg
[~2018-06-02 15:33] MED LIST changes: -CARV6.252 PO; -DIAZ10TA PO; +LORA-741 PO; -METH5TAB4 PO; -PROM12.57 PO; -SPIR25TA5 PO; +TRAM-453 PO
[2018-06-02 15:46] VITALS: TEMP 36.7; Ht 157.5 cm; Wt 76.0 kg
--- NOTE | 2018-06-02 15:48 | EMERGENCY ROOM VISIT NOTE ---
History Report prepared by Diana: Siena Ozuna Under the Supervision of: Dr. Nichelle Leiva D.O. First contact with patient: 15:35 Chief Complaint: SHORTNESS OF BREATH Stated Complaint: SOB/LOW LEG EDEMA History of Present Illness The patient is a 62 year old female who presents to the Emergency Room with complaints of intermittent shortness of breath that started 2-3 days ago. She rates her discomfort an 8/10 in severity. The patient reports she has had an LVAD for 5 years and has not had any issues. She also complains of intermittent left sided chest pain, bilateral leg swelling, dizziness, fevers, nasal congestion, dark urine, and upset stomach. She denies chills, sore throat, or change in bowel movements. The patient reports she called Dr. Beckwith from [facility] and he recommended she come to the office. Pt denies any change in LVAD settings. Source of History: patient Onset: 2-3 days ago Position: other (lungs) Symptom Intensity: 8/10 Timing: intermittent Associated Symptoms: + fevers, + chest pain, No chills, No sorethroat Note: Also complains of bilateral leg swelling, dizziness, nasal congestion, dark urine, and upset stomach. She denies change in bowel movements. Review of Systems See HPI for pertinent positives & negatives. A total of 10 systems reviewed and were otherwise negative. Past Medical & Surgical Medical Problems: (1) Acute on chronic systolic heart failure (2) Anemia (3) Anxiety (4) Atrial fibrillation (5) Breast cancer (6) Cardiac defibrillator in situ (7) Cardiomyopathy (8) CHF (congestive heart failure) (9) Congestive rheumatic heart failure (10) Depression (11) Elevated troponin (12) History of - tubal ligation (13) [id number] (14) Implantation of internal cardiac defibrillator (15) Lumpectomy of breast (16) LVAD (left ventricular assist device) present (17) Osteopenia (18) Sarcoidosis Surgical Problems: (1) History of cholecystectomy Family History Cancer Hypertension Lung disease Social History Smoking Status: Never Smoker Alcohol Use: none Drug Use: none Marital Status: Housing Status: lives with family Occupation Status: disabled Current/Historical Medications Scheduled Amiodarone Hcl (Amiodarone Hcl), 100 MG PO DAILY Aspirin (Aspirin Ec), 81 MG PO QD Bumetanide (Bumex), 1 MG PO Q12 Cefadroxil (Duricef), 500 MG PO BID Simvastatin (Zocor), 20 MG PO DAILY Tramadol Hcl (Ultram), 50 MG PO Q6H Warfarin Sod (Jantoven), 2.5 MG PO DAILY Zolpidem Tartrate (Ambien), 5 MG PO HS Scheduled PRN Lorazepam (Ativan), 0.5 MG PO Q6H PRN for Anxiety Oxycodone Hcl (Oxycodone Hcl), 1 TAB PO QID PRN for Pain Allergies Coded Allergies: No Known Allergies (Unverified , 06/02/18) Physical Exam Vital Signs Date Time Temp Pulse Resp B/P (MAP) Pulse Ox O2 Delivery O2 Flow Rate FiO2 06/02/18 19:00 90 18 95 Room Air 06/02/18 16:11 99 Room Air 06/02/18 16:04 89 06/02/18 15:46 36.7 93 18 99 Room Air Physical Exam GENERAL: alert, uncomfortable appearing, well nourished, mild distress, non- toxic EYE EXAM: normal conjunctiva, PERRL and EOM's grossly intact OROPHARYNX: no exudate, no erythema, lips, buccal mucosa, and tongue normal and mucous membranes are moist NECK: supple, no nuchal rigidity, no adenopathy, non-tender LUNGS: Clear to auscultation. Normal chest wall mechanics HEART: Appropriate humming of LVAD noted. CHEST: Reproducible left chest wall tenderness. No evidence of trauma. No overlying rash or erythema. ABDOMEN: abdomen soft, non-tender, normo-active bowel sounds, no masses, no rebound or guarding. Driveline well appearing, no surrounding erythema. BACK: Back is symmetrical on inspection and there is no deformity, no midline tenderness, no CVA tenderness. SKIN: no rashes and no bruising UPPER EXTREMITIES: upper extremities are grossly normal. Full range of motion, normal perfusion. LOWER EXTREMITIES: 1+ pitting edema bilaterally. Full range of motion, normal perfusion. NEURO EXAM: Normal sensorium, cranial nerves II-XII grossly intact, normal speech, no gross weakness of arms, no gross weakness of legs. Medical Decision & Procedures ER Provider Diagnostic Interpretation: Radiology results have been interpreted by the radiologist and reviewed by me. SINGLE VIEW CHEST CLINICAL HISTORY: Atypical chest pain. FINDINGS: An AP, portable, upright chest radiograph is compared to study dated 04/25/2018 and correlated with chest CT dated 05/28/2018. The examination is degraded by portable technique and patient rotation. A single lead cardiac AICD is unchanged in position, as is a right subclavian central venous infusion port. The patient is status post midline sternotomy. The ventricular assist device is noted. The heart is enlarged. The pulmonary vasculature is noncongested. Chronic interstitial thickening and elevation of the right hemidiaphragm are similar to previous. Trace pleural effusions are noted. There is no airspace consolidation typical for pneumonia. No pneumothorax is seen. The skeletal structures are osteopenic. The bony thorax is grossly intact. IMPRESSION: 1. Cardiomegaly, ventricular assist device, and AICD. There is no radiographic evidence of congestive failure. 2. Trace pleural effusions are noted. Electronically signed by: Dre Vaca M.D. 06/02/2018 4:00 PM Dictated Date/Time: 06/02/2018 3:58 PM Laboratory Results 06/02/18 16:35 Red Blood Count 2.99, Mean Corpuscular Volume 91.0, Mean Corpuscular Hemoglobin 29.8, Mean Corpuscular Hemoglobin Concent 32.7, Mean Platelet Volume 11.3, Neutrophils (%) (Auto) 68.6, Lymphocytes (%) (Auto) 14.3, Monocytes (%) (Auto) 8.8, Eosinophils (%) (Auto) 1.1, Basophils (%) (Auto) 0.6, Neutrophils # (Auto) 2.49, Lymphocytes # (Auto) 0.52, Monocytes # (Auto) 0.32, Eosinophils # (Auto) 0.04, Basophils # (Auto) 0.02 06/02/18 16:35 Test 06/02/18 16:35 06/02/18 18:43 White Blood Count 3.63 K/uL (4.8-10.8) Red Blood Count 2.99 M/uL (4.2-5.4) Hemoglobin 8.9 g/dL (12.0-16.0) Hematocrit 27.2 % (37-47) Mean Corpuscular Volume 91.0 fL (80-100) Mean Corpuscular Hemoglobin 29.8 pg (25-34) Mean Corpuscular Hemoglobin Concent 32.7 g/dl (32-36) Platelet Count 129 K/uL (130-400) Mean Platelet Volume 11.3 fL (7.4-10.4) Neutrophils (%) (Auto) 68.6 % Lymphocytes (%) (Auto) 14.3 % Monocytes (%) (Auto) 8.8 % Eosinophils (%) (Auto) 1.1 % Basophils (%) (Auto) 0.6 % Neutrophils # (Auto) 2.49 K/uL (1.4-6.5) Lymphocytes # (Auto) 0.52 K/uL (1.2-3.4) Monocytes # (Auto) 0.32 K/uL (0.11-0.59) Eosinophils # (Auto) 0.04 K/uL (0-0.5) Basophils # (Auto) 0.02 K/uL (0-0.2) RDW Standard Deviation 58.3 fL (36.4-46.3) RDW Coefficient of Variation 17.9 % (11.5-14.5) Immature Granulocyte % (Auto) 6.6 % Immature Granulocyte # (Auto) 0.24 K/uL (0.00-0.02) Nucleated RBC Absolute Count (auto) 0.03 K/uL (0-0) Nucleated Red Blood Cells % 0.7 % Large Platelets 1+ Tear Drop Cells 1+ Ovalocytes 1+ Schistocytes 1+ Prothrombin Time 28.9 SECONDS (9.0-12.0) Prothromb Time International Ratio 2.8 (0.9-1.1) Anion Gap 9.0 mmol/L (3-11) Est Creatinine Clear Calc Drug Dose 48.0 ml/min Estimated GFR () 59.5 Estimated GFR (Non- 51.3 BUN/Creatinine Ratio 16.3 (10-20) Calcium Level 9.6 mg/dl (8.5-10.1) Magnesium Level 1.8 mg/dl (1.8-2.4) Total Bilirubin 0.9 mg/dl (0.2-1) Aspartate Amino Transf (AST/SGOT) 50 U/L (15-37) Alanine Aminotransferase (ALT/SGPT) 11 U/L (12-78) Alkaline Phosphatase 302 U/L (45-117) Pro-B-Type Natriuretic Peptide 9362 pg/ml (0-900) Total Protein 6.0 gm/dl (6.4-8.2) Albumin 3.2 gm/dl (3.4-5.0) Globulin 2.8 gm/dl (2.5-4.0) Albumin/Globulin Ratio 1.2 (0.9-2) Lipase 100 U/L (73-393) Troponin I < 0.015 ng/ml (0-0.045) Laboratory results per my review. Medications Administered Medications (Trade) Dose Ordered Sig/Piedad Route Start Time Stop Time Status Last Admin Dose Admin Fentanyl Citrate (Fentanyl Inj) 50 mcg NOW STAT IV 06/02/18 15:49 06/02/18 15:50 DC 06/02/18 16:50 50 MCG Ondansetron HCl (Zofran Inj) 4 mg NOW STAT IV 06/02/18 17:21 06/02/18 17:22 DC 06/02/18 17:33 4 MG Fentanyl Citrate (Fentanyl Inj) 50 mcg NOW STAT IV 06/02/18 18:05 06/02/18 18:06 DC 06/02/18 18:32 50 MCG ED Course 1537: The patient was evaluated in room C4. A complete history and physical exam was performed. 1549: Ordered Fentanyl Inj 50 mcg IV. 1630: I checked on the patient. The IV team is trying to access her port. 1721: Ordered Zofran Inj 4 mg IV. 1750: I spoke with Dr. Beckwith, [facility]. He agrees to accept the patient. Medical Decision Differential diagnosis: Etiologies such as cardiac ischemia, aortic dissection, pulmonary embolism, pneumonia, pneumothorax, musculoskeletal, infections, pericarditis, myocarditis , esophageal rupture, gastrointestinal, as well as others were entertained. Patient with complicated medical history including cardiac history with LVAD in place. No significant change in patient's settings and I do not suspect acute thrombus within the device or driveline, no evidence of acute infection at the insertion site in the right lower abdomen. Patient's port well-appearing with no evidence of active infection. Patient's labs stable compared to prior recent results within the last month. Patient with ongoing fatigue, dizziness, nausea that she states has been evaluated over the last month, and felt overall worse today after she began having acute left-sided chest pain that she feels is related to her indwelling device. Patient's troponin negative. EKG has too much artifact on both EKGs to otherwise evaluate for any acute change. I have a lower suspicion for ACS as she has had a prior catheterization that did not show obstructive CAD according to [facility]. Patient with evidence of appropriate perfusion and I feel hemodynamically stable at this time. Patient given pain and nausea medication and allowed to sit fluids while here. Arrangements made for transportation to [facility]. Patient's INR therapeutic. I do not suspect occult infectious etiology for the patient's chest pain or trouble breathing at this time. Medication Reconcilliation Current Medication List: was personally reviewed by me Blood Pressure Screening blood pressure unobtainable due to LVAD. Consults Time Called: 1745 Consulting Physician: Dr. Beckwith, [facility] Returned Call: [address] Beckwith, [facility]. He agrees to accept the patient. Impression Primary Impression: Chest pain Additional Impressions: LVAD (left ventricular assist device) present Dizziness Fatigue Nausea Critical Care I have personally spent greater than 45 minutes of critical care time in the direct management of this patient. This includes bedside care, interpretation of diagnostic studies, and testing, discussion with consultants, patient, and family members, and other required patient management activities. This 45 minutes is in excess of all separately billable procedures. Scribe Attestation The scribe's documentation has been prepared under my direction and personally reviewed by me in its entirety. I confirm that the note above accurately reflects all work, treatment, procedures, and medical decision making performed by me. Departure Information Dispostion Transfer Acute Care Facility Referrals Pro,Jamshid Joya M.D. (PCP) Patient Instructions My [facility] Problem Qualifiers Primary Impression: Chest pain Chest pain type: unspecified Qualified Codes: R07.9 - Chest pain, unspecified Additional Impressions: Fatigue Fatigue type: unspecified Qualified Codes: R53.83 - Other fatigue
[2018-06-02] MEDS ORDERED: FENTANYL CITRATE INJ 50 MCG/1 ML 2 ML VIAL IV STA ×2 (15:49→18:05)
--- NOTE | 2018-06-02 16:02 | DIAGNOSTIC IMAGING REPORT ---
SINGLE VIEW CHEST CLINICAL HISTORY: Atypical chest pain. FINDINGS: An AP, portable, upright chest radiograph is compared to study dated 04/25/2018 and correlated with chest CT dated 05/28/2018. The examination is degraded by portable technique and patient rotation. A single lead cardiac AICD is unchanged in position, as is a right subclavian central venous infusion port. The patient is status post midline sternotomy. The ventricular assist device is noted. The heart is enlarged. The pulmonary vasculature is noncongested. Chronic interstitial thickening and elevation of the right hemidiaphragm are similar to previous. Trace pleural effusions are noted. There is no airspace consolidation typical for pneumonia. No pneumothorax is seen. The skeletal structures are osteopenic. The bony thorax is grossly intact. IMPRESSION: 1. Cardiomegaly, ventricular assist device, and AICD. There is no radiographic evidence of congestive failure. 2. Trace pleural effusions are noted. Electronically signed by: Dre Vaca M.D. 06/02/2018 4:00 PM Dictated Date/Time: 06/02/2018 3:58 PM
[2018-06-02] MEDS ORDERED: WARF2.5T8 PO (16:22)
[2018-06-02] MEDS ORDERED: OXYC-164 PO (16:22)
[2018-06-02] MEDS ORDERED: BUME1TAB PO (16:22)
[2018-06-02 16:53] LABS: HEMATOCRIT 27.2 % (37-47); HEMOGLOBIN 8.9 g/dL (12.0-16.0); MEAN CORPUSCULAR HEMOGLOBIN 29.8 pg (25-34); MEAN CORPUSCULAR HGB CONC 32.7 g/dl (32-36); MEAN PLATELET VOLUME 11.3 fL (7.4-10.4); NUCLEATED RED BLOOD CELL ABS 0.03 K/uL (0-0); PLATELET COUNT 129 K/uL (130-400); RED CELL DISTRIBUTION WIDTH CV 17.9 % (11.5-14.5); RED CELL DISTRIBUTION WIDTH SD 58.3 fL (36.4-46.3); WHITE BLOOD COUNT 3.63 K/uL (4.8-10.8)
[2018-06-02 17:03] LABS: INR 2.8 (0.9-1.1)
[2018-06-02 17:17] LABS: ALBUMIN 3.2 gm/dl (3.4-5.0); ALKALINE PHOSPHATASE 302 U/L (45-117); ALT/SGPT 11 U/L (12-78); AST/SGOT 50 U/L (15-37); BLOOD UREA NITROGEN 18 mg/dl (7-18); CALCIUM 9.6 mg/dl (8.5-10.1); CARBON DIOXIDE 25 mmol/L (21-32); CREATININE 1.13 mg/dl (0.60-1.20); GLUCOSE 81 mg/dl (70-99); LIPASE 100 U/L (73-393); POTASSIUM 3.8 mmol/L (3.5-5.1); SODIUM 136 mmol/L (136-145)
[2018-06-02 17:20] LABS: BASO % 0.6 %; BASO ABS # 0.02 K/uL (0-0.2); EOS % 1.1 %; EOS ABS # 0.04 K/uL (0-0.5); IG# 0.24 K/uL (0.00-0.02); LYMPH % 14.3 %; LYMPH ABS # 0.52 K/uL (1.2-3.4); MONO % 8.8 %; MONO ABS # 0.32 K/uL (0.11-0.59); NEUT % 68.6 %; NEUT ABS # 2.49 K/uL (1.4-6.5)
[2018-06-02] MEDS ORDERED: ONDANSETRON INJ 2 MG/ML 2 ML VIAL IV STA (17:21)
[2018-06-02 19:00] VITALS: PULSE 90; O2SAT 95
[2018-06-02] MEDS ORDERED: FENTANYL CITRATE INJ 50 MCG/1 ML 2 ML VIAL IV PRN (19:15)
== END 2018-06-02 19:30 | disposition short-term general hospital (02) ==
LOC: EDBD 15:33 → C.EDC 15:35
DX: R07.9 Chest pain, unspecified (principal); Z95.810 Presence of automatic (implantable) cardiac defibrillator; R42 Dizziness and giddiness; R53.83 Other fatigue; R11.0 Nausea; Z85.3 Personal history of malignant neoplasm of breast; I48.91 Unspecified atrial fibrillation; Z79.82 Long term (current) use of aspirin; Z79.01 Long term (current) use of anticoagulants; Z79.899 Other long term (current) drug therapy; R60.0 Localized edema

== ENCOUNTER → 2018-06-25 | Outpatient (CLI) | payer OTHER ==
[~2018-06-25] MED LIST changes: -AMOX500C3 PO; +BUME1TAB PO; -CALC600T PO; -CHOL100010 PO; +OXYC-164 PO; -OXYC-609 PO; -POTA20TA13 PO; -SERT100T PO; -TRAM-453 PO; -TRMCR130WC TOP; -WARF-285 PO; +WARF2.5T8 PO; -WARF4TAB8 PO
[2018-06-25 11:37] LABS: HEMATOCRIT 26.9 % (37-47); HEMOGLOBIN 8.6 g/dL (12.0-16.0); MEAN CELL VOLUME 95.4 fL (80-100); MEAN CORPUSCULAR HEMOGLOBIN 30.5 pg (25-34); MEAN PLATELET VOLUME 11.1 fL (7.4-10.4); NUCLEATED RED BLOOD CELL ABS 0.04 K/uL (0-0); PLATELET COUNT 118 K/uL (130-400); RED CELL DISTRIBUTION WIDTH CV 22.3 % (11.5-14.5); RED CELL DISTRIBUTION WIDTH SD 73.1 fL (36.4-46.3); WHITE BLOOD COUNT 2.02 K/uL (4.8-10.8)
[2018-06-25 11:55] LABS: ALBUMIN 3.3 gm/dl (3.4-5.0); ALT/SGPT 15 U/L (12-78); AST/SGOT 45 U/L (15-37); BLOOD UREA NITROGEN 16 mg/dl (7-18); CALCIUM 6.6 mg/dl (8.5-10.1); CARBON DIOXIDE 20 mmol/L (21-32); CREATININE 0.85 mg/dl (0.60-1.20); GLUCOSE 93 mg/dl (70-99); SODIUM 137 mmol/L (136-145)
[2018-06-25 12:00] LABS: ALKALINE PHOSPHATASE 195 U/L (45-117)
[2018-06-25 12:13] LABS: BASO % 0.5 %; BASO ABS # 0.01 K/uL (0-0.2); EOS ABS # 0.02 K/uL (0-0.5); IG# 0.13 K/uL (0.00-0.02); LYMPH % 16.8 %; LYMPH ABS # 0.34 K/uL (1.2-3.4); MONO % 8.9 %; MONO ABS # 0.18 K/uL (0.11-0.59); NEUT % 66.4 %; NEUT ABS # 1.34 K/uL (1.4-6.5)
== END | disposition home or self-care (01) ==
LOC: C.LABSPEC 11:17
PROVIDERS: ATTEND Internal Medicine Hematology & Oncology
DX: C50.411 Malignant neoplasm of upper-outer quadrant of right female breast (principal)